=== PATIENT | female | born 1965 | race Caucasian/White ===

== ENCOUNTER 2017-12-29 17:11 | Emergency (ER) | payer MEDICARE, SELFPAY ==
[2017-12-29 17:13] VITALS: BP 130/75; PULSE 105; RESP 18; TEMP 36.9; O2SAT 94; BMI 48.8
[2017-12-29 17:19] VITALS: BMI 48.8
--- NOTE | 2017-12-29 17:34 | CT_ITS ---
STUDY: CT ABDOMEN AND PELVIS WITH CONTRAST REASON FOR EXAM: Female, 52 years old. PAIN X 1 MONTH, HX ASTHMA, GB, HTN RADIATION DOSAGE (If Supplied By Facility): CTDIvol = ( 25.39 ) mGy, DLP = ( 1296.93 ) mGycm TECHNIQUE: Transaxial images were obtained from the dome of the diaphragm to the symphysis pubis without oral contrast. 100ML ml of Isovue 300 contrast was administered. Sagittal and coronal images were reconstructed. Individualized dose optimization techniques were used for this CT. COMPARISON: March 28, 2017 FINDINGS: Again seen is borderline cardiomegaly. Normal liver. There is non-visualization of the gallbladder, which may be secondary to either contraction or a prior cholecystectomy. Normal spleen. Normal pancreas. Normal bilateral adrenal glands. Normal right kidney. Normal left kidney. There is a stable small hiatal hernia. Normal small intestine. There are multiple colonic diverticula consistent with diverticulosis. The appendix is visualized and appears normal. Normal abdominal aorta. Normal inferior vena cava. Normal retroperitoneum. Normal urinary bladder. Normal abdominal wall. There are diffuse degenerative changes of the visualized lumbar spine. CT/Abdomen/Pelvis W IV Cont ONLY IMPRESSION: No acute abnormality is demonstrated. All of the findings are chronic. Electronically Signed: Margret Doyle MD at 19:37 EST , Service support ,
--- NOTE | 2017-12-29 17:37 | ED.DCSUM_ITS ---
- ER Visit Summary Date of Service: 12/29/17 Chief Complaint: Abdominal pain History of Present Illness: The patient is a 52 F who presents with 1 month of abdominal pain. Patient states the pain is diffuse and continuous. It is worsened today. She denies vomiting, nausea, diarrhea or constipation. She states she is on dicyclomine for stomach spasms by her primary care doctor. She denies fever, but does endorse difficulty urinating and pelvic pain. She is diabetic and has hypertension. She is not on insulin. Physical Examination: Vital signs: afebrile, hemodynamically stable, no hypoxia on room air General: well nourished, well developed, in no distress, obese Skin: warm, dry, no rash, no pallor HEENT: normocephalic and atraumatic; PERRL, EOMI, moist mucous membranes Cardiovascular: Mildly tachycardic regular rate and rhythm without murmurs, no peripheral edema, 2+ pulses all distal extremities Respiratory: No increased work of breathing, lungs are clear to auscultation bilaterally, no rales, rhonchi or wheezing Abdominal: Abdomen is soft, obese, diffusely tender quadrants and suprapubic region with normoactive bowel sounds, no guarding or rebound, no masses MSK: Moves all extremities, no deformities, normal strength Neuro: Awake and alert, oriented ?4. No facial droop, sensation and motor function intact and symmetric Test Results: Abnormal Lab Results 12/29/17 12/29/17 12/29/17 17:30 17:30 18:16 WBC 10.2 RBC 4.56 Hgb 11.9 L Hct 37.5 MCV 82.2 MCH 26.1 L MCHC 31.7 L RDW 14.4 RDW Differential 43.0 Plt Count 231 MPV 11.1 Immature Gran % (Auto) 0.300 Neut % (Auto) 73.9 H Lymph % (Auto) 17.8 L Green % (Auto) 7.5 Eos % (Auto) 0.2 Baso % (Auto) 0.3 Absolute Neuts (auto) 7.6 Absolute Lymphs (auto) 1.82 Total Counted Not Reportable Sodium Potassium Chloride Carbon Dioxide Anion Gap BUN Creatinine Estim Creat Clear Calc Est GFR (MDRD) Af Amer Est GFR (MDRD) Non-Af BUN/Creatinine Ratio Glucose Calcium Total Bilirubin AST ALT Alkaline Phosphatase Total Protein Albumin Globulin Albumin/Globulin Ratio Lipase Urine Color Yellow Urine Clarity Clear Urine pH 6.5 Ur Specific [place] 1.010 Urine Protein Negative Urine Glucose (UA) Normal Urine Ketones Negative Urine Occult Blood 25 H Urine Nitrite Negative Urine Bilirubin Negative Urine Urobilinogen Normal Ur Leukocyte Esterase 25 H Urine RBC 0 SEEN Urine WBC 0 SEEN Ur Squamous Epith Cells 10-25 SEEN Urine Bacteria 0 SEEN Hyaline Casts 0-5 SEEN Urine Mucus 0 SEEN Urine Test Negative 12/29/17 18:16 WBC RBC Hgb Hct MCV MCH MCHC RDW RDW Differential Plt Count MPV Immature Gran % (Auto) Neut % (Auto) Lymph % (Auto) Green % (Auto) Eos % (Auto) Baso % (Auto) Absolute Neuts (auto) Absolute Lymphs (auto) Total Counted Sodium 136 Potassium 3.3 L Chloride 101 Carbon Dioxide 27.0 Anion Gap 8 BUN 10 Creatinine 0.76 Estim Creat Clear Calc 67.71 Est GFR (MDRD) Af Amer 102 Est GFR (MDRD) Non-Af 84 BUN/Creatinine Ratio 13.1 Glucose 102 Calcium 8.3 L Total Bilirubin 0.30 AST 21 ALT 24 Alkaline Phosphatase 154 H Total Protein 7.5 Albumin 3.0 L Globulin 4.5 H Albumin/Globulin Ratio 0.7 L Lipase 95 Urine Color Urine Clarity Urine pH Ur Specific [place] Urine Protein Urine Glucose (UA) Urine Ketones Urine Occult Blood Urine Nitrite Urine Bilirubin Urine Urobilinogen Ur Leukocyte Esterase Urine RBC Urine WBC Ur Squamous Epith Cells Urine Bacteria Hyaline Casts Urine Mucus Urine Test Emergency Department Course and Treatment: Patient was given IV hydration, Zofran and Toradol for symptomatic relief. Labs were performed showing no leukocytosis, no significant electrolyte derangements, no hepatic derangements, normal lipase, normal urine, negative . No lab abnormalities at all. CT of the abdomen and pelvis was performed given difficulty performing an assessment due to body habitus, and showed no acute process. Patient was advised to follow-up with her doctor regarding her continued abdominal pain. She already has a prescription for Bentyl, and I told her that is what I would have prescribed her as well. Patient was discharged home. Treatment Plan: [] Disposition: [] Impression: Recurrent abdominal pain This note was generated with Hudl dictation software. It may contain incorrect words, spelling, and punctuation that were not noted in review of the chart prior to signing ED Disposition - Plan for ED Patient: Disposition: Home or Assisted Living Chief Complaint: General Illness Instructions: ED Abdominal Pain Unkn Cause Referrals: Nick Giraldo DO [Primary Care Provider] - 3-5 Days if not improving Additional Instructions: You had a workup for your abdominal pain today. Your blood work was all normal. Your urine showed no infection. A CT scan of your abdomen showed no abnormalities. Please continue using your medications that were prescribed by your doctor for stomach cramps. Please follow-up with your doctor if you continue to have symptoms.
[2017-12-29 17:46] LABS: Bacteria 0 SEEN /hpf (None Seen); Mucous, Urine 0 SEEN /hpf (<or=2+); Red Blood Cells-Urine 0 SEEN /hpf (0-5); White Blood Cells 0 SEEN /hpf (0-5)
[2017-12-29 17:48] LABS: Color, Urine Yellow (Yellow); Glucose, Dipstick Normal (Normal); Ketone-Dipstick Negative (Negative); Leukocyte Esterase-Dipstick 25 /ul (Negative); Nitrite-Dipstick Negative (Negative); Occult Blood-Urine 25 /ul (Negative); Protein-Dipstick Negative (Negative); Urine Bilirubin Dipstick Negative (Negative); Urine Clarity Clear (Clear); Urine Urobilinogen Normal (Normal); Urine pH 6.5 (5.0 - 8.0)
[2017-12-29 17:50] LABS: Internal QC Validated? YES +Cl - CLEAR BKGD; Pregnancy, Urine Negative Negative
[2017-12-29 17:57] LABS: Hyaline Cast 0-5 SEEN /lpf (0-5); Squamous Epithelial Cells - UA 10-25 SEEN /hpf (5-10)
[2017-12-29] MEDS: 0.9% Normal Saline 1,000 ML 1000 ML IV (18:26)
[2017-12-29] MEDS: Ketorolac 30 MG/ML Syringe IV (18:26)
[2017-12-29] MEDS: Ondansetron 4 MG/2 ML Vial IV (18:26)
[2017-12-29 18:32] LABS: Absolute Lymphocyte Count 1.82 X10^3/ul (0.83-4.51); Absolute Neutrophil Count 7.6 X10^3/uL (2.0-7.7); Basophil# 0.03 X10^3/uL; Basophil% 0.3 % (0-1); Eosinophil# 0.02 X10^3/uL; Eosinophils% 0.2 % (0-5); Hematocrit 37.5 % (37-47); Hemoglobin 11.9 g/dl (12.0-15.0); Lymphocyte # 1.82 X10^3/ul (4.0); Lymphocyte % 17.8 % (19-41); Mean Corp Hgb Conc 31.7 g/gl (32-36); Mean Corpuscular Hgb 26.1 pg (27.0-32.0); Mean Corpuscular Volume 82.2 fL (81-99); Mean Platelet Vol. 11.1 fl (6.2-12.0); Monocyte# 0.77 X10^3/uL; Monocyte% 7.5 % (0-10); Neutrophil # 7.57 X10^3/uL (2.7-7.7); Neutrophil % 73.9 % (47-70); POSITIVE COUNT NO; POSITIVE DIFFERENTIAL NO; POSITIVE MORPHOLOGY NO; Platelet Count 231 K/mm3 (150-450); RBC Distribution Width CV 14.4 % (11.6-14.6); Red Blood Count 4.56 M/mm3 (4.2-5.4); White Blood Count 10.2 K/mm3 (4.4-11.0)
[2017-12-29 18:41] LABS: ALB/GLOB Ratio 0.7 RATIO (0.9-2.4); AST(SGOT) 21 U/L (15-37); Alanine Aminotransfer ALT/SGPT 24 U/L (13-56); Alkaline Phosphatase 154 U/L (45-117); Anion Gap 8 (5-15); BUN 10 mg/dL (7-18); BUN/Creat Ratio 13.1 RATIO (10-20); Calcium,Total 8.3 mg/dL (8.5-10.1); Chloride 101 mmol/L (98-107); Creatinine, Serum 0.76 mg/dL (0.55-1.02); EST Glomerular Filtration Rate 84 mL/min (>60); Est Glom Filt Rate - Afr Amer 102 mL/min (>60); Estimated Creatinine Clearance 67.71 ml/min; Globulin 4.5 g/dL (2.2-4.2); Glucose 102 mg/dL (70-110); Lipase 95 U/L (73-393); Potassium 3.3 mmol/L (3.5-5.1); Protein, Total 7.5 g/dL (6.4-8.2); Sodium Level 136 mmol/L (136-145)
--- NOTE | 2017-12-29 19:51 | ED.DEP ---
ED Disposition - Plan for ED Patient: Disposition: Home or Assisted Living Chief Complaint: General Illness Instructions: ED Abdominal Pain Unkn Cause Referrals: Nick Giraldo DO [Primary Care Provider] - 3-5 Days if not improving Additional Instructions: You had a workup for your abdominal pain today. Your blood work was all normal. Your urine showed no infection. A CT scan of your abdomen showed no abnormalities. Please continue using your medications that were prescribed by your doctor for stomach cramps. Please follow-up with your doctor if you continue to have symptoms.
[2017-12-29 20:00] VITALS: BP 146/86; PULSE 93; RESP 20; O2SAT 96
== END 2017-12-29 20:22 | disposition home or self-care (01) ==
PROVIDERS: Emergency Provider Emergency Medicine; Family Provider Student in an Organized Health Care Education/Training Program; PCP Student in an Organized Health Care Education/Training Program
DX: R10.9 Unspecified abdominal pain (principal); E11.9 Type 2 diabetes mellitus without complications; Z79.84 Long term (current) use of oral hypoglycemic drugs; I10 Essential (primary) hypertension; E66.9 Obesity, unspecified; Z68.42 Body mass index [BMI] 45.0-49.9, adult; Z79.899 Other long term (current) drug therapy
CPT/HCPCS: 74176; 80053; 81001; 81025; 83690; 85025; 96361; 96374; 96375; 99285; J7030; Q9967; A4216; J2405

== ENCOUNTER 2019-08-02 02:17 | Emergency (ER) | payer MEDICARE, SELFPAY ==
[2019-08-02 02:18] VITALS: BP 152/77; PULSE 125; RESP 20; TEMP 36.8; O2SAT 95; BMI 47.2
--- NOTE | 2019-08-02 02:20 | EKG12_ITS ---
Test Reason : SHOULDER PAIN Blood Pressure : / mmHG Vent. Rate : 126 BPM Atrial Rate : 126 BPM P-R Int : 164 ms QRS Dur : 100 ms QT Int : 290 ms P-R-T Axes : 052 021 096 degrees QTc Int : 420 ms Sinus tachycardia Nonspecific ST and T wave abnormality Abnormal ECG Confirmed by GILBERT PETERSON, WENDY ([id number]), online content editor VALDEMAR LORENZO ([id number]) on 08/04/2019 11:08:23 AM Referred By: NYDIA Confirmed By:WENDY HUNT MD
--- NOTE | 2019-08-02 02:21 | RAD_ITS ---
STUDY: X-RAY - RIGHT SHOULDER REASON FOR EXAM: Female, 54 years old. Shoulder pain TECHNIQUE: 2 view(s) of the shoulder. COMPARISON: None. FINDINGS: Normal glenohumeral articulation. There is degenerative arthrosis of the acromioclavicular joint without inferior osseous spur formation. Normal acromion. Normal humeral head and visualized proximal humerus. The soft tissue structures are unremarkable. Normal visualized pulmonary apex. RAD/Shoulder min 2 Views IMPRESSION: There is degenerative arthrosis of the acromioclavicular joint. Electronically Signed: Carlos Correa, at 4:06 EDT Tel , Service support ,
--- NOTE | 2019-08-02 02:21 | RAD_ITS ---
STUDY: X-RAY CHEST REASON FOR EXAM: Female, 54 years old. Chest pain TECHNIQUE: Single AP portable view of the chest. COMPARISON: 07/28/2017 FINDINGS: The lungs are clear and expanded. There is no demonstrated pleural abnormality. Normal size heart. Normal mediastinum and jose m. Normal visualized pulmonary arteries. Normal visualized aortic arch and descending thoracic aorta. Normal visualized thoracic spine. There is degenerative osteoarthritis of the bilateral shoulders. There is no demonstrated abnormality of the visualized soft tissue structures of the upper abdomen. RAD/Chest PA and Lateral IMPRESSION: Degenerative changes, as described above. No demonstrated acute cardiopulmonary process. Electronically Signed: Carlos Correa, at 4:04 EDT Tel , Service support ,
--- NOTE | 2019-08-02 02:28 | ED.VIS.GEN ---
History of Present Illness Chief Complaint: Shortness of Breath Informant: Patient Onset: Days Context: Gradual Onset Timing: Continuous Current Severity: Moderate Maximum Severity: Moderate Narrative: Patient presents to the emergency department with 6 days of constant right-sided chest and shoulder pain. She states her symptoms began when she was lifting a lot of heavy items. Since then, she is had persistent pain. She states it hurts to move the shoulder. Also hurts when she lifts things. She denies any exertional symptoms of chest pain. She has no history of coronary vascular disease. The patient does have history of diabetes and hypertension. She also has history of bipolar disorder. She cannot recall any definitive trauma. She has not taken anything for her pain. She denies leg edema. She denies orthopnea. She has no history of pulmonary embolus. Prior similar symptoms: No Recent Illness/Hospitalization: No Past Medical History - Allergies and Home Meds Allergies/Adverse Reactions: Allergies latex Allergy (Verified 08/02/19 02:18) Rash lithium [[place]] Allergy (Verified 08/02/19 02:18) Anaphylaxis acetaminophen [From Tylenol-Codeine] Adverse Reaction (Verified 08/02/19 02:18) Vomiting aspirin Adverse Reaction (Verified 08/02/19 02:18) Vomiting citalopram hydrobromide [From Celexa] Adverse Reaction (Verified 08/02/19 02:18) Other DOESN'T HELP MY DEPRESSION codeine Adverse Reaction (Verified 08/02/19 02:18) Vomiting divalproex sodium [From Depakote] Adverse Reaction (Verified 08/02/19 02:18) Vomiting ibuprofen Adverse Reaction (Verified 08/02/19 02:18) Nausea nortriptyline Adverse Reaction (Verified 08/02/19 02:18) Other SLEEPING PILL Adverse Reaction (Uncoded 08/02/19 02:18) Other SLEEP WALKING Primary Care Physician: Nick Giraldo DO [Primary Care Provider] - Prior records reviewed: Yes Past Medical History: - - Hypertension, diabetes, bipolar disorder Surgical History: cholecystectomy, total knee arthroplasty, tonsillectomy Smoking Status: Never smoker - Family History Maternal Family History: Reports: No pertinent history Paternal Family History: Reports: No pertinent history Review of Systems General: Denies: Chills, Fever, Sweats Eyes: Denies: Visual changes - bilaterally, Diplopia ENT: Denies: Rhinorrhea, Sore throat Cardiovascular: Reports: Chest pain Respiratory: Reports: Dyspnea Gastrointestinal: Denies: Abdominal pain, Nausea, Vomiting, Diarrhea, Melena, Hematochezia Genitourinary: Denies: Dysuria, Hematuria, Frequency Musculoskeletal: Reports: Arthralgias Skin: Denies: Rash, Wounds Neurological: Denies: Headache, Weakness, Numbness Physical Exam Vital Signs/Narrative: Vital Signs Temp Pulse Resp BP Pulse Ox 08/02/19 02:18 98.3 F 125 H 20 H 152/77 H 95 Inital Vital Signs reviewed: Yes General: Well nourished, Well developed, No Acute Distress Head: Normocephalic, Atraumatic Eyes: Perrl, EOMI ENT: Moist mucous membranes, No rhinorrhea Neck: Supple, Nontender Cardiovascular: Regular rate, Regular rhythm, No murmurs Respiratory: No distress, CTA bilaterally, Chest tenderness Abdomen: Soft, Nontender, Nondistended, Normal bowel sounds Back: Nontender, Normal Inspection Extremities: No edema, Tenderness - Mild tenderness with motion of the right shoulder. No erythema or edema. Normal pulses. Skin: Normal color, No rash Neurological: Alert, Oriented x3, Cranial nerves II-XII grossly intact, Normal Strength, Normal Sensation Psychological: Normal affect, Normal Mood Diagnostic/Tx/Re-eval Chest X-Ray - ED: 2 View, Read by ED Physician, Read by Radiologist, Normal, Heart, Lungs Clinical Impression(s) from Imaging Studies Chest X-Ray 08/02/19 02:21 IMPRESSION: Degenerative changes, as described above. No demonstrated acute cardiopulmonary process. Electronically Signed: Carlos Correa, at 4:04 EDT Tel , Service support , Shoulder X-Ray 08/02/19 02:21 IMPRESSION: There is degenerative arthrosis of the acromioclavicular joint. Electronically Signed: Carlos Correa, at 4:06 EDT Tel , Service support , Abnormal Lab Results 08/02/19 08/02/19 08/02/19 02:45 02:45 02:45 WBC 11.8 H RBC 4.37 Hgb 11.3 L Hct 35.2 L MCV 80.5 L MCH 25.9 L MCHC 32.1 RDW Std Deviation 40.7 RDW Coeff of Yink[place] 14.0 Plt Count 217 MPV 11.5 Immature Gran % (Auto) 0.600 Neut % (Auto) 69.8 Lymph % (Auto) 21.8 [place] % (Auto) 5.6 Eos % (Auto) 1.9 Baso % (Auto) 0.3 Absolute Neuts (auto) 8.2 H Absolute Lymphs (auto) 2.58 Nucleated RBC % 0 D-Dimer Quant (PE/DVT) 0.30 Sodium 142 Potassium 3.4 L Chloride 105 Carbon Dioxide 24.0 Anion Gap 13 BUN 20 H Creatinine 1.13 H Estim Creat Clear Calc 42.45 Est GFR (MDRD) Af Amer 64 Est GFR (MDRD) Non-Af 53 L BUN/Creatinine Ratio 17.7 Glucose 132 H Calcium 8.4 L Total Bilirubin 0.20 AST 11 L ALT 22 Alkaline Phosphatase 143 H Troponin I < 0.015 Total Protein 7.2 Albumin 3.0 L Globulin 4.2 Albumin/Globulin Ratio 0.7 L - Rhythm Strip Rhythm Strip: Sinus Tach Rate: 102 Ectopy: None - EKG Initial EKG Interpretation: Sinus Rhythm, No Acute Injury Pattern, Sinus Tachycardia Prior: Unchanged - Medical Decision Making The patient's pain does seem reproducible and worse with motion. She has normal pulses in the upper extremities. There is no skin breakdown, erythema, or edema. Chest pain work-up was pursued. EKG demonstrates sinus tachycardia. There is no acute ischemic change. With this, I did obtain a d-dimer. This was negative. X-ray shows no evidence of volume overload, pneumothorax, or other dangerous process. Patient's cardiac enzymes are normal. She had constant pain for 6 days. I do not feel this up with acute coronary syndrome. The patient's pain does seem muscular. I am going to treat her with anti-inflammatories and antispasmodics. She was counseled on concerning symptoms and reasons to return. She will be discharged home. Discharge 1. Noncardiac chest pain ED Disposition - Plan for ED Patient: Instructions: CHEST WALL PAIN, Costochondritis Prescriptions: cycloBENZAPRine HCl [Flexeril] 10 mg PO TID PRN #20 tab PRN Reason: Muscle Spasm Prescription Printed Naproxen [Naprosyn] 500 mg PO BID #14 tab Prescription Printed Referrals: Nick Giraldo DO [Primary Care Provider] -
[2019-08-02] MEDS: 0.9% Normal Saline 1,000 ML 1000 ML IV (02:45)
[2019-08-02] MEDS: Ondansetron 4 MG/2 ML Vial IV (02:46)
[2019-08-02] MEDS: Ketorolac 15 MG/ML Vial IV (02:46)
[2019-08-02 02:52] VITALS: O2SAT 98
[2019-08-02 02:52] LABS: Absolute Lymphocyte Count 2.58 X10^3/uL (0.83-4.51); Absolute Neutrophil Count 8.2 X10^3/uL (2.0-7.7); Basophil# 0.04 X10^3/uL; Basophil% 0.3 % (0-1); Eosinophil# 0.23 X10^3/uL; Eosinophils% 1.9 % (0-5); Hematocrit 35.2 % (37-47); Hemoglobin 11.3 g/dL (12.0-15.0); Lymphocyte # 2.58 X10^3/ul (4.0); Lymphocyte % 21.8 % (19-41); Mean Corp Hgb Conc 32.1 g/dL (32-36); Mean Corpuscular Hgb 25.9 pg (27.0-32.0); Mean Corpuscular Volume 80.5 fL (81-99); Mean Platelet Vol. 11.5 fl (6.2-12.0); Monocyte# 0.66 X10^3/uL; Monocyte% 5.6 % (0-10); NRBC Flagged by Analyzer 0 % (0-5); Neutrophil # 8.24 X10^3/uL (2.7-7.7); Neutrophil % 69.8 % (47-70); Platelet Count 217 K/mm3 (150-450); RBC Distribution Width SD 40.7 fl (35.1-43.9); Red Blood Count 4.37 M/mm3 (4.2-5.4); White Blood Count 11.8 K/mm3 (4.4-11.0)
[2019-08-02 03:11] LABS: ALB/GLOB Ratio 0.7 RATIO (0.9-2.4); AST(SGOT) 11 U/L (15-37); Alanine Aminotransfer ALT/SGPT 22 U/L (13-56); Alkaline Phosphatase 143 U/L (45-117); Anion Gap 13 (5-15); BUN 20 mg/dL (7-18); BUN/Creat Ratio 17.7 RATIO (10-20); Calcium,Total 8.4 mg/dL (8.5-10.1); Chloride 105 mmol/L (98-107); Creatinine, Serum 1.13 mg/dL (0.55-1.02); EST Glomerular Filtration Rate 53 mL/min (>60); Est Glom Filt Rate - Afr Amer 64 mL/min (>60); Estimated Creatinine Clearance 42.45 ml/min; Globulin 4.2 g/dL (2.2-4.2); Glucose 132 mg/dL (74-106); Potassium 3.4 mmol/L (3.5-5.1); Protein, Total 7.2 g/dL (6.4-8.2); Sodium Level 142 mmol/L (136-145)
[2019-08-02 04:20] VITALS: BP 132/61; PULSE 104; PULSE 105; RESP 20; RESP 21; O2SAT 93
== END 2019-08-02 04:27 | disposition home or self-care (01) ==
LOC: ED 03:24
PROVIDERS: Emergency Provider Emergency Medicine; Family Provider Student in an Organized Health Care Education/Training Program; PCP Student in an Organized Health Care Education/Training Program
DX: R07.89 Other chest pain (principal); R06.00 Dyspnea, unspecified; M19.011 Primary osteoarthritis, right shoulder; E11.9 Type 2 diabetes mellitus without complications; I10 Essential (primary) hypertension; F31.9 Bipolar disorder, unspecified; Z79.84 Long term (current) use of oral hypoglycemic drugs; Z79.899 Other long term (current) drug therapy
CPT/HCPCS: 71046; 73030; 80053; 84484; 85025; 85379; 93005; 96361; 96374; 96375; 99285; J7030; A4216; J2405

== ENCOUNTER 2020-02-20 17:46 | Emergency (ER) | payer MEDICARE, SELFPAY ==
[2020-02-20 17:47] VITALS: BP 126/80; PULSE 92; RESP 18; TEMP 36.8; O2SAT 98; BMI 45.2
[2020-02-20 17:51] VITALS: BP 126/80; PULSE 92; RESP 18; TEMP 36.8; O2SAT 98
--- NOTE | 2020-02-20 17:59 | ED.VISSUMM ---
- ER Visit Summary Date of Service: 02/20/20 Chief Complaint: Painful urination History of Present Illness: The patient is a 55 F who states she has had painful urination for the past 3-1/2 weeks. She has pain in what she says is her back and kidneys.in her suprapubic area. Laying down makes this worse. She has taken nothing for pain at home. No fevers. She states she also has a headache which she states is normal for her. She did vomit a couple of days ago but has not had any since. Physical Examination: Vital signs reviewed. HEENT exam unremarkable. Heart is regular rate and rhythm without murmurs. Lungs are clear to auscultation. Abdomen is soft with suprapubic tenderness. Extremities reveal no edema. Skin exam normal. Neurologic exam normal. Test Results: Urinalysis has 0-5 white cells, 0-5 red cells and 5-10 epithelial cells. No bacteria seen. Emergency Department Course and Treatment: Patient will be given Tylenol for pain. Her exam is fairly benign. Her vital signs are unremarkable. UA has no signs of any bacteria or infection. I do not feel she requires antibiotics. She will take Tylenol or ibuprofen for pain at home. She will follow-up with her doctor Treatment Plan: [] Disposition: Discharge Impression: Dysuria This note was generated with Trippeo dictation software. It may contain incorrect words, spelling, and punctuation that were not noted in review of the chart prior to signing ED Disposition - Plan for ED Patient: Disposition: Home or Assisted Living Instructions: DYSURIA, Uncertain Cause (Adult) Referrals: Nick Giraldo DO [Primary Care Provider] -
[2020-02-20 18:15] LABS: Bacteria 0 SEEN /hpf (None Seen); Color, Urine Yellow (Yellow); Glucose, Dipstick Normal (Normal); Ketone-Dipstick 15 mg/dl (Negative); Leukocyte Esterase-Dipstick 100 /ul (Negative); Nitrite-Dipstick Negative (Negative); Occult Blood-Urine 10 /ul (Negative); Protein-Dipstick 30 mg/dl (Negative); Specific Gravity, Urine 1.025 (1.002-1.030); Urine Clarity Cloudy (Clear); Urine Urobilinogen 1 mg/dl (Normal)
[2020-02-20 18:22] LABS: Urine Bilirubin Dipstick 1 mg/dL (Negative)
[2020-02-20 18:31] LABS: Hyaline Cast 25-50 SEEN /lpf (0-5)
[2020-02-20 18:33] LABS: Calcium Oxalate Crystals Ur 3+ /hpf (<or=2+); Red Blood Cells-Urine 0-5 SEEN /hpf (0-5); Squamous Epithelial Cells - UA 5-10 SEEN /hpf (5-10); White Blood Cells 0-5 SEEN /hpf (0-5)
[2020-02-20 18:34] LABS: Transitional Epithelial - Ur 0-5 SEEN /hpf (0-5)
[2020-02-20 18:39] LABS: Mucous, Urine 4+ /hpf (<or=2+)
[2020-02-20] MEDS: Acetaminophen 500 MG Tablet 1000 MG PO (18:53)
[2020-02-20 18:58] VITALS: RESP 18
== END 2020-02-20 19:02 | disposition home or self-care (01) ==
PROVIDERS: Emergency Provider Emergency Medicine; PCP Student in an Organized Health Care Education/Training Program
DX: R30.0 Dysuria (principal); I10 Essential (primary) hypertension; E11.9 Type 2 diabetes mellitus without complications; Z79.84 Long term (current) use of oral hypoglycemic drugs
CPT/HCPCS: 81001; 99284

== ENCOUNTER → 2020-09-28 17:28 | Outpatient (CLI) | payer MEDICARE, SELFPAY | PROVIDERS: PCP Student in an Organized Health Care Education/Training Program; Visit Provider Student in an Organized Health Care Education/Training Program | DX: U07.1 COVID-19 (principal) | CPT/HCPCS: 87635; C9803; U0003 ==

== ENCOUNTER 2020-11-18 17:27 | Inpatient (IN) | payer MEDICARE, MEDICAID, SELFPAY ==
[2020-11-18] VITALS (11 sets, daily range): BP systolic 104–145; BP diastolic 57–96; PULSE 95–118; RESP 16–25; TEMP 36.2–36.8; O2SAT 93–98; BMI 48.0; BMI 46.1; BMI 46.2
--- NOTE | 2020-11-18 17:52 | EKG12_ITS ---
Test Reason : CP Blood Pressure : / mmHG Vent. Rate : 109 BPM Atrial Rate : 109 BPM P-R Int : 164 ms QRS Dur : 100 ms QT Int : 336 ms P-R-T Axes : 051 023 082 degrees QTc Int : 452 ms Sinus tachycardia Otherwise normal ECG Confirmed by GERBER PETERSON, CHIARA ([id number]), can crimper ROBERT CARBAJAL ([id number]) on 11/23/2020 9:50:00 A M Referred By: Robbie Marie Confirmed By:MACIEL MAYES MD
--- NOTE | 2020-11-18 17:52 | ED.VIS.GEN ---
History of Present Illness Chief Complaint: Chest Pain Informant: Patient Onset: Yesterday Current Severity: Mild Maximum Severity: Moderate Narrative: Patient presents via EMS secondary to chest pain. Patient states she had some mild chest pressure yesterday but worsened about an hour prior to arrival. She was given aspirin and 1 nitroglycerin with squad. She does report some improvement in her chest pain with this. Patient denies known history of coronary disease. She does have significant family history on both sides of the family. She does have history of diabetes and hypertension. There is also a family history of DVT. Patient states she does continue to have right leg swelling after falling and injuring her leg 3 months ago. - Past Medical History (1) Asthma Status: Chronic (2) Bipolar disorder Status: Chronic (3) Type II diabetes mellitus Status: Chronic (4) Hypertension Status: Chronic Past Medical History - Allergies and Home Meds Allergies/Adverse Reactions: Allergies latex Allergy (Verified 11/18/20 17:45) Rash lithium [[place]] Allergy (Verified 11/18/20 17:45) Anaphylaxis acetaminophen [From Tylenol-Codeine] Adverse Reaction (Verified 11/18/20 17:45) Vomiting aspirin Adverse Reaction (Verified 11/18/20 17:45) Vomiting citalopram hydrobromide [From Celexa] Adverse Reaction (Verified 11/18/20 17:45) Other DOESN'T HELP MY DEPRESSION codeine Adverse Reaction (Verified 11/18/20 17:45) Vomiting divalproex sodium [From Depakote] Adverse Reaction (Verified 11/18/20 17:45) Vomiting ibuprofen Adverse Reaction (Verified 11/18/20 17:45) Nausea nortriptyline Adverse Reaction (Verified 11/18/20 17:45) Other SLEEPING PILL Adverse Reaction (Uncoded 11/18/20 17:45) Other SLEEP WALKING Primary Care Physician: Nick Giraldo DO [Primary Care Provider] - Prior records reviewed: Yes Surgical History: cholecystectomy, total knee arthroplasty, tonsillectomy Smoking Status: Former smoker - Family History Maternal Family History: Reports: No pertinent history Paternal Family History: Reports: No pertinent history Review of Systems General: Denies: Chills, Fever Eyes: Denies: Visual changes - bilaterally ENT: Denies: Bilateral ear pain Cardiovascular: Reports: Chest pain Respiratory: Reports: Dyspnea. Denies: Cough Gastrointestinal: Denies: Abdominal pain, Nausea, Vomiting, Diarrhea Musculoskeletal: Reports: Swelling, Extremity Pain Skin: Denies: Rash Hematologic: Denies: Easy bruising, Easy bleeding Allergy: Denies: [place] Physical Exam Vital Signs/Narrative: Vital Signs Temp Pulse Resp BP Pulse Ox 11/18/20 17:40 97.2 F L 108 H 20 H 129/83 H 97 Inital Vital Signs reviewed: Yes General: Well nourished, Well developed Head: Normocephalic ENT: Moist mucous membranes Neck: Supple Cardiovascular: Regular rate, Regular rhythm Respiratory: No distress, CTA bilaterally, Chest tenderness - Mild chest wall tenderness. No crepitus. Abdomen: Soft, Nontender Extremities: - - 1+ bilateral lower extremity edema, symmetric. Skin: Normal color Neurological: Alert, Oriented x3 Psychological: Normal affect Diagnostic/Tx/Re-eval Chest X-Ray - ED: 1 View, Read by ED Physician, Chronic Changes Impressions Chest X-Ray 11/18/20 18:30 IMPRESSION: There are interstitial fibrotic changes of the lungs. No visualized focal consolidation. Electronically Signed: Luis Quintana MD at 18:52 EST , Service support , Chest CTA 11/18/20 18:52 IMPRESSION: 1. No demonstrated pulmonary embolism or arterial dissection. 2. Mild diffuse pulmonary edema is present in both lungs. No visualized consolidation. Mild elevation of the left hemidiaphragm noted. No nodules are seen. Electronically Signed: Luis Quintana MD at 19:57 EST , Service support , 11/18/20 18:30 Chest 1 View (Portable) [RAD] Stat 11/18/20 18:52 CTA Chest W/WO Contrast [CT] Stat Laboratory Results 11/18/20 11/18/20 11/18/20 18:23 18:23 18:23 WBC 8.9 RBC 4.49 Hgb 11.6 L Hct 36.0 L MCV 80.2 L MCH 25.8 L MCHC 32.2 RDW Std Deviation 40.6 RDW Coeff of [place] 13.9 Plt Count 222 MPV 10.9 Immature Gran % (Auto) 0.800 Neut % (Auto) 64.3 Lymph % (Auto) 25.8 [place] % (Auto) 7.4 Eos % (Auto) 1.2 Baso % (Auto) 0.5 Absolute Neuts (auto) 5.7 Absolute Lymphs (auto) 2.29 Nucleated RBC % 0 D-Dimer Quant (PE/DVT) 0.87 H* Sodium 138 Potassium 3.2 L Chloride 103 Carbon Dioxide 29.0 Anion Gap 6 BUN 21 H Creatinine 0.80 Estim Creat Clear Calc 62.10 Est GFR (MDRD) Af Amer 95 Est GFR (MDRD) Non-Af 79 BUN/Creatinine Ratio 26.3 H Glucose 103 Calcium 8.5 Troponin I < 0.015 - EKG Initial EKG Interpretation: Sinus Tachycardia - Sinus tachycardia at 109. No acute ST change. - Medical Decision Making Patient had been given aspirin and 1 nitro with squad. She was given additional nitro here and pain did improve. On repeat evaluation test results are discussed with the patient. At this time her troponin is negative. Her D-dimer is slightly elevated but CTA does not reveal evidence of a PE. With her significant family history and her lack of previous testing I did recommend observation overnight for cycling of cardiac enzymes. I will speak with hospitalist. ED Disposition - Plan for ED Patient: Disposition: Acute Care Hospital [facility] Diagnosis: Chest pain Referrals: Nick Giraldo DO [Primary Care Provider] -
[2020-11-18] MEDS: Nitroglycerin SL (ED/IMG/CATH) 0.4 MG TABLET SUBLINGUAL ×3 (18:15→18:24)
--- NOTE | 2020-11-18 18:30 | RAD_ITS ---
STUDY: X-RAY CHEST REASON FOR EXAM: Female, 55 years old. Chest pain started yesterday. Bilateral arm pain. TECHNIQUE: Single AP portable view of the chest. COMPARISON: August 02, 2019 FINDINGS: There are interstitial fibrotic changes of the lungs. No visualized focal consolidation. There is no demonstrated pleural abnormality. Normal size heart. Normal mediastinum and jose m. Normal visualized pulmonary arteries. There is atherosclerotic tortuosity of the aortic arch and descending thoracic aorta. Unremarkable visualized osseous structures. There is no demonstrated abnormality of the visualized soft tissue structures of the upper abdomen. RAD/Chest 1 View (Portable) IMPRESSION: There are interstitial fibrotic changes of the lungs. No visualized focal consolidation. Electronically Signed: Luis Quintana MD at 18:52 EST , Service support ,
[2020-11-18 18:31] LABS: Absolute Lymphocyte Count 2.29 X10^3/uL (0.83-4.51); Absolute Neutrophil Count 5.7 X10^3/uL (2.0-7.7); Basophil# 0.04 X10^3/uL; Basophil% 0.5 % (0-1); Eosinophil# 0.11 X10^3/uL; Eosinophils% 1.2 % (0-5); Hemoglobin 11.6 g/dL (12.0-15.0); Lymphocyte # 2.29 X10^3/ul (4.0); Lymphocyte % 25.8 % (19-41); Mean Corp Hgb Conc 32.2 g/dL (32-36); Mean Corpuscular Hgb 25.8 pg (27.0-32.0); Mean Corpuscular Volume 80.2 fL (81-99); Mean Platelet Vol. 10.9 fl (6.2-12.0); Monocyte# 0.66 X10^3/uL; Monocyte% 7.4 % (0-10); NRBC Flagged by Analyzer 0 % (0-5); Neutrophil % 64.3 % (47-70); Platelet Count 222 K/mm3 (150-450); RBC Distribution Width CV 13.9 % (11.6-14.6); RBC Distribution Width SD 40.6 fl (35.1-43.9); Red Blood Count 4.49 M/mm3 (4.2-5.4); White Blood Count 8.9 K/mm3 (4.4-11.0)
[2020-11-18 18:49] LABS: Anion Gap 6 (5-15); BUN 21 mg/dL (7-18); BUN/Creat Ratio 26.3 RATIO (10-20); Calcium,Total 8.5 mg/dL (8.5-10.1); Chloride 103 mmol/L (98-107); D-Dimer Quantitative (DVT/PE) 0.87 FEU/ug/m (0.27-0.49); EST Glomerular Filtration Rate 79 mL/min (>60); Est Glom Filt Rate - Afr Amer 95 mL/min (>60); Glucose 103 mg/dL (74-106); Potassium 3.2 mmol/L (3.5-5.1); Sodium Level 138 mmol/L (136-145)
--- NOTE | 2020-11-18 18:52 | CT_ITS ---
STUDY: CTA CHEST REASON FOR EXAM: Female, 55 years old. CHEST PAIN -- HX:DIABETES,HTN RADIATION DOSAGE (If Supplied By Facility): CTDIvol = ( 13.85 ) mGy, DLP = ( 468.91 ) mGycm TECHNIQUE: The examination was performed with the intravenous administration of IV 100mL Isovue-370. Post-processing of the angiographic images was performed, with multiplanar reformation and 3D reconstruction. Individualized dose optimization techniques were used for this CT. COMPARISON: Chest x-ray dated November 18, 2020 FINDINGS: Normal enhancement of the main pulmonary artery and right and left pulmonary arteries. Normal enhancement of the bilateral peripheral pulmonary arteries. There is no demonstrated pulmonary embolism. Normal thoracic aorta and visualized great vessels. There is no demonstrated aortic dissection. Normal heart size and pericardium. Normal mediastinum. Normal hilar regions. Normal visualized trachea and bronchi. The lungs are well expanded. Mild diffuse pulmonary edema is present in both lungs. No visualized consolidation. Mild elevation of the left hemidiaphragm noted. No nodules are seen. Normal pleura. Normal chest wall structures. There are degenerative changes of thoracic spine. Moderate size hiatal hernia and is present. CT/CTA Chest W/WO Contrast IMPRESSION: 1. No demonstrated pulmonary embolism or arterial dissection. 2. Mild diffuse pulmonary edema is present in both lungs. No visualized consolidation. Mild elevation of the left hemidiaphragm noted. No nodules are seen. Electronically Signed: Luis Quintana MD at 19:57 EST , Service support ,
--- NOTE | 2020-11-18 21:10 | PCM.HP.STD ---
Problem List (1) Asthma Status: Chronic (2) Chest pain Status: Acute (3) Hypokalemia Status: Acute (4) Depression Status: Chronic (5) Bipolar disorder Status: Chronic Qualifiers: Active/Remission status: currently active Current episode severity: moderate (6) Type II diabetes mellitus Status: Chronic Qualifiers: Diabetes mellitus care home insulin use: without long term acute care registered nurse use Diabetes mellitus complication status: with neurologic complications Diabetes mellitus complication detail: with polyneuropathy Qualified Code(s): E11.42 - Type 2 diabetes mellitus with diabetic polyneuropathy (7) Hypertension Status: Chronic Qualifiers: Hypertension type: essential hypertension Qualified Code(s): I10 - Essential (primary) hypertension (8) Iron deficiency anemia due to chronic blood loss Status: Inactive (9) Diarrhea Status: Inactive Qualifiers: Diarrhea type: unspecified type Qualified Code(s): R19.7 - Diarrhea, unspecified (10) Abdominal pain Status: Inactive Qualifiers: Abdominal location: generalized Qualified Code(s): R10.84 - Generalized abdominal pain (11) Rectal bleed Status: Inactive (12) Anxiety Status: Chronic History of Present Illness Date of Admission: 11/18/20 Chief Complaint: Chest pain The patient is a 55 year old F with a significant history of hypertension; asthma diabetes mellitus; morbid obesity and bipolar disorder who presents to the emergency department with progressively worsening chest pain. Here Chest pain started a day before presentation and it got worse about 1 hour prior to presentation. Her chest pain spun across her entire chest. It radiates to her entire right arm and right forearm. Her chest pain radiates to her left scapula. Her chest pain improves with rest and it is aggravated with exertion. She received some aspirin and nitroglycerin from paramedics which helped with her chest pain. At the emergency department she also received nitroglycerin and that helped with her chest pain. Associated with symptoms is some shortness of breath. She denies any nausea or vomiting. Past Medical History Past Medical History (Chronic Problems): Chronic Problems Asthma (Chronic) Depression (Chronic) Bipolar disorder (Chronic) Type II diabetes mellitus (Chronic) Hypertension (Chronic) Anxiety (Chronic) Allergies latex Allergy (Verified 11/18/20 17:45) Rash lithium [[place]] Allergy (Verified 11/18/20 17:45) Anaphylaxis acetaminophen [From Tylenol-Codeine] Adverse Reaction (Verified 11/18/20 17:45) Vomiting aspirin Adverse Reaction (Verified 11/18/20 17:45) Vomiting citalopram hydrobromide [From Celexa] Adverse Reaction (Verified 11/18/20 17:45) Other DOESN'T HELP MY DEPRESSION codeine Adverse Reaction (Verified 11/18/20 17:45) Vomiting divalproex sodium [From Depakote] Adverse Reaction (Verified 11/18/20 17:45) Vomiting ibuprofen Adverse Reaction (Verified 11/18/20 17:45) Nausea nortriptyline Adverse Reaction (Verified 11/18/20 17:45) Other SLEEPING PILL Adverse Reaction (Uncoded 11/18/20 17:45) Other SLEEP WALKING Home Medications: Ambulatory Orders Medication Instructions Recorded Albuterol Inhaler [Ventolin Hfa] 1 - 2 puff INHALATION Q4H PRN PRN 12/06/16 Carbamazepine [Tegretol] 200 mg PO BID 12/06/16 Ferrous Sulfate 325 mg PO DAILY@0800 12/06/16 Glimepiride 1 mg PO DAILY 12/06/16 Hydrochlorothiazide [Hctz] 25 mg PO DAILY 12/06/16 Omeprazole 40 mg PO BID 12/06/16 Quetiapine Fumarate [Seroquel] 450 mg PO QHS 12/06/16 Solifenacin Succinate [Vesicare] 10 mg PO QHS 12/06/16 Venlafaxine XR [Effexor Xr] 75 mg PO DAILY 12/06/16 Amlodipine [Norvasc] 10 mg PO DAILY 07/09/17 Fexofenadine HCl 180 mg PO DAILY 08/02/19 Fluticasone 0.05% [Flonase Nasal 2 spray NASAL DAILY 08/02/19 [place]] Montelukast [Singulair] 10 mg PO DAILY 08/02/19 Naproxen [Naprosyn] 500 mg PO BID #14 tab 08/02/19 Potassium Chloride 10 meq PO BID 08/02/19 cycloBENZAPRine HCl [Flexeril] 10 mg PO TID PRN #20 tab 08/02/19 Surgical History: cholecystectomy, total knee arthroplasty, tonsillectomy Psychiatric History: Anxiety, Bipolar, Depression [employer] History: No pertinent [employer]ER history Smoking Status: Former smoker - *Family History Maternal History Items: Heart Disease, - - Her sister had brain aneurysm. Paternal History Items: Heart Disease Review of Systems Constitutional: Denies: Chills, Fever, Weight Change HEENT: Denies: Head Aches, Sinus Congestion, Sinus Drainage Cardiovascular: Reports: Chest Pain, Edema - Right leg. Denies: Palpitations Respiratory: Reports: Shortness of Breath. Denies: Cough, Shortness of breath at rest, Sputum production Gastrointestinal: Denies: Abdominal Pain, Nausea, Vomiting Genitourinary: Denies: Dysuria Musculoskeletal: Denies: Joint Pain, Joint Tenderness Skin: Denies: Rash, Wounds Neurological: Denies: Numbness, Tingling, Focal weakness Psychiatric: Reports: Depression. Denies: Anxiety, Homicidal Ideations, Suicidal Ideations Hematologic/ Lymphatic: Denies: Easy Bruising, Easy Bleeding VTE Information - Inpt Only VTE Present on Admission: No VTE Mechan Device Prophylaxis: SCD's, None VTE Pharm Prophylaxis ordered?: No Patient Problems: Active and Suspected Problems Chest pain (Acute) Hypokalemia (Acute) - Physical Exam Vitals/I&O's: Vital Signs Temp Pulse Resp BP Pulse Ox 97.4 F L 103 H 18 121/73 H 98 11/18/20 20:41 11/18/20 20:41 11/18/20 20:41 11/18/20 20:41 11/18/20 20:41 Oxygen Delivery Method Room Air Weight: 119.1 kg Body Mass Index (BMI) 48.0 General: Alert, Oriented x3, Cooperative HEENT: Atraumatic, PERRLA, EOMI, Normocephalic Neck: Supple, No JVD, Negative Carotid Bruits Lungs: Clear to auscultation, Normal air movement Cardiovascular: Regular rate, Normal S1, Normal S2, No murmurs Abdomen: Bowel Sounds Present, Soft, Non Tender Extremities: No edema, Capillary Refill Less than 3 Seconds, Tenderness - Bilateral calves Skin: No rashes, No breakdown Musculoskeletal: No Tenderness to Palpation of Joints or Extremities Neurological: Cranial nerves II-XII grossly intact Psych/Mental Status: Anxious, Depressed Laboratory Results 11/18/20 18:23: WBC 8.9, RBC 4.49, Hgb 11.6 L, Hct 36.0 L, MCV 80.2 L, MCH 25.8 L, MCHC 32.2, RDW Std Deviation 40.6, RDW Coeff of [place] 13.9, Plt Count 222, MPV 10.9, Immature Gran % (Auto) 0.800, Neut % (Auto) 64.3, Lymph % (Auto) 25.8, [place] % (Auto) 7.4, Eos % (Auto) 1.2, Baso % (Auto) 0.5, Absolute Neuts (auto) 5.7, Absolute Lymphs (auto) 2.29, Nucleated RBC % 0 11/18/20 18:23: D-Dimer Quant (PE/DVT) 0.87 H* 11/18/20 18:23: Sodium 138, Potassium 3.2 L, Chloride 103, Carbon Dioxide 29.0, Anion Gap 6, BUN 21 H, Creatinine 0.80, Estim Creat Clear Calc 62.10, Est GFR (MDRD) Af Amer 95, Est GFR (MDRD) Non-Af 79, BUN/Creatinine Ratio 26.3 H, Glucose 103, Calcium 8.5, Troponin I < 0.015 Assessment/Plan All Active Problems Chest pain (Acute) Hypokalemia (Acute) The patient is a 55 year old F with a significant history of hypertension; diabetes mellitus; morbid obesity and bipolar disorder who presents emergency department with worsening chest pain. Chest pain Place on a monitored bed at PCU Radiologist impression of chest x-ray: There are interstitial fibrotic changes of the lungs. No visualized focal consolidation. Actual CXR image was independently visualized. I agree radiologist interpretation. Actual EKG tracing was independently visualized. EKG tracing showed sinus tachycardia with a rate of 109. D-dimer was elevated. Follow-up chest CTA with mild diffuse pulmonary edema in both lungs. We will get an echocardiogram. ASA 81 mg p.o. daily ordered SL NTG 0.4 mg prn as needed for chest pain ordered Morphine as needed for pain ordered We will check lipid panel. Serial cardiac enzymes ordered Stat EKG as needed for chest pain Treadmill stress test in the AM if the cardiac enzymes are negative Elevated D-dimer Reportedly patient's fell and had bilateral swelling of her legs. Per patient's while the swelling of her left leg has resolved the swelling of her right leg has not completely resolved although it is improved. Per physical examination no swelling of extremities were noted. Bilateral calves were tender. We will get bilateral Doppler of legs. Hypokalemia Potassium of 3.2 at emergency department. Replaced at the emergency department. Escalate home dose of potassium. Of note patient is on home hydrochlorothiazide that may be contributing to hypokalemia. Trend BMP. Diabetes mellitus Blood glucose was within goal on presentation. Hold glimepiride as patient is at risk of hypoglycemia in the setting of n.p.o. for stress test. Accu-Chek every 6 hours with low-dose correction scale insulin ordered. Hypertension Blood pressure is slightly above goal Amlodipine and hydrochlorothiazide continued Trend blood sugar blood pressure and adjust blood pressure medications. Asthma and allergies Stable Singulair and antihistamine continued Ventolin as needed continued. Bipolar disorder Tegretol; and Seroquel continued. Effexor continued DVT prophylaxis SCD OBSV E&M: [id number] Initial observation care L3
--- NOTE | 2020-11-18 21:54 | EKG12_ITS ---
Test Reason : CP ADMIT Blood Pressure : / mmHG Vent. Rate : 111 BPM Atrial Rate : 111 BPM P-R Int : 170 ms QRS Dur : 100 ms QT Int : 320 ms P-R-T Axes : 053 039 089 degrees QTc Int : 435 ms Sinus tachycardia Nonspecific T wave abnormality Abnormal ECG Confirmed by GILBERT PETERSON, WENDY ([id number]), development editor VALDEMAR LORENZO ([id number]) on 11/24/2020 9:07:57 AM Referred By: Robbie Marie Confirmed By:WENDY HUNT MD
--- NOTE | 2020-11-18 21:54 | VDLE_ITS ---
Reason For Study: elevated D-Dimer RIGHT LEFT GSV is normal. GSV is normal. CFV is compressible, spontaneous, phasic, CFV is compressible, spontaneous, phasic, competent and demonstrates normal competent, and demonstrates normal augmentation. augmentation. FV is compressible, spontaneous, phasic, FV is compressible, spontaneous, phasic, competent and demonstrates normal competent and demonstrates normal augmentation. augmentation. POP V is compressible, spontaneous, phasic, POP V is compressible, spontaneous, phasic, competent and demonstrates normal competent and demonstrates normal augmentation. augmentation. T/P Trunk is compressible. T/P Trunk is compressible. PTV is compressible. PTV is compressible. RT PerV is compressible. LT PerV is compressible. Procedure This is a venous duplex using B-mode, color flow and spectral Doppler. Exam performed portable in patient room. The study was technically difficult. PT had difficulty tolerating probe pressure. A preliminary report was called and/or faxed to [facility]. Interpretation Summary Deep veins of the lower extremities are bilaterally patent and compressible segmentally. There is no evidence of deep vein thrombosis on either side. Valvular competence appears intact within the proximal deep venous systems bilaterally. The great saphenous veins appear bilaterally patent and compressible segmentally. Ordering Physician: Robbie Marie Referring Physician: Nick Giraldo Performed By: Stella Collins, SONI, RVT
--- NOTE | 2020-11-18 21:54 | ECHOD_ITS ---
Reason For Study: chest pain Procedure This was a 2D Doppler, Color Flow transthoracic echocardiogram. The study was technically difficult. PT was uncooperative. Exam performed in department. Left Ventricle Normal LV size. The estimated ejection fraction is 65 %. No evidence for diastolic dysfunction. No regional wall motion abnormalities noted. Right Ventricle Normal RV size. Normal systolic function. Atria Normal left atrium. Normal right atrium. No doppler evidence for ASD. Mitral Valve There is no mitral valve stenosis. No mitral valve insufficiency. Tricuspid Valve There is no tricuspid stenosis. Unable to estimate RV systolic pressure due to inadequate jet, pulmonary artery pressure probably normal. Aortic Valve Trisinus/trileaflet aortic valve. There is no aortic stenosis. No aortic valve insufficiency. Pulmonic Valve There is no pulmonic valvular stenosis. No pulmonic valve insufficiency. Great Vessels Normal aortic root. Pericardium/Pleural No pericardial effusion. MMode/2D Measurements & Calculations LVIDd: 3.9 cm IVSd: 0.94 cm Ao root diam: 2.9 cm LVIDs: 2.8 cm LVPWd: 0.79 cm RVDd: 3.1 cm FS: 26.9 % LAV(MOD-bp): 48.7 ml LA A4 area: 16.9 cm2 LA dimension(2D): 3.1 cm LAV(MOD-bp) Indexed: 23.1 ml/m2 LAV(MOD-sp2): 49.6 ml LAV(MOD-sp4): 49.0 ml RA A4 area: 11.8 cm2 Doppler Measurements & Calculations MV E max rob: 77.0 cm/sec Lat Peak E' Rob: 11.1 cm/sec Med Peak E' Rob: 8.5 cm/sec MV A max rob: 94.7 cm/sec E/E' lat: 6.9 E/E' med: 9.0 MV E/A: 0.81 Ao V2 max: 139.2 cm/sec LV V1 max: 103.6 cm/sec PA V2 max: 125.0 cm/sec Ao max P.7 mmHg LV V1 max P.3 mmHg Interpretation Summary The estimated ejection fraction is 65 %. No evidence for diastolic dysfunction. Ordering Physician: Robbie Marie Referring Physician: Nick Giraldo Performed By: Stella Collins, SONI, RVT
[2020-11-18] MEDS: carBAMazepine 200 MG Tablet PO (23:13)
[2020-11-18] MEDS: QUEtiapine 100 MG Tablet 400 MG PO (23:14)
[2020-11-18] MEDS: Naproxen 500 MG Tablet PO (23:14)
[2020-11-18] MEDS: QUEtiapine 25 MG Tablet 50 MG PO (23:14)
[2020-11-18 23:25] LABS: Bedside Glucose 133 mg/dL (70-110)
[2020-11-19] VITALS (8 sets, daily range): BP systolic 102–123; BP diastolic 56–80; PULSE 94–110; RESP 16–18; TEMP 36.4–36.8; O2SAT 92–97
[2020-11-19 01:15] LABS: Bedside Glucose 128 mg/dL (70-110)
[2020-11-19] MEDS: Ondansetron 4 MG/2 ML Vial IV (02:02)
[2020-11-19] MEDS: 0.9% Saline Lock 10 ML Syringe IV (02:02)
[2020-11-19] MEDS: Morphine 2 MG/ML Syringe IV (02:03)
[2020-11-19] MEDS: Aspirin E.C. 81 MG Tablet PO (06:02)
[2020-11-19 06:21] LABS: Bedside Glucose 111 mg/dL (70-110)
[2020-11-19 07:31] LABS: Anion Gap 5 (5-15); BUN 20 mg/dL (7-18); BUN/Creat Ratio 26.5 RATIO (10-20); Calcium,Total 8.6 mg/dL (8.5-10.1); Chloride 103 mmol/L (98-107); Cholesterol 167 mg/dL (200); Creatinine, Serum 0.75 mg/dL (0.55-1.02); EST Glomerular Filtration Rate 84 mL/min (>60); Est Glom Filt Rate - Afr Amer 102 mL/min (>60); Estimated Creatinine Clearance 66.24 ml/min; Glucose 109 mg/dL (74-106); High Density Lipoprotein 69 mg/dL; Potassium 3.6 mmol/L (3.5-5.1); Sodium Level 136 mmol/L (136-145); Triglycerides 123 mg/dL; Very Low Density Lipoprotein 25 mg/dL (5-40)
[2020-11-19] MEDS: Pantoprazole Sodium 40 MG Tablet PO (12:10)
[2020-11-19] MEDS: amLODIPine 10 MG Tablet PO (12:10)
[2020-11-19] MEDS: carBAMazepine 200 MG Tablet PO (12:10)
[2020-11-19] MEDS: hydroCHLOROthiazide 25 MG Tablet PO (12:10)
[2020-11-19] MEDS: Naproxen 500 MG Tablet PO (12:11)
[2020-11-19] MEDS: Ferrous Sulfate 325 MG Tablet PO (12:11)
[2020-11-19] MEDS: Montelukast 10 MG Tablet PO (12:11)
[2020-11-19] MEDS: Venlafaxine XR 75 MG Capsule PO (12:12)
[2020-11-19] MEDS: Loratadine 10 MG Tablet PO (12:12)
--- NOTE | 2020-11-19 12:25 | STRESSREP ---
Stress Test Report Date: 11/19/2020 Procedure: Pharmacologic stress nuclear imaging study Indications: Chest pain Consent: Per the patient Procedure: The patient underwent pharmacologic (Regadenoson) evaluation with a peak heart rate of 115 beats per minute (70%predicted maximal heart rate) and a peak blood pressure of 152/72 mmHg. The baseline ECG demonstrated normal sinus rhythm. EKG during lexiscan infusion revealed no significant ischemic changes. EKG post infusion revealed no significant ischemic changes [There were no cardiac dysrhythmias pretest, during pharmacologic infusion, or recovery]. Patient had 2/10 chest discomfort with Lexiscan infusion which is likely a nonspecific response. The examination was discontinued secondary to completion of protocol. Impression: 1. Lexiscan stress test test is negative for Lexiscan infusion induced EKG changes of ischemia. 2. Lexiscan stress test test is positive for Lexiscan infusion induced chest pain which is likely nonspecific response. 3. Results of the nuclear portion of the test is as below Myocardial perfusion imaging study: Technique: The patient was injected with [] millicuries of technetium 99m Cardiolite and subsequently rest SPECT Cardiolite nuclear imaging was obtained in the horizontal long, vertical long, and short axis views. The patient underwent pharmacologic (Regadenoson) evaluation. Please see above for details. The patient was injected with [] millicuries of technetium 99m Cardiolite and subsequently stress SPECT Cardiolite nuclear imaging was obtained in the horizontal long, vertical long, and short axis views. A gated Cardiolite study at peak stress was obtained. Interpretation: Rest and stress SPECT Cardiolite nuclear imaging status post realignment, normalization, and attenuation correction demonstrate normal myocardial radioisotope uptake. Gated images reveal no significant regional wall motion abnormalities. The reported LVEF is 64%. Impression: 1. There is no evidence of significant ischemia or infarction. 2. Estimated ejection fraction is 64%. This note was generated with [employer] software. It may contain incorrect words, spelling, and punctuation that were not noted in checking the note before signing.
[2020-11-19 13:45] LABS: Bedside Glucose 145 mg/dL (70-110)
--- NOTE | 2020-11-19 14:21 | PCM.DC ---
- Discharge Diagnoses Current Active Problems: Current Active and Chronic Problems Asthma (Chronic) Chest pain (Acute) Hypokalemia (Acute) Depression (Chronic) Bipolar disorder (Chronic) Type II diabetes mellitus (Chronic) Hypertension (Chronic) Anxiety (Chronic) You will use the following diet at home:: Calorie/Carbohydrate Controlled (specify 1200, 1400, etc) Discharge Activity: Return to Normal Activity Call your doctor if you observe: Shortness of breath, Dizziness, Fainting spells, Chest pain Allergies/Adverse Reactions: Allergies latex Allergy (Verified 11/18/20 17:45) Rash lithium [[place]] Allergy (Verified 11/18/20 17:45) Anaphylaxis acetaminophen [From Tylenol-Codeine] Adverse Reaction (Verified 11/18/20 17:45) Vomiting aspirin Adverse Reaction (Verified 11/18/20 17:45) Vomiting citalopram hydrobromide [From Celexa] Adverse Reaction (Verified 11/18/20 17:45) Other DOESN'T HELP MY DEPRESSION codeine Adverse Reaction (Verified 11/18/20 17:45) Vomiting divalproex sodium [From Depakote] Adverse Reaction (Verified 11/18/20 17:45) Vomiting ibuprofen Adverse Reaction (Verified 11/18/20 17:45) Nausea nortriptyline Adverse Reaction (Verified 11/18/20 17:45) Other SLEEPING PILL Adverse Reaction (Uncoded 11/18/20 17:45) Other SLEEP WALKING Medications to take at Discharge Albuterol Inhaler [Ventolin Hfa] 1 - 2 puff INHALATION Q4H PRN PRN 12/06/16 Carbamazepine [Tegretol] 200 mg PO BID 12/06/16 Ferrous Sulfate 325 mg PO DAILY@0800 12/06/16 Glimepiride 1 mg PO DAILY 12/06/16 Hydrochlorothiazide [Hctz] 25 mg PO DAILY 12/06/16 Omeprazole 40 mg PO BID 12/06/16 Quetiapine Fumarate [Seroquel] 450 mg PO QHS 12/06/16 Solifenacin Succinate [Vesicare] 10 mg PO QHS 12/06/16 Venlafaxine XR [Effexor Xr] 75 mg PO DAILY 12/06/16 Amlodipine [Norvasc] 10 mg PO DAILY 07/09/17 Fexofenadine HCl 180 mg PO DAILY 08/02/19 Fluticasone 0.05% [Flonase Nasal [place]] 2 spray NASAL DAILY 08/02/19 Montelukast [Singulair] 10 mg PO DAILY 08/02/19 Naproxen [Naprosyn] 500 mg PO BID #14 tab 08/02/19 Potassium Chloride 10 meq PO BID 08/02/19 cycloBENZAPRine HCl [Flexeril] 10 mg PO TID PRN #20 tab 08/02/19 Primary Care Physician: Nick Giraldo DO [Primary Care Provider] - Please follow up with your Primary Care Physician in: 1 Week Test Results: Test results from this visit will be discussed in further detail at your follow-up appointment, if applicable. Proposed Discharge Date: 11/19/20
--- NOTE | 2020-11-19 14:31 | PCM.DC.SUM ---
<Radha Gamez CATTLE KILLER - Last Filed: 11/19/20 14:39> Discharge Date and Diagnosis - Problem List Patient Problems: Active and Suspected Problems Chest pain (Acute) Hypokalemia (Acute) Date of Admission: 11/18/20 Date of Discharge: 11/19/20 - Primary Discharge Diagnosis Acute Problems: Active Problems 1. Atypical chest pain, ACS ruled out 2. Hypertension 3. Hyperlipidemia 4. GERD 5. Bipolar disorder 6. Type 2 diabetes mellitus 7. Chronic intermittent asthma - Secondary Discharge Diagnosis Chronic Problems: Chronic Problems Asthma (Chronic) Depression (Chronic) Bipolar disorder (Chronic) Type II diabetes mellitus (Chronic) Hypertension (Chronic) Anxiety (Chronic) Hospital Course and Treatment Imaging Results: Diagnostic Data Chest X-Ray 11/18/20 18:30 IMPRESSION: There are interstitial fibrotic changes of the lungs. No visualized focal consolidation. Electronically Signed: Luis Quintana MD at 18:52 EST , Service support , Chest CTA 11/18/20 18:52 IMPRESSION: 1. No demonstrated pulmonary embolism or arterial dissection. 2. Mild diffuse pulmonary edema is present in both lungs. No visualized consolidation. Mild elevation of the left hemidiaphragm noted. No nodules are seen. Electronically Signed: Luis Quintana MD at 19:57 EST , Service support , Operations: None Procedures: 2-D Echocardiogram, Stress test Summary of Care Provided: The patient is a 55 year old F admitted 11/18/2020 due to chest pain. 1. Atypical chest pain, ACS ruled out-troponin negative. EKG without ST-T changes. Patient underwent nuclear stress test which was negative for ischemia. Gated ejection fraction 64%. Echocardiogram demonstrates an EF of 65%, no evidence of diastolic dysfunction. Patient reports mild lower extremity swelling which has been ongoing for the past 2 months. Lower extremities are not painful or erythematous. Doppler studies ordered, results pending and will be reviewed prior to discharge. CTA without PE. Low suspicion for DVT. Follow-up with PCP in 1 week. Suspect chest pain musculoskeletal in nature. 2. Hypertension-stable, continue amlodipine, HCTZ. 3. Hyperlipidemia-continue statin. 4. GERD-continue PPI. 5. Bipolar disorder-on Tegretol, Seroquel, Effexor. 6. Type 2 diabetes mellitus-continue glimepiride. 7. Chronic intermittent asthma-no exacerbation. Continue as needed albuterol inhaler. Patient seen and examined prior to discharge. Physical assessment as noted below. Patient is stable for discharge with follow up recommendations as noted above. This patient was seen by OBEY Powell under the supervision of Dr. Savage. Patient Problems: Active and Suspected Problems Chest pain (Acute) Hypokalemia (Acute) - Physical Exam Vitals/I&O's: Vital Signs Temp Pulse Resp BP Pulse Ox 98.3 F 94 18 123/80 H 97 11/19/20 12:26 11/19/20 12:26 11/19/20 12:26 11/19/20 12:26 11/19/20 12:26 Oxygen Delivery Method Room Air Weight: 252 lb 6.868 oz Body Mass Index (BMI) 46.1 Intake and Output for Last 24 Hours 11/17/20 11/18/20 11/19/20 23:59 23:59 23:59 Intake Total 380 / 380 Output Total 0 / 0 Balance 380 / 380 General: Alert, Oriented x3, Cooperative HEENT: Atraumatic, PERRLA, EOMI, Normocephalic Neck: Supple, No JVD, Negative Carotid Bruits Lungs: Clear to auscultation, Normal air movement Cardiovascular: Regular rate, No murmurs Abdomen: Bowel Sounds Present, Soft, Non Tender, Non-Distended, Obese Extremities: No clubbing, No cyanosis, No edema, Capillary Refill Less than 3 Seconds Skin: No rashes, No breakdown Musculoskeletal: No Tenderness to Palpation of Joints or Extremities Neurological: Cranial nerves II-XII grossly intact, Neuro grossly intact Psych/Mental Status: Flat Affect Laboratory Results 11/18/20 18:23: WBC 8.9, RBC 4.49, Hgb 11.6 L, Hct 36.0 L, MCV 80.2 L, MCH 25.8 L, MCHC 32.2, RDW Std Deviation 40.6, RDW Coeff of Yinka 13.9, Plt Count 222, MPV 10.9, Immature Gran % (Auto) 0.800, Neut % (Auto) 64.3, Lymph % (Auto) 25.8, [place] % (Auto) 7.4, Eos % (Auto) 1.2, Baso % (Auto) 0.5, Absolute Neuts (auto) 5.7, Absolute Lymphs (auto) 2.29, Nucleated RBC % 0 11/18/20 18:23: D-Dimer Quant (PE/DVT) 0.87 H* 11/18/20 18:23: Sodium 138, Potassium 3.2 L, Chloride 103, Carbon Dioxide 29.0, Anion Gap 6, BUN 21 H, Creatinine 0.80, Estim Creat Clear Calc 62.10, Est GFR (MDRD) Af Amer 95, Est GFR (MDRD) Non-Af 79, BUN/Creatinine Ratio 26.3 H, Glucose 103, Calcium 8.5, Troponin I < 0.015 11/18/20 22:19: Troponin I < 0.015 11/18/20 23:19: POC Glucose 133 H 11/18/20 23:53: POC Glucose 128 H 11/19/20 00:52: Troponin I < 0.015 11/19/20 06:05: POC Glucose 111 H 11/19/20 06:35: Sodium 136, Potassium 3.6, Chloride 103, Carbon Dioxide 28.0, Anion Gap 5, BUN 20 H, Creatinine 0.75, Estim Creat Clear Calc 66.24, Est GFR (MDRD) Af Amer 102, Est GFR (MDRD) Non-Af 84, BUN/Creatinine Ratio 26.5 H, Glucose 109 H, Calcium 8.6, Triglycerides 123, Cholesterol 167, LDL Cholesterol 73, VLDL Cholesterol 25, HDL Cholesterol 69 11/19/20 12:22: POC Glucose 145 H Current Medications Albuterol Sulfate (Albuterol 2.5 Mg/3 Ml Vial.Neb.) 2.5 mg INHALATION Q2H PRN PRN PRN Reason: SOB/WHEEZING Amlodipine Besylate (Amlodipine 10 Mg Tablet) 10 mg PO DAILY [facility] Last Admin: 11/19/20 12:10 Dose: 10 mg Documented by: Aspirin (Aspirin E.C. 81 Mg Tablet) 81 mg PO DAILY@0800 [facility] Last Admin: 11/19/20 06:02 Dose: 81 mg Documented by: Carbamazepine (Carbamazepine 200 Mg Tablet) 200 mg PO BID [facility] Last Admin: 11/19/20 12:10 Dose: 200 mg Documented by: Cyclobenzaprine HCl (Cyclobenzaprine Hcl 10 Mg Tablet) 10 mg PO TID PRN PRN PRN Reason: MS Dextrose (Dextrose 50%-Water 25 Gm/50 Ml Disp.Syrin) 0 gm IV X1 PRN; Protocol PRN Reason: Hypoglycemia Ferrous Sulfate (Ferrous Sulfate 325 Mg Tablet) 325 mg PO DAILY@0800 [facility] Last Admin: 11/19/20 12:11 Dose: 325 mg Documented by: Fluticasone Propionate (Fluticasone 0.05% 1 [place] Nasal.Sry) 2 spray NASAL DAILY [facility] Last Admin: 11/19/20 12:36 Dose: Not Given Documented by: Glucagon (Glucagon 1 Mg/Ml Syringe) 1 mg IM .X1 PRN PRN Reason: Hypoglycemia Hydrochlorothiazide (Hydrochlorothiazide 25 Mg Tablet) 25 mg PO DAILY [facility] Last Admin: 11/19/20 12:10 Dose: 25 mg Documented by: Sodium Chloride () 250 mls @ 15 mls/hr IV .[id number] PRN PRN Reason: Saline Flush Sodium Chloride () 250 mls @ 15 mls/hr IV .[id number] PRN PRN Reason: Additional IVPB Infusion Insulin Human Lispro (Insulin Lispro 100 Unit/Ml Insuln.Pen) 0 unit SC Q6 [facility]; Protocol Last Admin: 11/19/20 12:36 Dose: Not Given Documented by: Loratadine (Loratadine 10 Mg Tablet) 10 mg PO DAILY [facility] Last Admin: 11/19/20 12:12 Dose: 10 mg Documented by: Melatonin (Melatonin 3 Mg Tablet) 3 mg PO QHS PRN PRN PRN Reason: INSOMNIA Montelukast Sodium (Montelukast 10 Mg Tablet) 10 mg PO DAILY [facility] Last Admin: 11/19/20 12:11 Dose: 10 mg Documented by: Morphine Sulfate (Morphine 2 Mg/Ml Syringe) 2 mg IV Q3H PRN PRN PRN Reason: Pain Score 6-10 Last Admin: 11/19/20 02:03 Dose: 2 mg Documented by: Naproxen (Naproxen 500 Mg Tablet) 500 mg PO BID [facility] Last Admin: 11/19/20 12:11 Dose: 500 mg Documented by: Nitroglycerin (Nitroglycerin (Inpatient Use) 0.4 Mg Tab.Subl) 0.4 mg SUBLINGUAL Q5M PRN PRN Reason: CARDIAC/CHEST PAIN Ondansetron HCl (Ondansetron 4 Mg/2 Ml Vial) 4 mg IV Q8H PRN PRN PRN Reason: NAUSEA/VOMITING Last Admin: 11/19/20 02:02 Dose: 4 mg Documented by: Pantoprazole Sodium (Pantoprazole Sodium 40 Mg Tablet) 40 mg PO BID [facility] Last Admin: 11/19/20 12:10 Dose: 40 mg Documented by: Potassium Chloride (Potassium Chloride 20 Meq Tablet) 20 meq PO BID [facility] Last Admin: 11/19/20 12:11 Dose: 20 meq Documented by: Quetiapine Fumarate (Quetiapine 100 Mg Tablet) 400 mg PO QHS [facility] Last Admin: 11/18/20 23:14 Dose: 400 mg Documented by: Quetiapine Fumarate (Quetiapine 25 Mg Tablet) 50 mg PO QHS [facility] Last Admin: 11/18/20 23:14 Dose: 50 mg Documented by: Senna/Docusate Sodium (Senna/Docusate Sodium 1 Tablet) 2 tablet PO BID PRN PRN PRN Reason: Constipation Sodium Chloride (0.9% Saline Lock 10 Ml Syringe) 10 - 40 ml IV UD PRN PRN Reason: SALINE FLUSH Last Admin: 11/19/20 02:02 Dose: 20 ml Documented by: Tolterodine Tartrate (Tolterodine Tartrate 4 Mg Cap.Sa) 4 mg PO QHS [facility] Venlafaxine HCl (Venlafaxine Xr 75 Mg Capsule) 75 mg PO DAILY [facility] Last Admin: 11/19/20 12:12 Dose: 75 mg Documented by: Discharge Diet: Low fat/ Low Cholesterol, Carb Control Diet Discharge Activity: Return to Normal Activity Call your doctor if you observe: Shortness of breath, Dizziness, Fainting spells, Chest pain Home Medications: Medications to take at Discharge Albuterol Inhaler [Ventolin Hfa] 1 - 2 puff INHALATION Q4H PRN PRN 12/06/16 Carbamazepine [Tegretol] 200 mg PO BID 12/06/16 Ferrous Sulfate 325 mg PO DAILY@0800 12/06/16 Glimepiride 1 mg PO DAILY 12/06/16 Hydrochlorothiazide [Hctz] 25 mg PO DAILY 12/06/16 Omeprazole 40 mg PO BID 12/06/16 Quetiapine Fumarate [Seroquel] 450 mg PO QHS 12/06/16 Solifenacin Succinate [Vesicare] 10 mg PO QHS 12/06/16 Venlafaxine XR [Effexor Xr] 75 mg PO DAILY 12/06/16 Amlodipine [Norvasc] 10 mg PO DAILY 07/09/17 Fexofenadine HCl 180 mg PO DAILY 08/02/19 Fluticasone 0.05% [Flonase Nasal [place]] 2 spray NASAL DAILY 08/02/19 Montelukast [Singulair] 10 mg PO DAILY 08/02/19 Naproxen [Naprosyn] 500 mg PO BID #14 tab 08/02/19 Potassium Chloride 10 meq PO BID 08/02/19 cycloBENZAPRine HCl [Flexeril] 10 mg PO TID PRN #20 tab 08/02/19 Primary Care Physician: Nick Giraldo DO [Primary Care Provider] - Please follow up with your Primary Care Physician in: 1 Week Disposition: Home Minutes spent on discharge:: 35 Patient Condition:: Stable Medical Necessity - Tobacco Use Smoking Status: Former smoker Meaningful Use Info Meaningful Use Diagnoses (Choose all that apply): None applicable <Diallo Savage - Last Filed: 11/19/20 14:57> Discharge Date and Diagnosis - Primary Discharge Diagnosis Acute Problems: Active Problems Chest pain (Acute) Hypokalemia (Acute) - Secondary Discharge Diagnosis Chronic Problems: Chronic Problems Asthma (Chronic) Depression (Chronic) Bipolar disorder (Chronic) Type II diabetes mellitus (Chronic) Hypertension (Chronic) Anxiety (Chronic) Hospital Course and Treatment Summary of Care Provided: This patient was seen in conjunction with OBEY Powell . I have independently interviewed and examined the patient and reviewed pertinent historical, laboratory, and other data. Please refer to OBEY Powell note for details of this patient's presentation, findings, and recommendations. I have reviewed OBEY Powell note and concur with documented findings. In brief, patient is a 55-year-old lady with multiple comorbidities including hypertension dyslipidemia GERD bipolar disorder diabetes mellitus type 2 moderate persistent asthma who presented with chest pain admitted to monitored bed for further management Hospital course: As documented above - Physical Exam Vitals/I&O's: Vital Signs Temp Pulse Resp BP Pulse Ox 98.3 F 94 18 123/80 H 97 11/19/20 12:26 11/19/20 12:26 11/19/20 12:26 11/19/20 12:26 11/19/20 12:26 Oxygen Delivery Method Room Air Weight: 114.5 kg Body Mass Index (BMI) 46.1 Intake and Output for Last 24 Hours 11/17/20 11/18/20 11/19/20 23:59 23:59 23:59 Intake Total 380 / 380 Output Total 0 / 0 Balance 380 / 380 Laboratory Results 11/18/20 18:23: WBC 8.9, RBC 4.49, Hgb 11.6 L, Hct 36.0 L, MCV 80.2 L, MCH 25.8 L, MCHC 32.2, RDW Std Deviation 40.6, RDW Coeff of Yinka 13.9, Plt Count 222, MPV 10.9, Immature Gran % (Auto) 0.800, Neut % (Auto) 64.3, Lymph % (Auto) 25.8, [place] % (Auto) 7.4, Eos % (Auto) 1.2, Baso % (Auto) 0.5, Absolute Neuts (auto) 5.7, Absolute Lymphs (auto) 2.29, Nucleated RBC % 0 11/18/20 18:23: D-Dimer Quant (PE/DVT) 0.87 H* 11/18/20 18:23: Sodium 138, Potassium 3.2 L, Chloride 103, Carbon Dioxide 29.0, Anion Gap 6, BUN 21 H, Creatinine 0.80, Estim Creat Clear Calc 62.10, Est GFR (MDRD) Af Amer 95, Est GFR (MDRD) Non-Af 79, BUN/Creatinine Ratio 26.3 H, Glucose 103, Calcium 8.5, Troponin I < 0.015 11/18/20 22:19: Troponin I < 0.015 11/18/20 23:19: POC Glucose 133 H 11/18/20 23:53: POC Glucose 128 H 11/19/20 00:52: Troponin I < 0.015 11/19/20 06:05: POC Glucose 111 H 11/19/20 06:35: Sodium 136, Potassium 3.6, Chloride 103, Carbon Dioxide 28.0, Anion Gap 5, BUN 20 H, Creatinine 0.75, Estim Creat Clear Calc 66.24, Est GFR (MDRD) Af Amer 102, Est GFR (MDRD) Non-Af 84, BUN/Creatinine Ratio 26.5 H, Glucose 109 H, Calcium 8.6, Triglycerides 123, Cholesterol 167, LDL Cholesterol 73, VLDL Cholesterol 25, HDL Cholesterol 69 11/19/20 12:22: POC Glucose 145 H Current Medications Albuterol Sulfate (Albuterol 2.5 Mg/3 Ml Vial.Neb.) 2.5 mg INHALATION Q2H PRN PRN PRN Reason: SOB/WHEEZING Amlodipine Besylate (Amlodipine 10 Mg Tablet) 10 mg PO DAILY [facility] Last Admin: 11/19/20 12:10 Dose: 10 mg Documented by: Aspirin (Aspirin E.C. 81 Mg Tablet) 81 mg PO DAILY@0800 [facility] Last Admin: 11/19/20 06:02 Dose: 81 mg Documented by: Carbamazepine (Carbamazepine 200 Mg Tablet) 200 mg PO BID [facility] Last Admin: 11/19/20 12:10 Dose: 200 mg Documented by: Cyclobenzaprine HCl (Cyclobenzaprine Hcl 10 Mg Tablet) 10 mg PO TID PRN PRN PRN Reason: MS Dextrose (Dextrose 50%-Water 25 Gm/50 Ml Disp.Syrin) 0 gm IV X1 PRN; Protocol PRN Reason: Hypoglycemia Ferrous Sulfate (Ferrous Sulfate 325 Mg Tablet) 325 mg PO DAILY@0800 [facility] Last Admin: 11/19/20 12:11 Dose: 325 mg Documented by: Fluticasone Propionate (Fluticasone 0.05% 1 [place] Nasal.Sry) 2 spray NASAL DAILY [facility] Last Admin: 11/19/20 12:36 Dose: Not Given Documented by: Glucagon (Glucagon 1 Mg/Ml Syringe) 1 mg IM .X1 PRN PRN Reason: Hypoglycemia Hydrochlorothiazide (Hydrochlorothiazide 25 Mg Tablet) 25 mg PO DAILY [facility] Last Admin: 11/19/20 12:10 Dose: 25 mg Documented by: Sodium Chloride () 250 mls @ 15 mls/hr IV .[id number] PRN PRN Reason: Saline Flush Sodium Chloride () 250 mls @ 15 mls/hr IV .[id number] PRN PRN Reason: Additional IVPB Infusion Insulin Human Lispro (Insulin Lispro 100 Unit/Ml Insuln.Pen) 0 unit SC Q6 [facility]; Protocol Last Admin: 11/19/20 12:36 Dose: Not Given Documented by: Loratadine (Loratadine 10 Mg Tablet) 10 mg PO DAILY [facility] Last Admin: 11/19/20 12:12 Dose: 10 mg Documented by: Melatonin (Melatonin 3 Mg Tablet) 3 mg PO QHS PRN PRN PRN Reason: INSOMNIA Montelukast Sodium (Montelukast 10 Mg Tablet) 10 mg PO DAILY [facility] Last Admin: 11/19/20 12:11 Dose: 10 mg Documented by: Morphine Sulfate (Morphine 2 Mg/Ml Syringe) 2 mg IV Q3H PRN PRN PRN Reason: Pain Score 6-10 Last Admin: 11/19/20 02:03 Dose: 2 mg Documented by: Naproxen (Naproxen 500 Mg Tablet) 500 mg PO BID [facility] Last Admin: 11/19/20 12:11 Dose: 500 mg Documented by: Nitroglycerin (Nitroglycerin (Inpatient Use) 0.4 Mg Tab.Subl) 0.4 mg SUBLINGUAL Q5M PRN PRN Reason: CARDIAC/CHEST PAIN Ondansetron HCl (Ondansetron 4 Mg/2 Ml Vial) 4 mg IV Q8H PRN PRN PRN Reason: NAUSEA/VOMITING Last Admin: 11/19/20 02:02 Dose: 4 mg Documented by: Pantoprazole Sodium (Pantoprazole Sodium 40 Mg Tablet) 40 mg PO BID [facility] Last Admin: 11/19/20 12:10 Dose: 40 mg Documented by: Potassium Chloride (Potassium Chloride 20 Meq Tablet) 20 meq PO BID [facility] Last Admin: 11/19/20 12:11 Dose: 20 meq Documented by: Quetiapine Fumarate (Quetiapine 100 Mg Tablet) 400 mg PO QHS [facility] Last Admin: 11/18/20 23:14 Dose: 400 mg Documented by: Quetiapine Fumarate (Quetiapine 25 Mg Tablet) 50 mg PO QHS [facility] Last Admin: 11/18/20 23:14 Dose: 50 mg Documented by: Senna/Docusate Sodium (Senna/Docusate Sodium 1 Tablet) 2 tablet PO BID PRN PRN PRN Reason: Constipation Sodium Chloride (0.9% Saline Lock 10 Ml Syringe) 10 - 40 ml IV UD PRN PRN Reason: SALINE FLUSH Last Admin: 11/19/20 02:02 Dose: 20 ml Documented by: Tolterodine Tartrate (Tolterodine Tartrate 4 Mg Cap.Sa) 4 mg PO QHS [facility] Venlafaxine HCl (Venlafaxine Xr 75 Mg Capsule) 75 mg PO DAILY [facility] Last Admin: 11/19/20 12:12 Dose: 75 mg Documented by: OBSV E&M: [id number] Observation care discharge
--- NOTE | 2020-11-19 14:50 | CASEMGMT ---
RAMONA ARMENDARIZ NOTE: To room to meet with pt for initial RN KALA assessment. Pt states she lives alone in a downstairs apt w/7 steps that she does does okay with. Independent w/ADL's. She receives her medications in bubble packs from [facility]. She has aides through [employer] that come , , Fridays for 2-hrs/day. She receives [employer] home-delivered meals: 10 meals/week. manager compensation is Stephani Joaquin. Her mother and brother lives nearby and are able to help if needed. She manages her own appts and medications. She wishes to d/c home and denies having any concerns w/going home @ d/c. She denies need for HHC. Carolyn MILLER RN, CM
--- NOTE | 2020-11-19 15:27 | CASEMGMT ---
SOCIAL WORK Updated by KALA Boggs, patient home with [facility]. Call to [place] to update on patient's admission and discharge. Andrew Harley, TRAIN STARTER, COMPLIANCE CONSULTANT
== END 2020-11-19 15:54 | disposition home or self-care (01) | DRG 313 ==
LOC: ED 20:33 → PCU 20:56
PROVIDERS: Admitting Provider Hospitalist; Emergency Provider Emergency Medicine; PCP Student in an Organized Health Care Education/Training Program; Referring Provider Hospitalist; Visit Provider Internal Medicine
DX: R07.89 Other chest pain (principal); Z68.42 Body mass index [BMI] 45.0-49.9, adult; I10 Essential (primary) hypertension; E78.5 Hyperlipidemia, unspecified; J45.40 Moderate persistent asthma, uncomplicated; K21.9 Gastro-esophageal reflux disease without esophagitis; F31.9 Bipolar disorder, unspecified; F41.9 Anxiety disorder, unspecified; E11.42 Type 2 diabetes mellitus with diabetic polyneuropathy; E87.6 Hypokalemia; E66.01 Morbid (severe) obesity due to excess calories; R60.0 Localized edema; R79.89 Other specified abnormal findings of blood chemistry; Z79.84 Long term (current) use of oral hypoglycemic drugs; Z79.899 Other long term (current) drug therapy; Z87.891 Personal history of nicotine dependence; Z82.49 Family history of ischemic heart disease and other diseases of the circulatory system
CPT/HCPCS: 36415; 71045; 71275; 78452; 80048; 80061; 82962; 84484; 85025; 85379; 93005; 93017; 93306; 93970; 97802; 99285; A9500; J7030; Q9967; A4216; J2405; J2785

== ENCOUNTER 2020-12-08 15:48 | Emergency (ER) | payer MEDICARE, MEDICAID, SELFPAY ==
[2020-11-18 21:58] VITALS: BMI 46.1
[2020-12-08 15:49] VITALS: BP 110/67; PULSE 100; RESP 19; TEMP 36.9; O2SAT 98; BMI 47.9
--- NOTE | 2020-12-08 16:13 | EKG12_ITS ---
Test Reason : Blood Pressure : / mmHG Vent. Rate : 097 BPM Atrial Rate : 097 BPM P-R Int : 168 ms QRS Dur : 100 ms QT Int : 348 ms P-R-T Axes : 058 036 082 degrees QTc Int : 441 ms Normal sinus rhythm Normal ECG Confirmed by GILBERT PETERSON, WENDY ([id number]), supervising editor news reel ROBERT CARBAJAL ([id number]) on 12/12/2020 9:49:48 AM Referred By: BETY Confirmed By:WENDY HUNT MD
--- NOTE | 2020-12-08 16:18 | ED.DCSUM_ITS ---
History of Present Illness Chief Complaint: Chest Pain Narrative: Patient presents with muscle aches that are generalized that started yesterday. She is complaining of neck pain back pain chest pain hip pain as well as shoulder pain. She has subjective fevers but no chills. No nausea or vomiting no headache. No vision changes. Past Medical History - Allergies and Home Meds Allergies/Adverse Reactions: Allergies latex Allergy (Verified 12/08/20 15:57) Rash lithium [[place]] Allergy (Verified 12/08/20 15:57) Anaphylaxis acetaminophen [From Tylenol-Codeine] Adverse Reaction (Verified 12/08/20 15:57) Vomiting aspirin Adverse Reaction (Verified 12/08/20 15:57) Vomiting citalopram hydrobromide [From Celexa] Adverse Reaction (Verified 12/08/20 15:57) Other DOESN'T HELP MY DEPRESSION codeine Adverse Reaction (Verified 12/08/20 15:57) Vomiting divalproex sodium [From Depakote] Adverse Reaction (Verified 12/08/20 15:57) Vomiting ibuprofen Adverse Reaction (Verified 12/08/20 15:57) Nausea nortriptyline Adverse Reaction (Verified 12/08/20 15:57) Other SLEEPING PILL Adverse Reaction (Uncoded 12/08/20 15:57) Other SLEEP WALKING Primary Care Physician: Nick Giraldo DO [Primary Care Provider] - Past Medical History: - - Hypertension, asthma, diabetes, chronic debility Surgical History: cholecystectomy, total knee arthroplasty, tonsillectomy Smoking Status: Former smoker - Family History Maternal Family History: Reports: Heart Disease, - - Her sister had brain aneurysm. Paternal Family History: Reports: Heart Disease Review of Systems All systems negative except as indicated General: Reports: Fever, Malaise, Subjective Eyes: Denies: Visual changes - bilaterally ENT: Denies: Rhinorrhea, Sore throat Respiratory: Denies: Dyspnea, Cough Gastrointestinal: Denies: Abdominal pain, Nausea, Vomiting Genitourinary: Denies: Dysuria Musculoskeletal: Reports: Myalgias, Neck pain, Back pain, Extremity Pain. Denies: Arthralgias Skin: Denies: Rash Neurological: Denies: Headache, Weakness Endocrine: Denies: Polyuria, Polydipsia Hematologic: Denies: Easy bruising, Easy bleeding Allergy: Denies: Swelling of the mouth Physical Exam Vital Signs/Narrative: Vital Signs Temp Pulse Resp BP Pulse Ox 12/08/20 15:49 98.4 F 100 19 H 110/67 98 General: Well nourished, Well developed Head: Normocephalic ENT: Moist mucous membranes, No rhinorrhea Neck: Supple, Nontender, No lymphadenopathy Cardiovascular: Regular rate, Regular rhythm, No murmurs Respiratory: No distress, CTA bilaterally, - - There is generalized chest wall tenderness extending into the shoulders upper back lower neck region and lower back region. Abdomen: Soft, Nontender, Nondistended Back: Nontender, Normal Inspection. Negative for: CVA tenderness Extremities: No edema, Tenderness, - - Generalized tenderness over the shoulders, arms especially the left arm below the elbow, as well as hips and knees. There is no arthralgia is mostly over the muscle groups. Skin: Normal color Neurological: Alert, Oriented x3 Psychological: Normal affect Diagnostic/Tx/Re-eval Chest X-Ray - ED: 1 View, Read by ED Physician, Normal, Heart, Lungs, Mediastinum, No Acute Disease - Rhythm Strip Rhythm Strip: Sinus Rhythm Rate: 97 Ectopy: None - EKG Initial EKG Interpretation: - - Normal sinus rhythm with a rate of 97. Normal NH and QTc intervals. No ischemic changes. Otherwise normal EKG. Interpreted by emergency doctor - Medical Decision Making Patient significantly improved she was hydrated. She has an unremarkable work- up she appears well she has no more pains. I will discharge her in stable condition. ED Disposition - Plan for ED Patient: Disposition: Home or Assisted Living Diagnosis: Myalgia Instructions: ED Myalgias Referrals: Nick Giraldo DO [Primary Care Provider] - 3-5 Days
--- NOTE | 2020-12-08 16:44 | RAD_ITS ---
STUDY: X-RAY CHEST REASON FOR EXAM: Female, 55 years old. Chest pain that comes and goes all the time for the past couple of months. Radiating into shoulders TECHNIQUE: Single frontal view of the chest. COMPARISON: 11/18/2020 FINDINGS: There is no new focal consolidation. Normal size heart. Normal mediastinum and jose m. Normal visualized pulmonary arteries. Normal visualized aortic arch and descending thoracic aorta. Normal visualized thoracic spine. Normal visualized ribs, clavicles, and shoulders. There is no demonstrated abnormality of the visualized soft tissue structures of the upper abdomen. RAD/Chest 1 View (Portable) IMPRESSION: No acute cardiopulmonary process. Electronically Signed: Maria G Girard MD at 17:20 EST Tel , Service support ,
[2020-12-08] MEDS: Ketorolac 15 MG/ML Vial IV (16:46)
[2020-12-08 16:49] VITALS: BP 125/79; PULSE 95; RESP 18; O2SAT 97
[2020-12-08 17:00] VITALS: BP 120/69; PULSE 91; RESP 17; O2SAT 98
[2020-12-08 17:16] LABS: Absolute Lymphocyte Count 1.99 X10^3/uL (0.83-4.51); Absolute Neutrophil Count 5.9 X10^3/uL (2.0-7.7); Basophil# 0.06 X10^3/uL; Basophil% 0.7 % (0-1); Eosinophil# 0.09 X10^3/uL; Hematocrit 36.1 % (37-47); Hemoglobin 11.7 g/dL (12.0-15.0); Lymphocyte # 1.99 X10^3/ul (4.0); Lymphocyte % 22.8 % (19-41); Mean Corp Hgb Conc 32.4 g/dL (32-36); Mean Corpuscular Volume 80.2 fL (81-99); Monocyte# 0.61 X10^3/uL; NRBC Flagged by Analyzer 0 % (0-5); Neutrophil # 5.87 X10^3/uL (2.7-7.7); Neutrophil % 67.5 % (47-70); Platelet Count 233 K/mm3 (150-450); RBC Distribution Width CV 14.4 % (11.6-14.6); RBC Distribution Width SD 41.1 fl (35.1-43.9); White Blood Count 8.7 K/mm3 (4.4-11.0)
[2020-12-08 17:33] LABS: ALB/GLOB Ratio 0.8 RATIO (0.9-2.4); AST(SGOT) 10 U/L (15-37); Alanine Aminotransfer ALT/SGPT 22 U/L (13-56); Alkaline Phosphatase 178 U/L (45-117); Anion Gap 5 (5-15); BUN 18 mg/dL (7-18); BUN/Creat Ratio 16.7 RATIO (10-20); Calcium,Total 8.1 mg/dL (8.5-10.1); Chloride 103 mmol/L (98-107); Creatinine, Serum 1.08 mg/dL (0.55-1.02); EST Glomerular Filtration Rate 56 mL/min (>60); Est Glom Filt Rate - Afr Amer 67 mL/min (>60); Glucose 100 mg/dL (74-106); Lipase 75 U/L (73-393); Potassium 3.5 mmol/L (3.5-5.1); Sodium Level 137 mmol/L (136-145)
[2020-12-08 18:01] LABS: Bacteria 0 SEEN /hpf (None Seen); Mucous, Urine 0 SEEN /hpf (<or=2+); Red Blood Cells-Urine 0 SEEN /hpf (0-5); White Blood Cells 0 SEEN /hpf (0-5)
[2020-12-08 18:21] LABS: Color, Urine Yellow (Yellow); Glucose, Dipstick Normal (Normal); Ketone-Dipstick Negative (Negative); Leukocyte Esterase-Dipstick Negative /ul (Negative); Nitrite-Dipstick Negative (Negative); Occult Blood-Urine 10 /ul (Negative); Protein-Dipstick Negative (Negative); Urine Bilirubin Dipstick Negative (Negative); Urine Clarity Clear (Clear); Urine Urobilinogen Normal (Normal)
[2020-12-08 18:35] LABS: Squamous Epithelial Cells - UA 0-5 SEEN /hpf (5-10)
== END 2020-12-08 19:28 | disposition home or self-care (01) ==
PROVIDERS: Emergency Provider Emergency Medicine; PCP Student in an Organized Health Care Education/Training Program
DX: M79.18 Myalgia, other site (principal); I10 Essential (primary) hypertension; E11.9 Type 2 diabetes mellitus without complications; J45.909 Unspecified asthma, uncomplicated; Z79.84 Long term (current) use of oral hypoglycemic drugs; Z79.899 Other long term (current) drug therapy; Z87.891 Personal history of nicotine dependence
CPT/HCPCS: 71045; 80053; 81001; 83690; 84484; 85025; 87426; 93005; 96361; 96374; 99285; J7030; A4216

== ENCOUNTER 2020-12-19 16:48 | Emergency (ER) | payer MEDICARE, MEDICAID, SELFPAY ==
[2020-12-19 16:50] VITALS: BP 154/75; PULSE 111; RESP 16; TEMP 37.2; O2SAT 97; BMI 47.5
--- NOTE | 2020-12-19 17:23 | EKG12_ITS ---
Test Reason : Blood Pressure : / mmHG Vent. Rate : 103 BPM Atrial Rate : 103 BPM P-R Int : 172 ms QRS Dur : 106 ms QT Int : 342 ms P-R-T Axes : 048 026 090 degrees QTc Int : 448 ms Sinus tachycardia Nonspecific ST and T wave abnormality Abnormal ECG Confirmed by GILBERT PETERSON, WENDY ([id number]), website/blog editor DORA RENEE ([id number]) on 12/21/2020 7:56:10 AM Referred By: JOAQUIN Confirmed By:WENDY HUNT MD
--- NOTE | 2020-12-19 17:27 | ED.VIS.GEN ---
History of Present Illness Chief Complaint: Chest Pain Informant: Patient Onset: Weeks Context: Gradual Onset Timing: Waxes and wanes Current Severity: Mild Maximum Severity: Mild Narrative: Patient presents with chest pain that has been off and on for the last 2 weeks. Patient states her chest pain is worse when her anxiety worsens. She also complains of shortness of breath, cough, body aches, swollen glands. Patient was admitted 1 month ago for chest pain and had a negative stress test and echocardiogram at that time. - Past Medical History (1) Bipolar disorder Status: Chronic (2) Hypertension Status: Chronic (3) Type II diabetes mellitus Status: Chronic (4) Asthma Status: Chronic Past Medical History - Allergies and Home Meds Allergies/Adverse Reactions: Allergies latex Allergy (Verified 12/19/20 16:49) Rash lithium [[place]] Allergy (Verified 12/19/20 16:49) Anaphylaxis acetaminophen [From Tylenol-Codeine] Adverse Reaction (Verified 12/19/20 16:49) Vomiting aspirin Adverse Reaction (Verified 12/19/20 16:49) Vomiting citalopram hydrobromide [From Celexa] Adverse Reaction (Verified 12/19/20 16:49) Other DOESN'T HELP MY DEPRESSION codeine Adverse Reaction (Verified 12/19/20 16:49) Vomiting divalproex sodium [From Depakote] Adverse Reaction (Verified 12/19/20 16:49) Vomiting ibuprofen Adverse Reaction (Verified 12/19/20 16:49) Nausea nortriptyline Adverse Reaction (Verified 12/19/20 16:49) Other SLEEPING PILL Adverse Reaction (Uncoded 12/19/20 16:49) Other SLEEP WALKING Primary Care Physician: Nick Giraldo DO [Primary Care Provider] - Surgical History: cholecystectomy, total knee arthroplasty, tonsillectomy Smoking Status: Never smoker - Family History Maternal Family History: Reports: Heart Disease, - - Her sister had brain aneurysm. Paternal Family History: Reports: Heart Disease Review of Systems General: Denies: Chills, Fever Eyes: Denies: Visual changes - bilaterally ENT: Denies: Bilateral ear pain Cardiovascular: Reports: Chest pain Respiratory: Reports: Dyspnea, Cough Gastrointestinal: Reports: Nausea, Diarrhea Musculoskeletal: Reports: Myalgias. Denies: Extremity Pain Skin: Denies: Rash Neurological: Denies: Headache Hematologic: Denies: Easy bruising Allergy: Denies: Uticaria Physical Exam Vital Signs/Narrative: Vital Signs Temp Pulse Resp BP Pulse Ox 12/19/20 16:50 99.0 F 111 H 16 154/75 H 97 Inital Vital Signs reviewed: Yes General: Well nourished, Well developed Head: Normocephalic Neck: Supple Cardiovascular: Regular rate, Regular rhythm Respiratory: No distress, CTA bilaterally Abdomen: Soft, Tender - Patient reports diffuse tenderness with light palpation. No guarding or rebound. Bowel sounds are normal. Extremities: Nontender Skin: Normal color Neurological: Alert, Oriented x3 Psychological: - - Anxious Diagnostic/Tx/Re-eval Chest X-Ray - ED: 1 View, Read by ED Physician, Chronic Changes Impressions Chest X-Ray 12/19/20 17:35 IMPRESSION: Normal x-ray examination of the chest. Electronically Signed: Wale Arevalo DO at 18:20 EST Tel [phone], Service support , Chest CTA 12/19/20 19:34 IMPRESSION: No demonstrated pulmonary embolism or arterial dissection. Small hiatal hernia. Electronically Signed: Wale Arevalo DO at 20:00 EST Tel [phone], Service support , 12/19/20 17:35 Chest 1 View (Portable) [RAD] Stat 12/19/20 19:34 CTA Chest W/WO Contrast [CT] Stat Laboratory Results 12/19/20 12/19/20 12/19/20 16:58 16:58 16:58 WBC 8.7 RBC 4.96 Hgb 12.6 Hct 38.6 MCV 77.8 L MCH 25.4 L MCHC 32.6 RDW Std Deviation 39.7 RDW Coeff of Yinka 14.2 Plt Count 250 MPV 11.5 Immature Gran % (Auto) 1.100 H Neut % (Auto) 54.0 Lymph % (Auto) 34.9 Hood % (Auto) 7.9 Eos % (Auto) 1.3 Baso % (Auto) 0.8 Absolute Neuts (auto) 4.7 Absolute Lymphs (auto) 3.05 Nucleated RBC % 0 D-Dimer Quant (PE/DVT) 0.73 H* Sodium 136 Potassium 3.7 Chloride 102 Carbon Dioxide 25.0 Anion Gap 9 BUN 17 Creatinine 0.87 Estim Creat Clear Calc 57.11 Est GFR (MDRD) Af Amer 86 Est GFR (MDRD) Non-Af 71 BUN/Creatinine Ratio 19.5 Glucose 97 Calcium 8.8 Total Bilirubin 0.20 Direct Bilirubin 0.09 AST 20 ALT 22 Alkaline Phosphatase 192 H Troponin I < 0.015 Total Protein 8.2 Albumin 3.4 Globulin 4.8 H COVID-19 (CATIA) 12/19/20 17:46 WBC RBC Hgb Hct MCV MCH MCHC RDW Std Deviation RDW Coeff of Yinka Plt Count MPV Immature Gran % (Auto) Neut % (Auto) Lymph % (Auto) Hood % (Auto) Eos % (Auto) Baso % (Auto) Absolute Neuts (auto) Absolute Lymphs (auto) Nucleated RBC % D-Dimer Quant (PE/DVT) Sodium Potassium Chloride Carbon Dioxide Anion Gap BUN Creatinine Estim Creat Clear Calc Est GFR (MDRD) Af Amer Est GFR (MDRD) Non-Af BUN/Creatinine Ratio Glucose Calcium Total Bilirubin Direct Bilirubin AST ALT Alkaline Phosphatase Troponin I Total Protein Albumin Globulin COVID-19 (CATIA) Not Detected - EKG Initial EKG Interpretation: Sinus Tachycardia - Sinus tachycardia at 103. No acute ischemic change. Unchanged when compared to prior study of December 08, 2020 - Medical Decision Making Patient was given morphine and Zofran here along with a dose of Ativan to help control anxiety. On repeat evaluation she is resting comfortably. Test results are discussed with her at length. She will be given a short course of Ativan at home. She does have evidence of a hiatal hernia on her CTA but states she has not been taking her omeprazole. She will be given a new prescription for this. She will also be given a short course of tramadol for pain. ED Disposition - Plan for ED Patient: Disposition: Home or Assisted Living Diagnosis: Atypical chest pain, GERD (gastroesophageal reflux disease), Hiatal hernia Instructions: ED Hiatal Hernia, ED Chest Pain, Uncertain Cause Prescriptions: Lorazepam [Ativan] 1 mg PO TID PRN #10 tablet PRN Reason: Anxiety Transmission Status: Sent to [facility] [address] Omeprazole [Prilosec] 20 mg PO BID #20 cap Transmission Status: Pending to [place] [address] traMADol [Ultram] 50 mg PO Q6H PRN PRN 3 Days #20 tablet PRN Reason: Pain Transmission Status: Sent to [place] [address] Referrals: Nick Giraldo DO [Primary Care Provider] - 1 Week
--- NOTE | 2020-12-19 17:35 | RAD_ITS ---
STUDY: X-RAY CHEST REASON FOR EXAM: Female, 55 years old. CHEST PAIN X 2 WEEKS TECHNIQUE: Frontal view COMPARISON: None. FINDINGS: The lungs are clear and expanded. There is no demonstrated pleural abnormality. Normal size heart. Normal mediastinum and jose m. Normal visualized pulmonary arteries. Normal visualized aortic arch and descending thoracic aorta. Normal visualized thoracic spine. Normal visualized ribs, clavicles, and shoulders. There is no demonstrated abnormality of the visualized soft tissue structures of the upper abdomen. RAD/Chest 1 View (Portable) IMPRESSION: Normal x-ray examination of the chest. Electronically Signed: Wale Arevalo DO at 18:20 EST Tel [phone], Service support ,
[2020-12-19 17:37] LABS: Absolute Lymphocyte Count 3.05 X10^3/uL (0.83-4.51); Absolute Neutrophil Count 4.7 X10^3/uL (2.0-7.7); Basophil# 0.07 X10^3/uL; Basophil% 0.8 % (0-1); Eosinophil# 0.11 X10^3/uL; Eosinophils% 1.3 % (0-5); Hematocrit 38.6 % (37-47); Hemoglobin 12.6 g/dL (12.0-15.0); Lymphocyte # 3.05 X10^3/ul (4.0); Lymphocyte % 34.9 % (19-41); Mean Corp Hgb Conc 32.6 g/dL (32-36); Mean Corpuscular Hgb 25.4 pg (27.0-32.0); Mean Corpuscular Volume 77.8 fL (81-99); Mean Platelet Vol. 11.5 fl (6.2-12.0); Monocyte# 0.69 X10^3/uL; Monocyte% 7.9 % (0-10); NRBC Flagged by Analyzer 0 % (0-5); Neutrophil # 4.72 X10^3/uL (2.7-7.7); Platelet Count 250 K/mm3 (150-450); RBC Distribution Width CV 14.2 % (11.6-14.6); RBC Distribution Width SD 39.7 fl (35.1-43.9); Red Blood Count 4.96 M/mm3 (4.2-5.4); White Blood Count 8.7 K/mm3 (4.4-11.0)
[2020-12-19 17:53] LABS: AST(SGOT) 20 U/L (15-37); Alanine Aminotransfer ALT/SGPT 22 U/L (13-56); Albumin, Serum 3.4 g/dL (3.2-5.0); Alkaline Phosphatase 192 U/L (45-117); Anion Gap 9 (5-15); BUN 17 mg/dL (7-18); BUN/Creat Ratio 19.5 RATIO (10-20); Bilirubin, Direct 0.09 mg/dL (0.00-0.30); Calcium,Total 8.8 mg/dL (8.5-10.1); Chloride 102 mmol/L (98-107); Creatinine, Serum 0.87 mg/dL (0.55-1.02); EST Glomerular Filtration Rate 71 mL/min (>60); Est Glom Filt Rate - Afr Amer 86 mL/min (>60); Estimated Creatinine Clearance 57.11 ml/min; Globulin 4.8 g/dL (2.2-4.2); Glucose 97 mg/dL (74-106); Potassium 3.7 mmol/L (3.5-5.1); Protein, Total 8.2 g/dL (6.4-8.2); Sodium Level 136 mmol/L (136-145)
[2020-12-19 17:57] VITALS: BP 133/99; PULSE 111; RESP 18; O2SAT 97
[2020-12-19] MEDS: Morphine 4 MG/ML Syringe IV (18:00)
[2020-12-19] MEDS: LORazepam 2 MG/ML Syringe 0.5 MG IV (18:00)
[2020-12-19] MEDS: Ondansetron 4 MG/2 ML Vial IV (18:00)
[2020-12-19 18:04] VITALS: BP 119/87; PULSE 106; RESP 14; O2SAT 97
[2020-12-19 18:32] LABS: D-Dimer Quantitative (DVT/PE) 0.73 FEU/ug/m (0.27-0.49)
[2020-12-19 19:00] VITALS: BP 131/68; PULSE 109; RESP 13; O2SAT 96
--- NOTE | 2020-12-19 19:34 | CT_ITS ---
STUDY: CTA CHEST REASON FOR EXAM: Female, 55 years old. CHEST PAIN X 2 WEEKS RADIATION DOSAGE (If Supplied By Facility): CTDIvol = ( 34.91 ) mGy, DLP = ( 746.96 ) mGycm TECHNIQUE: The examination was performed with the intravenous administration of IV 100mL Isovue-300. Post-processing of the angiographic images was performed, with multiplanar reformation and 3D reconstruction. Individualized dose optimization techniques were used for this CT. COMPARISON: 11/18/2020. FINDINGS: Normal enhancement of the main pulmonary artery and right and left pulmonary arteries. Normal enhancement of the bilateral peripheral pulmonary arteries. There is no demonstrated pulmonary embolism. Normal thoracic aorta and visualized great vessels. There is no demonstrated aortic dissection. Normal heart and pericardium. Normal mediastinum. Normal hilar regions. Normal visualized trachea and bronchi. The lungs are well expanded. Normal pulmonary parenchyma. Normal pleura. Normal chest wall structures. Normal osseous structures. Small hiatal hernia. CT/CTA Chest W/WO Contrast IMPRESSION: No demonstrated pulmonary embolism or arterial dissection. Small hiatal hernia. Electronically Signed: Wale Arevalo DO at 20:00 EST Tel [phone], Service support ,
[2020-12-19 20:21] VITALS: BP 114/74; PULSE 110; RESP 19; O2SAT 95
[2020-12-19 20:56] VITALS: BP 130/76; PULSE 110; RESP 22; O2SAT 94
== END 2020-12-19 20:57 | disposition home or self-care (01) ==
PROVIDERS: Emergency Provider Emergency Medicine; PCP Student in an Organized Health Care Education/Training Program
DX: R07.89 Other chest pain (principal); K21.9 Gastro-esophageal reflux disease without esophagitis; K44.9 Diaphragmatic hernia without obstruction or gangrene; I10 Essential (primary) hypertension; E11.9 Type 2 diabetes mellitus without complications; J45.909 Unspecified asthma, uncomplicated; F31.9 Bipolar disorder, unspecified; F41.9 Anxiety disorder, unspecified; Z79.84 Long term (current) use of oral hypoglycemic drugs; Z79.899 Other long term (current) drug therapy
CPT/HCPCS: 71045; 71275; 80048; 80076; 84484; 85025; 85379; 87635; 93005; 96374; 96375; 99285; J7030; Q9967; A4216; J2405; U0002

== ENCOUNTER 2021-02-05 20:02 | Emergency (ER) | payer MEDICARE, MEDICAID, SELFPAY ==
[2021-02-05 20:04] VITALS: BP 159/113; PULSE 115; RESP 19; TEMP 35.7; O2SAT 96; BMI 46.6
--- NOTE | 2021-02-05 20:13 | RAD_ITS ---
STUDY: X-RAY CHEST REASON FOR EXAM: Female, 56 years old. sob TECHNIQUE: Frontal view COMPARISON: 12/19/2020 FINDINGS: The lungs are clear and expanded. There is no demonstrated pleural abnormality. Normal size heart. Normal mediastinum and jose m. Normal visualized pulmonary arteries. Normal visualized aortic arch and descending thoracic aorta. Normal visualized thoracic spine. Normal visualized ribs, clavicles, and shoulders. There is no demonstrated abnormality of the visualized soft tissue structures of the upper abdomen. RAD/Chest 1 View (Portable) IMPRESSION: Normal x-ray examination of the chest. Electronically Signed: Wale Arevalo DO at 21:03 EST Tel [phone], Service support ,
--- NOTE | 2021-02-05 20:13 | EKG12_ITS ---
Test Reason : SOB Blood Pressure : / mmHG Vent. Rate : 109 BPM Atrial Rate : 109 BPM P-R Int : 174 ms QRS Dur : 102 ms QT Int : 324 ms P-R-T Axes : 056 040 080 degrees QTc Int : 436 ms Sinus tachycardia Nonspecific ST and T wave abnormality Confirmed by GILBERT PETERSON, WENDY ([id number]), acquisition editor ROBERT CARBAJAL ([id number]) on 02/08/2021 10:57:02 AM Referred By: Confirmed By:WENDY HUNT MD
[2021-02-05] MEDS: Mag Hydrox/Al Hydrox/Simeth 30 ML UDC PO (20:18)
[2021-02-05] MEDS: Ipratropium/Albuterol Sulfate 3 ML AMPUL.NEB INHALATION (20:19)
[2021-02-05 20:20] VITALS: PULSE 107; RESP 22
[2021-02-05 20:29] VITALS: BP 114/78; PULSE 108; RESP 18; O2SAT 100
[2021-02-05 20:40] LABS: Absolute Lymphocyte Count 2.25 X10^3/uL (0.83-4.51); Absolute Neutrophil Count 5.5 X10^3/uL (2.0-7.7); Basophil# 0.04 X10^3/uL; Basophil% 0.5 % (0-1); Eosinophil# 0.12 X10^3/uL; Eosinophils% 1.4 % (0-5); Hematocrit 38.1 % (37-47); Hemoglobin 12.2 g/dL (12.0-15.0); Lymphocyte # 2.25 X10^3/ul (4.0); Lymphocyte % 26.3 % (19-41); Mean Corpuscular Hgb 25.6 pg (27.0-32.0); Mean Corpuscular Volume 79.9 fL (81-99); Mean Platelet Vol. 10.9 fl (6.2-12.0); Monocyte% 5.9 % (0-10); NRBC Flagged by Analyzer 0 % (0-5); Neutrophil # 5.54 X10^3/uL (2.7-7.7); Neutrophil % 64.8 % (47-70); Platelet Count 238 K/mm3 (150-450); RBC Distribution Width CV 14.6 % (11.6-14.6); RBC Distribution Width SD 42.5 fl (35.1-43.9); Red Blood Count 4.77 M/mm3 (4.2-5.4); White Blood Count 8.5 K/mm3 (4.4-11.0)
[2021-02-05 20:58] LABS: Anion Gap 7 (5-15); BUN 15 mg/dL (7-18); BUN/Creat Ratio 16.4 RATIO (10-20); Calcium,Total 8.5 mg/dL (8.5-10.1); Chloride 100 mmol/L (98-107); Creatinine, Serum 0.92 mg/dL (0.55-1.02); EST Glomerular Filtration Rate 67 mL/min (>60); Est Glom Filt Rate - Afr Amer 81 mL/min (>60); Estimated Creatinine Clearance 55.81 ml/min; Glucose 169 mg/dL (74-106); Potassium 3.2 mmol/L (3.5-5.1); Sodium Level 137 mmol/L (136-145)
[2021-02-05 21:26] LABS: D-Dimer Quantitative (DVT/PE) 0.44 FEU/ug/m (0.27-0.49)
[2021-02-05 21:31] VITALS: BP 121/76; PULSE 103; RESP 98; O2SAT 95
--- NOTE | 2021-02-05 21:42 | ED.DEP ---
ED Disposition - Plan for ED Patient: Instructions: ED Dyspnea, ED Conjunctivitis, Viral Referrals: Nick Giraldo DO [Primary Care Provider] - Victor M Law MD [STAFF PHYSICIAN] -
--- NOTE | 2021-02-05 21:45 | ED.VISSUMM ---
- ER Visit Summary Date of Service: 02/05/21 Chief Complaint: Shortness of breath History of Present Illness: The patient is a 56 F presenting with shortness of breath. Patient states she started to become short of breath today. She used her inhaler and this helped her symptoms. She denies chest pain. She has had a dry cough. She also complains of pinkeye. She states that her eyes have felt crusty in the morning and she has had watering of her eyes for the last several days. She denies vision changes. Denies fever. Denies other complaints. Physical Examination: Vitals are stable. Patient is afebrile. Alert no acute distress. HEENT exam PERRL, EOMI, mild conjunctival injection bilaterally Neck is supple. Lungs are clear and equal bilaterally. Heart is regular rate and rhythm. Abdomen is soft nontender nondistended. Extremities are unremarkable. Skin is warm and dry. Remainder of exam is unremarkable. Emergency Department Course and Treatment: Patient was given DuoNeb aerosol. Chest x-ray read by myself and radiology shows no acute process. EKG is sinus rhythm rate of 109. CBC, chemistries unremarkable. Troponin is negative. D-dimer is normal. On reevaluation, patient is resting comfortably. She is able to ambulate in the ED without difficulty. Patient is concerned about conjunctivitis. She was given bacitracin ophthalmic ointment. She is advised to follow-up with ophthalmology as needed. Advised return to ED for worsening complaints. Disposition: Discharge home Impression: Dyspnea, resolved; mild bilateral conjunctivitis This note was generated with Clear[employer]ide dictation software. It may contain incorrect words, spelling, and punctuation that were not noted in review of the chart prior to signing ED Disposition - Plan for ED Patient: Instructions: ED Conjunctivitis, Viral, ED Dyspnea Referrals: Nick Giraldo DO [Primary Care Provider] - Victor M Law MD [STAFF PHYSICIAN] -
== END 2021-02-05 23:09 | disposition home or self-care (01) ==
LOC: ED 20:49
PROVIDERS: Emergency Provider Emergency Medicine; PCP Student in an Organized Health Care Education/Training Program
DX: R06.02 Shortness of breath (principal); H10.9 Unspecified conjunctivitis; I10 Essential (primary) hypertension; E11.9 Type 2 diabetes mellitus without complications; J45.909 Unspecified asthma, uncomplicated; F31.9 Bipolar disorder, unspecified; F41.9 Anxiety disorder, unspecified; Z79.84 Long term (current) use of oral hypoglycemic drugs; Z79.899 Other long term (current) drug therapy; Z86.16 Personal history of COVID-19
CPT/HCPCS: 71045; 80048; 84484; 85025; 85379; 93005; 94640; 99285; A4216

== ENCOUNTER 2021-07-15 17:25 | Emergency (ER) | payer MEDICARE, MEDICAID, SELFPAY ==
[2021-07-15 17:26] VITALS: BP 140/88; PULSE 104; PULSE 107; RESP 18; TEMP 36.1; O2SAT 96; O2SAT 97; BMI 44.1
--- NOTE | 2021-07-15 17:50 | EDS_ITS ---
HPI History of Present Illness Chief Complaint: Chest Pain Informant: patient Onset/Context/Timing Onset: Weeks (1) Context: Gradual Onset Timing: Continuous Quality: Tightness Location: Chest Worsened by: Nothing Relieved by: Nothing Narrative Narrative: Patient presents with right eye redness, chest pain, shortness of breath, nausea, vomiting, and abdominal pain that has been getting worse over the last week. Patient describes her pain as a tightness across her chest. Patient admits to a cough with some white sputum. Patient denies any fevers or chills. Patient admits to some rhinorrhea. Patient admits to some drainage from her right eye. Patient denies any visual changes. Patient denies any hematemesis or coffee-ground emesis. Patient states her emesis is just stomach contents. Patient also admits to some upper back pain. Patient admits to general weakness. Patient denies any lower extremity edema. Patient states nothing is been making her symptoms any better or worse. [facility] Medical History Asthma Bipolar 1 disorder Depression Diabetes Hiatal hernia HTN (hypertension) IBS (irritable bowel syndrome) Home Medications albuterol sulfate [Ventolin HFA] 1 - 2 puff INHALATION Q4H PRN PRN 12/06/16 [History Last Taken Unknown] carbamazepine 200 mg PO BID 12/06/16 [History Last Taken Unknown] glimepiride 1 mg PO DAILY 12/06/16 [History Last Taken Unknown] hydrochlorothiazide 25 mg PO DAILY 12/06/16 [History Last Taken Unknown] omeprazole 40 mg PO BID 12/06/16 [History Last Taken Unknown] quetiapine [Seroquel] 450 mg PO QHS 12/06/16 [History Last Taken Unknown] solifenacin [Vesicare] 10 mg PO QHS 12/06/16 [History Last Taken Unknown] amlodipine 10 mg PO DAILY 07/09/17 [History Last Taken Unknown] cyclobenzaprine 10 mg PO TID PRN #20 tab 08/02/19 [Rx Last Taken Unknown] fexofenadine 180 mg PO DAILY 08/02/19 [History Last Taken Unknown] fluticasone propionate 2 spray NASAL DAILY 08/02/19 [History Last Taken Unknown] montelukast 10 mg PO DAILY 08/02/19 [History Last Taken Unknown] potassium chloride 10 meq PO BID 08/02/19 [History Last Taken Unknown] cholecalciferol (vitamin D3) 5,000 mg PO DAILY 12/08/20 [History Last Taken Unknown] naproxen 500 mg PO BID PRN 12/08/20 [History Last Taken Unknown] lorazepam 1 mg PO TID PRN #10 tab 12/19/20 [Rx Last Taken Unknown] omeprazole 20 mg PO BID #20 cap 12/19/20 [Rx Last Taken Unknown] Allergy/AdvReac Type Severity Reaction Status Date / Time latex Allergy Rash Verified 02/05/21 20:02 lithium [[place]] Allergy Anaphylaxis Verified 02/05/21 20:02 acetaminophen AdvReac Vomiting Verified 02/05/21 20:02 [From Tylenol-Codeine] aspirin AdvReac Vomiting Verified 02/05/21 20:02 citalopram hydrobromide AdvReac Other Verified 02/05/21 20:02 [From Celexa] codeine AdvReac Vomiting Verified 02/05/21 20:02 divalproex sodium AdvReac Vomiting Verified 02/05/21 20:02 [From Depakote] ibuprofen AdvReac Nausea Verified 02/05/21 20:02 nortriptyline AdvReac Other Verified 02/05/21 20:02 SLEEPING PILL AdvReac Other Uncoded 02/05/21 20:02 Social History Smoking Status: Former smoker ROS ROS ED Constitutional Constitutional ED: Denies chills or fever(s) Eyes Eyes: Denies blurry vision or change in vision ENT ENT ED: Reports rhinorrhea; Denies sore throat Cardiovascular Cardiovascular: Reports chest pain; Denies palpitations Respiratory/Chest Respiratory/Chest: Reports cough and dyspnea Gastrointestinal Gastrointestinal: Reports nausea and vomiting Genitourinary Genitourinary ED: Denies dysuria or hematuria Musculoskeletal Musculoskeletal: Reports back pain; Denies neck pain Integumentary Denies abscess or rash Neurologic Neurologic: Reports weakness; Denies headache(s) Allergic/Immunologic Allergic/Immunologic ED: Denies mouth swelling or urticaria EXAM Physical Exam Const Vital Signs: 07/15/21 17:26 07/15/21 17:47 07/15/21 18:20 Temperature 96.9 F L Temperature Source Temporal Pulse Rate 104 H 85 Respiratory Rate 18 22 H Respiratory Effort Normal Non-Labored Respiratory Pattern Normal Blood Pressure 140/88 H Blood Pressure Mean 105 Pulse Ox 96 Oxygen Delivery Method Room Air 07/15/21 20:00 Temperature Temperature Source Pulse Rate 98 Respiratory Rate 19 H Respiratory Effort Respiratory Pattern Blood Pressure 128/108 H Blood Pressure Mean 114 Pulse Ox 97 Oxygen Delivery Method Room Air Positive well nourished, well developed and obese General Appearance ED: well developed Nutritional Appearance: obese HEENT Reports moist mucous membranes Eyes PERRL and EOMs intact bilaterally Eyes Narrative: There is some conjunctival injection on the right. There is no purulent discharge or drainage. There is some mild lid edema of the upper and lower lids. Neck supple and no JVD Resp normal respiratory effort and clear to auscultation bilaterally Cardio regular rate and regular rhythm GI normal to inspection, nondistended, normoactive bowel sounds Palpation: soft and tender epigastric, LUQ and RUQ; Negative for guarding or rebound tenderness present Neuro oriented x3, CN's II-XII intact bilaterally and no sensory deficits noted Sensorium / Orientation: alert Motor Exam: strength 5/5 throughout Psych mental status grossly normal MDM MDM MDM Narrative Medical decision making narrative: EKG was obtained. On my interpretation, it showed a normal sinus rhythm with a rate of 103. SD interval, QRS interval, and QTc intervals were all normal. [place] was normal. There are no acute ST or T wave changes. This was unchanged compared to previous EKG dated 02/05/2021. Portable 1 view chest x-ray was obtained. On my interpretation, lung jackson are clear. There is normal cardiac silhouette. Bony thorax is normal. There is no acute process noted. Radiologist also interpreted the x-ray and agrees. CBC and comprehensive metabolic profile was obtained and was within normal limits. High-sensitivity troponin was normal. BNP was normal. Patient was still having some mild nausea on reevaluation. Patient also was complaining of pain in her left hand. Patient denies any trauma or injury. Patient requested an x-ray. This was ordered. There are 3 views. On my interpretation, there is no acute fracture or dislocation. There is no soft tissue swelling. The radiologist also interpreted the x-rays and agrees. Patient was advised that she most likely has a viral illness. Patient was instructed to drink plenty of fluids. Patient was instructed to advance her diet as tolerated. Patient was instructed to return if worse in any way. Patient understood and was agreeable with the plan. All questions were answered. Lab Data Attestation: I reviewed the patient's lab results. Labs: Laboratory Results - last 24 hr 07/15/21 07/15/21 07/15/21 17:50 17:50 17:50 WBC 8.2 RBC 4.71 Hgb 11.9 L Hct 37.6 MCV 79.8 L MCH 25.3 L MCHC 31.6 L RDW Std Deviation 42.5 RDW Coeff of Yinka 14.6 Plt Count 250 MPV 11.2 Immature Gran % (Auto) 0.700 Neut % (Auto) 60.5 Lymph % (Auto) 29.6 [place] % (Auto) 7.1 Eos % (Auto) 1.5 Baso % (Auto) 0.6 Absolute Neuts (auto) 4.9 Absolute Lymphs (auto) 2.42 Nucleated RBC % 0 Sodium 137 Potassium 3.3 L Chloride 104 Carbon Dioxide 25.0 Anion Gap 8 BUN 15 Creatinine 0.78 Estim Creat Clear Calc 62.94 Est GFR (MDRD) Af Amer 97 Est GFR (MDRD) Non-Af 80 BUN/Creatinine Ratio 19.2 Glucose 106 Calcium 8.8 Total Bilirubin 0.30 AST 18 ALT 23 Alkaline Phosphatase 157 H Troponin I High Sens 5.1 B-Natriuretic Peptide 31.0 Total Protein 8.1 Albumin 3.6 Globulin 4.5 H Albumin/Globulin Ratio 0.8 L Urine Color Urine Clarity Urine pH Ur Specific [place] Urine Protein Urine Glucose (UA) Urine Ketones Urine Occult Blood Urine Nitrite Urine Bilirubin Urine Urobilinogen Ur Leukocyte Esterase Urine RBC Urine WBC Ur Squamous Epith Cells Urine Bacteria Urine Mucus 07/15/21 19:21 WBC RBC Hgb Hct MCV MCH MCHC RDW Std Deviation RDW Coeff of Yinka Plt Count MPV Immature Gran % (Auto) Neut % (Auto) Lymph % (Auto) [place] % (Auto) Eos % (Auto) Baso % (Auto) Absolute Neuts (auto) Absolute Lymphs (auto) Nucleated RBC % Sodium Potassium Chloride Carbon Dioxide Anion Gap BUN Creatinine Estim Creat Clear Calc Est GFR (MDRD) Af Amer Est GFR (MDRD) Non-Af BUN/Creatinine Ratio Glucose Calcium Total Bilirubin AST ALT Alkaline Phosphatase Troponin I High Sens B-Natriuretic Peptide Total Protein Albumin Globulin Albumin/Globulin Ratio Urine Color Yellow Urine Clarity Clear Urine pH 7.0 Ur Specific [place] 1.015 Urine Protein Negative Urine Glucose (UA) Normal Urine Ketones Negative Urine Occult Blood 10 H Urine Nitrite Negative Urine Bilirubin Negative Urine Urobilinogen Normal Ur Leukocyte Esterase 25 H Urine RBC 0-5 SEEN Urine WBC 0-5 SEEN Ur Squamous Epith Cells 0 SEEN Urine Bacteria RARE Urine Mucus 0 SEEN Radiography Chest X-Ray - ED: 1 View, Read by ED Physician, Read by Radiologist and Normal Diagnostic Testing: Radiology Impression Chest X-Ray 07/15/21 18:22 IMPRESSION: Stable, nonacute portable x-ray examination of the chest. Electronically Signed: James Fulton MD ([place]oks) at 18:34 EDT , Service support , EKG Initial EKG: Attestation: I personally reviewed and interpreted this EKG as follows: Interpretation: Sinus Rhythm (103) and No Acute Injury Pattern Prior EKG tracings: available for review Prior: Unchanged (02/05/2021) Discharge Plan Triage Chief Complaint: Chest Pain ED Provider: Evin Vogt Dx/Rx/DC Orders Clinical Impression: Viral illness Instructions: ED Viral Syndrome (Adult) Prescriptions: No Action glimepiride 1 MG tablet 1 mg PO DAILY RF: 0 carbamazepine 200 MG tablet 200 mg PO BID RF: 0 hydrochlorothiazide 25 MG tablet 25 mg PO DAILY RF: 0 solifenacin [Vesicare] 10 MG tablet 10 mg PO QHS RF: 0 quetiapine [Seroquel] 400 MG tablet 450 mg PO QHS RF: 0 omeprazole 40 MG Capsule.Dr 40 mg PO BID RF: 0 albuterol sulfate [Ventolin HFA] 1 INHALER inhaler 1 - 2 puff inhalation Q4H PRN PRN (Reason: Shortness Of Breath) RF: 0 amlodipine 10 MG tablet 10 mg PO DAILY RF: 0 fexofenadine 180 MG tablet 180 mg PO DAILY RF: 0 montelukast 10 MG tablet 10 mg PO DAILY RF: 0 fluticasone propionate 1 SPRAY spray,suspension 2 spray NASAL DAILY RF: 0 potassium chloride 10 MEQ tablet,ER particles/crystals 10 meq PO BID RF: 0 cyclobenzaprine 10 MG tablet 10 mg PO TID PRN (Reason: Muscle Spasm) Qty: 20 RF: 0 naproxen 500 MG tablet 500 mg PO BID PRN (Reason: Pain 1-10 Or Fever) RF: 0 cholecalciferol (vitamin D3) 50 MCG capsule 5,000 mg PO DAILY RF: 0 omeprazole 20 MG capsule 20 mg PO BID Qty: 20 RF: 0 lorazepam 1 MG tablet 1 mg PO TID PRN (Reason: Anxiety) Qty: 10 RF: 0 Primary Care Provider: Nick Giraldo Referrals: Nick Giraldo DO [Primary Care Provider] - 3-5 Days Disposition Disposition: Home, Self Care
--- NOTE | 2021-07-15 17:56 | EKG12_ITS ---
Test Reason : CP Blood Pressure : / mmHG Vent. Rate : 103 BPM Atrial Rate : 103 BPM P-R Int : 174 ms QRS Dur : 098 ms QT Int : 342 ms P-R-T Axes : 053 029 071 degrees QTc Int : 448 ms Sinus tachycardia Otherwise normal ECG Confirmed by MARY PETERSON, QIAN ([id number]), online editor ROBERT CARBAJAL ([id number]) on 07/18/2021 9:32:47 AM Referred By: ED PHYSICIAN Confirmed By:QIAN HERNANDEZ MD
[2021-07-15 18:10] LABS: Absolute Lymphocyte Count 2.42 X10^3/uL (0.83-4.51); Absolute Neutrophil Count 4.9 X10^3/uL (2.0-7.7); Basophil# 0.05 X10^3/uL; Basophil% 0.6 % (0-1); Eosinophil# 0.12 X10^3/uL; Eosinophils% 1.5 % (0-5); Hematocrit 37.6 % (37-47); Hemoglobin 11.9 g/dL (12.0-15.0); Lymphocyte # 2.42 X10^3/ul (0.83-4.51); Lymphocyte % 29.6 % (19-41); Mean Corp Hgb Conc 31.6 g/dL (32-36); Mean Corpuscular Hgb 25.3 pg (27.0-32.0); Mean Corpuscular Volume 79.8 fL (81-99); Mean Platelet Vol. 11.2 fl (6.2-12.0); Monocyte# 0.58 X10^3/uL; Monocyte% 7.1 % (0-10); NRBC Flagged by Analyzer 0 % (0-5); Neutrophil # 4.94 X10^3/uL (2.7-7.7); Neutrophil % 60.5 % (47-70); Platelet Count 250 K/mm3 (150-450); RBC Distribution Width CV 14.6 % (11.6-14.6); RBC Distribution Width SD 42.5 fl (35.1-43.9); Red Blood Count 4.71 M/mm3 (4.2-5.4); White Blood Count 8.2 K/mm3 (4.4-11.0)
[2021-07-15] MEDS: Ipratropium/Albuterol Sulfate 3 ML AMPUL.NEB INHALATION (18:18)
[2021-07-15 18:20] VITALS: PULSE 85; RESP 22
--- NOTE | 2021-07-15 18:22 | RAD_ITS ---
STUDY: X-RAY CHEST REASON FOR EXAM: Female, 56 years old. Chest pain for one week TECHNIQUE: AP COMPARISON: 02/05/2021 FINDINGS: EKG leads project over the chest. The lungs are clear and expanded. There is no demonstrated pleural abnormality. Normal size heart. Normal mediastinum and jose m. Normal visualized pulmonary arteries. Normal visualized aortic arch and descending thoracic aorta. No acute bony process. There is no demonstrated abnormality of the visualized soft tissue structures of the upper abdomen. RAD/Chest 1 View (Portable) IMPRESSION: Stable, nonacute portable x-ray examination of the chest. Electronically Signed: James Fulton MD ([place]) at 18:34 EDT , Service support ,
[2021-07-15 18:32] LABS: ALB/GLOB Ratio 0.8 RATIO (0.9-2.4); AST(SGOT) 18 U/L (15-37); Alanine Aminotransfer ALT/SGPT 23 U/L (13-56); Albumin, Serum 3.6 g/dL (3.2-5.0); Alkaline Phosphatase 157 U/L (45-117); Anion Gap 8 (5-15); BUN 15 mg/dL (7-18); BUN/Creat Ratio 19.2 RATIO (10-20); Calcium,Total 8.8 mg/dL (8.5-10.1); Chloride 104 mmol/L (98-107); Creatinine, Serum 0.78 mg/dL (0.55-1.02); EST Glomerular Filtration Rate 80 mL/min (>60); Est Glom Filt Rate - Afr Amer 97 mL/min (>60); Estimated Creatinine Clearance 62.94 ml/min; Globulin 4.5 g/dL (2.2-4.2); Glucose 106 mg/dL (74-106); Potassium 3.3 mmol/L (3.5-5.1); Protein, Total 8.1 g/dL (6.4-8.2); Sodium Level 137 mmol/L (136-145); Troponin-I HS 5.1 pg/mL (3.0-53.7)
[2021-07-15 19:35] LABS: Mucous, Urine 0 SEEN /hpf (<or=2+); Squamous Epithelial Cells - UA 0 SEEN /hpf (5-10)
[2021-07-15 19:37] LABS: Color, Urine Yellow (Yellow); Glucose, Dipstick Normal (Normal); Ketone-Dipstick Negative (Negative); Leukocyte Esterase-Dipstick 25 /ul (Negative); Nitrite-Dipstick Negative (Negative); Occult Blood-Urine 10 /ul (Negative); Protein-Dipstick Negative (Negative); Specific Gravity, Urine 1.015 (1.002-1.030); Urine Bilirubin Dipstick Negative (Negative); Urine Urobilinogen Normal (Normal)
[2021-07-15 19:41] LABS: Urine Clarity Clear (Clear)
[2021-07-15 19:47] LABS: Red Blood Cells-Urine 0-5 SEEN /hpf (0-5); White Blood Cells 0-5 SEEN /hpf (0-5)
[2021-07-15 19:48] LABS: Bacteria RARE /hpf (None Seen)
[2021-07-15 20:00] VITALS: BP 128/108; PULSE 98; RESP 19; O2SAT 97
--- NOTE | 2021-07-15 20:25 | RAD_ITS ---
STUDY: X-RAY - LEFT HAND REASON FOR EXAM: Female, 56 years old. Injury/Pain TECHNIQUE: 3 view(s) of the hand. COMPARISON: None. FINDINGS: Normal radiocarpal articulation. Normal distal radioulnar joint. Normal visualized carpal bones. Normal carpal articulations Normal carpometacarpal articulation of the thumb. Normal second through fifth carpometacarpal joints. Normal metacarpi. Normal metacarpophalangeal joint of the thumb. Normal interphalangeal joint of the thumb. Normal proximal and distal phalanges of the thumb. Normal metacarpophalangeal joints of the second through fifth fingers. Normal proximal and distal interphalangeal joints of the second through fifth fingers. Normal phalanges of the second through fifth fingers. The soft tissue structures are unremarkable. RAD/Hand Min 3 Views IMPRESSION: Normal x-ray examination of the hand. Electronically Signed: Michele Watkins MD at 21:01 EDT , Service support ,
[2021-07-15 20:54] VITALS: BP 137/67; PULSE 101; RESP 18
== END 2021-07-15 21:03 | disposition home or self-care (01) ==
PROVIDERS: Emergency Provider Emergency Medicine; PCP Student in an Organized Health Care Education/Training Program
DX: B34.9 Viral infection, unspecified (principal); M79.642 Pain in left hand; I10 Essential (primary) hypertension; E11.9 Type 2 diabetes mellitus without complications; F31.9 Bipolar disorder, unspecified; R06.02 Shortness of breath; Z79.84 Long term (current) use of oral hypoglycemic drugs; Z79.899 Other long term (current) drug therapy; Z87.891 Personal history of nicotine dependence
CPT/HCPCS: 71045; 73130; 80053; 81001; 83880; 84484; 85025; 87426; 93005; 94640; 99285; A4216

== ENCOUNTER 2021-08-11 18:20 | Emergency (ER) | payer MEDICARE, MEDICAID, SELFPAY ==
[2021-08-11 18:24] VITALS: BP 128/82; PULSE 107; RESP 18; TEMP 36.2; O2SAT 97; BMI 44.4
--- NOTE | 2021-08-11 20:48 | CT_ITS ---
STUDY: CT ABDOMEN AND PELVIS WITH CONTRAST REASON FOR EXAM: Female, 56 years old. Abd pain, pelvic pain RADIATION DOSAGE (If Supplied By Facility): CTDIvol = ( 18.73 ) mGy, DLP = ( 1262.03 ) mGycm TECHNIQUE: Transaxial images were obtained from the dome of the diaphragm to the symphysis pubis without oral contrast. IV 100mL Isovue-370 was administered. Sagittal and coronal images were reconstructed. Individualized dose optimization techniques were used for this CT. COMPARISON: None. FINDINGS: The visualized lung bases are unremarkable. The visualized portions of the heart are within normal limits. Normal liver. There are surgical clips in the gallbladder fossa consistent with a prior cholecystectomy. Normal spleen. Normal pancreas. Normal bilateral adrenal glands. Normal right kidney. Normal left kidney. Normal visualized stomach. Normal small intestine. Normal colon. The appendix is visualized and appears normal. Normal abdominal aorta. Normal inferior vena cava. Normal retroperitoneum. Normal urinary bladder. Normal visualized uterus. Normal abdominal wall. There are diffuse degenerative changes of the visualized lumbar spine. CT/Abdomen/Pelvis W IV Cont ONLY IMPRESSION: No acute abnormal finding in the abdomen or pelvis. Electronically Signed: Pascual Ashford MD at 22:47 EDT Tel , Service support ,
--- NOTE | 2021-08-11 20:48 | EKG12_ITS ---
Test Reason : OTHER PAIN Blood Pressure : / mmHG Vent. Rate : 097 BPM Atrial Rate : 097 BPM P-R Int : 180 ms QRS Dur : 096 ms QT Int : 350 ms P-R-T Axes : 043 038 070 degrees QTc Int : 444 ms Normal sinus rhythm Normal ECG Confirmed by GILBERT PETERSON, WENDY ([id number]), assistant film editor ROBERT CARBAJAL ([id number]) on 08/14/2021 2:17:34 PM Referred By: LEONIDES Confirmed By:WENDY HUNT MD
[2021-08-11 21:45] VITALS: RESP 18
[2021-08-11 21:47] LABS: Absolute Lymphocyte Count 2.65 X10^3/uL (0.83-4.51); Absolute Neutrophil Count 4.8 X10^3/uL (2.0-7.7); Basophil# 0.04 X10^3/uL; Basophil% 0.5 % (0-1); Eosinophil# 0.12 X10^3/uL; Eosinophils% 1.5 % (0-5); Hematocrit 36.7 % (37-47); Hemoglobin 11.7 g/dL (12.0-15.0); Lymphocyte # 2.65 X10^3/ul (0.83-4.51); Lymphocyte % 32.4 % (19-41); Mean Corp Hgb Conc 31.9 g/dL (32-36); Mean Corpuscular Hgb 25.1 pg (27.0-32.0); Mean Corpuscular Volume 78.8 fL (81-99); Mean Platelet Vol. 10.8 fl (6.2-12.0); Monocyte# 0.55 X10^3/uL; Monocyte% 6.7 % (0-10); NRBC Flagged by Analyzer 0 % (0-5); Neutrophil # 4.75 X10^3/uL (2.7-7.7); Neutrophil % 58.2 % (47-70); Platelet Count 267 K/mm3 (150-450); RBC Distribution Width CV 14.3 % (11.6-14.6); RBC Distribution Width SD 40.3 fl (35.1-43.9); Red Blood Count 4.66 M/mm3 (4.2-5.4); White Blood Count 8.2 K/mm3 (4.4-11.0)
[2021-08-11 21:55] LABS: ALB/GLOB Ratio 0.7 RATIO (0.9-2.4); AST(SGOT) 30 U/L (15-37); Alanine Aminotransfer ALT/SGPT 32 U/L (13-56); Albumin, Serum 3.1 g/dL (3.2-5.0); Alkaline Phosphatase 146 U/L (45-117); Anion Gap 9 (5-15); BUN 17 mg/dL (7-18); BUN/Creat Ratio 20.4 RATIO (10-20); Calcium,Total 8.6 mg/dL (8.5-10.1); Chloride 102 mmol/L (98-107); Creatinine, Serum 0.83 mg/dL (0.55-1.02); EST Glomerular Filtration Rate 75 mL/min (>60); Est Glom Filt Rate - Afr Amer 91 mL/min (>60); Estimated Creatinine Clearance 59.15 ml/min; Globulin 4.6 g/dL (2.2-4.2); Glucose 111 mg/dL (74-106); Protein, Total 7.7 g/dL (6.4-8.2); Sodium Level 136 mmol/L (136-145)
[2021-08-11 22:16] VITALS: BP 147/77; PULSE 91; RESP 16; O2SAT 93
[2021-08-11 22:24] LABS: Bacteria 0 SEEN /hpf (None Seen); Mucous, Urine 0 SEEN /hpf (<or=2+); Red Blood Cells-Urine 0 SEEN /hpf (0-5); Squamous Epithelial Cells - UA 0 SEEN /hpf (5-10)
[2021-08-11 22:25] LABS: Color, Urine Yellow (Yellow); Glucose, Dipstick Normal (Normal); Ketone-Dipstick Negative (Negative); Leukocyte Esterase-Dipstick 100 /ul (Negative); Nitrite-Dipstick Negative (Negative); Occult Blood-Urine 10 /ul (Negative); Protein-Dipstick Negative (Negative); Urine Bilirubin Dipstick Negative (Negative); Urine Clarity Sl. Cloudy (Clear); Urine Urobilinogen Normal (Normal)
[2021-08-11] MEDS: Morphine 4 MG/ML Syringe IV (22:58)
--- NOTE | 2021-08-11 23:12 | EDS_ITS ---
HPI History of Present Illness Chief Complaint: Other, Pain/Inj Informant: patient Narrative Narrative: Patient is a bit difficult to keep on task at times with her history. The reason she came in today is that she has had discomfort across her abdomen and in her back. It sounds like it has been going on for weeks but she is also had it many times over the last year or so. She is eating and drinking and moving her bowels fine. She denies any urinary symptoms such as burning frequency urgency change in color or odor. No vaginal discharge or bleeding. No fevers or chills. No chest pain or trouble breathing. At the end of our visit, she complains that she slipped and hit her sacrum and back about a year or year and a half ago and she has been having pain ever since. This is new information that was not available initially. Nothing makes her symptoms better or worse. [facility] Medical History Asthma Bipolar 1 disorder Depression Diabetes Hiatal hernia HTN (hypertension) IBS (irritable bowel syndrome) Home Medications albuterol sulfate [Ventolin HFA] 1 - 2 puff INHALATION Q4H PRN PRN 12/06/16 [History Last Taken Unknown] carbamazepine 200 mg PO BID 12/06/16 [History Last Taken Unknown] glimepiride 1 mg PO DAILY 12/06/16 [History Last Taken Unknown] hydrochlorothiazide 25 mg PO DAILY 12/06/16 [History Last Taken Unknown] omeprazole 40 mg PO BID 12/06/16 [History Last Taken Unknown] quetiapine [Seroquel] 450 mg PO QHS 12/06/16 [History Last Taken Unknown] solifenacin [Vesicare] 10 mg PO QHS 12/06/16 [History Last Taken Unknown] amlodipine 10 mg PO DAILY 07/09/17 [History Last Taken Unknown] cyclobenzaprine 10 mg PO TID PRN #20 tab 08/02/19 [Rx Last Taken Unknown] fexofenadine 180 mg PO DAILY 08/02/19 [History Last Taken Unknown] fluticasone propionate 2 spray NASAL DAILY 08/02/19 [History Last Taken Unknown] montelukast 10 mg PO DAILY 08/02/19 [History Last Taken Unknown] potassium chloride 10 meq PO BID 09/01/19 [History Last Taken Unknown] cholecalciferol (vitamin D3) 5,000 mg PO DAILY 12/08/20 [History Last Taken Unknown] naproxen 500 mg PO BID PRN 12/08/20 [History Last Taken Unknown] lorazepam 1 mg PO TID PRN #10 tab 12/19/20 [Rx Last Taken Unknown] omeprazole 20 mg PO BID #20 cap 12/19/20 [Rx Last Taken Unknown] dicyclomine 20 mg PO TID PRN #20 tab 08/11/21 [Rx Last Taken Unknown] Allergy/AdvReac Type Severity Reaction Status Date / Time latex Allergy Rash Verified 02/05/21 20:02 lithium [[place]] Allergy Anaphylaxis Verified 02/05/21 20:02 acetaminophen AdvReac Vomiting Verified 02/05/21 20:02 [From Tylenol-Codeine] aspirin AdvReac Vomiting Verified 02/05/21 20:02 citalopram hydrobromide AdvReac Other Verified 02/05/21 20:02 [From Celexa] codeine AdvReac Vomiting Verified 02/05/21 20:02 divalproex sodium AdvReac Vomiting Verified 02/05/21 20:02 [From Depakote] ibuprofen AdvReac Nausea Verified 02/05/21 20:02 nortriptyline AdvReac Other Verified 02/05/21 20:02 SLEEPING PILL AdvReac Other Uncoded 02/05/21 20:02 Social History Smoking Status: Former smoker ROS ROS ED Constitutional Constitutional ED: Denies chills, fever(s) or sweats Eyes Eyes: Denies blurry vision ENT ENT ED: Denies rhinorrhea or sore throat Cardiovascular Cardiovascular: Denies chest pain or palpitations Respiratory/Chest Respiratory/Chest: Denies cough, dyspnea or sputum Gastrointestinal Gastrointestinal: Reports abdominal pain; Denies constipation, diarrhea, melena, nausea or vomiting Genitourinary Genitourinary ED: Reports other Details: No frequency urgency or vaginal discharge or bleeding. She did have a prior tubal ligation but not hysterectomy. ; Denies dysuria, hematuria or urinary frequency Musculoskeletal Musculoskeletal: Reports back pain; Denies arthralgias, myalgias or neck pain Integumentary Denies abscess or rash Neurologic Neurologic: Denies headache(s) Psychiatric Psychiatric: Reports other Details: Bipolar ; Denies depression Endocrine Endocrinology: Denies polydipsia or polyuria EXAM Physical Exam Const Vital Signs: 08/11/21 18:24 08/11/21 21:45 08/11/21 21:47 Temperature 97.1 F L Temperature Source Temporal Pulse Rate 107 H Respiratory Rate 18 18 Respiratory Pattern Normal Blood Pressure 128/82 H Blood Pressure Mean 97 Pulse Ox 97 Oxygen Delivery Method Room Air 08/11/21 22:16 Temperature Temperature Source Pulse Rate 91 Respiratory Rate 16 Respiratory Pattern Blood Pressure 147/77 H Blood Pressure Mean 100 Pulse Ox 93 Oxygen Delivery Method Room Air Positive well nourished, well developed and obese General Appearance ED: well developed and NAD Nutritional Appearance: obese HEENT Negative for trauma Neck supple Chest Wall inspection of chest normal Resp normal respiratory effort and clear to auscultation bilaterally Effort and Inspection: pain with movement Auscultation: Negative for rales, rhonchi or wheezes Cardio regular rate and regular rhythm GI normal to inspection, nondistended, normoactive bowel sounds and non-tender Palpation: soft Back/Spine no CVA tenderness Extremity normal to inspection Neuro oriented x3 Sensorium / Orientation: alert Psych Psych Narrative: Slight difficulty with focus. However she does come back to original task. She is not tearful. She is not agitated. Not suicidal or homicidal. Skin no rashes or lesions noted and no wounds MDM MDM MDM Narrative Medical decision making narrative: Patient's blood work showed normal white count globin. Liver function test and electrolytes are overall unremarkable. Patient reports history of prior colitis she has nonspecific abdominal pain therefore I did do a CAT scan as her exam and history is somewhat difficult. This did not show any acute process. This is when she brought up that she has had pains ever since this injury to her back and coccyx a year or so ago. This might be the source of her symptoms. She denies any urinary symptoms. She would like to go home now. She also now brought up that she needs a splint for her wrist because that is been bothering her for a long time and an Juan wrap does not help. Plan we will be happy to do this. She has many allergies that make it quite difficult to treat her pain. Tylenol is appropriate. Patient with she has intolerance to nonsteroidals and opioids. Lab Data Attestation: I reviewed the patient's lab results. Labs: Laboratory Results - last 24 hr 08/11/21 08/11/21 08/11/21 21:22 21:22 21:30 WBC Cancelled 8.2 Corrected WBC Cancelled RBC Cancelled 4.66 Hgb Cancelled 11.7 L Hct Cancelled 36.7 L MCV Cancelled 78.8 L MCH Cancelled 25.1 L MCHC Cancelled 31.9 L RDW Std Deviation Cancelled 40.3 RDW Coeff of Yinka Cancelled 14.3 Plt Count Cancelled 267 MPV Cancelled 10.8 Immature Gran % (Auto) Cancelled 0.700 Neut % (Auto) Cancelled 58.2 Lymph % (Auto) Cancelled 32.4 [place] % (Auto) Cancelled 6.7 Eos % (Auto) Cancelled 1.5 Baso % (Auto) Cancelled 0.5 Absolute Neuts (auto) Cancelled 4.8 Absolute Lymphs (auto) Cancelled 2.65 Total Counted Cancelled Neutrophils % (Manual) Cancelled Band Neutrophils % Cancelled Lymphocytes % (Manual) Cancelled Monocytes % (Manual) Cancelled Eosinophils % (Manual) Cancelled Basophils % (Manual) Cancelled Metamyelocytes % Cancelled Myelocytes % Cancelled Promyelocytes % Cancelled Blast Cells % Cancelled Plasma Cell % (Manual) Cancelled Other Cells % Cancelled Nucleated RBC % Cancelled 0 Nucleated RBCs/100 WBC Cancelled Differential Comment Cancelled Diff Path Review Cancelled Hypersegmented Neuts Cancelled Atypical Lymphocytes Cancelled Reactive Lymphocytes Cancelled Smudge Cells Cancelled Toxic Granulation Cancelled Toxic Vacuolation Cancelled Dohle Bodies Cancelled [place] Rods Cancelled Platelet Estimate Cancelled Plt Morphology Comment Cancelled RBC Morphology Cancelled Polychromasia Cancelled Hypochromasia Cancelled Poikilocytosis Cancelled Basophilic Stippling Cancelled Anisocytosis Cancelled Microcytosis Cancelled Macrocytosis Cancelled Spherocytes Cancelled Sickle Cells Cancelled Target Cells Cancelled Tear Drop Cells Cancelled Ovalocytes Cancelled Stomatocytes Cancelled Stauffer-[place] Bodies Cancelled Moran Cells Cancelled Bite Cells Cancelled Crenated Cell Cancelled Acanthocytes (Spur) Cancelled Rouleaux Cancelled Schistocytes Cancelled Sodium 136 Potassium 4.0 Chloride 102 Carbon Dioxide 25.0 Anion Gap 9 BUN 17 Creatinine 0.83 Estim Creat Clear Calc 59.15 Est GFR (MDRD) Af Amer 91 Est GFR (MDRD) Non-Af 75 BUN/Creatinine Ratio 20.4 H Glucose 111 H Calcium 8.6 Total Bilirubin 0.30 AST 30 ALT 32 Alkaline Phosphatase 146 H Total Protein 7.7 Albumin 3.1 L Globulin 4.6 H Albumin/Globulin Ratio 0.7 L Radiography Diagnostic Testing: Radiology Impression Abdomen/Pelvis CT 08/11/21 20:48 IMPRESSION: No acute abnormal finding in the abdomen or pelvis. Electronically Signed: Pascual Ashford MD at 22:47 EDT Tel , Service support , EKG Initial EKG: Comments: G done for abdominal pain read by me shows sinus rhythm with a rate of 97. No ectopy. No acute ST elevation or depression. [place] interval, QRS duration and QTc normal. Discharge Plan Triage Chief Complaint: Other, Pain/Inj ED Provider: Tristen Cochran Dx/Rx/DC Orders Clinical Impression: Abdominal pain Instructions: Abdominal Pain Prescriptions: New dicyclomine 20 mg tablet 20 mg PO TID PRN (Reason: cramping) Qty: 20 RF: 0 No Action glimepiride 1 MG tablet 1 mg PO DAILY RF: 0 carbamazepine 200 MG tablet 200 mg PO BID RF: 0 hydrochlorothiazide 25 MG tablet 25 mg PO DAILY RF: 0 solifenacin [Vesicare] 10 MG tablet 10 mg PO QHS RF: 0 quetiapine [Seroquel] 400 MG tablet 450 mg PO QHS RF: 0 omeprazole 40 MG capsule,delayed release(DR/EC) 40 mg PO BID RF: 0 albuterol sulfate [Ventolin HFA] 1 INHALER inhaler 1 - 2 puff inhalation Q4H PRN PRN (Reason: Shortness Of Breath) RF: 0 amlodipine 10 MG tablet 10 mg PO DAILY RF: 0 fexofenadine 180 MG tablet 180 mg PO DAILY RF: 0 montelukast 10 MG tablet 10 mg PO DAILY RF: 0 fluticasone propionate 1 SPRAY spray,suspension 2 spray NASAL DAILY RF: 0 potassium chloride 10 MEQ tablet,ER particles/crystals 10 meq PO BID RF: 0 cyclobenzaprine 10 MG tablet 10 mg PO TID PRN (Reason: Muscle Spasm) Qty: 20 RF: 0 naproxen 500 MG tablet 500 mg PO BID PRN (Reason: Pain 1-10 Or Fever) RF: 0 cholecalciferol (vitamin D3) 50 MCG capsule 5,000 mg PO DAILY RF: 0 omeprazole 20 MG capsule 20 mg PO BID Qty: 20 RF: 0 lorazepam 1 MG tablet 1 mg PO TID PRN (Reason: Anxiety) Qty: 10 RF: 0 Primary Care Provider: Nick Giraldo Referrals: Nick Giraldo DO [Primary Care Provider] - 3-5 Days Disposition Disposition: Home, Self Care
[2021-08-11 23:40] LABS: Amorphous Sediment 1+; White Blood Cells 0-5 SEEN /hpf (0-5)
== END 2021-08-11 23:53 | disposition home or self-care (01) ==
PROVIDERS: Emergency Provider Emergency Medicine; PCP Student in an Organized Health Care Education/Training Program
DX: R10.9 Unspecified abdominal pain (principal); M25.539 Pain in unspecified wrist; I10 Essential (primary) hypertension; E11.9 Type 2 diabetes mellitus without complications; F31.9 Bipolar disorder, unspecified; E66.9 Obesity, unspecified; Z68.41 Body mass index [BMI] 40.0-44.9, adult; Z79.82 Long term (current) use of aspirin; Z79.84 Long term (current) use of oral hypoglycemic drugs; Z79.899 Other long term (current) drug therapy; Z87.891 Personal history of nicotine dependence
CPT/HCPCS: 74177; 80053; 81001; 85025; 93005; 96361; 96374; 99285; J7030; Q9967; A4216

== ENCOUNTER 2021-11-30 19:44 | Emergency (ER) | payer MEDICARE, MEDICAID, SELFPAY ==
[2021-11-30 19:47] VITALS: BP 159/104; PULSE 125; RESP 22; TEMP 36.1; O2SAT 96; BMI 45.8
--- NOTE | 2021-11-30 20:38 | EKG12_ITS ---
Test Reason : DYSRHYTHMIA Blood Pressure : / mmHG Vent. Rate : 099 BPM Atrial Rate : 099 BPM P-R Int : 198 ms QRS Dur : 100 ms QT Int : 334 ms P-R-T Axes : 057 040 086 degrees QTc Int : 428 ms Normal sinus rhythm Normal ECG Confirmed by MARY PETERSON, QIAN ([id number]), senior technical editor ROBERT CARBAJAL ([id number]) on 12/13/2021 10:36:39 AM Referred By: PL Confirmed By:QIAN HERNANDEZ MD
--- NOTE | 2021-11-30 20:39 | ED.VIS.GI ---
HPI HPI - GI History of Present Illness Chief Complaint: Abd Pain Informant: patient Narrative Narrative: Patient complains of abdominal pain for about 2 to 4 days. It is all over and diffuse. Nothing really makes it better or worse. She is eating and drinking. She has had diarrhea once or twice. She has not had any blood in the stool and she looks for that because she had a GI bleed 3 years ago. She is not on any anticoagulation. No fevers or chills. She started with a sore throat but that was after she vomited this morning. She vomited once. But she has been eating since. She ate pork and sauerkraut this afternoon. This is what prompted some of the diarrhea. Of note, it takes quite a bit of time to get this history from her. She gets mad at me for almost every question I ask. She states people at urgent care asked these questions today and nurses have asked this. She does not understand why we need to keep asking her questions. I explained that asking her questions and getting the history is very important part of her evaluation. However, it is very hard to get her to answer questions and I think this limits her evaluation somewhat. She then did start answering questions a bit better after this. Patient also has had full vaccinations for Covid including booster and has had influenza vaccinations. She has no pulmonary symptoms no myalgias. She reports a history of irritable bowel syndrome and has bowel problems quite a bit. In addition to the history documented, patient has had a cholecystectomy and had bowel surgery for what sounds like either adhesions or obstructions or a bleed. [facility] Medical History Asthma Bipolar 1 disorder Depression Diabetes Hiatal hernia HTN (hypertension) IBS (irritable bowel syndrome) Home Medications albuterol sulfate [Ventolin HFA] 1 - 2 puff INHALATION Q4H PRN PRN 12/06/16 [History Last Taken Unknown] carbamazepine 200 mg PO BID 12/06/16 [History Last Taken Unknown] glimepiride 1 mg PO DAILY 12/06/16 [History Last Taken Unknown] hydrochlorothiazide 25 mg PO DAILY 12/06/16 [History Last Taken Unknown] omeprazole 40 mg PO BID 12/06/16 [History Last Taken Unknown] quetiapine [Seroquel] 450 mg PO QHS 12/06/16 [History Last Taken Unknown] solifenacin [Vesicare] 10 mg PO QHS 12/06/16 [History Last Taken Unknown] amlodipine 10 mg PO DAILY 07/09/17 [History Last Taken Unknown] cyclobenzaprine 10 mg PO TID PRN #20 tab 08/02/19 [Rx Last Taken Unknown] fexofenadine 180 mg PO DAILY 08/02/19 [History Last Taken Unknown] fluticasone propionate 2 spray NASAL DAILY 08/02/19 [History Last Taken Unknown] montelukast 10 mg PO DAILY 08/02/19 [History Last Taken Unknown] potassium chloride 10 meq PO BID 08/02/19 [History Last Taken Unknown] cholecalciferol (vitamin D3) 5,000 mg PO DAILY 12/08/20 [History Last Taken Unknown] naproxen 500 mg PO BID PRN 12/08/20 [History Last Taken Unknown] lorazepam 1 mg PO TID PRN #10 tab 12/19/20 [Rx Last Taken Unknown] omeprazole 20 mg PO BID #20 cap 12/19/20 [Rx Last Taken Unknown] dicyclomine 20 mg PO TID PRN #20 tab 08/11/21 [Rx Last Taken Unknown] dicyclomine 20 mg PO TID #10 tab 11/30/21 [Rx Last Taken Unknown] ondansetron 4 mg PO Q8H PRN #10 tab 11/30/21 [Rx Last Taken Unknown] Allergy/AdvReac Type Severity Reaction Status Date / Time latex Allergy Rash Verified 11/30/21 19:47 lithium [[place]] Allergy Anaphylaxis Verified 11/30/21 19:47 acetaminophen AdvReac Vomiting Verified 11/30/21 19:47 [From Tylenol-Codeine] aspirin AdvReac Vomiting Verified 11/30/21 19:47 citalopram hydrobromide AdvReac Other Verified 11/30/21 19:47 [From Celexa] codeine AdvReac Vomiting Verified 11/30/21 19:47 divalproex sodium AdvReac Vomiting Verified 11/30/21 19:47 [From Depakote] ibuprofen AdvReac Nausea Verified 11/30/21 19:47 nortriptyline AdvReac Other Verified 11/30/21 19:47 SLEEPING PILL AdvReac Other Uncoded 11/30/21 19:47 Social History Smoking Status: Former smoker ROS ROS ED Constitutional Constitutional ED: Denies chills, fever(s) or subjective ENT ENT ED: Reports sore throat; Denies rhinorrhea Cardiovascular Cardiovascular: Denies chest pain or palpitations Respiratory/Chest Respiratory/Chest: Denies cough, dyspnea or sputum Gastrointestinal Gastrointestinal: Reports abdominal pain, diarrhea, nausea, vomiting and other Details: Patient is not nauseated now. But she did have vomiting once. She also had one episode of diarrhea after pork and sauerkraut. ; Denies constipation Genitourinary Genitourinary ED: Denies dysuria or hematuria Musculoskeletal Musculoskeletal: Denies arthralgias or myalgias Integumentary Denies rash Neurologic Neurologic: Denies headache(s) or weakness Psychiatric Psychiatric: Reports anxiety and depression Endocrine Endocrinology: Denies polydipsia or polyuria Hematologic/Lymphatic Hematologic/Lymphatic: Denies easy bruising Allergic/Immunologic Allergic/Immunologic ED: Denies mouth swelling or urticaria EXAM Physical Exam Const Vital Signs: 11/30/21 19:47 Temperature 97 F L Temperature Source Temporal Pulse Rate 125 H Respiratory Rate 22 H Blood Pressure 159/104 H Blood Pressure Mean 122 Pulse Ox 96 Oxygen Delivery Method Room Air Positive well nourished, well developed and obese General Appearance ED: well developed and NAD Nutritional Appearance: obese HEENT Reports moist mucous membranes normocephalic Eyes EOMs intact bilaterally General Eye ED: Negative for pale conjunctiva or scleral icterus Neck no JVD Resp normal respiratory effort and clear to auscultation bilaterally Resp Narrative: No pain with a deep breath. Auscultation: Negative for rales, rhonchi, wheezes or diminished lung sounds Cardio regular rate, regular rhythm and no murmurs GI non-tender, non-distended and no masses GI Narrative: Patient's abdomen is obese but nontender. I do not feel masses. There is no rebound or guarding. This is overall benign exam. Auscultation: normoactive bowel sounds Palpation: soft Back/Spine no CVA tenderness Extremity full ROM Neuro Sensorium / Orientation: alert, oriented to person, oriented to place and oriented to time Psych Psych Narrative: Patient is somewhat agitated and aggressive. I discussed this with her and it does seem to help somewhat. Skin Lesions: no lesions Rashes: no rashes MDM MDM MDM Narrative Medical decision making narrative: Patient CBC is normal other than minimal anemia at 11.6. Electrolytes show low potassium at 2.9 but she is not really having symptoms notably of this. Creatinine is minimally up at 1.03. Liver function test showed no marked abnormalities. Minimal alk phosphatase elevation at 139. Lipase is normal. Patient feels better. She wants to go home. She states her stomach gives her problems all the time. She thinks the pork and sauerkraut may have aggravated it. I will send her home with some Claire and Milagros. We discussed that if she has cramping, pain, fevers or other symptoms she should return. Lab Data Attestation: I reviewed the patient's lab results. Labs: Laboratory Results - last 24 hr 11/30/21 11/30/21 11/30/21 20:05 20:05 21:20 WBC 10.1 RBC 4.66 Hgb 11.6 L Hct 37.0 MCV 79.4 L MCH 24.9 L MCHC 31.4 L RDW Std Deviation 42.3 RDW Coeff of Yinka 14.8 H Plt Count 242 MPV 11.6 Immature Gran % (Auto) 0.600 Neut % (Auto) 64.8 Lymph % (Auto) 26.1 [place] % (Auto) 6.7 Eos % (Auto) 1.4 Baso % (Auto) 0.4 Absolute Neuts (auto) 6.5 Absolute Lymphs (auto) 2.63 Nucleated RBC % 0 Platelet Estimate ADEQUATE Plt Morphology Comment LARGE RBC Morphology N CHROM Anisocytosis RARE Microcytosis RARE Sodium Cancelled 144 Potassium Cancelled 2.9 L Chloride Cancelled 106 Carbon Dioxide Cancelled 28.0 Anion Gap Cancelled 10 BUN Cancelled 17 Creatinine Cancelled 1.03 H Estim Creat Clear Calc Cancelled 47.66 Est GFR (MDRD) Af Amer Cancelled 71 Est GFR (MDRD) Non-Af Cancelled 59 L BUN/Creatinine Ratio Cancelled 16.5 Glucose Cancelled 101 Calcium Cancelled 8.9 Total Bilirubin Cancelled 0.30 AST Cancelled 14 L ALT Cancelled 22 Alkaline Phosphatase Cancelled 139 H Total Protein Cancelled 7.3 Albumin Cancelled 3.0 L Globulin Cancelled 4.3 H Albumin/Globulin Ratio Cancelled 0.7 L Lipase Cancelled 54 L EKG Initial EKG: Comments: EKG done for nonspecific abdominal complaints. EKG read by me shows normal sinus rhythm with a rate of 99. No ectopy. No acute ST elevation or depression. [place] interval, QRS duration and QTc normal. Discharge Plan Triage Chief Complaint: Abd Pain ED Provider: Tristen Cochran Dx/Rx/DC Orders Clinical Impression: Abdominal cramping, Nausea Instructions: ED Abdominal Pain Unkn Cause Fem Prescriptions: New ondansetron 4 mg tablet,disintegrating 4 mg PO Q8H PRN (Reason: nausea and vomiting) Qty: 10 RF: 0 dicyclomine 20 mg tablet 20 mg PO TID Qty: 10 RF: 0 No Action glimepiride 1 MG tablet 1 mg PO DAILY RF: 0 carbamazepine 200 MG tablet 200 mg PO BID RF: 0 hydrochlorothiazide 25 MG tablet 25 mg PO DAILY RF: 0 solifenacin [Vesicare] 10 MG tablet 10 mg PO QHS RF: 0 quetiapine [Seroquel] 400 MG tablet 450 mg PO QHS RF: 0 omeprazole 40 MG capsule,delayed release(DR/EC) 40 mg PO BID RF: 0 albuterol sulfate [Ventolin HFA] 1 INHALER inhaler 1 - 2 puff inhalation Q4H PRN PRN (Reason: Shortness Of Breath) RF: 0 amlodipine 10 MG tablet 10 mg PO DAILY RF: 0 fexofenadine 180 MG tablet 180 mg PO DAILY RF: 0 montelukast 10 MG tablet 10 mg PO DAILY RF: 0 fluticasone propionate 1 SPRAY spray,suspension 2 spray NASAL DAILY RF: 0 potassium chloride 10 MEQ tablet,ER particles/crystals 10 meq PO BID RF: 0 cyclobenzaprine 10 MG tablet 10 mg PO TID PRN (Reason: Muscle Spasm) Qty: 20 RF: 0 naproxen 500 MG tablet 500 mg PO BID PRN (Reason: Pain 1-10 Or Fever) RF: 0 cholecalciferol (vitamin D3) 50 MCG capsule 5,000 mg PO DAILY RF: 0 omeprazole 20 MG capsule 20 mg PO BID Qty: 20 RF: 0 lorazepam 1 MG tablet 1 mg PO TID PRN (Reason: Anxiety) Qty: 10 RF: 0 dicyclomine 20 mg tablet 20 mg PO TID PRN (Reason: cramping) Qty: 20 RF: 0 Primary Care Provider: Nick Giraldo Referrals: Nick Giraldo, DO [Primary Care Provider] - 3-5 Days if not improving Disposition Disposition: Home, Self Care
[2021-11-30] MEDS: Ondansetron 4 MG/2 ML Vial IV (20:56)
[2021-11-30 21:05] LABS: Absolute Lymphocyte Count 2.63 X10^3/uL (0.83-4.51); Absolute Neutrophil Count 6.5 X10^3/uL (2.0-7.7); Basophil# 0.04 X10^3/uL; Basophil% 0.4 % (0-1); Eosinophil# 0.14 X10^3/uL; Eosinophils% 1.4 % (0-5); Hemoglobin 11.6 g/dL (12.0-15.0); Lymphocyte # 2.63 X10^3/ul (0.83-4.51); Lymphocyte % 26.1 % (19-41); Mean Corp Hgb Conc 31.4 g/dL (32-36); Mean Corpuscular Hgb 24.9 pg (27.0-32.0); Mean Corpuscular Volume 79.4 fL (81-99); Mean Platelet Vol. 11.6 fl (6.2-12.0); Monocyte# 0.68 X10^3/uL; Monocyte% 6.7 % (0-10); NRBC Flagged by Analyzer 0 % (0-5); Neutrophil # 6.53 X10^3/uL (2.7-7.7); Neutrophil % 64.8 % (47-70); POSITIVE COUNT YES; Platelet Count 242 K/mm3 (150-450); RBC Distribution Width CV 14.8 % (11.6-14.6); RBC Distribution Width SD 42.3 fl (35.1-43.9); Red Blood Count 4.66 M/mm3 (4.2-5.4); White Blood Count 10.1 K/mm3 (4.4-11.0)
[2021-11-30 21:06] LABS: Differential Indicated SCAN CRITERIA MET
[2021-11-30 21:30] LABS: Anisocytosis RARE; Microcytosis RARE; Platelet Estimate ADEQUATE (ADEQ); Platelet Morphology LARGE; Red Cell Morphology N CHROM NORMAL (NORM C&C)
[2021-11-30 21:51] LABS: ALB/GLOB Ratio 0.7 RATIO (0.9-2.4); AST(SGOT) 14 U/L (15-37); Alanine Aminotransfer ALT/SGPT 22 U/L (13-56); Alkaline Phosphatase 139 U/L (45-117); Anion Gap 10 (5-15); BUN 17 mg/dL (7-18); BUN/Creat Ratio 16.5 RATIO (10-20); Calcium,Total 8.9 mg/dL (8.5-10.1); Chloride 106 mmol/L (98-107); Creatinine, Serum 1.03 mg/dL (0.55-1.02); EST Glomerular Filtration Rate 59 mL/min (>60); Est Glom Filt Rate - Afr Amer 71 mL/min (>60); Estimated Creatinine Clearance 47.66 ml/min; Globulin 4.3 g/dL (2.2-4.2); Glucose 101 mg/dL (74-106); Lipase 54 U/L (73-393); Potassium 2.9 mmol/L (3.5-5.1); Protein, Total 7.3 g/dL (6.4-8.2); Sodium Level 144 mmol/L (136-145)
[2021-11-30] MEDS: Potassium Chloride Oral Tablet 20 MEQ 40 MEQ PO (23:56)
== END 2021-12-01 00:46 | disposition home or self-care (01) ==
PROVIDERS: Emergency Provider Emergency Medicine; PCP Student in an Organized Health Care Education/Training Program
DX: R10.9 Unspecified abdominal pain (principal); R11.0 Nausea; I10 Essential (primary) hypertension; E11.9 Type 2 diabetes mellitus without complications; J45.909 Unspecified asthma, uncomplicated; K58.9 Irritable bowel syndrome, unspecified; F31.9 Bipolar disorder, unspecified; E66.9 Obesity, unspecified; Z68.42 Body mass index [BMI] 45.0-49.9, adult; Z79.84 Long term (current) use of oral hypoglycemic drugs; Z79.899 Other long term (current) drug therapy; Z87.891 Personal history of nicotine dependence
CPT/HCPCS: 80053; 83690; 85025; 93005; 96361; 96374; 99283; J7040; A4216; J2405

== ENCOUNTER 2022-03-28 21:09 | Emergency (ER) | payer MEDICARE, MEDICAID, SELFPAY ==
[2022-03-28 21:10] VITALS: BP 146/90; PULSE 106; RESP 15; TEMP 37.1; O2SAT 98; BMI 36.1
[2022-03-28 21:33] VITALS: BP 149/94; PULSE 98; TEMP 36.4; O2SAT 99
--- NOTE | 2022-03-28 21:57 | EX.ED.DYSGE1 ---
HPI History of Present Illness Chief Complaint: General Illness Informant: patient Onset/Context/Timing Onset: Today Current Severity: Mild Maximum Severity: Mild Narrative Narrative: 57-year-old female history of bipolar, diabetes, hypertension irritable bowel. States she has been aching all over the last 2 days associated nausea no vomiting or diarrhea. No fever. States she has had chills and mild dysuria. No cough or shortness of breath. No sore throat or earache. Prior similar symptoms: No Recent Illness/Hospitalization: No PFSH PFSH Medical History Asthma Bipolar 1 disorder Depression Diabetes Hiatal hernia HTN (hypertension) IBS (irritable bowel syndrome) Home Medications albuterol sulfate [Ventolin HFA] 1 - 2 puff INHALATION Q4H PRN PRN 12/06/16 [History Last Taken Unknown] carbamazepine 200 mg PO BID 12/06/16 [History Last Taken Unknown] glimepiride 1 mg PO DAILY 12/06/16 [History Last Taken Unknown] hydrochlorothiazide 25 mg PO DAILY 12/06/16 [History Last Taken Unknown] omeprazole 40 mg PO BID 12/06/16 [History Last Taken Unknown] quetiapine [Seroquel] 450 mg PO QHS 12/06/16 [History Last Taken Unknown] solifenacin [Vesicare] 10 mg PO QHS 12/06/16 [History Last Taken Unknown] amlodipine 10 mg PO DAILY 07/09/17 [History Last Taken Unknown] fluticasone propionate 2 spray NASAL DAILY 08/02/19 [History Last Taken Unknown] montelukast 10 mg PO DAILY 08/02/19 [History Last Taken Unknown] potassium chloride 10 meq PO BID 08/02/19 [History Last Taken Unknown] cholecalciferol (vitamin D3) 5,000 mg PO DAILY 12/08/20 [History Last Taken Unknown] Allergy/AdvReac Type Severity Reaction Status Date / Time latex Allergy Rash Verified 03/28/22 21:17 lithium [[place]] Allergy Anaphylaxis Verified 03/28/22 21:17 acetaminophen AdvReac Vomiting Verified 03/28/22 21:17 [From Tylenol-Codeine] aspirin AdvReac Vomiting Verified 03/28/22 21:17 citalopram hydrobromide AdvReac Other Verified 03/28/22 21:17 [From Celexa] codeine AdvReac Vomiting Verified 03/28/22 21:17 divalproex sodium AdvReac Vomiting Verified 03/28/22 21:17 [From Depakote] ibuprofen AdvReac Nausea Verified 03/28/22 21:17 nortriptyline AdvReac Other Verified 03/28/22 21:17 SLEEPING PILL AdvReac Other Uncoded 11/30/21 19:47 Family History Mother Diabetes Father Diabetes Surgical History Hx of cholecystectomy Hx of tonsillectomy Social History Smoking Status: Former smoker alcohol intake: former substance use type: does not use ROS ROS ED ROS Narrative Dysuria and nausea. Review of Systems ROS Unobtainable: Denies due to encephalopathy Constitutional Constitutional ED: Reports chills; Denies fever(s) Eyes Eyes: Denies change in vision ENT ENT ED: Denies ear pain Cardiovascular Cardiovascular: Denies chest pain or palpitations Respiratory/Chest Respiratory/Chest: Denies cough or dyspnea Gastrointestinal Gastrointestinal: Reports nausea; Denies abdominal pain, constipation, diarrhea or vomiting Genitourinary Genitourinary ED: Reports dysuria; Denies hematuria or urinary frequency Musculoskeletal Musculoskeletal: Reports myalgias Integumentary Denies rash Neurologic Neurologic: Denies headache(s) Psychiatric Psychiatric: Denies depression Endocrine Endocrinology: Denies polyuria Allergic/Immunologic Allergic/Immunologic ED: Denies urticaria EXAM Physical Exam Narrative Exam Narrative: 57-year-old female no acute distress. Vital signs stable afebrile. Pulse ox 98% on room air. Patient does not look septic or toxic. She is in no distress. HEENT exam normal. Neck nontender. No meningismus. No lymphadenopathy. Lungs clear to auscultation bilaterally. Heart regular rhythm no murmur. Abdomen soft nondistended normal bowel sounds no peritoneal signs. Mild suprapubic tenderness. Moving all 4 extremities. Back nontender. Neurologically she is awake and alert with no focal motor deficits Const Vital Signs: 03/28/22 21:10 03/28/22 21:33 03/28/22 21:41 Temperature 98.8 F 97.6 F L Temperature Source Temporal Temporal Pulse Rate 106 H 98 Respiratory Rate 15 Respiratory Pattern Normal Blood Pressure 146/90 H 149/94 H Blood Pressure Mean 108 112 Pulse Ox 98 99 Oxygen Delivery Method Room Air Room Air Positive well nourished, well developed and obese; Negative for cachectic, contractures or unkempt General Appearance ED: well developed and NAD; Negative for unkempt, cachectic, contractures, cyanotic, diaphoretic or pallor Nutritional Appearance: obese; Negative for cachectic HEENT Reports moist mucous membranes Negative for trauma or tenderness Eyes PERRL and EOMs intact bilaterally General Eye ED: Negative for pale conjunctiva or scleral icterus Neck no lymphadenopathy, supple and no JVD General: Negative for tenderness Chest Wall inspection of chest normal and palpation of chest normal Resp normal respiratory effort and clear to auscultation bilaterally Effort and Inspection: pain with movement Auscultation: Negative for rales, rhonchi or wheezes Cardio regular rate, regular rhythm, S1 normal heart sound, S2 normal heart sound and no murmurs GI normal to inspection, nondistended, normoactive bowel sounds, non-tender, non-distended and no masses Inspection: Negative for abdominal distention Auscultation: normoactive bowel sounds Palpation: soft; Negative for tender, guarding or rebound tenderness present Back/Spine no CVA tenderness General Back: Negative for CVA tenderness Cervical Spine: Negative for cervical spine tenderness Thoracic Spine / Upper Back: Negative for thoracic spinal tenderness Extremity normal to inspection General Extremety ED: Negative for edema or tenderness General Extremity: Negative for edema Neuro oriented x3 Sensorium / Orientation: alert; Negative for orientation impaired, lethargic or stuporous Motor Exam: strength 5/5 throughout Psych mental status grossly normal Appearance: Negative for unkempt Attitude: No agitated Mood & Affect: anxious; Negative for depressed or tearful Skin no rashes or lesions noted and no wounds General Skin Exam: Negative for jaundice or pallor MDM MDM MDM Narrative Medical decision making narrative: Middle-aged diabetic female with chills and dysuria. We will check screening labs and a urinalysis. Repeat exam patient clinically looks well at 11:11 PM. She will be discharged to home with outpatient follow-up. Return if worse. Lab Data Attestation: I reviewed the patient's lab results. Lab results narrative: CBC normal white count 8. H&H 12 and 36. Platelets 231. Glucose 111. Urinalysis shows no nitrites. No whites or red cells. No bacteria. Labs: Laboratory Results - last 24 hr 03/28/22 03/28/22 03/28/22 22:05 22:05 22:07 WBC 8.1 RBC 4.61 Hgb 12.0 Hct 36.9 L MCV 80.0 L MCH 26.0 L MCHC 32.5 RDW Std Deviation 42.5 RDW Coeff of Yinka 14.5 Plt Count 231 MPV 11.3 Immature Gran % (Auto) 0.400 Neut % (Auto) 69.9 Lymph % (Auto) 21.7 [place] % (Auto) 6.9 Eos % (Auto) 0.7 Baso % (Auto) 0.4 Absolute Neuts (auto) 5.7 Absolute Lymphs (auto) 1.75 Nucleated RBC % 0 Urine Color Yellow Urine Clarity Clear Urine pH 6.0 Ur Specific [place] 1.020 Urine Protein 15 H Urine Glucose (UA) Normal Urine Ketones 50 H Urine Occult Blood 10 H Urine Nitrite Negative Urine Bilirubin Negative Urine Urobilinogen Normal Ur Leukocyte Esterase 100 H Urine RBC 0 SEEN Urine WBC 0-5 SEEN Ur Squamous Epith Cells 0-5 SEEN Calcium Oxalate Crystal 2+ Urine Bacteria 0 SEEN Urine Mucus 0 SEEN POC Glucose 111 H Discharge Plan Triage Chief Complaint: General Illness ED Provider: Fady Chapman Dx/Rx/DC Orders Clinical Impression: Viral syndrome, History of diabetes mellitus, History of bipolar disorder Prescriptions: No Action glimepiride 1 MG tablet 1 mg PO DAILY RF: 0 carbamazepine 200 MG tablet 200 mg PO BID RF: 0 hydrochlorothiazide 25 MG tablet 25 mg PO DAILY RF: 0 solifenacin [Vesicare] 10 MG tablet 10 mg PO QHS RF: 0 quetiapine [Seroquel] 400 MG tablet 450 mg PO QHS RF: 0 omeprazole 40 MG capsule,delayed release(DR/EC) 40 mg PO BID RF: 0 albuterol sulfate [Ventolin HFA] 1 INHALER inhaler 1 - 2 puff inhalation Q4H PRN PRN (Reason: Shortness Of Breath) RF: 0 amlodipine 10 MG tablet 10 mg PO DAILY RF: 0 montelukast 10 MG tablet 10 mg PO DAILY RF: 0 fluticasone propionate 1 SPRAY spray,suspension 2 spray NASAL DAILY RF: 0 potassium chloride 10 MEQ tablet,ER particles/crystals 10 meq PO BID RF: 0 cholecalciferol (vitamin D3) 50 MCG capsule 5,000 mg PO DAILY RF: 0 Primary Care Provider: Nick Giraldo Referrals: Nick Giraldo, DO [Primary Care Provider] - 3-5 Days if not improving Activity Restrictions/Additional Instructions: Your labs were unremarkable. Your urine showed no signs of infection. Your blood sugar was 111. Plenty of fluids and rest. Motrin and Tylenol for body aches. Follow-up with your doctor if not improving return emergency department if you are feeling worse. Disposition Disposition: Home, Self Care
[2022-03-28 22:10] LABS: Bedside Glucose 111 mg/dL (74-106)
[2022-03-28 22:15] LABS: Bacteria 0 SEEN /hpf (None Seen); Mucous, Urine 0 SEEN /hpf (<or=2+); Red Blood Cells-Urine 0 SEEN /hpf (0-5)
[2022-03-28 22:17] LABS: Absolute Lymphocyte Count 1.75 X10^3/uL (0.83-4.51); Absolute Neutrophil Count 5.7 X10^3/uL (2.0-7.7); Basophil# 0.03 X10^3/uL; Basophil% 0.4 % (0-1); Eosinophil# 0.06 X10^3/uL; Eosinophils% 0.7 % (0-5); Hematocrit 36.9 % (37-47); Lymphocyte # 1.75 X10^3/ul (0.83-4.51); Lymphocyte % 21.7 % (19-41); Mean Corp Hgb Conc 32.5 g/dL (32-36); Mean Platelet Vol. 11.3 fl (6.2-12.0); Monocyte# 0.56 X10^3/uL; Monocyte% 6.9 % (0-10); NRBC Flagged by Analyzer 0 % (0-5); Neutrophil # 5.65 X10^3/uL (2.7-7.7); Neutrophil % 69.9 % (47-70); Platelet Count 231 K/mm3 (150-450); RBC Distribution Width CV 14.5 % (11.6-14.6); RBC Distribution Width SD 42.5 fl (35.1-43.9); Red Blood Count 4.61 M/mm3 (4.2-5.4); White Blood Count 8.1 K/mm3 (4.4-11.0)
[2022-03-28 22:21] LABS: Color, Urine Yellow (Yellow); Glucose, Dipstick Normal (Normal); Ketone-Dipstick 50 mg/dl (Negative); Leukocyte Esterase-Dipstick 100 /ul (Negative); Nitrite-Dipstick Negative (Negative); Occult Blood-Urine 10 /ul (Negative); Protein-Dipstick 15 mg/dl (Negative); Urine Bilirubin Dipstick Negative (Negative); Urine Clarity Clear (Clear); Urine Urobilinogen Normal (Normal)
[2022-03-28 22:46] LABS: Calcium Oxalate Crystals Ur 2+ /hpf (<or=2+)
[2022-03-28 22:47] LABS: White Blood Cells 0-5 SEEN /hpf (0-5)
[2022-03-28 22:48] LABS: Squamous Epithelial Cells - UA 0-5 SEEN /hpf (5-10)
[2022-03-29 00:18] VITALS: BP 132/80; PULSE 90; RESP 16; O2SAT 96
== END 2022-03-29 00:19 | disposition home or self-care (01) ==
PROVIDERS: Emergency Provider Emergency Medicine; PCP Student in an Organized Health Care Education/Training Program; Visit Provider Emergency Medicine
DX: B34.9 Viral infection, unspecified (principal); F31.9 Bipolar disorder, unspecified; E11.9 Type 2 diabetes mellitus without complications; I10 Essential (primary) hypertension; K58.9 Irritable bowel syndrome, unspecified; E66.9 Obesity, unspecified; Z68.36 Body mass index [BMI] 36.0-36.9, adult; Z79.84 Long term (current) use of oral hypoglycemic drugs; Z79.899 Other long term (current) drug therapy; Z87.891 Personal history of nicotine dependence
CPT/HCPCS: 81001; 82962; 85025; 99282

== ENCOUNTER 2022-04-17 14:00 | Outpatient (RCR) | payer MEDICARE, MEDICAID, SELFPAY | END 2022-05-01 23:59 | LOC: DC 14:00 | PROVIDERS: PCP Student in an Organized Health Care Education/Training Program; Visit Provider Student in an Organized Health Care Education/Training Program | DX: E11.9 Type 2 diabetes mellitus without complications (principal) | CPT/HCPCS: 97802; G0108 ==

== ENCOUNTER 2022-04-19 15:38 | Emergency (ER) | payer MEDICARE, MEDICAID, SELFPAY ==
[2022-04-19 15:40] VITALS: BP 155/112; PULSE 113; RESP 18; TEMP 35.9; O2SAT 98; BMI 35.5
--- NOTE | 2022-04-19 16:07 | EX.ED.VIS.PS ---
HPI HPI - Psych History of Present Illness Chief Complaint: Mental Health Informant: patient Onset/Context/Timing Onset: Weeks (3) Context: Gradual Onset Timing: Continuous Worsened by: - (Stopping her Seroquel) Relieved by: Nothing Associated Symptoms Associated Symptoms - Psych: Positive for Decreased Concentration, Suicidal Thoughts, Flight of Ideas, Confusion and Paranoia; Negative for Visual Hallucinations and Auditory Hallucinations Specific plan (suicidal thought): Overdosing on medications Narrative Narrative: Patient presents with anxiety and depression. Patient states she is close to a nervous breakdown. Patient states that she stopped her Seroquel 3 weeks ago because she did not think she needed it anymore. Patient states she restarted over the last couple of days. Patient states that she has had thoughts of overdosing on her medications but has not done so. Patient states she has been having some racing thoughts and flight of ideas. Patient also admits to thoughts of paranoia. Patient wants to be admitted to a psychiatric facility to get her medications straightened. [facility] Medical History Asthma Bipolar 1 disorder Depression Diabetes Hiatal hernia HTN (hypertension) IBS (irritable bowel syndrome) Home Medications albuterol sulfate [Ventolin HFA] 1 - 2 puff INHALATION Q4H PRN PRN 12/06/16 [History Last Taken Unknown] carbamazepine 200 mg PO BID 12/06/16 [History Last Taken Unknown] glimepiride 2 mg PO DAILY 12/06/16 [History Last Taken Unknown] hydrochlorothiazide 25 mg PO DAILY 12/06/16 [History Last Taken Unknown] omeprazole 40 mg PO BID 12/06/16 [History Last Taken Unknown] quetiapine [Seroquel] 450 mg PO QHS 12/06/16 [History Last Taken Unknown] solifenacin [Vesicare] 10 mg PO QHS 12/06/16 [History Last Taken Unknown] amlodipine 10 mg PO DAILY 07/09/17 [History Last Taken Unknown] fluticasone propionate 2 spray NASAL DAILY 08/02/19 [History Last Taken Unknown] potassium chloride 10 meq PO BID 08/02/19 [History Last Taken Unknown] Allergy/AdvReac Type Severity Reaction Status Date / Time latex Allergy Rash Verified 04/19/22 15:45 lithium [[place]] Allergy Anaphylaxis Verified 04/19/22 15:45 acetaminophen AdvReac Vomiting Verified 04/19/22 15:45 [From Tylenol-Codeine] aspirin AdvReac Vomiting Verified 04/19/22 15:45 citalopram hydrobromide AdvReac Other Verified 04/19/22 15:45 [From Celexa] codeine AdvReac Vomiting Verified 04/19/22 15:45 divalproex sodium AdvReac Vomiting Verified 04/19/22 15:45 [From Depakote] ibuprofen AdvReac Nausea Verified 04/19/22 15:45 nortriptyline AdvReac Other Verified 04/19/22 15:45 SLEEPING PILL AdvReac Other Uncoded 04/19/22 15:45 Family History Mother Diabetes Father Diabetes Surgical History Hx of cholecystectomy Hx of tonsillectomy Social History Smoking Status: Former smoker alcohol intake: former substance use type: does not use ROS ROS ED Constitutional Constitutional ED: Denies chills or fever(s) Eyes Eyes: Denies blurry vision or change in vision ENT ENT ED: Reports rhinorrhea; Denies sore throat Cardiovascular Cardiovascular: Denies chest pain or palpitations Respiratory/Chest Respiratory/Chest: Reports dyspnea; Denies cough Gastrointestinal Gastrointestinal: Denies nausea or vomiting Genitourinary Genitourinary ED: Reports dysuria; Denies hematuria Musculoskeletal Musculoskeletal: Reports back pain and myalgias; Denies neck pain Integumentary Reports rash; Denies abscess Neurologic Neurologic: Denies headache(s) or weakness Allergic/Immunologic Allergic/Immunologic ED: Denies mouth swelling or urticaria EXAM Physical Exam Const Vital Signs: 04/19/22 15:40 04/19/22 19:42 Temperature 96.6 F L 97.8 F Temperature Source Temporal Temporal Pulse Rate 113 H 95 Respiratory Rate 18 16 Blood Pressure 155/112 H 134/71 H Blood Pressure Mean 126 92 Pulse Ox 98 98 Oxygen Delivery Method Room Air Room Air Positive well nourished, well developed and obese General Appearance ED: well developed and NAD Nutritional Appearance: obese HEENT normocephalic and atraumatic Neck supple and no JVD Resp normal respiratory effort and clear to auscultation bilaterally Cardio no murmurs Rate: regular rate Rhythm: regular rhythm GI non-tender and non-distended Auscultation: normoactive bowel sounds Palpation: soft Extremity normal to inspection General Extremety ED: Negative for edema or tenderness General Extremity: Negative for edema Neuro oriented x3, CN's II-XII intact bilaterally and no sensory deficits noted Sensorium / Orientation: alert Motor Exam: strength 5/5 throughout Psych mental status grossly normal Activity / Motor Behavior: appropriate eye contact Speech: normal speech Mood & Affect: depressed and flat affect Thought Process: flight of ideas Thought Content: suicidality Skin Rashes: no rashes MDM MDM MDM Narrative Medical decision making narrative: Basic labs were obtained. CBC was within normal limits. Basic metabolic profile showed mild hypokalemia of 3.8. Urinalysis does not show any evidence of urinary tract infection or hematuria. Urine tox screen was negative. Serum alcohol level was normal. Patient was given a dose of oral potassium here. Social work was in to evaluate the patient. They felt the patient would benefit from inpatient treatment. Patient was accepted to [facility]. Patient will be transferred there. Patient understood and was agreeable with the plan. All questions were answered. Lab Data Attestation: I reviewed the patient's lab results. Labs: Laboratory Results - last 24 hr 04/19/22 04/19/22 04/19/22 17:15 17:15 17:20 WBC 10.3 RBC 4.53 Hgb 11.9 L Hct 36.8 L MCV 81.2 MCH 26.3 L MCHC 32.3 RDW Std Deviation 42.8 RDW Coeff of Yinka 14.4 Plt Count 278 MPV 11.3 Immature Gran % (Auto) 0.300 Neut % (Auto) 63.9 Lymph % (Auto) 27.4 [place] % (Auto) 7.0 Eos % (Auto) 1.1 Baso % (Auto) 0.3 Absolute Neuts (auto) 6.6 Absolute Lymphs (auto) 2.82 Nucleated RBC % 0 Sodium Potassium Chloride Carbon Dioxide Anion Gap BUN Creatinine Estim Creat Clear Calc Est GFR (MDRD) Af Amer Est GFR (MDRD) Non-Af BUN/Creatinine Ratio Glucose Calcium Urine Color Yellow Urine Clarity Clear Urine pH 6.0 Ur Specific [place] 1.015 Urine Protein Negative Urine Glucose (UA) Normal Urine Ketones 5 H Urine Occult Blood 10 H Urine Nitrite NEGATIVE Urine Bilirubin Negative Urine Urobilinogen Normal Ur Leukocyte Esterase Negative Urine RBC 0-5 SEEN Urine WBC 0-5 SEEN Ur Squamous Epith Cells 0-5 SEEN Urine Bacteria 1+ Urine Mucus 0 SEEN Urine Opiates Screen NEGATIVE Urine Methadone Screen NEGATIVE Ur Barbiturates Screen NEGATIVE Ur Phencyclidine Scrn NEGATIVE Ur Amphetamines Screen NEGATIVE MDMA (Ecstasy) Screen NEGATIVE U Benzodiazepines Scrn NEGATIVE Urine Cocaine Screen NEGATIVE U Cannabinoids Screen NEGATIVE Ur Drug Screen Comment Ethyl Alcohol 04/19/22 04/19/22 17:20 17:20 WBC RBC Hgb Hct MCV MCH MCHC RDW Std Deviation RDW Coeff of Yinka Plt Count MPV Immature Gran % (Auto) Neut % (Auto) Lymph % (Auto) [place] % (Auto) Eos % (Auto) Baso % (Auto) Absolute Neuts (auto) Absolute Lymphs (auto) Nucleated RBC % Sodium 137 Potassium 2.8 L Chloride 100 Carbon Dioxide 28.0 Anion Gap 9 BUN 17 Creatinine 0.80 Estim Creat Clear Calc 57.84 Est GFR (MDRD) Af Amer 94 Est GFR (MDRD) Non-Af 78 BUN/Creatinine Ratio 21.1 H Glucose 92 Calcium 9.8 Urine Color Urine Clarity Urine pH Ur Specific [place] Urine Protein Urine Glucose (UA) Urine Ketones Urine Occult Blood Urine Nitrite Urine Bilirubin Urine Urobilinogen Ur Leukocyte Esterase Urine RBC Urine WBC Ur Squamous Epith Cells Urine Bacteria Urine Mucus Urine Opiates Screen Urine Methadone Screen Ur Barbiturates Screen Ur Phencyclidine Scrn Ur Amphetamines Screen MDMA (Ecstasy) Screen U Benzodiazepines Scrn Urine Cocaine Screen U Cannabinoids Screen Ur Drug Screen Comment Ethyl Alcohol 6.0 Discharge Plan Triage Chief Complaint: Mental Health ED Provider: Evin Vogt Dx/Rx/DC Orders Clinical Impression: Depression, Anxiety Prescriptions: No Action glimepiride 1 MG tablet 2 mg PO DAILY RF: 0 carbamazepine 200 MG tablet 200 mg PO BID RF: 0 hydrochlorothiazide 25 MG tablet 25 mg PO DAILY RF: 0 solifenacin [Vesicare] 10 MG tablet 10 mg PO QHS RF: 0 quetiapine [Seroquel] 400 MG tablet 450 mg PO QHS RF: 0 omeprazole 40 MG capsule,delayed release(DR/EC) 40 mg PO BID RF: 0 albuterol sulfate [Ventolin HFA] 1 INHALER inhaler 1 - 2 puff inhalation Q4H PRN PRN (Reason: Shortness Of Breath) RF: 0 amlodipine 10 MG tablet 10 mg PO DAILY RF: 0 fluticasone propionate 1 SPRAY spray,suspension 2 spray NASAL DAILY RF: 0 potassium chloride 10 MEQ tablet,ER particles/crystals 10 meq PO BID RF: 0 Primary Care Provider: Nick Giraldo Referrals: Nick Giraldo DO [Primary Care Provider] - Disposition Disposition: Psychiatric Hospital or Unit Discharge Location: [facility]
--- NOTE | 2022-04-19 17:04 | ED.RN ---
sister Marilyn Ruano called in for update. [phone]
[2022-04-19 17:36] LABS: Mucous, Urine 0 SEEN /hpf (<or=2+)
[2022-04-19 17:51] LABS: Absolute Lymphocyte Count 2.82 X10^3/uL (0.83-4.51); Absolute Neutrophil Count 6.6 X10^3/uL (2.0-7.7); Basophil# 0.03 X10^3/uL; Basophil% 0.3 % (0-1); Eosinophil# 0.11 X10^3/uL; Eosinophils% 1.1 % (0-5); Hematocrit 36.8 % (37-47); Hemoglobin 11.9 g/dL (12.0-15.0); Lymphocyte # 2.82 X10^3/ul (0.83-4.51); Lymphocyte % 27.4 % (19-41); Mean Corp Hgb Conc 32.3 g/dL (32-36); Mean Corpuscular Hgb 26.3 pg (27.0-32.0); Mean Corpuscular Volume 81.2 fL (81-99); Mean Platelet Vol. 11.3 fl (6.2-12.0); Monocyte# 0.72 X10^3/uL; NRBC Flagged by Analyzer 0 % (0-5); Neutrophil % 63.9 % (47-70); Platelet Count 278 K/mm3 (150-450); RBC Distribution Width CV 14.4 % (11.6-14.6); RBC Distribution Width SD 42.8 fl (35.1-43.9); Red Blood Count 4.53 M/mm3 (4.2-5.4); White Blood Count 10.3 K/mm3 (4.4-11.0)
[2022-04-19 17:55] LABS: Anion Gap 9 (5-15); BUN 17 mg/dL (7-18); BUN/Creat Ratio 21.1 RATIO (10-20); Calcium,Total 9.8 mg/dL (8.5-10.1); Chloride 100 mmol/L (98-107); EST Glomerular Filtration Rate 78 mL/min (>60); Est Glom Filt Rate - Afr Amer 94 mL/min (>60); Estimated Creatinine Clearance 57.84 ml/min; Glucose 92 mg/dL (74-106); Potassium 2.8 mmol/L (3.5-5.1); Sodium Level 137 mmol/L (136-145)
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
[2022-04-19 18:12] LABS: Color, Urine Yellow (Yellow); Glucose, Dipstick Normal (Normal); Ketone-Dipstick 5 mg/dl (Negative); Urine Bilirubin Dipstick Negative (Negative); Urine Clarity Clear (Clear)
[2022-04-19 18:13] LABS: Leukocyte Esterase-Dipstick Negative /ul (Negative); Nitrite-Dipstick NEGATIVE (Negative); Occult Blood-Urine 10 /ul (Negative); Protein-Dipstick Negative (Negative); Specific Gravity, Urine 1.015 (1.002-1.030); Urine Urobilinogen Normal (Normal)
[2022-04-19 18:16] LABS: Bacteria 1+ /hpf (None Seen); Red Blood Cells-Urine 0-5 SEEN /hpf (0-5); Squamous Epithelial Cells - UA 0-5 SEEN /hpf (5-10); White Blood Cells 0-5 SEEN /hpf (0-5)
[2022-04-19 18:58] LABS: Amphetamine Urine VISTA NEGATIVE (<1000 ng/mL); Barbiturate Urine VISTA NEGATIVE (< 200 ng/mL); Benzodiazepine Urine VISTA NEGATIVE (< 200 ng/mL); Cocaine Urine VISTA NEGATIVE (< 300 ng/mL); Ecstacy Urine VISTA NEGATIVE (< 500 ng/mL); Methadone Urine VISTA NEGATIVE (< 300 ng/mL); PCP Urine VISTA NEGATIVE (< 25 ng/mL); THC Urine VISTA NEGATIVE (< 50 ng/mL); Vista UDS pH Range 5
[2022-04-19] MEDS: Potassium Chloride Oral Tablet 20 MEQ 40 MEQ PO (19:00)
[2022-04-19 19:42] VITALS: BP 134/71; PULSE 95; RESP 16; TEMP 36.6; O2SAT 98
--- NOTE | 2022-04-19 19:54 | CM.ED ---
Social Work Note SW received call from Cynthia at [facility] ([facility]) stating they can accept pt. Accepting physician is Alison Eaton NP. RN to RN [phone] option 1. Pt is going to [facility] unit. SW in to speak with pt. SW updated pt on acceptance to [facility]. RN updated. Plan: [facility] Mercedez Patel COTTON FACTOR, BANK SECRECY ACT OFFICER
--- NOTE | 2022-04-19 20:50 | ED.RN ---
attempted to call report to [facility] multiple times. no answer from unit after intake transferring call.
[2022-04-19] MEDS: QUEtiapine 100 MG Tablet 450 MG PO (21:20)
[2022-04-19] MEDS: carBAMazepine 200 MG Tablet PO (21:20)
[2022-04-19 23:53] VITALS: BP 133/68; PULSE 88; RESP 18; TEMP 36; O2SAT 97
== END 2022-04-20 01:05 ==
PROVIDERS: Emergency Provider Emergency Medicine; PCP Student in an Organized Health Care Education/Training Program; Visit Provider Emergency Medicine
DX: F31.9 Bipolar disorder, unspecified (principal); E11.9 Type 2 diabetes mellitus without complications; F41.9 Anxiety disorder, unspecified; R45.851 Suicidal ideations; E87.6 Hypokalemia; I10 Essential (primary) hypertension; J45.909 Unspecified asthma, uncomplicated; E66.9 Obesity, unspecified; Z79.84 Long term (current) use of oral hypoglycemic drugs; Z79.899 Other long term (current) drug therapy; Z87.891 Personal history of nicotine dependence
CPT/HCPCS: 80048; 80307; 81001; 82077; 85025; 87811; 99285; A4216

== ENCOUNTER 2022-05-11 12:07 | Emergency (ER) | payer MEDICARE, MEDICAID, SELFPAY ==
[2022-05-11 12:08] VITALS: BP 141/87; PULSE 113; RESP 18; TEMP 35.7; O2SAT 97; BMI 34.1
--- NOTE | 2022-05-11 12:19 | CM.ED ---
SW Note Mercedez from Crisis called. Patient was discharged from [facility] 2 weeks ago but is decompensating. Patient has severe anxiety and is calling the crisis number daily and multiple times to help with anxiety. Crisis has given her multiple ways to attempt to manage the anxiety however, patient is not responsive to these suggestion. Mercedez said that patient is not suicidal. Mercedez said that patient would benefit from inpatient psych to manage her symptoms of anxiety, which are currently interfering with her ADL's. Plan: Inpatient psych [facility]
--- NOTE | 2022-05-11 12:20 | EX.ED.VIS.PS ---
HPI HPI - Psych History of Present Illness Chief Complaint: Mental Health Informant: patient and mental health staff Onset/Context/Timing Onset: Days Context: Gradual Onset Timing: Continuous Current Severity: Mild Maximum Severity: Mild Associated Symptoms Associated Symptoms - Psych: Negative for Depressed, Change in Eating, Change in sleeping, Decreased Interest, Guilt, Decreased Concentration, Hopelessness, Suicidal Thoughts, Easily distracted, Grandiosity, Flight of Ideas, Increased activity, Pressured Speech, Agitated, Angry, Hostile, Threatening, Confusion, Paranoia, Visual Hallucinations and Auditory Hallucinations Specific plan (suicidal thought): Anxiety. No suicidal thoughts. No plan to harm her self. Narrative Narrative: 57-year-old female history of bipolar disorder, diabetes and irritable bowel. Patient was hospitalized at a psychiatric facility about 3 weeks ago. States that she is very anxious and having trouble coping with all the medication changes. She denies being suicidal or homicidal. She lives alone in an apartment. She is accompanied today by mental health top case assembler that follows up with the patient from [facility]. Prior similar symptoms: Yes Recent Illness/Hospitalization: Yes [facility] Medical History Asthma Bipolar 1 disorder Depression Diabetes Hiatal hernia HTN (hypertension) IBS (irritable bowel syndrome) Home Medications albuterol sulfate [Ventolin HFA] 1 - 2 puff INHALATION Q4H PRN PRN 12/06/16 [History Last Taken Unknown] carbamazepine 200 mg PO BID 12/06/16 [History Last Taken Unknown] glimepiride 2 mg PO DAILY 12/06/16 [History Last Taken Unknown] hydrochlorothiazide 25 mg PO DAILY 12/06/16 [History Last Taken Unknown] omeprazole 40 mg PO BID 12/06/16 [History Last Taken Unknown] quetiapine [Seroquel] 450 mg PO QHS 12/06/16 [History Last Taken Unknown] solifenacin [Vesicare] 10 mg PO QHS 12/06/16 [History Last Taken Unknown] amlodipine 10 mg PO DAILY 07/09/17 [History Last Taken Unknown] fluticasone propionate 2 spray NASAL DAILY 08/02/19 [History Last Taken Unknown] potassium chloride 10 meq PO BID 08/02/19 [History Last Taken Unknown] cholecalciferol (vitamin D3) [Vitamin D3] 125 mcg PO DAILY 04/19/22 [History Last Taken Unknown] montelukast 10 mg PO DAILY 04/19/22 [History Last Taken Unknown] protriptyline 5 mg PO DAILY 04/19/22 [History Last Taken Unknown] topiramate 50 mg PO QHS 04/19/22 [History Last Taken Unknown] Allergy/AdvReac Type Severity Reaction Status Date / Time latex Allergy Rash Verified 05/11/22 12:08 lithium [[place]] Allergy Anaphylaxis Verified 05/11/22 12:08 acetaminophen AdvReac Vomiting Verified 05/11/22 12:08 [From Tylenol-Codeine] aspirin AdvReac Vomiting Verified 05/11/22 12:08 citalopram hydrobromide AdvReac Other Verified 05/11/22 12:08 [From Celexa] codeine AdvReac Vomiting Verified 05/11/22 12:08 divalproex sodium AdvReac Vomiting Verified 05/11/22 12:08 [From Depakote] ibuprofen AdvReac Nausea Verified 05/11/22 12:08 nortriptyline AdvReac Other Verified 05/11/22 12:08 SLEEPING PILL AdvReac Other Uncoded 05/11/22 12:08 Family History Mother Diabetes Father Diabetes Surgical History Hx of cholecystectomy Hx of tonsillectomy Social History Smoking Status: Former smoker alcohol intake: former substance use type: does not use ROS ROS ED ROS Narrative Denies recent illness. Review of Systems ROS Unobtainable: Denies due to encephalopathy Constitutional Constitutional ED: Denies fever(s) Eyes Eyes: Denies change in vision ENT ENT ED: Denies ear pain Cardiovascular Cardiovascular: Denies chest pain Respiratory/Chest Respiratory/Chest: Denies dyspnea Gastrointestinal Gastrointestinal: Denies abdominal pain, diarrhea, nausea or vomiting Genitourinary Genitourinary ED: Denies dysuria Musculoskeletal Musculoskeletal: Denies myalgias Integumentary Denies rash Neurologic Neurologic: Denies headache(s) Psychiatric Psychiatric: Denies depression Endocrine Endocrinology: Denies polyuria Hematologic/Lymphatic Hematologic/Lymphatic: Denies easy bruising Allergic/Immunologic Allergic/Immunologic ED: Denies urticaria EXAM Physical Exam Narrative Exam Narrative: 57-year-old female no acute distress. Seems anxious. Exam benign. Lungs are clear. Heart regular rhythm rate about 110 no murmur. Abdomen soft. Moving all 4 extremities. Makes eye contact. Answers questions and follows commands. Const Vital Signs: 05/11/22 12:08 05/11/22 13:08 Temperature 96.2 F L 98.9 F Temperature Source Temporal Temporal Pulse Rate 113 H 78 Respiratory Rate 18 14 Blood Pressure 141/87 H 132/78 H Blood Pressure Mean 105 96 Pulse Ox 97 98 Oxygen Delivery Method Room Air Room Air Positive well nourished, well developed and obese; Negative for cachectic, contractures or unkempt General Appearance ED: well developed and NAD; Negative for unkempt, cachectic, contractures or pallor Nutritional Appearance: obese; Negative for cachectic HEENT Reports moist mucous membranes normocephalic and atraumatic; Negative for trauma or tenderness Eyes PERRL and EOMs intact bilaterally General Eye ED: Negative for pale conjunctiva or scleral icterus Neck no lymphadenopathy, supple and no JVD General: Negative for tenderness Resp normal respiratory effort and clear to auscultation bilaterally Auscultation: Negative for rales, rhonchi or wheezes Cardio S1 normal heart sound, S2 normal heart sound and no murmurs Rate: regular rate Rhythm: regular rhythm GI non-tender, non-distended and no masses Inspection: Negative for abdominal distention Auscultation: normoactive bowel sounds Palpation: soft; Negative for tender or guarding Back/Spine no CVA tenderness General Back: Negative for CVA tenderness Cervical Spine: Negative for cervical spine tenderness Thoracic Spine / Upper Back: Negative for thoracic spinal tenderness Extremity normal to inspection General Extremety ED: Negative for edema or tenderness General Extremity: Negative for edema Neuro oriented x3 Sensorium / Orientation: alert, oriented to person, oriented to place and oriented to time; Negative for orientation impaired, confused, lethargic or stuporous Motor Exam: strength 5/5 throughout Psych mental status grossly normal, thought process normal, cooperative, affect normal, speech normal, activity/motor behavior normal, denies homicidal ideation and denies suicidal ideation; Negative for denies hallucinations Appearance: grossly normal; Negative for unkempt Attitude: calm, engaged, No bizarre, No uncooperative, No evasive, No guarded, No belligerent, No agitated, No aggressive and No hostile Activity / Motor Behavior: appropriate eye contact Speech: normal speech, No incoherent, No excessive, No minimal, rapid and No delayed Thought Process: normal thought process, No circumstantial, No incoherent, No disorganized and No confused Thought Content: normal thought content, No suicidality, No homicidality, No phobia(s) and No delusion(s) Attention / Concentration: attention grossly intact Memory / Cognition: memory grossly intact Insight: insight good Judgement: judgement good Skin General Skin Exam: Negative for jaundice or pallor Lesions: no lesions Rashes: no rashes and No rashes noted Trauma: Negative for abrasion or laceration MDM MDM MDM Narrative Medical decision making narrative: 57-year-old female history of bipolar disorder that is spiraling out of control. She was hospitalized about 3 weeks ago at [facility]. She denies being suicidal or homicidal. Screening labs will be obtained. She is medically cleared. Exam benign. She will be evaluated by our psychologist social and we will work on placement. workers' compensation claims examiner has seen and evaluated the patient and she is working on placement to a psychiatric facility. Lab Data Attestation: I reviewed the patient's lab results. Lab results narrative: CBC White count 7.8. H&H 11.7 and 35. Platelets 256. Electrolytes show potassium of 3.2 gap is 6 normal BUN and creatinine. Glucose 102. Alcohol level negative. Tox screen negative. EKG unremarkable. Labs: Laboratory Results - last 24 hr 05/11/22 05/11/22 05/11/22 12:45 12:45 12:45 WBC 7.8 RBC 4.35 Hgb 11.7 L Hct 35.1 L MCV 80.7 L MCH 26.9 L MCHC 33.3 RDW Std Deviation 41.6 RDW Coeff of Yinka 14.1 Plt Count 256 MPV 10.5 Immature Gran % (Auto) 0.400 Neut % (Auto) 71.3 H Lymph % (Auto) 20.6 Dickinson % (Auto) 6.4 Eos % (Auto) 0.8 Baso % (Auto) 0.5 Absolute Neuts (auto) 5.5 Absolute Lymphs (auto) 1.60 Nucleated RBC % 0 Sodium 136 Potassium 3.2 L Chloride 102 Carbon Dioxide 28.0 Anion Gap 6 BUN 11 Creatinine 0.65 Estim Creat Clear Calc 71.19 Est GFR (MDRD) Af Amer 120 Est GFR (MDRD) Non-Af 99 BUN/Creatinine Ratio 16.9 Glucose 102 Calcium 9.1 Urine Opiates Screen Urine Methadone Screen Ur Barbiturates Screen Ur Phencyclidine Scrn Ur Amphetamines Screen MDMA (Ecstasy) Screen U Benzodiazepines Scrn Urine Cocaine Screen U Cannabinoids Screen Ur Drug Screen Comment Ethyl Alcohol < 3.0 05/11/22 13:41 WBC RBC Hgb Hct MCV MCH MCHC RDW Std Deviation RDW Coeff of Yinka Plt Count MPV Immature Gran % (Auto) Neut % (Auto) Lymph % (Auto) Dickinson % (Auto) Eos % (Auto) Baso % (Auto) Absolute Neuts (auto) Absolute Lymphs (auto) Nucleated RBC % Sodium Potassium Chloride Carbon Dioxide Anion Gap BUN Creatinine Estim Creat Clear Calc Est GFR (MDRD) Af Amer Est GFR (MDRD) Non-Af BUN/Creatinine Ratio Glucose Calcium Urine Opiates Screen NEGATIVE Urine Methadone Screen NEGATIVE Ur Barbiturates Screen NEGATIVE Ur Phencyclidine Scrn NEGATIVE Ur Amphetamines Screen NEGATIVE MDMA (Ecstasy) Screen NEGATIVE U Benzodiazepines Scrn NEGATIVE Urine Cocaine Screen NEGATIVE U Cannabinoids Screen NEGATIVE Ur Drug Screen Comment Ethyl Alcohol Rhythm Strip Rhythm Strip: Sinus Rhythm Rate: 90 Ectopy: None EKG Initial EKG: Attestation: I personally reviewed and interpreted this EKG as follows: Interpretation: Sinus Rhythm Comments: Normal sinus rhythm rate of 90 no acute signs of AR or ischemia. Discharge Plan Triage Chief Complaint: Mental Health ED Provider: Fady Chapman Dx/Rx/DC Orders Clinical Impression: Anxiety, Bipolar 1 disorder, Type II diabetes mellitus Prescriptions: No Action glimepiride 1 MG tablet 2 mg PO DAILY RF: 0 carbamazepine 200 MG tablet 200 mg PO BID RF: 0 hydrochlorothiazide 25 MG tablet 25 mg PO DAILY RF: 0 solifenacin [Vesicare] 10 MG tablet 10 mg PO QHS RF: 0 quetiapine [Seroquel] 400 MG tablet 450 mg PO QHS RF: 0 omeprazole 40 MG capsule,delayed release(DR/EC) 40 mg PO BID RF: 0 albuterol sulfate [Ventolin HFA] 1 INHALER inhaler 1 - 2 puff inhalation Q4H PRN PRN (Reason: Shortness Of Breath) RF: 0 amlodipine 10 MG tablet 10 mg PO DAILY RF: 0 fluticasone propionate 1 SPRAY spray,suspension 2 spray NASAL DAILY RF: 0 potassium chloride 10 MEQ tablet,ER particles/crystals 10 meq PO BID RF: 0 protriptyline 5 mg Tablet 5 mg PO DAILY RF: 0 montelukast 10 mg Tablet 10 mg PO DAILY RF: 0 topiramate 50 mg Tablet 50 mg PO QHS RF: 0 cholecalciferol (vitamin D3) [Vitamin D3] 125 mcg (5,000 unit) Tablet 125 mcg PO DAILY RF: 0 Primary Care Provider: Nick Giraldo Referrals: Nick Giraldo DO [Primary Care Provider] - Disposition Disposition: Psychiatric Hospital or Unit
[2022-05-11 12:53] LABS: Absolute Neutrophil Count 5.5 X10^3/uL (2.0-7.7); Basophil# 0.04 X10^3/uL; Basophil% 0.5 % (0-1); Eosinophil# 0.06 X10^3/uL; Eosinophils% 0.8 % (0-5); Hematocrit 35.1 % (37-47); Hemoglobin 11.7 g/dL (12.0-15.0); Lymphocyte % 20.6 % (19-41); Mean Corp Hgb Conc 33.3 g/dL (32-36); Mean Corpuscular Hgb 26.9 pg (27.0-32.0); Mean Corpuscular Volume 80.7 fL (81-99); Mean Platelet Vol. 10.5 fl (6.2-12.0); Monocyte% 6.4 % (0-10); NRBC Flagged by Analyzer 0 % (0-5); Neutrophil # 5.53 X10^3/uL (2.7-7.7); Neutrophil % 71.3 % (47-70); Platelet Count 256 K/mm3 (150-450); RBC Distribution Width CV 14.1 % (11.6-14.6); RBC Distribution Width SD 41.6 fl (35.1-43.9); Red Blood Count 4.35 M/mm3 (4.2-5.4); White Blood Count 7.8 K/mm3 (4.4-11.0)
[2022-05-11 13:05] LABS: Anion Gap 6 (5-15); BUN 11 mg/dL (7-18); BUN/Creat Ratio 16.9 RATIO (10-20); Calcium,Total 9.1 mg/dL (8.5-10.1); Chloride 102 mmol/L (98-107); Creatinine, Serum 0.65 mg/dL (0.55-1.02); EST Glomerular Filtration Rate 99 mL/min (>60); Est Glom Filt Rate - Afr Amer 120 mL/min (>60); Estimated Creatinine Clearance 71.19 ml/min; Glucose 102 mg/dL (74-106); Potassium 3.2 mmol/L (3.5-5.1); Sodium Level 136 mmol/L (136-145)
[2022-05-11 13:08] VITALS: BP 132/78; PULSE 78; RESP 14; TEMP 37.2; O2SAT 98
[2022-05-11 13:21] LABS: Alcohol, Blood (Medical)-Serum < 3.0 mg/dL
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
--- NOTE | 2022-05-11 13:29 | CM.ED ---
Social Work Note During assessment, pt had stated that she really wanted to go back to [facility]. Telephone call to [facility], message left, no return call at this time. Telephone call to [facility] who states they do have beds available. Referral faxed to [facility]. Mercedez Patel SUBSTANCE ABUSE SERVICES DIRECTOR, STUDIO OPERATIONS ENGINEER IN CHARGE
[2022-05-11 14:04] LABS: Amphetamine Urine VISTA NEGATIVE (<1000 ng/mL); Barbiturate Urine VISTA NEGATIVE (< 200 ng/mL); Benzodiazepine Urine VISTA NEGATIVE (< 200 ng/mL); Cocaine Urine VISTA NEGATIVE (< 300 ng/mL); Ecstacy Urine VISTA NEGATIVE (< 500 ng/mL); Methadone Urine VISTA NEGATIVE (< 300 ng/mL); PCP Urine VISTA NEGATIVE (< 25 ng/mL); THC Urine VISTA NEGATIVE (< 50 ng/mL); Vista UDS pH Range 7
--- NOTE | 2022-05-11 14:22 | CM.ED ---
Social Work Note SW placed a call to [facility] and spoke with Rush. [facility] states that they will need EKG, COVID Screening tool and toxicology report. [facility] states that as long as those results are not critical, they can accept pt and pt will be going to their [place] location. Mercedez Patel SCIENCE TUTOR, LINE INSTALLATION SUPERVISOR
--- NOTE | 2022-05-11 14:33 | EKG12_ITS ---
Test Reason : MEDICAL CLEARANCE Blood Pressure : / mmHG Vent. Rate : 090 BPM Atrial Rate : 090 BPM P-R Int : 172 ms QRS Dur : 098 ms QT Int : 358 ms P-R-T Axes : 048 022 074 degrees QTc Int : 437 ms Normal sinus rhythm Nonspecific ST abnormality Abnormal ECG Confirmed by MARY PETERSON, QIAN ([id number]), brands editor ROBERT CARBAJAL ([id number]) on 05/14/2022 10:46:50 AM Referred By: MUMTAZ Confirmed By:QIAN HERNANDEZ MD
[2022-05-11 16:00] VITALS: BP 134/78; PULSE 66; RESP 14; TEMP 36.9; O2SAT 98
--- NOTE | 2022-05-11 16:00 | CM.ED ---
Social Work Note Requested information faxed to [facility]. NONA spoke with Rush at [facility]. Pt will be going to [facility] [place]. Accepting physician is Dr. Mora. RN to RN [phone] option 2. Bed will be assigned when report is called. Physician Ari and RN updated. SW in to speak with pt. SW updated pt that she will be going to [facility] in [place]. Pt placed a call to her brother Jacob Mccracken and asked this worker to update him. NONA updated Jacob on pt's discharge. Mercedez at [facility] also update on pt's disposition. Mercedez Patel ACOUSTICAL LOGGING ENGINEER, ANIMAL CARE TECHNICIAN
[2022-05-11 16:31] VITALS: BP 134/78; PULSE 66; RESP 18; TEMP 36.9; O2SAT 99
== END 2022-05-11 17:09 ==
LOC: ED 12:54
PROVIDERS: Emergency Provider Emergency Medicine; PCP Student in an Organized Health Care Education/Training Program; Visit Provider Emergency Medicine
DX: F31.9 Bipolar disorder, unspecified (principal); E11.9 Type 2 diabetes mellitus without complications; F41.9 Anxiety disorder, unspecified; I10 Essential (primary) hypertension; E66.9 Obesity, unspecified; Z68.34 Body mass index [BMI] 34.0-34.9, adult; Z79.84 Long term (current) use of oral hypoglycemic drugs; Z79.899 Other long term (current) drug therapy; Z87.891 Personal history of nicotine dependence
CPT/HCPCS: 80048; 80307; 82077; 85025; 87811; 93005; 99285

== ENCOUNTER 2022-06-07 13:47 | Outpatient (RCR) | payer MEDICARE, MEDICAID, SELFPAY | END 2022-07-01 23:59 | LOC: DC 13:47 | PROVIDERS: PCP Student in an Organized Health Care Education/Training Program; Referring Provider Student in an Organized Health Care Education/Training Program; Visit Provider Student in an Organized Health Care Education/Training Program | DX: E11.9 Type 2 diabetes mellitus without complications (principal) | CPT/HCPCS: G0108 ==

== ENCOUNTER 2022-06-26 17:53 | Emergency (ER) | payer MEDICARE, MEDICAID, SELFPAY ==
[2022-06-26 17:54] VITALS: BP 152/87; PULSE 100; RESP 14; TEMP 36.3; O2SAT 98; BMI 42.4
[2022-06-26 17:57] VITALS: BP 152/87; PULSE 100; RESP 14; TEMP 36.3; O2SAT 98
--- NOTE | 2022-06-26 18:57 | EX.ED.DYSGE1 ---
HPI History of Present Illness Chief Complaint: Rash Informant: patient Onset/Context/Timing Onset: Weeks (2) Context: Gradual Onset Timing: Continuous Quality: Red Location: Gluteal area Worsened by: Bowel movements, palpation Relieved by: Nothing Narrative Narrative: Patient presents with rash and bleeding from her gluteal area that has been getting worse over the last 2 weeks. Patient states it is worse whenever she has a bowel movement and whenever she touches the area. Patient has been using Desitin ointment and A&E ointment with no improvement. Patient denies any fevers or chills. Patient admits to some nausea but denies any vomiting. Patient admits to diarrhea. Patient also admits to some pain in the right side of her chest that has been intermittent over the last 2 weeks. Patient denies any fevers or chills. [facility] Medical History Asthma Bipolar 1 disorder Depression Diabetes Hiatal hernia HTN (hypertension) IBS (irritable bowel syndrome) Home Medications albuterol sulfate 90 mcg/actuation aerosol inhaler (Ventolin HFA) 1 - 2 puff inhalation Q4H PRN PRN Shortness Of Breath 12/06/16 [History Last Taken Unknown] carbamazepine 200 mg tablet 200 mg PO BID 12/06/16 [History Last Taken Unknown] glimepiride 1 mg tablet 2 mg PO DAILY 12/06/16 [History Last Taken Unknown] hydrochlorothiazide 25 mg tablet 25 mg PO DAILY 12/06/16 [History Last Taken Unknown] omeprazole 40 mg capsule,delayed release 40 mg PO BID 12/06/16 [History Last Taken Unknown] quetiapine 400 mg tablet (Seroquel) 450 mg PO QHS 12/06/16 [History Last Taken Unknown] solifenacin 10 mg tablet (Vesicare) 10 mg PO QHS 12/06/16 [History Last Taken Unknown] amlodipine 10 mg tablet 10 mg PO DAILY 07/09/17 [History Last Taken Unknown] fluticasone propionate 50 mcg/actuation nasal spray,suspension 2 spray NASAL DAILY 08/02/19 [History Last Taken Unknown] potassium chloride 10 mEq tablet,extended release(part/cryst) 10 meq PO BID 08/02/19 [History Last Taken Unknown] cholecalciferol (vitamin D3) 125 mcg (5,000 unit) tablet (Vitamin D3) 125 mcg PO DAILY 04/19/22 [History Last Taken Unknown] montelukast 10 mg tablet 10 mg PO DAILY 04/19/22 [History Last Taken Unknown] protriptyline 5 mg tablet 5 mg PO DAILY 04/19/22 [History Last Taken Unknown] topiramate 50 mg tablet 50 mg PO QHS 04/19/22 [History Last Taken Unknown] cephalexin 500 mg capsule 500 mg PO Q6 #40 CAPSULES 06/26/22 [Rx Last Taken Unknown] clotrimazole-betamethasone 1 %-0.05 % topical cream 1 applic topical BID #15 grams 06/26/22 [Rx Last Taken Unknown] Allergy/AdvReac Type Severity Reaction Status Date / Time latex Allergy Rash Verified 06/26/22 17:54 lithium [[place]] Allergy Anaphylaxis Verified 06/26/22 17:54 acetaminophen AdvReac Vomiting Verified 06/26/22 17:54 [From Tylenol-Codeine] aspirin AdvReac Vomiting Verified 06/26/22 17:54 citalopram hydrobromide AdvReac Other Verified 06/26/22 17:54 [From Celexa] codeine AdvReac Vomiting Verified 06/26/22 17:54 divalproex sodium AdvReac Vomiting Verified 06/26/22 17:54 [From Depakote] ibuprofen AdvReac Nausea Verified 06/26/22 17:54 nortriptyline AdvReac Other Verified 06/26/22 17:54 SLEEPING PILL AdvReac Other Uncoded 06/26/22 17:54 Family History Mother Diabetes Father Diabetes Surgical History Hx of cholecystectomy Hx of tonsillectomy Social History Smoking Status: Former smoker alcohol intake: former substance use type: does not use ROS ROS ED Constitutional Constitutional ED: Denies chills or fever(s) Eyes Eyes: Denies blurry vision or change in vision ENT ENT ED: Denies rhinorrhea or sore throat Cardiovascular Cardiovascular: Reports chest pain; Denies palpitations Respiratory/Chest Respiratory/Chest: Denies cough or dyspnea Gastrointestinal Gastrointestinal: Reports nausea; Denies vomiting Genitourinary Genitourinary ED: Reports urinary frequency; Denies dysuria or hematuria Musculoskeletal Musculoskeletal: Reports neck pain; Denies back pain Integumentary Reports rash; Denies abscess Neurologic Neurologic: Denies headache(s) or weakness Allergic/Immunologic Allergic/Immunologic ED: Denies mouth swelling or urticaria EXAM Physical Exam Const Vital Signs: 06/26/22 17:54 06/26/22 17:57 06/26/22 19:54 Temperature 97.3 F L 97.3 F L Temperature Source Temporal Temporal Pulse Rate 100 100 99 Respiratory Rate 14 14 15 Blood Pressure 152/87 H 152/87 H 156/84 H Blood Pressure Mean 108 108 Pulse Ox 98 98 98 Oxygen Delivery Method Room Air Room Air Room Air 06/26/22 19:54 06/26/22 22:54 Temperature 97.9 F Temperature Source Temporal Pulse Rate 99 81 Respiratory Rate 15 15 Blood Pressure 156/84 H Blood Pressure Mean Pulse Ox 98 97 Oxygen Delivery Method Room Air Positive well nourished, well developed and obese General Appearance ED: well developed and NAD Nutritional Appearance: obese HEENT Reports moist mucous membranes Neck supple and no JVD Resp normal respiratory effort and clear to auscultation bilaterally Cardio regular rate, regular rhythm and no murmurs GI normal to inspection, nondistended, normoactive bowel sounds and non-tender Palpation: soft Extremity normal to inspection General Extremety ED: Negative for edema or tenderness General Extremity: Negative for edema Neuro oriented x3, CN's II-XII intact bilaterally and no sensory deficits noted Sensorium / Orientation: alert Motor Exam: strength 5/5 throughout Psych mental status grossly normal Skin Skin Narrative: Skin is warm and dry. There is tenderness, erythema, and induration in the perirectal area. There is no discharge or drainage. There is no fluctuance. There is no evidence of any abscess. There is no bleeding noted. MDM MDM MDM Narrative Medical decision making narrative: Patient was given IV fluids, morphine, and Zofran here. CBC showed mild anemia with a hemoglobin of 11.1 and hematocrit 35.6. Comprehensive metabolic profile was essentially within normal limits. Urinalysis does not show any evidence of urinary tract infection. CT scan of the abdomen pelvis was obtained. There is colonic diverticulosis but no evidence of diverticulitis. There is no evidence of any abscess or perforation. This was interpreted by the radiologist and reviewed by myself. Patient was advised of her findings. Due to the induration, we will cover for bacterial infection with Keflex. Patient was also given a prescription for Lotrisone cream to apply to the area. Patient was instructed to follow-up with her primary care physician in 5 to 7 days. Patient understood and was agreeable with the plan. All questions were answered. Lab Data Attestation: I reviewed the patient's lab results. Labs: Laboratory Results - last 24 hr 06/26/22 06/26/22 06/26/22 19:15 19:15 20:50 WBC 9.7 RBC 4.29 Hgb 11.1 L Hct 35.6 L MCV 83.0 MCH 25.9 L MCHC 31.2 L RDW Std Deviation 43.9 RDW Coeff of Yinka 14.7 H Plt Count 330 MPV 10.6 Immature Gran % (Auto) 0.700 Neut % (Auto) 70.7 H Lymph % (Auto) 19.2 [place] % (Auto) 7.2 Eos % (Auto) 1.5 Baso % (Auto) 0.7 Absolute Neuts (auto) 6.9 Absolute Lymphs (auto) 1.87 Nucleated RBC % 0 Sodium 136 Potassium 3.9 Chloride 101 Carbon Dioxide 32.0 Anion Gap 3 L BUN 14 Creatinine 0.79 Estim Creat Clear Calc 58.57 Est GFR (MDRD) Af Amer 96 Est GFR (MDRD) Non-Af 80 BUN/Creatinine Ratio 17.8 Glucose 130 H Calcium 9.2 Total Bilirubin 0.20 AST 12 L ALT 31 Alkaline Phosphatase 110 Total Protein 7.8 Albumin 3.3 Globulin 4.5 H Albumin/Globulin Ratio 0.7 L Urine Color Yellow Urine Clarity Sl. Cloudy Urine pH 6.5 Ur Specific Orient 1.010 Urine Protein Negative Urine Glucose (UA) Normal Urine Ketones Negative Urine Occult Blood 10 H Urine Nitrite Negative Urine Bilirubin Negative Urine Urobilinogen Normal Ur Leukocyte Esterase 25 H Urine RBC 0-5 SEEN Urine WBC 0-5 SEEN Ur Squamous Epith Cells 0-5 SEEN Amorphous Sediment 1+ URATE Urine Bacteria 0 SEEN Urine Mucus 0 SEEN Radiography Diagnostic Testing: Clinical Impression(s) from Imaging Studies Abdomen/Pelvis CT 06/26/22 19:01 IMPRESSION: Colonic diverticulosis. No obstruction or abscess. Electronically Signed: Uday Quiroz MD at 22:25 EDT Reading Location ID and State: [address] [place] [address] , Service support , Discharge Plan Triage Chief Complaint: Rash ED Provider: Evin Vogt Dx/Rx/DC Orders Clinical Impression: Perianal pain, Cellulitis Instructions: ED Jennifer Skin Infection (Adult), ED Cellulitis Prescriptions: New cephalexin [cephalexin] 500 mg capsule 500 mg PO Q6 Qty: 40 0RF clotrimazole-betamethasone 1-0.05 % cream 1 applic topical BID Qty: 15 0RF No Action glimepiride 1 MG tablet 2 mg PO DAILY carbamazepine 200 MG tablet 200 mg PO BID hydrochlorothiazide 25 MG tablet 25 mg PO DAILY solifenacin [Vesicare] 10 MG tablet 10 mg PO QHS quetiapine [Seroquel] 400 MG tablet 450 mg PO QHS omeprazole 40 MG capsule,delayed release(DR/EC) 40 mg PO BID albuterol sulfate [Ventolin HFA] 1 INHALER inhaler 1 - 2 puff inhalation Q4H PRN PRN (Reason: Shortness Of Breath) amlodipine 10 MG tablet 10 mg PO DAILY fluticasone propionate 1 SPRAY spray,suspension 2 spray NASAL DAILY potassium chloride 10 MEQ tablet,ER particles/crystals 10 meq PO BID protriptyline 5 mg Tablet 5 mg PO DAILY montelukast 10 mg Tablet 10 mg PO DAILY topiramate 50 mg Tablet 50 mg PO QHS cholecalciferol (vitamin D3) [Vitamin D3] 125 mcg (5,000 unit) Tablet 125 mcg PO DAILY Primary Care Provider: Nick Giraldo Referrals: Nick Giraldo DO [Primary Care Provider] - 3-5 Days Disposition Disposition: Home, Self Care Discharge Date/Time: 06/26/22 23:15
--- NOTE | 2022-06-26 19:01 | CT_ITS ---
STUDY: CT ABDOMEN AND PELVIS WITH CONTRAST REASON FOR EXAM: Female, 57 years old. Abdominal pain -- RADIATION DOSAGE (If Supplied By Facility): CTDIvol = ( 17.08 ) mGy, DLP = ( 1161.68 ) mGycm TECHNIQUE: Transaxial images were obtained from the dome of the diaphragm to the symphysis pubis with oral contrast. 100mL Isovue-370 was administered. Sagittal and coronal images were reconstructed. Individualized dose optimization techniques were used for this CT. COMPARISON: August 11, 2021 FINDINGS: The visualized lung bases are unremarkable. The visualized portions of the heart are within normal limits. There is hepatomegaly with diffuse hepatic enlargement. The gallbladder is not seen consistent with cholecystectomy . Normal spleen. Normal pancreas. Normal bilateral adrenal glands. Normal right kidney. Normal left kidney. There is a small hiatal hernia. Normal small intestine. There are multiple colonic diverticula consistent with diverticulosis. The appendix is visualized and appears normal. Normal abdominal aorta. Normal inferior vena cava. Normal retroperitoneum. Normal urinary bladder. There is atrophy of the uterus. There is no free fluid in the abdomen or pelvis. Normal abdominal wall. Levoscoliosis with degenerative change of the spine. There is mild degenerative change of the hips. CT/Abdomen/Pelvis WITH Contrast IMPRESSION: Colonic diverticulosis. No obstruction or abscess. Electronically Signed: Uday Quiroz MD at 22:25 EDT Reading Location ID and State: [facility] / [place] , Service support ,
[2022-06-26] MEDS: Ondansetron 4 MG/2 ML Vial IV (19:19)
[2022-06-26] MEDS: 0.9% Normal Saline 1,000 ML 1000 ML IV (19:19)
[2022-06-26] MEDS: Morphine 4 MG/ML Syringe IV (19:19)
[2022-06-26 19:45] LABS: Absolute Lymphocyte Count 1.87 X10^3/uL (0.83-4.51); Absolute Neutrophil Count 6.9 X10^3/uL (2.0-7.7); Basophil# 0.07 X10^3/uL; Basophil% 0.7 % (0-1); Eosinophil# 0.15 X10^3/uL; Eosinophils% 1.5 % (0-5); Hematocrit 35.6 % (37-47); Hemoglobin 11.1 g/dL (12.0-15.0); Lymphocyte # 1.87 X10^3/ul (0.83-4.51); Lymphocyte % 19.2 % (19-41); Mean Corp Hgb Conc 31.2 g/dL (32-36); Mean Corpuscular Hgb 25.9 pg (27.0-32.0); Mean Platelet Vol. 10.6 fl (6.2-12.0); Monocyte% 7.2 % (0-10); NRBC Flagged by Analyzer 0 % (0-5); Neutrophil # 6.87 X10^3/uL (2.7-7.7); Neutrophil % 70.7 % (47-70); Platelet Count 330 K/mm3 (150-450); RBC Distribution Width CV 14.7 % (11.6-14.6); RBC Distribution Width SD 43.9 fl (35.1-43.9); Red Blood Count 4.29 M/mm3 (4.2-5.4); White Blood Count 9.7 K/mm3 (4.4-11.0)
[2022-06-26 19:49] LABS: ALB/GLOB Ratio 0.7 RATIO (0.9-2.4); AST(SGOT) 12 U/L (15-37); Alanine Aminotransfer ALT/SGPT 31 U/L (13-56); Albumin, Serum 3.3 g/dL (3.2-5.0); Alkaline Phosphatase 110 U/L (45-117); Anion Gap 3 (5-15); BUN 14 mg/dL (7-18); BUN/Creat Ratio 17.8 RATIO (10-20); Calcium,Total 9.2 mg/dL (8.5-10.1); Chloride 101 mmol/L (98-107); Creatinine, Serum 0.79 mg/dL (0.55-1.02); EST Glomerular Filtration Rate 80 mL/min (>60); Est Glom Filt Rate - Afr Amer 96 mL/min (>60); Estimated Creatinine Clearance 58.57 ml/min; Globulin 4.5 g/dL (2.2-4.2); Glucose 130 mg/dL (74-106); Potassium 3.9 mmol/L (3.5-5.1); Protein, Total 7.8 g/dL (6.4-8.2); Sodium Level 136 mmol/L (136-145)
[2022-06-26 19:54] VITALS: BP 156/84; PULSE 99; RESP 15; TEMP 36.6; O2SAT 98
[2022-06-26 21:00] LABS: Bacteria 0 SEEN /hpf (None Seen); Mucous, Urine 0 SEEN /hpf (<or=2+)
[2022-06-26 21:25] LABS: Color, Urine Yellow (Yellow); Glucose, Dipstick Normal (Normal); Ketone-Dipstick Negative (Negative); Leukocyte Esterase-Dipstick 25 /ul (Negative); Nitrite-Dipstick Negative (Negative); Occult Blood-Urine 10 /ul (Negative); Protein-Dipstick Negative (Negative); Urine Bilirubin Dipstick Negative (Negative); Urine Clarity Sl. Cloudy (Clear); Urine Urobilinogen Normal (Normal); Urine pH 6.5 (5.0 - 8.0)
[2022-06-26 21:39] LABS: Amorphous Sediment 1+ URATE; Red Blood Cells-Urine 0-5 SEEN /hpf (0-5); Squamous Epithelial Cells - UA 0-5 SEEN /hpf (5-10); White Blood Cells 0-5 SEEN /hpf (0-5)
[2022-06-26 22:54] VITALS: PULSE 81; RESP 15; O2SAT 97
[2022-06-26] MEDS: Cephalexin 500 MG Capsule PO (23:09)
== END 2022-06-26 23:15 | disposition home or self-care (01) ==
PROVIDERS: Emergency Provider Emergency Medicine; PCP Student in an Organized Health Care Education/Training Program; Visit Provider Emergency Medicine
DX: K61.0 Anal abscess (principal); E11.9 Type 2 diabetes mellitus without complications; I10 Essential (primary) hypertension; Z79.84 Long term (current) use of oral hypoglycemic drugs; Z79.899 Other long term (current) drug therapy; Z87.891 Personal history of nicotine dependence
CPT/HCPCS: 74177; 80053; 81001; 85025; 96361; 96374; 96375; 99284; J7030; A4216; J2405

== ENCOUNTER 2022-07-08 11:03 | Emergency (ER) | payer MEDICARE, MEDICAID, SELFPAY ==
[2022-07-08 11:04] VITALS: BP 140/89; PULSE 96; RESP 17; TEMP 36.5; O2SAT 98; BMI 44.5
[2022-07-08 11:07] VITALS: BP 140/89; PULSE 95; PULSE 98; RESP 17; TEMP 36.9; O2SAT 98
--- NOTE | 2022-07-08 11:25 | RAD_ITS ---
EXAM: XR CHEST, 1 VIEW CLINICAL INDICATION: chest pain TECHNIQUE: Frontal view of the chest. This report was created using [employer] report generation technology. COMPARISON: 07/15/2021 FINDINGS: LUNGS AND PLEURAL SPACES: Unremarkable. No consolidation or edema. No pneumothorax. No effusion. HEART: Unremarkable. Cardiac silhouette not enlarged. MEDIASTINUM: Central airways and mediastinal contour are unremarkable. BONES/JOINTS: Unremarkable. SOFT TISSUES: Unremarkable. RAD/Chest 1 View (Portable) IMPRESSION: No radiographic evidence of acute cardiopulmonary disease. Electronically Signed: Duc Wallace MD at 12:32 EDT ,
--- NOTE | 2022-07-08 11:25 | EKG12_ITS ---
Test Reason : CP Blood Pressure : / mmHG Vent. Rate : 086 BPM Atrial Rate : 086 BPM P-R Int : 158 ms QRS Dur : 098 ms QT Int : 352 ms P-R-T Axes : 053 033 073 degrees QTc Int : 421 ms Normal sinus rhythm Normal ECG Confirmed by MARY PETERSON, QIAN ([id number]), film editor supervisor LEX SNIDER ([id number]) on 07/10/2022 9:09:09 AM Referred By: Confirmed By:QIAN HERNANDEZ MD
--- NOTE | 2022-07-08 11:26 | EDS_ITS ---
HPI History of Present Illness Chief Complaint: Chest Pain Detail of Chief Complaint: Chest pain x3 days Informant: patient Narrative Narrative: Patient presents with chest pain x3 days. Patient describes some tightness and intermittent shooting pains in her left chest. 4 days ago she had some pain going on her right arm. Patient states that activity seems to make it worse. She said some nausea but no vomiting. She feels slightly short of breath. She denies fever. She has a chronic cough but that is not different than usual. Patient tells me she had diarrhea for 2 weeks and is currently on antibiotics. Patient describes some broken down skin over her gluteal cleft. Patient had a bowel movement about 2 hours ago that was not diarrheal. [facility] Medical History Asthma Bipolar 1 disorder Depression Diabetes Hiatal hernia HTN (hypertension) IBS (irritable bowel syndrome) Home Medications albuterol sulfate 90 mcg/actuation aerosol inhaler (Ventolin HFA) 1 - 2 puff inhalation Q4H PRN PRN Shortness Of Breath 12/06/16 [History Last Taken Unknown] carbamazepine 200 mg tablet 200 mg PO BID 12/06/16 [History Last Taken Unknown] glimepiride 1 mg tablet 2 mg PO DAILY 12/06/16 [History Last Taken Unknown] hydrochlorothiazide 25 mg tablet 25 mg PO DAILY 12/06/16 [History Last Taken Unknown] omeprazole 40 mg capsule,delayed release 40 mg PO BID 12/06/16 [History Last Taken Unknown] quetiapine 400 mg tablet (Seroquel) 450 mg PO QHS 12/06/16 [History Last Taken Unknown] solifenacin 10 mg tablet (Vesicare) 10 mg PO QHS 12/06/16 [History Last Taken Unknown] amlodipine 10 mg tablet 10 mg PO DAILY 07/09/17 [History Last Taken Unknown] fluticasone propionate 50 mcg/actuation nasal spray,suspension 2 spray NASAL DAILY 08/02/19 [History Last Taken Unknown] potassium chloride 10 mEq tablet,extended release(part/cryst) 10 meq PO BID 08/02/19 [History Last Taken Unknown] cholecalciferol (vitamin D3) 125 mcg (5,000 unit) tablet (Vitamin D3) 125 mcg PO DAILY 04/19/22 [History Last Taken Unknown] montelukast 10 mg tablet 10 mg PO DAILY 04/19/22 [History Last Taken Unknown] protriptyline 5 mg tablet 5 mg PO DAILY 04/19/22 [History Last Taken Unknown] topiramate 50 mg tablet 50 mg PO QHS 04/19/22 [History Last Taken Unknown] cephalexin 500 mg capsule 500 mg PO Q6 #40 CAPSULES 06/26/22 [Rx Last Taken Unknown] clotrimazole-betamethasone 1 %-0.05 % topical cream 1 applic topical BID #15 grams 06/26/22 [Rx Last Taken Unknown] hydrocodone-acetaminophen 5-325mg 5mg-325mg 1 tab PO Q4H PRN PRN Pain 2 days #10 TABLETS 07/08/22 [Rx Last Taken Unknown] nystatin 100,000 unit/gram topical ointment 1 applic topical BID #30 grams 07/08/22 [Rx Last Taken Unknown] Allergy/AdvReac Type Severity Reaction Status Date / Time latex Allergy Rash Verified 07/08/22 11:08 lithium [[place]] Allergy Anaphylaxis Verified 07/08/22 11:08 acetaminophen AdvReac Vomiting Verified 07/08/22 11:08 [From Tylenol-Codeine] aspirin AdvReac Vomiting Verified 07/08/22 11:08 citalopram hydrobromide AdvReac Other Verified 07/08/22 11:08 [From Celexa] codeine AdvReac Vomiting Verified 07/08/22 11:08 divalproex sodium AdvReac Vomiting Verified 07/08/22 11:08 [From Depakote] ibuprofen AdvReac Nausea Verified 07/08/22 11:08 nortriptyline AdvReac Other Verified 07/08/22 11:08 SLEEPING PILL AdvReac Other Uncoded 07/08/22 11:08 Family History Mother Diabetes Father Diabetes Surgical History Hx of cholecystectomy Hx of tonsillectomy Social History Smoking Status: Former smoker alcohol intake: former substance use type: does not use ROS ROS ED Review of Systems ROS Unobtainable: other Constitutional Constitutional ED: Reports lethargy; Denies chills, fever(s), sweats or weight loss Eyes Eyes: Denies blurry vision, change in vision or diplopia ENT ENT ED: Denies rhinorrhea or sore throat Cardiovascular Cardiovascular: Reports chest pain; Denies orthopnea or racing heartbeat Respiratory/Chest Respiratory/Chest: Reports cough, dyspnea and dyspnea on exertion; Denies orthopnea or sputum Gastrointestinal Gastrointestinal: Denies abdominal pain, diarrhea, nausea or vomiting Genitourinary Genitourinary ED: Denies dysuria, hematuria or urinary frequency Musculoskeletal Musculoskeletal: Denies arthralgias, back pain, myalgias or neck pain Integumentary Reports other Details: Rash/broken down skin to gluteal cleft. ; Denies abscess, Abrasions or rash Neurologic Neurologic: Denies headache(s) or weakness Psychiatric Psychiatric: Denies anxiety, depression or suicidal thoughts Endocrine Endocrinology: Denies polydipsia, polyphagia or polyuria Hematologic/Lymphatic Hematologic/Lymphatic: Denies easy bleeding, easy bruising or lymphadenopathy Allergic/Immunologic Allergic/Immunologic ED: Denies mouth swelling, tongue swelling or urticaria EXAM Physical Exam Const Vital Signs: 07/08/22 11:04 07/08/22 11:07 07/08/22 11:07 Temperature 97.7 F L 98.5 F Temperature Source Temporal Temporal Pulse Rate 96 98 95 Respiratory Rate 17 17 17 Blood Pressure 140/89 H 140/89 H 140/89 H Blood Pressure Mean 106 106 106 Pulse Ox 98 98 98 Oxygen Delivery Method Room Air Room Air Room Air 07/08/22 13:18 Temperature Temperature Source Pulse Rate 88 Respiratory Rate 18 Blood Pressure Blood Pressure Mean Pulse Ox 97 Oxygen Delivery Method Room Air Positive well nourished and well developed General Appearance ED: well developed and NAD HEENT Reports TM's clear and moist mucous membranes normocephalic and atraumatic; Negative for trauma or tenderness Tympanic Membrane ED: Yes TM's clear Eyes PERRL and EOMs intact bilaterally General Eye ED: Negative for pale conjunctiva or scleral icterus Neck no lymphadenopathy, supple and no JVD General: Negative for tenderness Chest Wall inspection of chest normal and palpation of chest normal Chest: Negative for tenderness Resp normal respiratory effort and clear to auscultation bilaterally Effort and Inspection: Negative for respiratory distress or pain with movement Auscultation: Negative for rhonchi, wheezes or diminished lung sounds Cardio regular rate, regular rhythm, S1 normal heart sound, S2 normal heart sound and n o murmurs Peripheral Pulses: pulses 2+ throughout GI normal to inspection, nondistended, normoactive bowel sounds, soft to palpation, non-tender, non-distended and no masses Back/Spine no CVA tenderness and no thoracic nor lumbar tenderness Extremity normal to inspection General Extremety ED: Negative for edema General Extremity: Negative for edema Neuro oriented x3, CN's II-XII intact bilaterally, no sensory deficits noted and gait normal Sensorium / Orientation: awake, alert, oriented to person, oriented to place and oriented to time Motor Exam: strength 5/5 throughout and strength abnormal Psych mental status grossly normal Skin no wounds Skin Narrative: Evaluation of her buttocks and gluteal cleft does reveal a erythematous somewhat weepy rash in the gluteal cleft that is consistent with Jennifer. No abscesses noted. No significant cellulitic changes. Heart Score History: Moderately Suspicious ECG: Normal Age: >45 - <65 years Risk Factors: 1 or 2 Risk Factors Troponin: </= Normal Limit Score: 3 MDM MDM MDM Narrative Medical decision making narrative: IV line established on arrival. Patient not given aspirin as she is allergic to it. Had low suspicion for cardiac etiology. EKG was normal. CTA chest was negative for PE or dissection. Troponin and delta troponin both normal. Case discussed with patient and at this point my suspicion for cardiac etiology of her chest pain is low. She has a heart score of 3. I will discharge her to home and advised to follow-up with primary care physician. Patient will be given a prescription for nystatin cream which she thinks she has at home. Patient will be given a prescription for few [place] for pain. Patient does have what I suspect is a candidal infection perianal. Lab Data Attestation: I reviewed the patient's lab results. Labs: Laboratory Results - last 24 hr 07/08/22 07/08/22 07/08/22 11:15 11:15 11:37 WBC 7.1 RBC 4.38 Hgb 11.4 L Hct 36.2 L MCV 82.6 MCH 26.0 L MCHC 31.5 L RDW Std Deviation 42.5 RDW Coeff of [place]a 13.9 Plt Count 239 MPV 11.1 Immature Gran % (Auto) 0.600 Neut % (Auto) 73.3 H Lymph % (Auto) 18.1 L [place] % (Auto) 5.8 Eos % (Auto) 1.4 Baso % (Auto) 0.8 Absolute Neuts (auto) 5.2 Absolute Lymphs (auto) 1.29 Nucleated RBC % 0 Differential Comment SCANNED D-Dimer Quant (PE/DVT) Cancelled Sodium 134 L Potassium 4.0 Chloride 103 Carbon Dioxide 25.0 Anion Gap 6 BUN 22 H Creatinine 0.71 Estim Creat Clear Calc 65.17 Est GFR (MDRD) Af Amer 109 Est GFR (MDRD) Non-Af 90 BUN/Creatinine Ratio 31.2 H Glucose 137 H Calcium 8.8 Troponin I High Sens 12 07/08/22 07/08/22 12:03 13:39 WBC RBC Hgb Hct MCV MCH MCHC RDW Std Deviation RDW Coeff of [place]a Plt Count MPV Immature Gran % (Auto) Neut % (Auto) Lymph % (Auto) [place] % (Auto) Eos % (Auto) Baso % (Auto) Absolute Neuts (auto) Absolute Lymphs (auto) Nucleated RBC % Differential Comment D-Dimer Quant (PE/DVT) 0.77 H* Sodium Potassium Chloride Carbon Dioxide Anion Gap BUN Creatinine Estim Creat Clear Calc Est GFR (MDRD) Af Amer Est GFR (MDRD) Non-Af BUN/Creatinine Ratio Glucose Calcium Troponin I High Sens 12 Radiography Chest X-Ray - ED: 1 View Diagnostic Testing: Clinical Impression(s) from Imaging Studies Chest X-Ray 07/08/22 11:25 IMPRESSION: No radiographic evidence of acute cardiopulmonary disease. Electronically Signed: Duc Wallace MD at 12:32 EDT , Chest CTA 07/08/22 12:36 IMPRESSION: Negative CTA chest. Electronically Signed: Duc Wallace MD at 13:19 EDT , 1 view chest x-ray obtained interpreted by myself no acute disease process. Radiology in agreement. EKG Initial EKG: Attestation: I personally reviewed and interpreted this EKG as follows: Comments: Sinus rhythm with a ventricular rate of 86 bpm with no acute ST segment changes Discharge Plan Triage Chief Complaint: Chest Pain ED Provider: Antoine Lee Dx/Rx/DC Orders Clinical Impression: Chest pain, Jennifer infection Instructions: ED Jennifer Skin Infection (Adult), ED Chest Pain, Uncertain Cause Prescriptions: New hydrocodone-acetaminophen [hydrocodone-acetaminophen] 5-325 mg tablet 1 tab PO Q4H PRN PRN (Reason: Pain) 2 Days Qty: 10 0RF nystatin 100,000 unit/gram ointment 1 applic topical BID Qty: 30 0RF No Action glimepiride 1 MG tablet 2 mg PO DAILY carbamazepine 200 MG tablet 200 mg PO BID hydrochlorothiazide 25 MG tablet 25 mg PO DAILY solifenacin [Vesicare] 10 MG tablet 10 mg PO QHS quetiapine [Seroquel] 400 MG tablet 450 mg PO QHS omeprazole 40 MG capsule,delayed release(DR/EC) 40 mg PO BID albuterol sulfate [Ventolin HFA] 1 INHALER inhaler 1 - 2 puff inhalation Q4H PRN PRN (Reason: Shortness Of Breath) amlodipine 10 MG tablet 10 mg PO DAILY fluticasone propionate 1 SPRAY spray,suspension 2 spray NASAL DAILY potassium chloride 10 MEQ tablet,ER particles/crystals 10 meq PO BID protriptyline 5 mg Tablet 5 mg PO DAILY montelukast 10 mg Tablet 10 mg PO DAILY topiramate 50 mg Tablet 50 mg PO QHS cholecalciferol (vitamin D3) [Vitamin D3] 125 mcg (5,000 unit) Tablet 125 mcg PO DAILY cephalexin [cephalexin] 500 mg capsule 500 mg PO Q6 Qty: 40 0RF clotrimazole-betamethasone 1-0.05 % cream 1 applic topical BID Qty: 15 0RF Primary Care Provider: Nick Giraldo Referrals: Nick Giraldo DO [Primary Care Provider] - Disposition Disposition: Home, Self Care
[2022-07-08] MEDS: 0.9% Normal Saline 1,000 ML 150 ML IV (11:39)
[2022-07-08 11:40] LABS: Absolute Lymphocyte Count 1.29 X10^3/uL (0.83-4.51); Absolute Neutrophil Count 5.2 X10^3/uL (2.0-7.7); Basophil# 0.06 X10^3/uL; Basophil% 0.8 % (0-1); Eosinophils% 1.4 % (0-5); Hematocrit 36.2 % (37-47); Hemoglobin 11.4 g/dL (12.0-15.0); Lymphocyte # 1.29 X10^3/ul (0.83-4.51); Lymphocyte % 18.1 % (19-41); Mean Corp Hgb Conc 31.5 g/dL (32-36); Mean Corpuscular Volume 82.6 fL (81-99); Mean Platelet Vol. 11.1 fl (6.2-12.0); Monocyte# 0.41 X10^3/uL; Monocyte% 5.8 % (0-10); NRBC Flagged by Analyzer 0 % (0-5); Neutrophil # 5.21 X10^3/uL (2.7-7.7); Neutrophil % 73.3 % (47-70); POSITIVE COUNT YES; Platelet Count 239 K/mm3 (150-450); RBC Distribution Width CV 13.9 % (11.6-14.6); RBC Distribution Width SD 42.5 fl (35.1-43.9); Red Blood Count 4.38 M/mm3 (4.2-5.4); White Blood Count 7.1 K/mm3 (4.4-11.0)
[2022-07-08 11:56] LABS: Anion Gap 6 (5-15); BUN 22 mg/dL (7-18); BUN/Creat Ratio 31.2 RATIO (10-20); Calcium,Total 8.8 mg/dL (8.5-10.1); Chloride 103 mmol/L (98-107); Creatinine, Serum 0.71 mg/dL (0.55-1.02); EST Glomerular Filtration Rate 90 mL/min (>60); Est Glom Filt Rate - Afr Amer 109 mL/min (>60); Estimated Creatinine Clearance 65.17 ml/min; Glucose 137 mg/dL (74-106); Sodium Level 134 mmol/L (136-145); Troponin-I HS (w/2H Reflex) 12 pg/mL (3.0-54.0)
[2022-07-08 12:11] LABS: Differential Indicated SCAN CRITERIA MET
[2022-07-08 12:26] LABS: Differential Comment SCANNED
[2022-07-08 12:28] LABS: D-Dimer Quantitative (DVT/PE) 0.77 FEU/ug/m (0.27-0.49)
--- NOTE | 2022-07-08 12:36 | CT_ITS ---
EXAM: CT ANGIOGRAPHY CHEST WITHOUT AND WITH INTRAVENOUS CONTRAST CLINICAL INDICATION: chest pain, elevated d-dimer TECHNIQUE: Helically acquired angiography images were obtained of the chest without and with intravenous contrast. This CT exam was performed using one or more of the following dose reduction techniques: automated exposure control, adjustment of the mA and/or kV according to patient size, and/or use of iterative reconstruction technique. This report was created using [employer] report generation technology. MIP reconstructed images were created and reviewed. CONTRAST: IV 100mL [id number] COMPARISON: 12/19/2020 FINDINGS: PULMONARY ARTERIES: Unremarkable. Normal in caliber. No evidence of pulmonary embolism. AORTA: Unremarkable. Normal in caliber. No evidence of dissection. GREAT VESSELS OF AORTIC ARCH: Unremarkable. Normal in caliber. No evidence of dissection. LUNGS AND PLEURAL SPACES: Unremarkable. No mass. No consolidation or edema. No pleural effusion or thickening. No pneumothorax. HEART: Unremarkable. Heart size is normal. No pericardial effusion. No signs of right heart strain, ratio of right ventricle to left ventricle measures less than 1. MEDIASTINUM: Unremarkable. No mediastinal or hilar adenopathy. Esophagus is unremarkable. No hiatal hernia. THYROID: Unremarkable. No thyroid lesions. BONES/JOINTS: Unremarkable. No suspicious lytic or blastic abnormality. CT/CTA Chest W/WO Contrast IMPRESSION: Negative CTA chest. Electronically Signed: Duc Wallace MD at 13:19 EDT ,
[2022-07-08 13:18] VITALS: PULSE 88; RESP 18; O2SAT 97
[2022-07-08 13:35] LABS: Reflex Troponin-HS? (from REC) Y
[2022-07-08 14:06] LABS: Troponin-I HS 12 pg/mL (3.0-54.0)
[2022-07-08 14:36] VITALS: BP 140/72; PULSE 84; RESP 18; TEMP 35.5
== END 2022-07-08 14:37 | disposition home or self-care (01) ==
PROVIDERS: Emergency Provider Emergency Medicine; PCP Student in an Organized Health Care Education/Training Program; Visit Provider Emergency Medicine
DX: R07.9 Chest pain, unspecified (principal); E11.9 Type 2 diabetes mellitus without complications; B37.2 Candidiasis of skin and nail; I10 Essential (primary) hypertension; Z79.84 Long term (current) use of oral hypoglycemic drugs; Z79.899 Other long term (current) drug therapy; Z87.891 Personal history of nicotine dependence
CPT/HCPCS: 71045; 71275; 80048; 84484; 85025; 85379; 93005; 96360; 96361; 99285; J7030; Q9967; A4216

== ENCOUNTER 2022-07-14 11:54 | Emergency (ER) | payer MEDICARE, MEDICAID, SELFPAY ==
[2022-07-14 11:55] VITALS: BP 166/80; PULSE 102; RESP 23; TEMP 36.1; O2SAT 99; BMI 42.3
--- NOTE | 2022-07-14 12:19 | EKG12_ITS ---
Test Reason : CP Blood Pressure : / mmHG Vent. Rate : 092 BPM Atrial Rate : 092 BPM P-R Int : 164 ms QRS Dur : 096 ms QT Int : 338 ms P-R-T Axes : 054 029 078 degrees QTc Int : 417 ms Normal sinus rhythm Nonspecific ST abnormality Abnormal ECG Confirmed by GILBERT PETERSON, WENDY ([id number]), supervising editor trailer ROBERT CARBAJAL ([id number]) on 07/16/2022 10:04:58 AM Referred By: Ralph Confirmed By:WENDY HUNT MD
--- NOTE | 2022-07-14 12:19 | CT_ITS ---
EXAM: CT ABDOMEN AND PELVIS WITHOUT INTRAVENOUS CONTRAST CLINICAL INDICATION: Abdominal pain and bilateral groin pain. TECHNIQUE: Helically acquired images were obtained of the abdomen and pelvis without intravenous contrast. This CT exam was performed using one or more of the following dose reduction techniques: automated exposure control, adjustment of the mA and/or kV according to patient size, and/or use of iterative reconstruction technique. This report was created using [employer] report generation technology. RADIATION DOSE: CTDIvol = 22.82 mGy, DLP = 1071.76 mGy-cm COMPARISON: CT abdomen and pelvis with contrast 07/21/2021 FINDINGS: LOWER THORAX: Small hiatal hernia is unchanged. Lung bases are clear. No cardiomegaly. No significant pericardial effusion. ABDOMEN: LIVER: Hepatomegaly measuring 22.7 cm long. This is unchanged. GALLBLADDER AND BILE DUCTS: No visible gallbladder is presumably from laparoscopic cholecystectomy. No intra- or extrahepatic biliary ductal dilation. PANCREAS: Unremarkable. No focal cystic mass. SPLEEN: Unremarkable. Normal size without focal cystic or solid mass. ADRENALS: Unremarkable. No nodules. KIDNEYS AND URETERS: Unremarkable. Normal renal size and position. No hydronephrosis. STOMACH AND BOWEL: Few contrast-filled diverticula in the sigmoid colon without diverticulitis. No stomach or bowel distention. PELVIS: APPENDIX: Normal. BLADDER: Unremarkable. REPRODUCTIVE: Unremarkable as visualized. No mass. ABDOMEN and PELVIS: INTRAPERITONEAL SPACE: Unremarkable. No ascites or other fluid collection. No free air. BONES/JOINTS: Moderate L2-L3 disc space height narrowing with endplate sclerosis and degenerative vacuum phenomenon. No suspicious lytic or blastic abnormality. SOFT TISSUES: Small midline umbilical hernia containing only adipose tissue. VASCULATURE: Unremarkable. Abdominal aorta is non-dilated. LYMPH NODES: Unremarkable. No enlarged lymph nodes. CT/Abdomen/Pelvis without Cont IMPRESSION: 1. Sigmoid diverticulosis without diverticulitis. 2. Small midline umbilical hernia containing only adipose tissue. 3. Hepatomegaly is unchanged. 4. No acute abnormality in the abdomen and pelvis. 5. No significant interval change when compared to 06/26/2022. Electronically Signed: Aditya Adan MD at 13:57 EDT ,
--- NOTE | 2022-07-14 12:21 | EX.ED.DYSGE1 ---
HPI History of Present Illness Chief Complaint: Abd Pain Informant: patient Onset/Context/Timing Onset: Weeks Current Severity: Mild Maximum Severity: Moderate Narrative Narrative: Patient presents with a 2-week history of pain across her lower chest and upper abdomen. She was seen here for atypical chest pain previously and work-up was unremarkable. She states of the last 3 days she has now had pain in the bilateral groin area. She denies dysuria. She states she has overactive bladder and always goes frequently. [facility] Medical History Asthma Bipolar 1 disorder Depression Diabetes Hiatal hernia HTN (hypertension) IBS (irritable bowel syndrome) Home Medications albuterol sulfate 90 mcg/actuation aerosol inhaler (Ventolin HFA) 1 - 2 puff inhalation Q4H PRN PRN Shortness Of Breath 12/06/16 [History Last Taken Unknown] carbamazepine 200 mg tablet 200 mg PO BID 12/06/16 [History Last Taken Unknown] glimepiride 1 mg tablet 2 mg PO DAILY 12/06/16 [History Last Taken Unknown] hydrochlorothiazide 25 mg tablet 25 mg PO DAILY 12/06/16 [History Last Taken Unknown] omeprazole 40 mg capsule,delayed release 40 mg PO BID 12/06/16 [History Last Taken Unknown] quetiapine 400 mg tablet (Seroquel) 450 mg PO QHS 12/06/16 [History Last Taken Unknown] solifenacin 10 mg tablet (Vesicare) 10 mg PO QHS 12/06/16 [History Last Taken Unknown] amlodipine 10 mg tablet 10 mg PO DAILY 07/09/17 [History Last Taken Unknown] fluticasone propionate 50 mcg/actuation nasal spray,suspension 2 spray NASAL DAILY 08/02/19 [History Last Taken Unknown] potassium chloride 10 mEq tablet,extended release(part/cryst) 10 meq PO BID 08/02/19 [History Last Taken Unknown] cholecalciferol (vitamin D3) 125 mcg (5,000 unit) tablet (Vitamin D3) 125 mcg PO DAILY 04/19/22 [History Last Taken Unknown] montelukast 10 mg tablet 10 mg PO DAILY 04/19/22 [History Last Taken Unknown] protriptyline 5 mg tablet 5 mg PO DAILY 04/19/22 [History Last Taken Unknown] topiramate 50 mg tablet 50 mg PO QHS 04/19/22 [History Last Taken Unknown] cephalexin 500 mg capsule 500 mg PO Q6 #40 CAPSULES 06/26/22 [Rx Last Taken Unknown] clotrimazole-betamethasone 1 %-0.05 % topical cream 1 applic topical BID #15 grams 06/26/22 [Rx Last Taken Unknown] hydrocodone-acetaminophen 5-325mg 5mg-325mg 1 tab PO Q4H PRN PRN Pain 2 days #10 TABLETS 07/08/22 [Rx Last Taken Unknown] nystatin 100,000 unit/gram topical ointment 1 applic topical BID #30 grams 07/08/22 [Rx Last Taken Unknown] dicyclomine 20 mg tablet 20 mg PO BID PRN abdominal cramping #10 tabs 07/14/22 [Rx Last Taken Unknown] Allergy/AdvReac Type Severity Reaction Status Date / Time latex Allergy Rash Verified 07/08/22 11:08 lithium [[place]] Allergy Anaphylaxis Verified 07/08/22 11:08 acetaminophen AdvReac Vomiting Verified 07/08/22 11:08 [From Tylenol-Codeine] aspirin AdvReac Vomiting Verified 07/08/22 11:08 citalopram hydrobromide AdvReac Other Verified 07/08/22 11:08 [From Celexa] codeine AdvReac Vomiting Verified 07/08/22 11:08 divalproex sodium AdvReac Vomiting Verified 07/08/22 11:08 [From Depakote] ibuprofen AdvReac Nausea Verified 07/08/22 11:08 nortriptyline AdvReac Other Verified 07/08/22 11:08 SLEEPING PILL AdvReac Intermediate Other Uncoded 07/14/22 12:08 Family History Mother Diabetes Father Diabetes Surgical History Hx of cholecystectomy Hx of tonsillectomy Social History Smoking Status: Former smoker alcohol intake: former substance use type: does not use ROS ROS ED Constitutional Constitutional ED: Denies chills or fever(s) Eyes Eyes: Denies change in vision or discharge from eye(s) ENT ENT ED: Denies discharge from eye(s), rhinorrhea or sore throat Cardiovascular Cardiovascular: Reports chest pain; Denies palpitations Respiratory/Chest Respiratory/Chest: Denies cough or dyspnea Gastrointestinal Gastrointestinal: Reports abdominal pain; Denies diarrhea, nausea or vomiting Genitourinary Genitourinary ED: Reports urinary frequency; Denies difficulty urinating or dysuria Musculoskeletal Musculoskeletal: Denies back pain or extremity pain Integumentary Denies Abrasions or rash Neurologic Neurologic: Denies headache(s) or weakness Psychiatric Psychiatric: Denies anxiety or depression Allergic/Immunologic Allergic/Immunologic ED: Denies lip swelling or urticaria EXAM Physical Exam Const Vital Signs: 07/14/22 11:55 Temperature 97 F L Temperature Source Temporal Pulse Rate 102 H Respiratory Rate 23 H Blood Pressure 166/80 H Blood Pressure Mean 108 Pulse Ox 99 Oxygen Delivery Method Room Air Positive obese Nutritional Appearance: obese HEENT Reports normocephalic and head/scalp atraumatic Eyes PERRL and EOMs intact bilaterally Neck supple Chest Wall inspection of chest normal and palpation of chest normal Resp normal respiratory effort and clear to auscultation bilaterally Cardio regular rate and regular rhythm GI normal to inspection, nondistended, normoactive bowel sounds Palpation: soft Extremity normal to inspection Neuro oriented x3 and no sensory deficits noted Sensorium / Orientation: alert Motor Exam: strength 5/5 throughout Psych mental status grossly normal MDM MDM MDM Narrative Medical decision making narrative: Patient was given dose of Protonix. EKG and lab work obtained. CT flank ordered. Urinalysis obtained. Lab Data Attestation: I reviewed the patient's lab results. Labs: Laboratory Results - last 24 hr 07/14/22 07/14/22 07/14/22 13:10 13:10 13:37 WBC 6.9 RBC 4.21 Hgb 10.7 L Hct 34.2 L MCV 81.2 MCH 25.4 L MCHC 31.3 L RDW Std Deviation 40.2 RDW Coeff of [place] 13.8 Plt Count 261 MPV 10.2 Immature Gran % (Auto) 1.000 H Neut % (Auto) 62.4 Lymph % (Auto) 25.9 [place] % (Auto) 8.6 Eos % (Auto) 1.5 Baso % (Auto) 0.6 Absolute Neuts (auto) 4.3 Absolute Lymphs (auto) 1.78 Nucleated RBC % 0 Sodium 138 Potassium 3.8 Chloride 101 Carbon Dioxide 33.0 H Anion Gap 4 L BUN 19 H Creatinine 0.67 Estim Creat Clear Calc 69.06 Est GFR (MDRD) Af Amer 116 Est GFR (MDRD) Non-Af 96 BUN/Creatinine Ratio 28.3 H Glucose 106 Calcium 9.0 Total Bilirubin 0.20 Direct Bilirubin 0.08 AST 14 L ALT 26 Alkaline Phosphatase 114 Troponin I High Sens 6 Total Protein 7.5 Albumin 3.2 Globulin 4.3 H Lipase 107 Urine Color Yellow Urine Clarity Clear Urine pH 6.0 Ur Specific [place] 1.010 Urine Protein Negative Urine Glucose (UA) Normal Urine Ketones Negative Urine Occult Blood Negative Urine Nitrite Negative Urine Bilirubin Negative Urine Urobilinogen Normal Ur Leukocyte Esterase Negative Urine RBC 0 SEEN Urine WBC 0 SEEN Ur Squamous Epith Cells 0 SEEN Urine Bacteria 0 SEEN Urine Mucus 0 SEEN Radiography Diagnostic Testing: Clinical Impression(s) from Imaging Studies Abdomen/Pelvis CT 07/14/22 12:19 IMPRESSION: 1. Sigmoid diverticulosis without diverticulitis. 2. Small midline umbilical hernia containing only adipose tissue. 3. Hepatomegaly is unchanged. 4. No acute abnormality in the abdomen and pelvis. 5. No significant interval change when compared to 06/26/2022. Electronically Signed: Aditya Adan MD at 13:57 EDT , EKG Initial EKG: Attestation: I personally reviewed and interpreted this EKG as follows: Interpretation: Sinus Rhythm (Sinus at 92 with no acute ischemia.) Treatment and Re-Evaluation Narrative: CBC was hemoglobin of 10.7, stable from prior values. Chemistry studies reveal no significant abnormalities. LFTs and lipase normal. Troponin is negative at 6. Urinalysis is clean. CT flank reveals a small umbilical hernia and sigmoid diverticulosis. No acute abnormality is noted. On repeat evaluation patient resting comfortably. She continues to complain of pain. She states that she is taking Tylenol. I recommended she continue this. She is taking omeprazole for reflux. I will write her for Bentyl. I do not believe patient needs narcotics at this time. Patient states that she just saw her primary care physician for this same complaint yesterday. Return instructions given. Discharge Plan Triage Chief Complaint: Abd Pain ED Provider: Lucia Rosas Dx/Rx/DC Orders Clinical Impression: Atypical chest pain, Abdominal pain Instructions: ED Abdominal Pain Unkn Cause Fem, ED Chest Pain, Uncertain Cause Prescriptions: New dicyclomine 20 mg tablet 20 mg PO BID PRN (Reason: abdominal cramping) Qty: 10 0RF No Action glimepiride 1 MG tablet 2 mg PO DAILY carbamazepine 200 MG tablet 200 mg PO BID hydrochlorothiazide 25 MG tablet 25 mg PO DAILY solifenacin [Vesicare] 10 MG tablet 10 mg PO QHS quetiapine [Seroquel] 400 MG tablet 450 mg PO QHS omeprazole 40 MG capsule,delayed release(DR/EC) 40 mg PO BID albuterol sulfate [Ventolin HFA] 1 INHALER inhaler 1 - 2 puff inhalation Q4H PRN PRN (Reason: Shortness Of Breath) amlodipine 10 MG tablet 10 mg PO DAILY fluticasone propionate 1 SPRAY spray,suspension 2 spray NASAL DAILY potassium chloride 10 MEQ tablet,ER particles/crystals 10 meq PO BID protriptyline 5 mg Tablet 5 mg PO DAILY montelukast 10 mg Tablet 10 mg PO DAILY topiramate 50 mg Tablet 50 mg PO QHS cholecalciferol (vitamin D3) [Vitamin D3] 125 mcg (5,000 unit) Tablet 125 mcg PO DAILY cephalexin [cephalexin] 500 mg capsule 500 mg PO Q6 Qty: 40 0RF clotrimazole-betamethasone 1-0.05 % cream 1 applic topical BID Qty: 15 0RF hydrocodone-acetaminophen [hydrocodone-acetaminophen] 5-325 mg tablet 1 tab PO Q4H PRN PRN (Reason: Pain) 2 Days Qty: 10 0RF nystatin 100,000 unit/gram ointment 1 applic topical BID Qty: 30 0RF Primary Care Provider: Nick Giraldo Referrals: Nick Giraldo DO [Primary Care Provider] - 1 Week Disposition Disposition: Home, Self Care
[2022-07-14 13:16] LABS: Absolute Lymphocyte Count 1.78 X10^3/uL (0.83-4.51); Absolute Neutrophil Count 4.3 X10^3/uL (2.0-7.7); Basophil# 0.04 X10^3/uL; Basophil% 0.6 % (0-1); Eosinophils% 1.5 % (0-5); Hematocrit 34.2 % (37-47); Hemoglobin 10.7 g/dL (12.0-15.0); Lymphocyte # 1.78 X10^3/ul (0.83-4.51); Lymphocyte % 25.9 % (19-41); Mean Corp Hgb Conc 31.3 g/dL (32-36); Mean Corpuscular Hgb 25.4 pg (27.0-32.0); Mean Corpuscular Volume 81.2 fL (81-99); Mean Platelet Vol. 10.2 fl (6.2-12.0); Monocyte# 0.59 X10^3/uL; Monocyte% 8.6 % (0-10); NRBC Flagged by Analyzer 0 % (0-5); Neutrophil % 62.4 % (47-70); Platelet Count 261 K/mm3 (150-450); RBC Distribution Width CV 13.8 % (11.6-14.6); RBC Distribution Width SD 40.2 fl (35.1-43.9); Red Blood Count 4.21 M/mm3 (4.2-5.4); White Blood Count 6.9 K/mm3 (4.4-11.0)
[2022-07-14 13:35] LABS: AST(SGOT) 14 U/L (15-37); Alanine Aminotransfer ALT/SGPT 26 U/L (13-56); Albumin, Serum 3.2 g/dL (3.2-5.0); Alkaline Phosphatase 114 U/L (45-117); Anion Gap 4 (5-15); BUN 19 mg/dL (7-18); BUN/Creat Ratio 28.3 RATIO (10-20); Bilirubin, Direct 0.08 mg/dL (0.00-0.30); Chloride 101 mmol/L (98-107); Creatinine, Serum 0.67 mg/dL (0.55-1.02); EST Glomerular Filtration Rate 96 mL/min (>60); Est Glom Filt Rate - Afr Amer 116 mL/min (>60); Estimated Creatinine Clearance 69.06 ml/min; Globulin 4.3 g/dL (2.2-4.2); Glucose 106 mg/dL (74-106); Lipase 107 U/L (73-393); Potassium 3.8 mmol/L (3.5-5.1); Protein, Total 7.5 g/dL (6.4-8.2); Sodium Level 138 mmol/L (136-145); Troponin-I HS 6 pg/mL (3.0-54.0)
[2022-07-14 13:53] LABS: Bacteria 0 SEEN /hpf (None Seen); Mucous, Urine 0 SEEN /hpf (<or=2+); Red Blood Cells-Urine 0 SEEN /hpf (0-5); Squamous Epithelial Cells - UA 0 SEEN /hpf (5-10); White Blood Cells 0 SEEN /hpf (0-5)
[2022-07-14 13:54] LABS: Color, Urine Yellow (Yellow); Glucose, Dipstick Normal (Normal); Ketone-Dipstick Negative (Negative); Leukocyte Esterase-Dipstick Negative /ul (Negative); Nitrite-Dipstick Negative (Negative); Occult Blood-Urine Negative /ul (Negative); Protein-Dipstick Negative (Negative); Urine Bilirubin Dipstick Negative (Negative); Urine Clarity Clear (Clear); Urine Urobilinogen Normal (Normal)
[2022-07-14 15:30] VITALS: BP 158/82; PULSE 92; RESP 17; TEMP 36.2; O2SAT 97
== END 2022-07-14 15:36 | disposition home or self-care (01) ==
PROVIDERS: Emergency Provider Emergency Medicine; PCP Student in an Organized Health Care Education/Training Program; Visit Provider Emergency Medicine
DX: R10.10 Upper abdominal pain, unspecified (principal); Z68.41 Body mass index [BMI] 40.0-44.9, adult; E11.9 Type 2 diabetes mellitus without complications; R07.89 Other chest pain; I10 Essential (primary) hypertension; E66.9 Obesity, unspecified; Z79.84 Long term (current) use of oral hypoglycemic drugs; Z79.899 Other long term (current) drug therapy; Z87.891 Personal history of nicotine dependence
CPT/HCPCS: 74176; 80048; 80076; 81001; 83690; 84484; 85025; 93005; 96365; 99283

== ENCOUNTER 2022-07-16 17:00 | Observation (INO) | payer MEDICARE, MEDICAID, SELFPAY ==
[2022-07-16 17:06] VITALS: BP 143/83; PULSE 89; RESP 18; TEMP 36.6; O2SAT 96; BMI 42.9
--- NOTE | 2022-07-16 19:28 | EX.ED.DYSGE1 ---
HPI History of Present Illness Chief Complaint: Cellulitis Detail of Chief Complaint: dysuria Informant: patient Onset/Context/Timing Onset: Yesterday Context: Gradual Onset Timing: Continuous Quality: burning Location: urethra Current Severity: Moderate Maximum Severity: Moderate Worsened by: urinating, wiping perineum Relieved by: nothing Associated Symptoms Associated Symptoms: rash perineum. occ blood in stool. abd pains cramping throughout. Narrative Narrative: Patient presents saying that she has excoriated sore rash in her perineum and perianal area ever since she had diarrhea 3 weeks ago. It still hurts. She was seen here 2 days ago for this and abdominal pain, she had a thorough work-up including a CT that was unremarkable except for an incidental umbilical hernia and sigmoid diverticulosis. She states she does not have any abdominal pain right now. Diarrhea ended 2 or so weeks ago. Now she has developed dysuria that started yesterday. She thinks it is the burning rash and she urinates through it and it hurts, but she is not sure. She denies any other new symptoms. States she has been on nystatin cream topically for the past 2 weeks or so that her doctor prescribed her for this rash, she thinks it is gradually helping some. She states she has seen some blood when she wipes from time to time but cannot tell me for how long. [facility] Medical History Asthma Bipolar 1 disorder Depression Diabetes Hiatal hernia HTN (hypertension) IBS (irritable bowel syndrome) Home Medications albuterol sulfate 90 mcg/actuation aerosol inhaler (Ventolin HFA) 1 - 2 puff inhalation Q4H PRN PRN Shortness Of Breath 12/06/16 [History Last Taken Unknown] carbamazepine 200 mg tablet 200 mg PO BID 12/06/16 [History Last Taken Unknown] glimepiride 1 mg tablet 2 mg PO DAILY 12/06/16 [History Last Taken Unknown] hydrochlorothiazide 25 mg tablet 25 mg PO DAILY 12/06/16 [History Last Taken Unknown] omeprazole 40 mg capsule,delayed release 40 mg PO BID 12/06/16 [History Last Taken Unknown] quetiapine 400 mg tablet (Seroquel) 450 mg PO QHS 12/06/16 [History Last Taken Unknown] solifenacin 10 mg tablet (Vesicare) 10 mg PO QHS 12/06/16 [History Last Taken Unknown] amlodipine 10 mg tablet 10 mg PO DAILY 07/09/17 [History Last Taken Unknown] fluticasone propionate 50 mcg/actuation nasal spray,suspension 2 spray NASAL DAILY 08/02/19 [History Last Taken Unknown] potassium chloride 10 mEq tablet,extended release(part/cryst) 10 meq PO BID 08/02/19 [History Last Taken Unknown] cholecalciferol (vitamin D3) 125 mcg (5,000 unit) tablet (Vitamin D3) 125 mcg PO DAILY 04/19/22 [History Last Taken Unknown] montelukast 10 mg tablet 10 mg PO DAILY 04/19/22 [History Last Taken Unknown] protriptyline 5 mg tablet 5 mg PO DAILY 04/19/22 [History Last Taken Unknown] topiramate 50 mg tablet 50 mg PO QHS 04/19/22 [History Last Taken Unknown] cephalexin 500 mg capsule 500 mg PO Q6 #40 CAPSULES 06/26/22 [Rx Last Taken Unknown] clotrimazole-betamethasone 1 %-0.05 % topical cream 1 applic topical BID #15 grams 06/26/22 [Rx Last Taken Unknown] hydrocodone-acetaminophen 5-325mg 5mg-325mg 1 tab PO Q4H PRN PRN Pain 2 days #10 TABLETS 07/08/22 [Rx Last Taken Unknown] nystatin 100,000 unit/gram topical ointment 1 applic topical BID #30 grams 07/08/22 [Rx Last Taken Unknown] dicyclomine 20 mg tablet 20 mg PO BID PRN abdominal cramping #10 tabs 07/14/22 [Rx Last Taken Unknown] Allergy/AdvReac Type Severity Reaction Status Date / Time latex Allergy Rash Verified 07/16/22 17:31 lithium [[place]] Allergy Anaphylaxis Verified 07/16/22 17:31 acetaminophen AdvReac Vomiting Verified 07/16/22 17:31 [From Tylenol-Codeine] aspirin AdvReac Vomiting Verified 07/16/22 17:31 citalopram hydrobromide AdvReac Other Verified 07/16/22 17:31 [From Celexa] codeine AdvReac Vomiting Verified 07/16/22 17:31 divalproex sodium AdvReac Vomiting Verified 07/16/22 17:31 [From Depakote] ibuprofen AdvReac Nausea Verified 07/16/22 17:31 nortriptyline AdvReac Other Verified 07/16/22 17:31 SLEEPING PILL AdvReac Intermediate Other Uncoded 07/16/22 17:31 Family History Mother Diabetes Father Diabetes Surgical History Hx of cholecystectomy Hx of tonsillectomy Social History Smoking Status: Former smoker alcohol intake: former substance use type: does not use ROS ROS ED Constitutional Constitutional ED: Denies chills or fever(s) Eyes Eyes: Denies change in vision or diplopia ENT ENT ED: Denies rhinorrhea or sore throat Cardiovascular Cardiovascular: Denies chest pain or palpitations Respiratory/Chest Respiratory/Chest: Denies cough or dyspnea Gastrointestinal Gastrointestinal: Reports as per HPI, abdominal pain and rectal bleeding; Denies diarrhea, nausea or vomiting Genitourinary Genitourinary ED: Reports dysuria and other Details: Perineal discomfort/rash, dysuria, see HPI ; Denies hematuria Musculoskeletal Musculoskeletal: Denies back pain or neck pain Integumentary Denies abscess or rash Neurologic Neurologic: Denies headache(s), paresthesias or weakness Psychiatric Psychiatric: Denies anxiety or suicidal thoughts EXAM Physical Exam Const Vital Signs: 07/16/22 17:06 Temperature 98 F Temperature Source Temporal Pulse Rate 89 Respiratory Rate 18 Blood Pressure 143/83 H Blood Pressure Mean 103 Pulse Ox 96 Oxygen Delivery Method Room Air Positive well nourished, well developed and obese General Appearance ED: well developed and NAD Nutritional Appearance: obese HEENT Reports moist mucous membranes normocephalic and atraumatic Eyes PERRL and EOMs intact bilaterally Neck full ROM and supple Resp normal respiratory effort and clear to auscultation bilaterally Cardio regular rate, regular rhythm and no murmurs Rate: Negative for tachycardic GI non-tender and non-distended Auscultation: normoactive bowel sounds Palpation: soft Narrative: Inspected with RN. Excoriated erythematous mildly tender rash throughout the perineum and perianal area into the buttocks and cleft without induration, abscess, necrotic tissue/pressure wound, or subcutaneous emphysema/gas. There is black nonbloody stool remnants all around this and her diaper. Back/Spine no CVA tenderness General Back: other FROM Extremity normal to inspection General Extremety ED: Negative for edema, pulses abnormal or tenderness General Extremity: Negative for edema or pulses abnormal Neuro oriented x3, CN's II-XII intact bilaterally and no sensory deficits noted Sensorium / Orientation: awake and alert Motor Exam: strength 5/5 throughout Skin no wounds Skin Narrative: Perineal/perianal rash see above. It is erythematous but without surrounding cellulitis. MDM MDM MDM Narrative Medical decision making narrative: This rash is consistent with either the equivalent of a diaper dermatitis, or candidal infection, or maybe staph infection. She thinks it is improving but it still hurts quite a bit, I do not think this is necrotizing fasciitis. She had a CT scan 2 days ago that showed no significant venous gas or other abnormality in this area, so I do not think she needs to be worked up for Dominik's at this time and I do not think she needs repeat CT since she has no abdominal pain right now. I did send a Hemoccult of this black discolored stool, as well as repeating her labs including her blood counts, and sent a urine. The Hemoccult is positive, this is consistent with melena. Her blood counts are stable and actually her hemoglobin is a little higher than it was recently. She is on omeprazole 40 mg twice daily. She has had no vomiting or nausea. Her BUN has been elevated today and for the last week on her prior visits; this is the fourth visit in the last 2.5 weeks to the emergency department for similar problems. I discussed with Dr. Valadez. His concern is that she is not having stomach/peptic ulcer disease, but rather something further distal that is causing upper GI bleeding, and he recommends that we treat her for the possibility of staph infection, candidal infection with fluconazole 200 mg, and evaluate further inpatient. Lab Data Attestation: I reviewed the patient's lab results. Labs: Laboratory Results - last 24 hr 07/16/22 07/16/22 07/16/22 19:55 19:55 20:10 WBC 10.3 RBC 4.57 Hgb 11.5 L Hct 37.0 MCV 81.0 MCH 25.2 L MCHC 31.1 L RDW Std Deviation 39.8 RDW Coeff of [place]inka 13.7 Plt Count 282 MPV 10.1 Immature Gran % (Auto) 0.700 Neut % (Auto) 63.0 Lymph % (Auto) 26.5 [place] % (Auto) 8.3 Eos % (Auto) 1.0 Baso % (Auto) 0.5 Absolute Neuts (auto) 6.5 Absolute Lymphs (auto) 2.72 Nucleated RBC % 0 Sodium 139 Potassium 3.9 Chloride 103 Carbon Dioxide 28.0 Anion Gap 8 BUN 20 H Creatinine 0.66 Estim Creat Clear Calc 80.23 Est GFR (MDRD) Af Amer 118 Est GFR (MDRD) Non-Af 97 BUN/Creatinine Ratio 30.2 H Glucose 89 Calcium 9.1 Urine Color Yellow Urine Clarity Clear Urine pH 6.5 Ur Specific [place] 1.015 Urine Protein Negative Urine Glucose (UA) Normal Urine Ketones Negative Urine Occult Blood 25 H Urine Nitrite Negative Urine Bilirubin Negative Urine Urobilinogen Normal Ur Leukocyte Esterase 100 H Urine RBC 0-5 SEEN Urine WBC 0-5 SEEN Ur Squamous Epith Cells 0-5 SEEN Urine Bacteria 2+ Urine Mucus 0 SEEN Discharge Plan Triage Chief Complaint: Cellulitis ED Provider: Uday Garcia Dx/Rx/DC Orders Clinical Impression: Acute upper gastrointestinal bleeding, Type II diabetes mellitus, Dermatitis of perianal region Prescriptions: No Action glimepiride 1 MG tablet 2 mg PO DAILY carbamazepine 200 MG tablet 200 mg PO BID hydrochlorothiazide 25 MG tablet 25 mg PO DAILY solifenacin [Vesicare] 10 MG tablet 10 mg PO QHS quetiapine [Seroquel] 400 MG tablet 450 mg PO QHS omeprazole 40 MG capsule,delayed release(DR/EC) 40 mg PO BID albuterol sulfate [Ventolin HFA] 1 INHALER inhaler 1 - 2 puff inhalation Q4H PRN PRN (Reason: Shortness Of Breath) amlodipine 10 MG tablet 10 mg PO DAILY fluticasone propionate 1 SPRAY spray,suspension 2 spray NASAL DAILY potassium chloride 10 MEQ tablet,ER particles/crystals 10 meq PO BID protriptyline 5 mg Tablet 5 mg PO DAILY montelukast 10 mg Tablet 10 mg PO DAILY topiramate 50 mg Tablet 50 mg PO QHS cholecalciferol (vitamin D3) [Vitamin D3] 125 mcg (5,000 unit) Tablet 125 mcg PO DAILY cephalexin [cephalexin] 500 mg capsule 500 mg PO Q6 Qty: 40 0RF clotrimazole-betamethasone 1-0.05 % cream 1 applic topical BID Qty: 15 0RF hydrocodone-acetaminophen [hydrocodone-acetaminophen] 5-325 mg tablet 1 tab PO Q4H PRN PRN (Reason: Pain) 2 Days Qty: 10 0RF nystatin 100,000 unit/gram ointment 1 applic topical BID Qty: 30 0RF dicyclomine 20 mg tablet 20 mg PO BID PRN (Reason: abdominal cramping) Qty: 10 0RF Primary Care Provider: Nick Giraldo Referrals: Nick Giraldo DO [Primary Care Provider] - Disposition Disposition: Acute Care Hospital [facility]
[2022-07-16 20:04] LABS: Absolute Lymphocyte Count 2.72 X10^3/uL (0.83-4.51); Absolute Neutrophil Count 6.5 X10^3/uL (2.0-7.7); Basophil# 0.05 X10^3/uL; Basophil% 0.5 % (0-1); Hemoglobin 11.5 g/dL (12.0-15.0); Lymphocyte # 2.72 X10^3/ul (0.83-4.51); Lymphocyte % 26.5 % (19-41); Mean Corp Hgb Conc 31.1 g/dL (32-36); Mean Corpuscular Hgb 25.2 pg (27.0-32.0); Mean Platelet Vol. 10.1 fl (6.2-12.0); Monocyte# 0.85 X10^3/uL; Monocyte% 8.3 % (0-10); NRBC Flagged by Analyzer 0 % (0-5); Neutrophil # 6.49 X10^3/uL (2.7-7.7); Platelet Count 282 K/mm3 (150-450); RBC Distribution Width CV 13.7 % (11.6-14.6); RBC Distribution Width SD 39.8 fl (35.1-43.9); Red Blood Count 4.57 M/mm3 (4.2-5.4); White Blood Count 10.3 K/mm3 (4.4-11.0)
--- NOTE | 2022-07-16 20:14 | ED.RN ---
PT ADAMANTLY REFUSES TO ALLOW THIS RN TO OBTAIN URINE WITH A CATHETER. PT ATTEMPTED CLEAN CATCH INDEPENDENTLY.
[2022-07-16 20:15] LABS: Mucous, Urine 0 SEEN /hpf (<or=2+)
[2022-07-16 20:24] LABS: Color, Urine Yellow (Yellow); Glucose, Dipstick Normal (Normal); Ketone-Dipstick Negative (Negative); Leukocyte Esterase-Dipstick 100 /ul (Negative); Nitrite-Dipstick Negative (Negative); Occult Blood-Urine 25 /ul (Negative); Protein-Dipstick Negative (Negative); Specific Gravity, Urine 1.015 (1.002-1.030); Urine Bilirubin Dipstick Negative (Negative); Urine Clarity Clear (Clear); Urine Urobilinogen Normal (Normal); Urine pH 6.5 (5.0 - 8.0)
[2022-07-16 20:25] LABS: Anion Gap 8 (5-15); BUN 20 mg/dL (7-18); BUN/Creat Ratio 30.2 RATIO (10-20); Calcium,Total 9.1 mg/dL (8.5-10.1); Chloride 103 mmol/L (98-107); Creatinine, Serum 0.66 mg/dL (0.55-1.02); EST Glomerular Filtration Rate 97 mL/min (>60); Est Glom Filt Rate - Afr Amer 118 mL/min (>60); Estimated Creatinine Clearance 80.23 ml/min; Glucose 89 mg/dL (74-106); Potassium 3.9 mmol/L (3.5-5.1); Sodium Level 139 mmol/L (136-145)
[2022-07-16 20:52] LABS: Bacteria 2+ /hpf (None Seen); White Blood Cells 0-5 SEEN /hpf (0-5)
[2022-07-16 20:53] LABS: Red Blood Cells-Urine 0-5 SEEN /hpf (0-5); Squamous Epithelial Cells - UA 0-5 SEEN /hpf (5-10)
--- NOTE | 2022-07-16 21:22 | PCM.HP.STD ---
HPI - General General Date of Admission: 07/16/22 Date of Service: 07/16/22 Chief Complaint: Hematochezia HPI Narrative RUBI GORMAN, is a 57 F with a significant history of diabetes mellitus and hypertension who presents to the emergency department with hematochezia x3 weeks. Her symptom has been persistent and she has been at the emergency department for a couple of times. Associated for symptoms is a soreness of her gluteal area. Also she complains of dysuria. About 3 weeks ago she had diarrhea. She has pain everywhere in her body. [facility] Medical History Asthma Bipolar 1 disorder Depression Diabetes Hiatal hernia HTN (hypertension) IBS (irritable bowel syndrome) Overactive bladder Home Medications albuterol sulfate 90 mcg/actuation aerosol inhaler (Ventolin HFA) 1 - 2 puff inhalation Q4H PRN PRN Shortness Of Breath 12/06/16 [History Last Taken Unknown] carbamazepine 200 mg tablet 200 mg PO BID depression 12/06/16 [History Last Taken 07/16/22] glimepiride 1 mg tablet 2 mg PO DAILY diabetes 12/06/16 [History Last Taken 07/16/22] hydrochlorothiazide 25 mg tablet 25 mg PO DAILY diuretic 12/06/16 [History Last Taken 07/16/22] omeprazole 40 mg capsule,delayed release 40 mg PO BID GERD 12/06/16 [History Last Taken 07/16/22] quetiapine 400 mg tablet (Seroquel) 300 mg PO QHS bipolar 12/06/16 [History Last Taken Unknown] solifenacin 10 mg tablet (Vesicare) 10 mg PO QHS skin care 12/06/16 [History Last Taken 07/15/22] amlodipine 10 mg tablet 10 mg PO DAILY blood pressure 07/09/17 [History Last Taken 07/16/22] fluticasone propionate 50 mcg/actuation nasal spray,suspension 2 spray NASAL DAILY PRN allergies 08/02/19 [History Last Taken Unknown] potassium chloride 10 mEq tablet,extended release(part/cryst) 10 meq PO BID supplement 08/02/19 [History Last Taken 07/16/22] cholecalciferol (vitamin D3) 125 mcg (5,000 unit) tablet (Vitamin D3) 125 mcg PO DAILY supplement 04/19/22 [History Last Taken 07/16/22] montelukast 10 mg tablet 10 mg PO DAILY allergies 04/19/22 [History Last Taken 07/16/22] topiramate 50 mg tablet 50 mg PO QHS mood 04/19/22 [History Last Taken 07/15/22] hydrocodone-acetaminophen 5-325mg 5mg-325mg 1 tab PO Q4H PRN PRN Pain 2 days #10 TABLETS 07/08/22 [Rx Last Taken Unknown] dicyclomine 20 mg tablet 20 mg PO BID PRN abdominal cramping #10 tabs 07/14/22 [Rx Last Taken Unknown] cariprazine 4.5 mg capsule (Vraylar) 4.5 mg PO DAILY mood 07/16/22 [History Last Taken 07/16/22] nystatin 100,000 unit/gram topical ointment 1 applic topical BID skin care 07/16/22 [History Last Taken 07/16/22] Allergy/AdvReac Type Severity Reaction Status Date / Time latex Allergy Rash Verified 07/16/22 17:31 lithium [[place]] Allergy Anaphylaxis Verified 07/16/22 17:31 acetaminophen AdvReac Vomiting Verified 07/16/22 17:31 [From Tylenol-Codeine] aspirin AdvReac Vomiting Verified 07/16/22 17:31 citalopram hydrobromide AdvReac Other Verified 07/16/22 17:31 [From Celexa] codeine AdvReac Vomiting Verified 07/16/22 17:31 divalproex sodium AdvReac Vomiting Verified 07/16/22 17:31 [From Depakote] ibuprofen AdvReac Nausea Verified 07/16/22 17:31 nortriptyline AdvReac Other Verified 07/16/22 17:31 SLEEPING PILL AdvReac Intermediate Other Uncoded 07/16/22 17:31 Family History Mother Diabetes Father Diabetes Surgical History Hx of cholecystectomy Hx of tonsillectomy Social History Smoking Status: Former smoker alcohol intake: former substance use type: does not use ROS ROS Narrative Pertinent positives and pertinent negatives as noted in HPI. All other systems were reviewed and are negative. Vital Signs Vital Signs Vital Signs: 07/16/22 17:06 Temperature 98 F Temperature Source Temporal Pulse Rate 89 Respiratory Rate 18 Blood Pressure 143/83 H Blood Pressure Mean 103 Pulse Ox 96 Oxygen Delivery Method Room Air Weight Weight: 113.398 kg Body Mass Index (BMI) 42.9 Physical Exam Narrative Physical exam: General: Well-nourished, well-developed. Head: Normocephalic, atraumatic, no tenderness Eyes: Vision is grossly intact. EOMI ENT, no trauma, moist mucous membranes, no rhinorrhea Neck: Nontender, full range of motion, no spinal tenderness, deformities, step-off CVS: Regular rate and rhythm. S1-S2 present. No murmur, gallop or rub. Respiratory : clear to auscultation bilaterally, chest wall nontender, no wheezing Abdomen: Soft, nontender, nondistended, normal bowel sounds, no masses : Excoriation in gluteal cleft with black stools. Back: Nontender, no CVA tenderness, no midline spinal tenderness, deformities, step-offs Extremities: Nontender full range of motion, no trauma Skin: Normal color, no trauma, abrasions Neuro: Alert, oriented, cranial nerves II through XII grossly intact. Psychiatry: Normal mood. Normal affect. Not depressed. Not anxious. Results Lab / Micro Data Result Diagrams: 07/16/22 19:55 07/16/22 19:55 Labs: Laboratory Results - last 24 hr 07/16/22 19:55: WBC 10.3, RBC 4.57, Hgb 11.5 L, Hct 37.0, MCV 81.0, MCH 25.2 L, MCHC 31.1 L, RDW Std Deviation 39.8, RDW Coeff of [place]ink[place] 13.7, Plt Count 282, MPV 10.1, Immature Gran % (Auto) 0.700, Neut % (Auto) 63.0, Lymph % (Auto) 26.5, [place] % (Auto) 8.3, Eos % (Auto) 1.0, Baso % (Auto) 0.5, Absolute Neuts (auto) 6.5, Absolute Lymphs (auto) 2.72, Nucleated RBC % 0 07/16/22 19:55: Sodium 139, Potassium 3.9, Chloride 103, Carbon Dioxide 28.0, Anion Gap 8, BUN 20 H, Creatinine 0.66, Estim Creat Clear Calc 80.23, Est GFR (MDRD) Af Amer 118, Est GFR (MDRD) Non-Af 97, BUN/Creatinine Ratio 30.2 H, Glucose 89, Calcium 9.1 07/16/22 20:10: Urine Color Yellow, Urine Clarity Clear, Urine pH 6.5, Ur Specific [place] 1.015, Urine Protein Negative, Urine Glucose (UA) Normal, Urine Ketones Negative, Urine Occult Blood 25 H, Urine Nitrite Negative, Urine Bilirubin Negative, Urine Urobilinogen Normal, Ur Leukocyte Esterase 100 H, Urine RBC 0-5 SEEN, Urine WBC 0-5 SEEN, Ur Squamous Epith Cells 0-5 SEEN, Urine Bacteria 2+, Urine Mucus 0 SEEN Micro: Microbiology 07/16/22 19:50 Stool Stool Occult Blood (MICHELLE) - Final Occult Blood Positive Assessment & Plan Assessment/Plan (1) Acute upper gastrointestinal bleeding: (2) Dermatitis of perianal region: PLAN: Plan Acute upper GI bleed Abdomen/Pelvis CT on 07/14/22 was visualized and independently interpreted. I agree with radiologist interpretation of no acute pathology. BUN of 20. BUN on 07/14/22 19; and 22 on 07/08/22. Hemoglobin on presentation was 11.5, stable. Trend CBC. N.p.o. after midnight. Supportive treatment with IV fluids. Protonix ordered. ED Doctor discussed the case with GI who will follow. GI consult. Dermatitis of the perianal region Etiology unclear. Emergency Department doctor discussed the case with GI who recommended fluconazole. Fluconazole and clindamycin ordered. calmoseptine ordered. PRN [place] ordered. Diabetes Mellitus Euglycemic. Glimepiride held Serial accu-checks ordered Hypoglycemic protocol. Bipolar Stable Seroquel and Topamaz continued. DVT Prophylaxis SCD ordered Charges/Coding Visit Charges OBSV E&M: 44087 Initial observation care L3
[2022-07-16] MEDS: Clindamycin 600 MG/50 ML BAG 100 MG IV (21:34)
[2022-07-16 21:38] VITALS: BP 127/71; PULSE 73; RESP 16; TEMP 36.6; O2SAT 97
[2022-07-16 21:55] VITALS: BMI 40.6
[2022-07-16 22:06] VITALS: BP 152/74; PULSE 96; RESP 18; TEMP 36.5; O2SAT 98
[2022-07-16 22:37] VITALS: O2SAT 98
[2022-07-16 23:10] LABS: Bedside Glucose 106 mg/dL (74-106)
[2022-07-17] MEDS: Dicyclomine 10 MG Capsule 20 MG PO (00:20)
[2022-07-17] MEDS: HYDROcodone Bitartrate/Apap 5/325 Tablet PO ×4 (00:20→23:51)
[2022-07-17] MEDS: 0.9% Normal Saline 1,000 ML 75 ML IV ×2 (00:30→14:52)
[2022-07-17] MEDS: carBAMazepine 200 MG Tablet PO ×3 (00:35→21:12)
[2022-07-17] MEDS: QUEtiapine 100 MG Tablet 300 MG PO ×2 (00:36→21:11)
[2022-07-17 04:45] VITALS: BP 122/70; PULSE 98; RESP 18; TEMP 36.6; O2SAT 93
[2022-07-17] MEDS: Menthol/Lanolin/Calamine/Znox 113 GM Tube 1 APPLIC TOPICAL ×3 (05:01→21:09)
[2022-07-17] MEDS: Clindamycin 600 MG/50 ML BAG 100 MG IV ×2 (05:01→13:22)
--- NOTE | 2022-07-17 06:00 | EKG12_ITS ---
Test Reason : AM EKG Blood Pressure : / mmHG Vent. Rate : 109 BPM Atrial Rate : 109 BPM P-R Int : 166 ms QRS Dur : 090 ms QT Int : 328 ms P-R-T Axes : 060 046 078 degrees QTc Int : 441 ms Sinus tachycardia Otherwise normal ECG Confirmed by GILBERT PETERSON, WENDY ([id number]), society editor ROBERT CARBAJAL ([id number]) on 07/18/2022 9:49:13 AM Referred By: Confirmed By:WENDY HUNT MD
[2022-07-17 06:21] LABS: Absolute Lymphocyte Count 2.19 X10^3/uL (0.83-4.51); Absolute Neutrophil Count 4.1 X10^3/uL (2.0-7.7); Basophil# 0.03 X10^3/uL; Basophil% 0.4 % (0-1); Eosinophil# 0.13 X10^3/uL; Eosinophils% 1.9 % (0-5); Hematocrit 33.7 % (37-47); Lymphocyte # 2.19 X10^3/ul (0.83-4.51); Lymphocyte % 31.3 % (19-41); Mean Corp Hgb Conc 32.6 g/dL (32-36); Mean Corpuscular Hgb 26.1 pg (27.0-32.0); Mean Corpuscular Volume 79.9 fL (81-99); Mean Platelet Vol. 10.1 fl (6.2-12.0); Monocyte# 0.54 X10^3/uL; Monocyte% 7.7 % (0-10); NRBC Flagged by Analyzer 0 % (0-5); Neutrophil # 4.06 X10^3/uL (2.7-7.7); Neutrophil % 58.1 % (47-70); Platelet Count 246 K/mm3 (150-450); RBC Distribution Width CV 13.9 % (11.6-14.6); RBC Distribution Width SD 40.3 fl (35.1-43.9); Red Blood Count 4.22 M/mm3 (4.2-5.4)
[2022-07-17 06:31] LABS: Bedside Glucose 93 mg/dL (74-106)
[2022-07-17 06:44] LABS: Anion Gap 5 (5-15); BUN 17 mg/dL (7-18); BUN/Creat Ratio 28.7 RATIO (10-20); Calcium,Total 8.5 mg/dL (8.5-10.1); Chloride 103 mmol/L (98-107); Creatinine, Serum 0.59 mg/dL (0.55-1.02); EST Glomerular Filtration Rate 110 mL/min (>60); Est Glom Filt Rate - Afr Amer 134 mL/min (>60); Estimated Creatinine Clearance 78.43 ml/min; Glucose 92 mg/dL (74-106); Potassium 3.8 mmol/L (3.5-5.1); Sodium Level 138 mmol/L (136-145)
[2022-07-17 07:40] VITALS: O2SAT 97
[2022-07-17] MEDS: Potassium Chloride Oral Tablet 10 MEQ PO ×2 (08:04→16:45)
[2022-07-17] MEDS: ARIPiprazole 10 MG Tablet PO (08:04)
[2022-07-17] MEDS: amLODIPine 10 MG Tablet PO (08:04)
[2022-07-17] MEDS: hydroCHLOROthiazide 25 MG Tablet PO (08:04)
[2022-07-17 08:23] VITALS: BP 140/86; PULSE 87; RESP 16; TEMP 36.6; O2SAT 97
[2022-07-17] MEDS: Nystatin Ointment 1 APPLIC TOPICAL ×2 (09:19→21:14)
--- NOTE | 2022-07-17 09:20 | CON.PCM_ITS ---
Assessment & Plan Assessment/Plan (1) Iron deficiency anemia due to chronic blood loss: PLAN: The differential diagnosis for iron deficiency anemia from chronic GI blood loss and her for being angiodysplasia, celiac sprue, hemangiomas, peptic ulcer disease. She should undergo an upper endoscopy to evaluate upper lower GI tract. If she is iron deficient she would benefit from transfusions. At this time she is not significant bleeding profusely but she did have black stools in her underwear along with some excoriation. (2) Rectal bleed: PLAN: She does have hemorrhoids on further examination that could contribute to lower GI bleeding along with diverticular disease testing previous imaging. She should undergo colonoscopy evaluation of lower GI tract with possible banding procedure of internal hemorrhoids. She was explained alternatives, risk, benefits, metastatically, infection, sepsis, perforation, need for urgent . She will have an ASA of 3. HPI Consult Data Date of Consult: 07/17/22 HPI Narrative Reason for Consultation: GI bleed and hemorroids HPI Narrative: RUBI GORMAN, is a 57 F who presents saying that she has excoriated sore rash in her perineum and perianal area ever since she had diarrhea 3 weeks ago.? It still hurts.? She was seen here 2 days ago for this and abdominal pain, she had a thorough work-up including a CT that was unremarkable except for an incidental umbilical hernia and sigmoid diverticulosis.? She states she does not have any abdominal pain right now.? Diarrhea ended 2 or so weeks ago.? Now she has developed dysuria that started yesterday.? She thinks it is the burning rash and she urinates through it and it hurts, but she is not sure.? She denies any other new symptoms. ? States she has been on nystatin cream topically for the past 2 weeks or so that her doctor prescribed her for this rash, she thinks it is gradually helping some.? She states she has seen some blood when she wipes from time to time but cannot tell me for how long. [facility] Medical History Asthma Bipolar 1 disorder Depression Diabetes Hiatal hernia HTN (hypertension) IBS (irritable bowel syndrome) Overactive bladder Home Medications albuterol sulfate 90 mcg/actuation aerosol inhaler (Ventolin HFA) 1 - 2 puff inhalation Q4H PRN PRN Shortness Of Breath 12/06/16 [History Last Taken Unknown] carbamazepine 200 mg tablet 200 mg PO BID depression 12/06/16 [History Last Taken 07/16/22] glimepiride 1 mg tablet 2 mg PO DAILY diabetes 12/06/16 [History Last Taken 07/16/22] hydrochlorothiazide 25 mg tablet 25 mg PO DAILY diuretic 12/06/16 [History Last Taken 07/16/22] omeprazole 40 mg capsule,delayed release 40 mg PO BID GERD 12/06/16 [History Last Taken 07/16/22] quetiapine 400 mg tablet (Seroquel) 300 mg PO QHS bipolar 12/06/16 [History Last Taken Unknown] solifenacin 10 mg tablet (Vesicare) 10 mg PO QHS skin care 12/06/16 [History Last Taken 07/15/22] amlodipine 10 mg tablet 10 mg PO DAILY blood pressure 07/09/17 [History Last T aken 07/16/22] fluticasone propionate 50 mcg/actuation nasal spray,suspension 2 spray NASAL DAILY PRN allergies 08/02/19 [History Last Taken Unknown] potassium chloride 10 mEq tablet,extended release(part/cryst) 10 meq PO BID supplement 08/02/19 [History Last Taken 07/16/22] cholecalciferol (vitamin D3) 125 mcg (5,000 unit) tablet (Vitamin D3) 125 mcg PO DAILY supplement 04/19/22 [History Last Taken 07/16/22] montelukast 10 mg tablet 10 mg PO DAILY allergies 04/19/22 [History Last Taken 07/16/22] topiramate 50 mg tablet 50 mg PO QHS mood 04/19/22 [History Last Taken 07/15/22] hydrocodone-acetaminophen 5-325mg 5mg-325mg 1 tab PO Q4H PRN PRN Pain 2 days #10 TABLETS 07/08/22 [Rx Last Taken Unknown] dicyclomine 20 mg tablet 20 mg PO BID PRN abdominal cramping #10 tabs 07/14/22 [Rx Last Taken Unknown] cariprazine 4.5 mg capsule (Vraylar) 4.5 mg PO DAILY mood 07/16/22 [History Last Taken 07/16/22] nystatin 100,000 unit/gram topical ointment 1 applic topical BID skin care 07/16/22 [History Last Taken 07/16/22] Allergy/AdvReac Type Severity Reaction Status Date / Time latex Allergy Rash Verified 07/16/22 17:31 lithium [[place]] Allergy Anaphylaxis Verified 07/16/22 17:31 acetaminophen AdvReac Vomiting Verified 07/16/22 17:31 [From Tylenol-Codeine] aspirin AdvReac Vomiting Verified 07/16/22 17:31 citalopram hydrobromide AdvReac Other Verified 07/16/22 17:31 [From Celexa] codeine AdvReac Vomiting Verified 07/16/22 17:31 divalproex sodium AdvReac Vomiting Verified 07/16/22 17:31 [From Depakote] ibuprofen AdvReac Nausea Verified 07/16/22 17:31 nortriptyline AdvReac Other Verified 07/16/22 17:31 SLEEPING PILL AdvReac Intermediate Other Uncoded 07/16/22 17:31 Family History Mother Diabetes Father Diabetes Surgical History Hx of cholecystectomy Hx of tonsillectomy Social History Smoking Status: Former smoker alcohol intake: former substance use type: does not use ROS ROS Narrative Pertinent positives and pertinent negatives as noted in HPI. All other systems were reviewed and are negative. Physical Exam Narrative Physical exam: General: Well-nourished, well-developed. Head: Normocephalic, atraumatic, no tenderness Eyes: Vision is grossly intact. EOMI ENT, no trauma, moist mucous membranes, no rhinorrhea Neck: Nontender, full range of motion, no spinal tenderness, deformities, step- off CVS: Regular rate and rhythm. S1-S2 present. No murmur, gallop or rub. Respiratory : clear to auscultation bilaterally, chest wall nontender, no wheezing Abdomen: Soft, nontender, nondistended, normal bowel sounds, no masses : Excoriation in gluteal cleft with black stools. Back: Nontender, no CVA tenderness, no midline spinal tenderness, deformities, step-offs Extremities: Nontender full range of motion, no trauma Skin: Normal color, no trauma, abrasions Neuro: Alert, oriented, cranial nerves II through XII grossly intact. Psychiatry: Normal mood. Normal affect. Not depressed. Not anxious. Lab / Micro Data Result Diagrams: 07/17/22 06:08 07/17/22 06:08 Labs: Laboratory Results - last 24 hr 07/16/22 19:55: WBC 10.3, RBC 4.57, Hgb 11.5 L, Hct 37.0, MCV 81.0, MCH 25.2 L, MCHC 31.1 L, RDW Std Deviation 39.8, RDW Coeff of Yink[place] 13.7, Plt Count 282, MPV 10.1, Immature Gran % (Auto) 0.700, Neut % (Auto) 63.0, Lymph % (Auto) 26.5, [place] % (Auto) 8.3, Eos % (Auto) 1.0, Baso % (Auto) 0.5, Absolute Neuts (auto) 6.5, Absolute Lymphs (auto) 2.72, Nucleated RBC % 0 07/16/22 19:55: Sodium 139, Potassium 3.9, Chloride 103, Carbon Dioxide 28.0, Anion Gap 8, BUN 20 H, Creatinine 0.66, Estim Creat Clear Calc 80.23, Est GFR (MDRD) Af Amer 118, Est GFR (MDRD) Non-Af 97, BUN/Creatinine Ratio 30.2 H, Glucose 89, Calcium 9.1 07/16/22 20:10: Urine Color Yellow, Urine Clarity Clear, Urine pH 6.5, Ur Specific [place] 1.015, Urine Protein Negative, Urine Glucose (UA) Normal, Urine Ketones Negative, Urine Occult Blood 25 H, Urine Nitrite Negative, Urine Bilirubin Negative, Urine Urobilinogen Normal, Ur Leukocyte Esterase 100 H, Urine RBC 0-5 SEEN, Urine WBC 0-5 SEEN, Ur Squamous Epith Cells 0-5 SEEN, Urine Bacteria 2+, Urine Mucus 0 SEEN 07/16/22 22:48: POC Glucose 106 07/17/22 05:03: POC Glucose 93 07/17/22 06:08: WBC 7.0, RBC 4.22, Hgb 11.0 L, Hct 33.7 L, MCV 79.9 L, MCH 26.1 L, MCHC 32.6, RDW Std Deviation 40.3, RDW Coeff of Yinka 13.9, Plt Count 246, MPV 10.1, Immature Gran % (Auto) 0.600, Neut % (Auto) 58.1, Lymph % (Auto) 31.3, [place] % (Auto) 7.7, Eos % (Auto) 1.9, Baso % (Auto) 0.4, Absolute Neuts (auto) 4.1, Absolute Lymphs (auto) 2.19, Nucleated RBC % 0 07/17/22 06:08: Sodium 138, Potassium 3.8, Chloride 103, Carbon Dioxide 30.0, Anion Gap 5, BUN 17, Creatinine 0.59, Estim Creat Clear Calc 78.43, Est GFR (MDRD) Af Amer 134, Est GFR (MDRD) Non-Af 110, BUN/Creatinine Ratio 28.7 H, Glucose 92, Calcium 8.5 Micro: Microbiology 07/16/22 19:50 Stool Stool Occult Blood (MICHELLE) - Final Occult Blood Positive Charges/Coding Visit Charges Inpatient E&M: 74472 Init Hosp L3
[2022-07-17 10:25] LABS: Hemoglobin A1c 5.4 % (3.8-5.6)
[2022-07-17 11:33] VITALS: BP 137/73; PULSE 97; RESP 16; TEMP 36.6; O2SAT 99
[2022-07-17 11:35] LABS: Bedside Glucose 134 mg/dL (74-106)
[2022-07-17] MEDS: Bisacodyl 5 MG Tablet 20 MG PO (13:18)
--- NOTE | 2022-07-17 14:03 | CASEMGMT ---
RAMONA CM in to discuss BECKHAM form with patient. RN CM explained BECKHAM form, patient voiced understanding. Pt signed form and filed in chart. Pt provided with a copy of signed BECKHAM form. Patient had no further questions or concerns at this time.
[2022-07-17] MEDS: Polyethylene Glycol 3350 BOWEL PREP PO (15:06)
[2022-07-17 15:11] VITALS: BP 153/95; PULSE 90; RESP 16; TEMP 36.8; O2SAT 99
--- NOTE | 2022-07-17 15:58 | CHAPLAIN ---
Type of Pastoral Visit _x__ Initial Visit ___ Follow-up Visit ___ On-call Visit ___ General Patient Visit ___ Spiritual Assessment ___ Family Conference ___ Bereavement ___ Rapid Response ___ Code Blue ___ Other (describe below) Pastoral Care Referral From _x__ Patient ___ Family ___ Nurse ___ Physician ___ Signal Person ___ Aircraft Accessories Mechanic ___ Other (describe below) Sacrament/Intervention _x__ Active listening ___ Anointing ___ Synagogue ___ Bereavement ___ Communion ___ Zenaida exploration ___ ___ Life review _x__ Prayer ___ Reconciliation ___ Sacrament of Sick __x_ Supportive presence ___ Wedding ___ Other (describe below) Pastoral Comments patient lying flat in bed and admits to discomfort at this time; patient said 'I like watching [employer] but saying a prayer would be more important right now; time given to listen and to say a prayer; pt called for aide to assist at this time and so visit ended
[2022-07-17 16:26] LABS: Bedside Glucose 140 mg/dL (74-106)
--- NOTE | 2022-07-17 17:10 | PN.HOSP_ITS ---
Subjective Subjective Patient was seen and examined today, I talked briefly with gastroenterology about her care, she was admitted due to melena and skin excoriation around the perirectal area. Patient is now prepping for a colonoscopy, she will also have an EGD tomorrow. Patient's hemoglobin did not appreciably change from admission this morning. Objective Data Objective Data Vital Signs: Vital Signs Temp Pulse Resp BP Pulse Ox O2 Del Method 98.3 F 90 16 153/95 H 99 Room Air 07/17/22 15:11 07/17/22 15:11 07/17/22 15:11 07/17/22 15:11 07/17/22 15:11 07/17/22 15:11 Oxygen Delivery Method Room Air Weight: 99.2 kg Body Mass Index (BMI) 40.6 Intake & Output: Intake and Output for Last 24 Hours 07/15/22 07/16/22 07/17/22 23:59 23:59 23:59 Intake Total 150 / 150 1959.1959. Balance 150 / 150 1959. Lab / Micro Data Result Diagrams: 07/17/22 06:08 07/17/22 06:08 Labs: Laboratory Results - last 24 hr 07/16/22 19:55: WBC 10.3, RBC 4.57, Hgb 11.5 L, Hct 37.0, MCV 81.0, MCH 25.2 L, MCHC 31.1 L, RDW Std Deviation 39.8, RDW Coeff of Yinka 13.7, Plt Count 282, MPV 10.1, Immature Gran % (Auto) 0.700, Neut % (Auto) 63.0, Lymph % (Auto) 26.5, Mon o % (Auto) 8.3, Eos % (Auto) 1.0, Baso % (Auto) 0.5, Absolute Neuts (auto) 6.5, Absolute Lymphs (auto) 2.72, Nucleated RBC % 0 07/16/22 19:55: Sodium 139, Potassium 3.9, Chloride 103, Carbon Dioxide 28.0, Anion Gap 8, BUN 20 H, Creatinine 0.66, Estim Creat Clear Calc 80.23, Est GFR (MDRD) Af Amer 118, Est GFR (MDRD) Non-Af 97, BUN/Creatinine Ratio 30.2 H, Glucose 89, Calcium 9.1 07/16/22 20:10: Urine Color Yellow, Urine Clarity Clear, Urine pH 6.5, Ur Specific [place] 1.015, Urine Protein Negative, Urine Glucose (UA) Normal, Urine Ketones Negative, Urine Occult Blood 25 H, Urine Nitrite Negative, Urine Bilirubin Negative, Urine Urobilinogen Normal, Ur Leukocyte Esterase 100 H, Urine RBC 0-5 SEEN, Urine WBC 0-5 SEEN, Ur Squamous Epith Cells 0-5 SEEN, Urine Bacteria 2+, Urine Mucus 0 SEEN 07/16/22 22:48: POC Glucose 106 07/17/22 05:03: POC Glucose 93 07/17/22 06:08: WBC 7.0, RBC 4.22, Hgb 11.0 L, Hct 33.7 L, MCV 79.9 L, MCH 26.1 L, MCHC 32.6, RDW Std Deviation 40.3, RDW Coeff of Yinka 13.9, Plt Count 246, MPV 10.1, Immature Gran % (Auto) 0.600, Neut % (Auto) 58.1, Lymph % (Auto) 31.3, Mon o % (Auto) 7.7, Eos % (Auto) 1.9, Baso % (Auto) 0.4, Absolute Neuts (auto) 4.1, Absolute Lymphs (auto) 2.19, Nucleated RBC % 0 07/17/22 06:08: Sodium 138, Potassium 3.8, Chloride 103, Carbon Dioxide 30.0, Anion Gap 5, BUN 17, Creatinine 0.59, Estim Creat Clear Calc 78.43, Est GFR (MDRD) Af Amer 134, Est GFR (MDRD) Non-Af 110, BUN/Creatinine Ratio 28.7 H, Glucose 92, Calcium 8.5 07/17/22 06:08: Hemoglobin A1c 5.4 07/17/22 10:59: POC Glucose 134 H 07/17/22 16:05: POC Glucose 140 H Micro: Microbiology 07/16/22 19:50 Stool Stool Occult Blood (MICHELLE) - Final Occult Blood Positive Physical Exam Const alert, oriented x3 and no apparent distress Constitutional Narrative: Patient appears older than her stated age, she is morbidly obese General Appearance: cooperative and well developed Orientation / Consciousness: awake, oriented to person, oriented to place and oriented to time HEENT normocephalic, head/scalp atraumatic and moist oral mucous membranes Eyes PERRL, EOMs intact bilaterally and conjunctivae normal Neck supple, no JVD and thyroid normal General: trachea midline Resp normal respiratory effort, no retractions, no use of accessory muscles and clear to auscultation bilaterally Auscultation: Negative for rales, rhonchi or wheezes Cardio regular rate, regular rhythm, S1 normal heart sound, S2 normal heart sound, no murmurs, no rub and no gallops GI normal to inspection, nondistended, normoactive bowel sounds, soft to palpation, non-tender and non-distended Extremity no clubbing, cyanosis or edema Skin Skin Narrative: Patient has an excoriated area between the buttocks cheeks Neuro oriented x3, CN's II-XII intact bilaterally, no focal motor deficits and no sensory deficits noted Sensorium / Orientation: awake and alert Speech: speech normal Psych affect normal Assessment & Plan Assessment/Plan (1) Type II diabetes mellitus: QUALIFIERS: Diabetes mellitus complication status: with neurologic complications Diabetes mellitus complication detail: with polyneuropathy Diabetes mellitus shelter insulin use: without terminal block assembler use Qualified Code(s): E11.42 - Type 2 diabetes mellitus with diabetic polyneuropathy PLAN: Plan 1. Melena-patient does not appear to be actively bleeding at this time, she is being prepped for a colonoscopy and will also undergo an EGD tomorrow. #2 irritant dermatitis between the buttocks-I will stop the patient's IV clindamycin, I do not think she needs this, I have chosen to leave her on the Diflucan at this time. #3 bipolar disorder-patient will remain on her current medications #4 type 2 diabetes-patient's blood sugars will be monitored, sliding scale insulin will be given as needed #5 essential hypertension-patient will remain on her present medications Charges/Coding Visit Charges OBSV E&M: 28337 Subsequent observation care L3
[2022-07-17] MEDS: Topiramate 50 MG Tablet PO (21:10)
[2022-07-17] MEDS: Montelukast 10 MG Tablet PO (21:12)
[2022-07-17] MEDS: Tolterodine Tartrate 2 MG CAP.SA PO (21:12)
[2022-07-17 21:24] VITALS: BP 140/76; PULSE 83; RESP 18; TEMP 36.7; O2SAT 96
[2022-07-17 23:41] LABS: Bedside Glucose 116 mg/dL (74-106)
[2022-07-18] VITALS (10 sets, daily range): BP systolic 105–146; BP diastolic 55–85; PULSE 77–90; RESP 16–18; TEMP 36.6–37.2; O2SAT 94–100; BMI 40.6
--- NOTE | 2022-07-18 | IMM_PTH ---
PATIENT: RUBI GORMAN LOC: MS3 U#:[id number] AGE/SX: 57/F ROOM: [facility]317 RE07/16/[address]: Dr. Lonnie Lema DO : 1965 BED: 1 DIS: 07/18/2022 SPEC #: [id number] RECD: 07/20/22 11:33 STATUS: YAQUELIN REQ #: [id number] LOBITO: 07/18/22 00:[address]: Holden Valadez DEPT: IMMUNOHISTOCHEMISTRY RECD BY: Zeina Hanna ENTERED: 07/20/22 11:34 SP TYPE: IMMUNO OTHR DR: MD Dr. Nick Yusuf, DO Dr. Lonnie Lema, DO Dr. Holden Valadez DO Tissues: COLON BIOPSY Procedures: P53 (initial) KI-67 (add) Comments: @ Ordering doctor for P53 edited from to @ by VIPUL at 07/24/22 1339 @ Ordering doctor for KI67. edited from to @ by VIPUL at 07/24/22 1339 @ Submitting doctor edited from to @ by VIPUL at 07/24/22 1338 PHYSICIAN & [place] [id number] SPECIMEN INFORMATION: Tissue Source: Distal esophagus Clinical Info: Iron deficiency anemia, rectal bleed Specimen Number: [id number] CPT code: 83089, 64514 METHODOLOGY: Deparaffinized sections of prefer/formalin-fixed tissue or PAP/DQ stained slides are incubated with monoclonal/polyclonal antibodies/oligonucleotide probes. Localization is made via biotin free immunoperoxidase method. Appropriate controls are performed and reacted as expected. Results on target cell population are indicated in the following table: RESULTS: ANTIBODY / CLONE RESULT P53 (DO-7) positive, low, dim Ki-67 (30-9) positive, low These tests were developed and their performance characteristics determined by [facility]. They may not have been cleared or approved by the U.S. Food and Drug Administration. The FDA has determined that such clearance or approval is not necessary. The above immunohistochemical/dualISH markers are ordered and reviewed by the Pathologist. INTERPRETATION: Distal esophagus, biopsy: No definitive evidence of dysplasia. AM:saadia 07/23/2022
--- NOTE | 2022-07-18 | ESO_PTH ---
PATIENT: RUBI GORMAN LOC: MS3 U#:[id number] AGE/SX: 57/F [place]OM[place] [facility] [place]07/16/[address]: Dr. Lonnie Lema DO : 1965 BED: 1 DIS: 07/18/2022 SPEC #: [id number] RECD: 07/18/22 14:22 STATUS: YAQUELIN REQ #: [id number] LOBITO: 07/18/22 00:[address]: Holden Valadez DEPT: SURGICAL PATHOLOGY RECD BY: Brendan Palmer ENTERED: 07/19/22 08:53 SP TYPE: ESOPH BX OTHR DR: MD Dr. Nick Yusuf DO Dr. Mark Tereletsky, DO Dr. Rahsaan Friend, DO Tissues: Esophagus, NOS Procedures: Special Stain Group II Surgery Specimen Level IV Alcian Blue/PAS (control) Comments: @ Ordering doctor for SUIV edited from to @ by VIPUL at 07/24/22 1330 @ Submitting doctor edited from to @ by RGOOD at 07/24/22 1336 HEADER OPERATION: Colonoscopy, EGD ([facility] [place]) PRE-OP DIAGNOSIS: Iron deficiency anemia, rectal bleed TISSUE SUBMITTED: Distal esophagus MICROSCOPIC DIAGNOSIS Distal esophagus, biopsy: Gastro-esophageal junctional mucosa with Mcclellan?s epithelium. No definitive evidence of dysplasia. Chronic inflammation. Focal changes of reflux. See Comment. AM: am 07/20/2022 COMMENT Alcian blue/PAS stain with matched control supports the above diagnosis. Immunohistochemistry ([id number]) supports the diagnosis. MICROSCOPIC DESCRIPTION Slides are reviewed. GROSS DESCRIPTION Received is one container labeled with the patient name and designated distal esophagus. The specimen consists of two irregular fragments of light muñoz soft tissue that in aggregate measure 0.6 x 0.3 x 0.1 cm. The specimen is totally submitted in one cassette. /CHLOE:baldomero 07/19/22 TC:3 CPT: 88524, 70492
[2022-07-18] MEDS: Menthol/Lanolin/Calamine/Znox 113 GM Tube 1 APPLIC TOPICAL ×2 (05:25→15:25)
[2022-07-18] MEDS: 0.9% Normal Saline 1,000 ML 75 ML IV (05:25)
[2022-07-18] MEDS: hydroCHLOROthiazide 25 MG Tablet PO (08:52)
[2022-07-18] MEDS: amLODIPine 10 MG Tablet PO (08:52)
[2022-07-18] MEDS: Potassium Chloride Oral Tablet 10 MEQ PO ×2 (08:52→16:12)
[2022-07-18] MEDS: ARIPiprazole 10 MG Tablet PO (08:52)
[2022-07-18] MEDS: HYDROcodone Bitartrate/Apap 5/325 Tablet PO (08:52)
[2022-07-18] MEDS: Nystatin Ointment 1 APPLIC TOPICAL (08:53)
[2022-07-18] MEDS: carBAMazepine 200 MG Tablet PO (08:53)
--- NOTE | 2022-07-18 11:12 | CASEMGMT ---
Social Work SW in to meet with pt and discuss MH status/concerns. Sw introduced self and role at the hospital. Pt was guarded, hesitant to speak with SW regarding her MH needs. Pt did share has a counselor that she is supposed to see but hasn't for some time. I don't see her. I don't like her attitude. SW inquired about MH diagnosis and med management for them. Pt stated she takes medication to manage her Bipolar Disorder and [facility] her medications from [facility]. NONA provided a list of MH providers in [facility] to pt before leaving in case she would like to change her counseling provider. SW called to confirm next appt at counseling Center and confirmed her next appt for Medication Management is with Arina on September 11. Pt also has Case Management services and was seen in her home on July 12. No upcoming CM appt has been set up at this time. GAVINO Winter
[2022-07-18 12:20] LABS: Bedside Glucose 93 mg/dL (74-106)
--- NOTE | 2022-07-18 14:04 | OP.EGD_ITS ---
Patient Name: Taylor Sutton Procedure Date: 07/18/2022 1:19 PM Date of : 1965 Age: 57 Procedure: Upper GI endoscopy Indications: Melena Providers: Holden Valadez DO Medicines: Monitored Anesthesia Care Patient Profile: This is a 57 year old female. Refer to note in patient chart for documentation of history and physical. Patient has symptoms. Complications: No immediate complications. Procedure: Pre-Anesthesia Assessment: - Prior to the procedure, a History and Physical was performed, and patient medications and allergies were reviewed. The patient is competent. The risks and benefits of the procedure and the sedation options and risks were discussed with the patient. All questions were answered and informed consent was obtained. Patient identification and proposed procedure were verified by the physician in the pre-procedure area. Mental Status Examination: alert and oriented. Airway Examination: normal oropharyngeal airway and neck mobility. Respiratory Examination: clear to auscultation. CV Examination: normal. Prophylactic Antibiotics: The patient does not require prophylactic antibiotics. Prior Anticoagulants: The patient has taken no previous anticoagulant or antiplatelet agents. After reviewing the risks and benefits, the patient was deemed in satisfactory condition to undergo the procedure. The anesthesia plan was to use moderate sedation / analgesia (conscious sedation). Immediately prior to administration of medications, the patient was re-assessed for adequacy to receive sedatives. The heart rate, respiratory rate, oxygen saturations, blood pressure, adequacy of pulmonary ventilation, and response to care were monitored throughout the procedure. The physical status of the patient was re-assessed after the procedure. After obtaining informed consent, the endoscope was passed under direct vision. Throughout the procedure, the patient's blood pressure, pulse, and oxygen saturations were monitored continuously. The colonoscope was introduced through the mouth, and advanced to the duodenal bulb. The upper GI endoscopy was accomplished without difficulty. The patient tolerated the procedure well. Scope In: 1:33:20 PM Scope Out: 1:41:17 PM Total Procedure Duration Time 0 hours 7 minutes 57 seconds Findings: LA Grade A (one or more mucosal breaks less than 5 mm, not extending between tops of 2 mucosal folds) esophagitis with no bleeding was found 36 to 37 cm from the incisors. Biopsies were taken with a cold forceps for histology. Verification of patient identification for the specimen was done. Estimated blood loss was minimal. Red blood was found in the gastric fundus. Two oozing cratered gastric ulcers with a visible vessel were found in the gastric fundus. The largest lesion was 5 mm in largest dimension. Coagulation for hemostasis using heater probe was successful. Estimated blood loss was minimal. A medium-sized hiatal hernia was present. The second portion of the duodenum was normal. Impression: - LA Grade A reflux esophagitis. Biopsied. - Red blood in the gastric fundus. - Oozing gastric ulcers with a visible vessel. Treated with a heater probe. - Medium-sized hiatal hernia. - Normal second portion of the duodenum. Recommendation: - Discharge patient to home. - Resume previous diet. - Continue present medications. - Await pathology results. Procedure Code(s): --- Professional --- 08033, 59, Esophagogastroduodenoscopy, flexible, transoral; with control of bleeding, any method 49605, 51, Esophagogastroduodenoscopy, flexible, transoral; with biopsy, single or multiple CPT copyright 2017 [employer]. All rights reserved. The codes documented in this report are preliminary and upon remote inpatient coder review may be revised to meet current compliance requirements. Holden Valadez DO 07/18/2022 2:03:54 PM This report has been signed electronically. Number of Addenda: 1 Note Initiated On: 07/18/2022 1:19 PM Addendum Number: 1 Addendum Date: 09/06/2022 6:14:19 AM MAC was used as sedation for this procedure. Holden Valadez DO 09/06/2022 6:14:22 AM This report has been signed electronically.
--- NOTE | 2022-07-18 14:05 | OP.CCLET_ITS ---
09/06/2022 Nick Giraldo [address] [place] [address] Re : Upper GI endoscopy procedure for Taylor Sutton Dear Dr. Giraldo This procedure was performed on Monday, July 18, 2022. My impressions and recommendations are as follows: Impressions : - LA Grade A reflux esophagitis. Biopsied. - Red blood in the gastric fundus. - Oozing gastric ulcers with a visible vessel. Treated with a heater probe. - Medium-sized hiatal hernia. - Normal second portion of the duodenum. Recommendations : - Discharge patient to home. - Resume previous diet. - Continue present medications. - Await pathology results. My findings are described in the full procedure note, which is enclosed. If I can be of further assistance, please feel free to contact me at . Sincerely, Holden Valadez, 07/18/2022 2:03:54 PM This report has been signed electronically.
--- NOTE | 2022-07-18 14:08 | OP.COLON_ITS ---
Patient Name: Taylor Sutton Procedure Date: 07/18/2022 1:41 PM Date of : 1965 Age: 57 Procedure: Colonoscopy Indications: Hematochezia Providers: Holden Valadez DO Medicines: Monitored Anesthesia Care Patient Profile: This is a 57 year old female. Refer to note in patient chart for documentation of history and physical. Patient has symptoms. Last Colonoscopy: 5 years ago. Complications: No immediate complications. Procedure: Pre-Anesthesia Assessment: - Prior to the procedure, a History and Physical was performed, and patient medications and allergies were reviewed. The patient is competent. The risks and benefits of the procedure and the sedation options and risks were discussed with the patient. All questions were answered and informed consent was obtained. Patient identification and proposed procedure were verified by the physician in the pre-procedure area. Mental Status Examination: alert and oriented. Airway Examination: normal oropharyngeal airway and neck mobility. Respiratory Examination: clear to auscultation. CV Examination: normal. Prophylactic Antibiotics: The patient does not require prophylactic antibiotics. Prior Anticoagulants: The patient has taken no previous anticoagulant or antiplatelet agents. After reviewing the risks and benefits, the patient was deemed in satisfactory condition to undergo the procedure. The anesthesia plan was to use moderate sedation / analgesia (conscious sedation). Immediately prior to administration of medications, the patient was re-assessed for adequacy to receive sedatives. The heart rate, respiratory rate, oxygen saturations, blood pressure, adequacy of pulmonary ventilation, and response to care were monitored throughout the procedure. The physical status of the patient was re-assessed after the procedure. After I obtained informed consent, the scope was passed under direct vision. Throughout the procedure, the patient's blood pressure, pulse, and oxygen saturations were monitored continuously. The colonoscope was introduced through the anus and advanced to the terminal ileum. The colonoscopy was performed without difficulty. The patient tolerated the procedure well. The quality of the bowel preparation was fair. Moderate Sedation: Moderate (conscious) sedation was personally administered by an anesthesia professional. The following parameters were monitored: oxygen saturation, heart rate, blood pressure, respiratory rate, EKG, adequacy of pulmonary ventilation, and response to care. Scope In: 1:46:00 PM Scope Withdrawal Time 0 hours 7 minutes 46 seconds Scope Out: 2:00:12 PM Total Procedure Duration Time 0 hours 14 minutes 12 seconds Findings: The perianal and digital rectal examinations were normal. Many small and large-mouthed diverticula were found in the recto-sigmoid colon, sigmoid colon and descending colon. The retroflexed view of the distal rectum and anal verge was normal and showed no anal or rectal abnormalities. Impression: - Preparation of the colon was fair. - Diverticulosis in the recto-sigmoid colon, in the sigmoid colon and in the descending colon. - The distal rectum and anal verge are normal on retroflexion view. - No specimens collected. Recommendation: - Return patient to hospital day for ongoing care. - Resume previous diet. - Continue present medications. - Repeat colonoscopy in 5 years for surveillance. Procedure Code(s): --- Professional --- 33067, Colonoscopy, flexible; diagnostic, including collection of specimen(s) by brushing or washing, when performed (separate procedure) CPT copyright 2017 [employer]. All rights reserved. The codes documented in this report are preliminary and upon sand operator review may be revised to meet current compliance requirements. Holden Valadez DO 07/18/2022 2:07:50 PM This report has been signed electronically. Number of Addenda: 1 Note Initiated On: 07/18/2022 1:41 PM Addendum Number: 1 Addendum Date: 09/06/2022 6:14:30 AM MAC was used as sedation for this procedure. Holden Valadez DO 09/06/2022 6:14:33 AM This report has been signed electronically.
--- NOTE | 2022-07-18 14:09 | OP.CCLET_ITS ---
09/06/2022 Nick Giraldo [address] [place] [address] Re : Colonoscopy procedure for Taylor Sutton Dear Dr. Giraldo This procedure was performed on Monday, July 18, 2022. My impressions and recommendations are as follows: Impressions : - Preparation of the colon was fair. - Diverticulosis in the recto-sigmoid colon, in the sigmoid colon and in the descending colon. - The distal rectum and anal verge are normal on retroflexion view. - No specimens collected. Recommendations : - Return patient to hospital day for ongoing care. - Resume previous diet. - Continue present medications. - Repeat colonoscopy in 5 years for surveillance. My findings are described in the full procedure note, which is enclosed. If I can be of further assistance, please feel free to contact me at . Sincerely, Holden Valadez, 07/18/2022 2:07:50 PM This report has been signed electronically.
--- NOTE | 2022-07-18 15:32 | PCM.DC ---
Discharge Instructions Diet Discharge Diet: 1800 Calorie Control Diet Activity Discharge Activity: Return to Normal Activity Weight Bearing Status: Full weight bearing Follow Up Care Test Results: Test results from this visit will be discussed in further detail at your follow-up appointment, if applicable. Discharge Plan Admission Admit Date/Time: 07/16/22 21:13 Primary Reason for Your Visit: Melena Attending Provider: Lonnie Lema Primary Care Provider: Nick Giraldo Consulting Providers: Friend,Holden ; Robbie Marie Discharge Orders/Prescriptions Prescriptions: New menthol-zinc oxide [Calmoseptine] 0.44-20.6 % Ointment 1 applic topical TID Qty: 0 0RF Protocol: *Topical Application Instructions APPLICATION INSTRUCTIONS: buttocks Continued glimepiride 1 MG tablet 2 mg PO DAILY carbamazepine 200 MG tablet 200 mg PO BID hydrochlorothiazide 25 MG tablet 25 mg PO DAILY solifenacin [Vesicare] 10 MG tablet 10 mg PO QHS quetiapine [Seroquel] 400 MG tablet 300 mg PO QHS omeprazole 40 MG capsule,delayed release(DR/EC) 40 mg PO BID albuterol sulfate [Ventolin HFA] 1 INHALER inhaler 1 - 2 puff inhalation Q4H PRN PRN (Reason: Shortness Of Breath) amlodipine 10 MG tablet 10 mg PO DAILY fluticasone propionate 1 SPRAY spray,suspension 2 spray NASAL DAILY PRN (Reason: allergies) potassium chloride 10 MEQ tablet,ER particles/crystals 10 meq PO BID montelukast 10 mg Tablet 10 mg PO DAILY topiramate 50 mg Tablet 50 mg PO QHS cholecalciferol (vitamin D3) [Vitamin D3] 125 mcg (5,000 unit) Tablet 125 mcg PO DAILY hydrocodone-acetaminophen 5-325 mg tablet 1 tab PO Q4H PRN PRN (Reason: Pain) 2 Days Qty: 10 0RF dicyclomine 20 mg tablet 20 mg PO BID PRN (Reason: abdominal cramping) Qty: 10 0RF nystatin 100,000 unit/gram ointment 1 applic topical BID Vraylar 4.5 mg capsule 4.5 mg PO DAILY Referrals / Follow Up: Nick Giraldo, [Primary Care Provider] - Within 2 Weeks Adelita Holly COMMUNICATIONS INTERN, COMMUNICATIONS INTERN-C [Non-Staff] - 09/11/22 (Follow up with Arina at [facility] for medication management.) Disposition Disposition (needs filled in before D/C Order can be placed): Home, Self Care
--- NOTE | 2022-07-18 15:39 | PCM.DC.SUM ---
Providers Date of Admission: 07/16/22 Date of Discharge: 07/18/22 Primary Care Physician: Dr. Nick Giraldo, Consultations 07/16/22 21:54 Consult: Gastroenterology Routine Consulting Provider: Ra Allysonhsaan Reason for Consult: Melena EMERGENT Consult: No MD Notified: Yes Date Notified: 07/17/22 Time Notified: 06:42 Method of Notification: Text Reason For Visit: MELENA Diagnosis Discharge Diagnosis (1) Type II diabetes mellitus: Status: Chronic Code(s): E11.9 - Type 2 diabetes mellitus without complications Qualifiers: Diabetes mellitus complication detail: with polyneuropathy Diabetes mellitus complication status: with neurologic complications Diabetes mellitus ferry terminal agent insulin use: without ferry terminal agent use Qualified Code(s): E11.42 - Type 2 diabetes mellitus with diabetic polyneuropathy Plan 1. Melena-secondary to gastric ulcers #2 irritant dermatitis between the buttocks-I will stop the patient's IV clindamycin, I do not think she needs this, I have chosen to leave her on the Diflucan at this time. #3 bipolar disorder-patient will remain on her current medications #4 type 2 diabetes-patient's blood sugars will be monitored, sliding scale insulin will be given as needed #5 essential hypertension-patient will remain on her present medications #6 gastric ulcers #7 reflux esophagitis #8 morbid obesity Medications at Discharge Home Medications albuterol sulfate 90 mcg/actuation aerosol inhaler (Ventolin HFA) 1 - 2 puff inhalation Q4H PRN PRN Shortness Of Breath 12/06/16 carbamazepine 200 mg tablet 200 mg PO BID depression 12/06/16 glimepiride 1 mg tablet 2 mg PO DAILY diabetes 12/06/16 hydrochlorothiazide 25 mg tablet 25 mg PO DAILY diuretic 12/06/16 omeprazole 40 mg capsule,delayed release 40 mg PO BID GERD 12/06/16 quetiapine 400 mg tablet (Seroquel) 300 mg PO QHS bipolar 12/06/16 solifenacin 10 mg tablet (Vesicare) 10 mg PO QHS skin care 12/06/16 amlodipine 10 mg tablet 10 mg PO DAILY blood pressure 07/09/17 fluticasone propionate 50 mcg/actuation nasal spray,suspension 2 spray NASAL DAILY PRN allergies 08/02/19 potassium chloride 10 mEq tablet,extended release(part/cryst) 10 meq PO BID supplement 08/02/19 cholecalciferol (vitamin D3) 125 mcg (5,000 unit) tablet (Vitamin D3) 125 mcg PO DAILY supplement 04/19/22 montelukast 10 mg tablet 10 mg PO DAILY allergies 04/19/22 topiramate 50 mg tablet 50 mg PO QHS mood 04/19/22 hydrocodone-acetaminophen 5-325mg 5mg-325mg 1 tab PO Q4H PRN PRN Pain 2 days #10 TABLETS 07/08/22 dicyclomine 20 mg tablet 20 mg PO BID PRN abdominal cramping #10 tabs 07/14/22 cariprazine 4.5 mg capsule (Vraylar) 4.5 mg PO DAILY mood 07/16/22 nystatin 100,000 unit/gram topical ointment 1 applic topical BID skin care 07/16/22 menthol 0.44 %-zinc oxide 20.6 % topical ointment (Calmoseptine) 1 applic topical TID #0 grams 07/18/22 Hospital Course Operations None Procedures Colonoscopy and EGD Summary of Care Provided Minutes Spent on Discharge: 31 Hospital Course: Patient was seen in the emergency room at [facility] with complaints of black stools, abdominal cramping, and irritation around the perianal area. Patient had been using nystatin cream topically for the past 2 weeks. Examination in ER reveals a reddened area between the buttocks, Hemoccult of the stool was positive, hemoglobin was 11.5. Patient was placed into observation status on [facility], she was seen in consultation by gastroenterology, she was initially placed on antibiotics for possible infection of the perirectal area-this examiner did not think that she had an infection in that area and thought that she had irritant dermatitis. On 07/18/2022, patient underwent an EGD and colonoscopy, colonoscopy did not show any evidence of polyps or bleeding, there is evidence of diverticulosis in the rectosigmoid region, the sigmoid colon, and descending colon. EGD showed evidence of gastric ulcerations with oozing, there was also noted to be esophagitis present. On 07/18/2022, patient was seen and examined: On examination she appeared in good health and spirits, she does not appear to be in any distress. Vital signs as documented. Skin warm and dry and without overt rashes. Neck without JVD, thyroid appears normal, trachea is midline, neck is supple. Lungs clear, normal air movement was noted. Heart exam notable for regular rhythm, normal sounds and absence of murmurs, rubs or gallops. Abdomen unremarkable and without evidence of organomegaly, masses, or abdominal aortic enlargement, bowel sounds are present in all 4 quadrants, no abdominal tenderness was noted. Patient is morbidly obese. Extremities nonedematous, no cyanosis was noted, no clubbing was noted. Neuro: Cranial nerves II through XII are grossly intact, no focal motor deficits were noted, sensation to light touch and pinprick is intact, motor exam 5/5 throughout. Psych: Patient is alert and oriented x3, she does not appear anxious or depressed, she does not appear agitated. On 07/18/2022, patient was seen and examined feels to be in stable condition for discharge home Weight / BMI Weight Weight: 99.2 kg Body Mass Index (BMI) 40.6 ABG / Lab / Microbiology Data Result Diagrams: 07/17/22 06:08 07/17/22 06:08 Laboratory: Laboratory Results - last 24 hr 07/17/22 16:05: POC Glucose 140 H 07/17/22 21:19: POC Glucose 116 H 07/18/22 11:58: POC Glucose 93 Microbiology: Microbiology 07/16/22 19:50 Stool Stool Occult Blood (MICHELLE) - Final Occult Blood Positive D/C Instructions Discharge Diet: 1800 Calorie Control Diet Weight Bearing Status: Full weight bearing Meaningful Use Info Meaningful Use Diagnoses (Choose all that apply): None applicable Discharge Plan Admission Admit Date/Time: 07/16/22 21:13 Primary Reason for Your Visit: Melena Attending Provider: Lonnie Lema Primary Care Provider: Nick Giraldo Consulting Providers: Holden Valadez ; Robbie Marie Discharge Orders/Prescriptions Prescriptions: New menthol-zinc oxide [Calmoseptine] 0.44-20.6 % Ointment 1 applic topical TID Qty: 0 0RF Protocol: *Topical Application Instructions APPLICATION INSTRUCTIONS: buttocks Continued glimepiride 1 MG tablet 2 mg PO DAILY carbamazepine 200 MG tablet 200 mg PO BID hydrochlorothiazide 25 MG tablet 25 mg PO DAILY solifenacin [Vesicare] 10 MG tablet 10 mg PO QHS quetiapine [Seroquel] 400 MG tablet 300 mg PO QHS omeprazole 40 MG capsule,delayed release(DR/EC) 40 mg PO BID albuterol sulfate [Ventolin HFA] 1 INHALER inhaler 1 - 2 puff inhalation Q4H PRN PRN (Reason: Shortness Of Breath) amlodipine 10 MG tablet 10 mg PO DAILY fluticasone propionate 1 SPRAY spray,suspension 2 spray NASAL DAILY PRN (Reason: allergies) potassium chloride 10 MEQ tablet,ER particles/crystals 10 meq PO BID montelukast 10 mg Tablet 10 mg PO DAILY topiramate 50 mg Tablet 50 mg PO QHS cholecalciferol (vitamin D3) [Vitamin D3] 125 mcg (5,000 unit) Tablet 125 mcg PO DAILY hydrocodone-acetaminophen 5-325 mg tablet 1 tab PO Q4H PRN PRN (Reason: Pain) 2 Days Qty: 10 0RF dicyclomine 20 mg tablet 20 mg PO BID PRN (Reason: abdominal cramping) Qty: 10 0RF nystatin 100,000 unit/gram ointment 1 applic topical BID Vraylar 4.5 mg capsule 4.5 mg PO DAILY Referrals / Follow Up: Nick Giraldo DO [Primary Care Provider] - Within 2 Weeks Adelita Holly NP, [employer]IVER SUPERVISOR-C [Non-Staff] - 09/11/22 (Follow up with Arina at [facility] for medication management.) Disposition Disposition (needs filled in before D/C Order can be placed): Home, Self Care Charges/Coding Visit Charges OBSV E&M: 84075 Observation care discharge
[2022-07-18] MEDS: Ondansetron 4 MG/2 ML Vial IV (18:14)
[2022-07-18] MEDS: Loperamide 2 MG Capsule 4 MG PO (19:06)
== END 2022-07-18 19:20 | disposition home or self-care (01) ==
LOC: ED 21:32 → MS3 21:42
PROVIDERS: Anesthesiology; Internal Medicine Gastroenterology; Admitting Provider Hospitalist; Emergency Provider Emergency Medicine; PCP Student in an Organized Health Care Education/Training Program; Visit Provider Internal Medicine
PROC: 0DJD8ZZ Inspection of Lower Intestinal Tract, Via Natural or Artificial Opening Endoscopic (ICD-10-PCS; CPT 45378; principal; 2022-07-18 13:25)
DX: K25.4 Chronic or unspecified gastric ulcer with hemorrhage (principal); F31.9 Bipolar disorder, unspecified; E11.42 Type 2 diabetes mellitus with diabetic polyneuropathy; E66.01 Morbid (severe) obesity due to excess calories; Z68.41 Body mass index [BMI] 40.0-44.9, adult; K42.9 Umbilical hernia without obstruction or gangrene; I10 Essential (primary) hypertension; D50.0 Iron deficiency anemia secondary to blood loss (chronic); K21.00 Gastro-esophageal reflux disease with esophagitis, without bleeding; R21 Rash and other nonspecific skin eruption; K44.9 Diaphragmatic hernia without obstruction or gangrene; K25.9 Gastric ulcer, unspecified as acute or chronic, without hemorrhage or perforation; K20.91 Esophagitis, unspecified with bleeding; K92.2 Gastrointestinal hemorrhage, unspecified; K57.30 Diverticulosis of large intestine without perforation or abscess without bleeding; R30.0 Dysuria; Z87.891 Personal history of nicotine dependence; J45.909 Unspecified asthma, uncomplicated
CPT/HCPCS: 43255; 45378; 43239; 36415; 80048; 81001; 82274; 82962; 83036; 85025; 88305; 88313; 88341; 88342; 93005; 96361; 96365; 96366; 96367; 96375; 99218; 99285; J7030; A4216; G0378; J2405

== ENCOUNTER 2022-07-22 17:00 | Emergency (ER) | payer MEDICARE, MEDICAID, SELFPAY ==
[2022-07-22 17:03] VITALS: BP 135/93; PULSE 95; RESP 18; TEMP 36.3; O2SAT 98; BMI 42.6
--- NOTE | 2022-07-22 17:14 | EX.ED.DYSGE1 ---
HPI History of Present Illness Chief Complaint: General Illness Detail of Chief Complaint: Generalized weakness and diarrhea Narrative Narrative: Patient presents the emergency department complaint of not feeling well for about a month. Patient tells me she has had diarrhea for the last 4 days that is watery. She is having about 10 episodes a day. She denies blood in her stool. Today she was feeling weak and lightheaded and feeling like she was going to fall. Presents via EMS from home. Patient lives alone. Patient has had a slight cough that she attributes to allergies. Patient has had COVID in the past and has had the COVID-vaccine and booster. She complains of body aches. She denies urinary symptoms. Prior similar symptoms: No PFSH PFSH Medical History Asthma Bipolar 1 disorder Depression Diabetes Hiatal hernia HTN (hypertension) IBS (irritable bowel syndrome) Overactive bladder Home Medications albuterol sulfate 90 mcg/actuation aerosol inhaler (Ventolin HFA) 1 - 2 puff inhalation Q4H PRN PRN Shortness Of Breath 12/06/16 [History Last Taken Unknown] carbamazepine 200 mg tablet 200 mg PO BID depression 12/06/16 [History Last Taken 07/16/22] glimepiride 1 mg tablet 2 mg PO DAILY diabetes 12/06/16 [History Last Taken 07/16/22] hydrochlorothiazide 25 mg tablet 25 mg PO DAILY diuretic 12/06/16 [History Last Taken 07/16/22] omeprazole 40 mg capsule,delayed release 40 mg PO BID GERD 12/06/16 [History Last Taken 07/16/22] quetiapine 400 mg tablet (Seroquel) 300 mg PO QHS bipolar 12/06/16 [History Last Taken Unknown] solifenacin 10 mg tablet (Vesicare) 10 mg PO QHS skin care 12/06/16 [History Last Taken 07/15/22] amlodipine 10 mg tablet 10 mg PO DAILY blood pressure 07/09/17 [History Last Taken 07/16/22] fluticasone propionate 50 mcg/actuation nasal spray,suspension 2 spray NASAL DAILY PRN allergies 08/02/19 [History Last Taken Unknown] potassium chloride 10 mEq tablet,extended release(part/cryst) 10 meq PO BID supplement 08/02/19 [History Last Taken 07/16/22] cholecalciferol (vitamin D3) 125 mcg (5,000 unit) tablet (Vitamin D3) 125 mcg PO DAILY supplement 04/19/22 [History Last Taken 07/16/22] montelukast 10 mg tablet 10 mg PO DAILY allergies 04/19/22 [History Last Taken 07/16/22] topiramate 50 mg tablet 50 mg PO QHS mood 04/19/22 [History Last Taken 07/15/22] hydrocodone-acetaminophen 5-325mg 5mg-325mg 1 tab PO Q4H PRN PRN Pain 2 days #10 TABLETS 07/08/22 [Rx Last Taken Unknown] dicyclomine 20 mg tablet 20 mg PO BID PRN abdominal cramping #10 tabs 07/14/22 [Rx Last Taken Unknown] cariprazine 4.5 mg capsule (Vraylar) 4.5 mg PO DAILY mood 07/16/22 [History Last Taken 07/16/22] nystatin 100,000 unit/gram topical ointment 1 applic topical BID skin care 07/16/22 [History Last Taken 07/16/22] menthol 0.44 %-zinc oxide 20.6 % topical ointment (Calmoseptine) 1 applic topical TID #0 grams 07/18/22 [Rx Last Taken Unknown] diphenoxylate-atropine 2.5 mg-0.025 mg tablet (Lomotil) 1 tab PO TID PRN diarrhea #10 tabs 07/22/22 [Rx Last Taken Unknown] Allergy/AdvReac Type Severity Reaction Status Date / Time latex Allergy Rash Verified 07/22/22 17:03 lithium [[place]] Allergy Anaphylaxis Verified 07/22/22 17:03 acetaminophen AdvReac Vomiting Verified 07/22/22 17:03 [From Tylenol-Codeine] aspirin AdvReac Vomiting Verified 07/22/22 17:03 citalopram hydrobromide AdvReac Other Verified 07/22/22 17:03 [From Celexa] codeine AdvReac Vomiting Verified 07/22/22 17:03 divalproex sodium AdvReac Vomiting Verified 07/22/22 17:03 [From Depakote] ibuprofen AdvReac Nausea Verified 07/22/22 17:03 nortriptyline AdvReac Other Verified 07/22/22 17:03 Family History Mother Diabetes Father Diabetes Surgical History Hx of cholecystectomy Hx of tonsillectomy Social History Smoking Status: Former smoker alcohol intake: former substance use type: does not use ROS ROS ED Review of Systems ROS Unobtainable: other Constitutional Constitutional ED: Reports lethargy; Denies chills, fever(s), sweats or weight loss Eyes Eyes: Denies blurry vision, change in vision or diplopia ENT ENT ED: Denies rhinorrhea or sore throat Cardiovascular Cardiovascular: Denies chest pain, orthopnea or racing heartbeat Respiratory/Chest Respiratory/Chest: Reports cough; Denies dyspnea, dyspnea on exertion, orthopnea or sputum Gastrointestinal Gastrointestinal: Reports diarrhea; Denies abdominal pain, nausea or vomiting Genitourinary Genitourinary ED: Denies dysuria, hematuria or urinary frequency Musculoskeletal Musculoskeletal: Denies arthralgias, back pain, myalgias or neck pain Integumentary Denies abscess, Abrasions or rash Neurologic Neurologic: Reports weakness; Denies headache(s) Psychiatric Psychiatric: Denies anxiety, depression or suicidal thoughts Endocrine Endocrinology: Denies polydipsia, polyphagia or polyuria Hematologic/Lymphatic Hematologic/Lymphatic: Denies easy bleeding, easy bruising or lymphadenopathy Allergic/Immunologic Allergic/Immunologic ED: Denies mouth swelling, tongue swelling or urticaria EXAM Physical Exam Const Vital Signs: 07/22/22 17:03 07/22/22 18:53 Temperature 97.4 F L Temperature Source Temporal Pulse Rate 95 Pulse Rate [Lying] 88 Pulse Rate [Sitting (for 1 minute prior to obtaining)] 72 Pulse Rate [Standing (for 1 minute prior to obtaining)] 89 Respiratory Rate 18 Blood Pressure 135/93 H Blood Pressure [Lying] 170/91 H Blood Pressure [Sitting (for 1 minute prior to obtaining)] 161/106 H Blood Pressure [Standing (for 1 minute prior to obtaining)] 163/108 H Blood Pressure Mean 107 Blood Pressure Mean [Lying] 117 Blood Pressure Mean [Sitting (for 1 minute prior to obtaining)] 124 Blood Pressure Mean [Standing (for 1 minute prior to obtaining)] 126 Pulse Ox 98 Oxygen Delivery Method Room Air Positive well nourished and well developed General Appearance ED: well developed and NAD HEENT Reports TM's clear and moist mucous membranes normocephalic and atraumatic; Negative for trauma or tenderness Tympanic Membrane ED: Yes TM's clear Eyes PERRL and EOMs intact bilaterally General Eye ED: Negative for pale conjunctiva or scleral icterus Neck no lymphadenopathy, supple and no JVD General: Negative for tenderness Chest Wall inspection of chest normal and palpation of chest normal Chest: Negative for tenderness Resp normal respiratory effort and clear to auscultation bilaterally Effort and Inspection: Negative for respiratory distress or pain with movement Auscultation: Negative for rhonchi, wheezes or diminished lung sounds Cardio regular rate, regular rhythm, S1 normal heart sound, S2 normal heart sound and no murmurs Peripheral Pulses: pulses 2+ throughout GI normal to inspection, nondistended, normoactive bowel sounds, soft to palpation, non-tender, non-distended and no masses Back/Spine no CVA tenderness and no thoracic nor lumbar tenderness Extremity normal to inspection General Extremety ED: Negative for edema General Extremity: Negative for edema Neuro oriented x3, CN's II-XII intact bilaterally, no sensory deficits noted and gait normal Sensorium / Orientation: awake, alert, oriented to person, oriented to place and oriented to time Motor Exam: strength 5/5 throughout and strength abnormal Psych mental status grossly normal Skin no rashes or lesions noted and no wounds MDM MDM MDM Narrative Medical decision making narrative: IV line established. Patient was given liter mostly of fluid bolus. Lab work-up was unremarkable. I did send off stool for C. difficile and was negative. Patient also had stool sent for enteric pathogens and those results will be pending. Patient was given Lomotil 2 tabs p.o. Patient had been taking Imodium but was not helping her so I will switch her to Lomotil. Patient advised to push fluids. Patient to follow-up with her primary care physician in 3 to 5 days. Etiology of her diarrhea I suspect may be viral. Lab Data Attestation: I reviewed the patient's lab results. Labs: Laboratory Results - last 24 hr 07/22/22 07/22/22 07/22/22 17:30 17:30 17:30 WBC 7.1 RBC 4.49 Hgb 11.3 L Hct 36.5 L MCV 81.3 MCH 25.2 L MCHC 31.0 L RDW Std Deviation 40.8 RDW Coeff of [place] 13.9 Plt Count 223 MPV 10.9 Immature Gran % (Auto) 0.700 Neut % (Auto) 61.1 Lymph % (Auto) 28.1 Graham % (Auto) 7.9 Eos % (Auto) 1.8 Baso % (Auto) 0.4 Absolute Neuts (auto) 4.3 Absolute Lymphs (auto) 2.00 Nucleated RBC % 0 Platelet Estimate ADEQUATE Plt Morphology Comment LARGE RBC Morphology N CHROM Anisocytosis RARE Microcytosis RARE Sodium 137 Potassium 4.4 Chloride 103 Carbon Dioxide 28.0 Anion Gap 6 BUN 13 Creatinine 0.79 Estim Creat Clear Calc 58.57 Est GFR (MDRD) Af Amer 96 Est GFR (MDRD) Non-Af 79 BUN/Creatinine Ratio 16.5 Glucose 94 Lactic Acid 0.7 Calcium 8.7 Total Bilirubin 0.20 AST 38 H ALT 26 Alkaline Phosphatase 124 H Total Protein 7.9 Albumin 3.4 Globulin 4.5 H Albumin/Globulin Ratio 0.8 L Discharge Plan Triage Chief Complaint: General Illness Other Complaint: Diarrhea ED Provider: Antoine Lee Dx/Rx/DC Orders Clinical Impression: Diarrhea Instructions: ED Diarrhea, Viral (Adult) Prescriptions: New diphenoxylate-atropine [Lomotil] 2.5-0.025 mg tablet 1 tab PO TID PRN (Reason: diarrhea) Qty: 10 0RF No Action glimepiride 1 MG tablet 2 mg PO DAILY carbamazepine 200 MG tablet 200 mg PO BID hydrochlorothiazide 25 MG tablet 25 mg PO DAILY solifenacin [Vesicare] 10 MG tablet 10 mg PO QHS quetiapine [Seroquel] 400 MG tablet 300 mg PO QHS omeprazole 40 MG capsule,delayed release(DR/EC) 40 mg PO BID albuterol sulfate [Ventolin HFA] 1 INHALER inhaler 1 - 2 puff inhalation Q4H PRN PRN (Reason: Shortness Of Breath) amlodipine 10 MG tablet 10 mg PO DAILY fluticasone propionate 1 SPRAY spray,suspension 2 spray NASAL DAILY PRN (Reason: allergies) potassium chloride 10 MEQ tablet,ER particles/crystals 10 meq PO BID montelukast 10 mg Tablet 10 mg PO DAILY topiramate 50 mg Tablet 50 mg PO QHS cholecalciferol (vitamin D3) [Vitamin D3] 125 mcg (5,000 unit) Tablet 125 mcg PO DAILY hydrocodone-acetaminophen 5-325 mg tablet 1 tab PO Q4H PRN PRN (Reason: Pain) 2 Days Qty: 10 0RF dicyclomine 20 mg tablet 20 mg PO BID PRN (Reason: abdominal cramping) Qty: 10 0RF nystatin 100,000 unit/gram ointment 1 applic topical BID Vraylar 4.5 mg capsule 4.5 mg PO DAILY menthol-zinc oxide [Calmoseptine] 0.44-20.6 % Ointment 1 applic topical TID Qty: 0 0RF Protocol: *Topical Application Instructions APPLICATION INSTRUCTIONS: buttocks Primary Care Provider: Nick Giraldo Referrals: Nick Giraldo DO [Primary Care Provider] - 3-5 Days Disposition Disposition: Home, Self Care
[2022-07-22 17:52] LABS: Absolute Neutrophil Count 4.3 X10^3/uL (2.0-7.7); Basophil# 0.03 X10^3/uL; Basophil% 0.4 % (0-1); Eosinophil# 0.13 X10^3/uL; Eosinophils% 1.8 % (0-5); Hematocrit 36.5 % (37-47); Hemoglobin 11.3 g/dL (12.0-15.0); Lymphocyte % 28.1 % (19-41); Mean Corpuscular Hgb 25.2 pg (27.0-32.0); Mean Corpuscular Volume 81.3 fL (81-99); Mean Platelet Vol. 10.9 fl (6.2-12.0); Monocyte# 0.56 X10^3/uL; Monocyte% 7.9 % (0-10); NRBC Flagged by Analyzer 0 % (0-5); Neutrophil # 4.34 X10^3/uL (2.7-7.7); Neutrophil % 61.1 % (47-70); POSITIVE COUNT YES; Platelet Count 223 K/mm3 (150-450); RBC Distribution Width CV 13.9 % (11.6-14.6); RBC Distribution Width SD 40.8 fl (35.1-43.9); Red Blood Count 4.49 M/mm3 (4.2-5.4); White Blood Count 7.1 K/mm3 (4.4-11.0)
[2022-07-22 18:11] LABS: ALB/GLOB Ratio 0.8 RATIO (0.9-2.4); AST(SGOT) 38 U/L (15-37); Alanine Aminotransfer ALT/SGPT 26 U/L (13-56); Albumin, Serum 3.4 g/dL (3.2-5.0); Alkaline Phosphatase 124 U/L (45-117); Anion Gap 6 (5-15); BUN 13 mg/dL (7-18); BUN/Creat Ratio 16.5 RATIO (10-20); Calcium,Total 8.7 mg/dL (8.5-10.1); Chloride 103 mmol/L (98-107); Creatinine, Serum 0.79 mg/dL (0.55-1.02); EST Glomerular Filtration Rate 79 mL/min (>60); Est Glom Filt Rate - Afr Amer 96 mL/min (>60); Estimated Creatinine Clearance 58.57 ml/min; Globulin 4.5 g/dL (2.2-4.2); Glucose 94 mg/dL (74-106); Lactic Acid 0.7 mmol/L (0.4-1.9); Potassium 4.4 mmol/L (3.5-5.1); Protein, Total 7.9 g/dL (6.4-8.2); Sodium Level 137 mmol/L (136-145)
[2022-07-22 18:15] LABS: Differential Indicated SCAN CRITERIA MET
[2022-07-22 18:17] LABS: Anisocytosis RARE; Microcytosis RARE; Platelet Estimate ADEQUATE (ADEQ); Platelet Morphology LARGE; Red Cell Morphology N CHROM NORMAL (NORM C&C)
[2022-07-22 18:53] VITALS: BP 161/106; BP 163/108; BP 170/91; PULSE 72; PULSE 88; PULSE 89
[2022-07-22] MEDS: 0.9% Normal Saline 1,000 ML 1000 ML IV (19:01)
[2022-07-22] MEDS: Diphenoxylate/Atrop 1 Tablet 2 TABLET PO (21:33)
== END 2022-07-22 21:42 | disposition home or self-care (01) ==
PROVIDERS: Emergency Provider Emergency Medicine; PCP Student in an Organized Health Care Education/Training Program; Visit Provider Emergency Medicine
DX: R19.7 Diarrhea, unspecified (principal); F31.9 Bipolar disorder, unspecified; E11.9 Type 2 diabetes mellitus without complications; I10 Essential (primary) hypertension; Z79.84 Long term (current) use of oral hypoglycemic drugs; Z79.899 Other long term (current) drug therapy; Z86.16 Personal history of COVID-19; Z87.891 Personal history of nicotine dependence
CPT/HCPCS: 80053; 83605; 85025; 87493; 87506; 87811; 96360; 99283; J7030; A4216

== ENCOUNTER 2022-07-29 14:06 | Emergency (ER) | payer MEDICARE, MEDICAID, SELFPAY ==
[2022-07-29 14:08] VITALS: BP 147/90; PULSE 99; RESP 18; TEMP 35.8; O2SAT 96; BMI 42.5
--- NOTE | 2022-07-29 14:35 | EX.ED.DYSGE1 ---
HPI History of Present Illness Chief Complaint: General Illness Detail of Chief Complaint: Body aches. Informant: patient Onset/Context/Timing Onset: Weeks Context: Gradual Onset Timing: Intermittent Current Severity: Mild Maximum Severity: Mild Narrative Narrative: 57-year-old female history of diabetes and bipolar. Monitor. She has had bloating for the last month. Denies any nausea, vomiting or diarrhea. No fever or chills. Is eating and drinking well. States her blood sugars been running well and today it was 133 at home. She denies any dysuria. She has had at least 2 recent ER visits at that time the work-ups were negative. With unremarkable CBC and electrolytes. Negative UA. She Prior similar symptoms: Yes Recent Illness/Hospitalization: Yes [facility] Medical History Asthma Bipolar 1 disorder Depression Dermatitis of perianal region Diabetes Hiatal hernia HTN (hypertension) IBS (irritable bowel syndrome) Iron deficiency anemia due to chronic blood loss Overactive bladder Home Medications albuterol sulfate 90 mcg/actuation aerosol inhaler (Ventolin HFA) 1 - 2 puff inhalation Q4H PRN PRN Shortness Of Breath 12/06/16 [History Last Taken Unknown] carbamazepine 200 mg tablet 200 mg PO BID depression 12/06/16 [History Last Taken 07/16/22] glimepiride 1 mg tablet 2 mg PO DAILY diabetes 12/06/16 [History Last Taken 07/16/22] hydrochlorothiazide 25 mg tablet 25 mg PO DAILY diuretic 12/06/16 [History Last Taken 07/16/22] omeprazole 40 mg capsule,delayed release 40 mg PO BID GERD 12/06/16 [History Last Taken 07/16/22] quetiapine 400 mg tablet (Seroquel) 300 mg PO QHS bipolar 12/06/16 [History Last Taken Unknown] solifenacin 10 mg tablet (Vesicare) 10 mg PO QHS skin care 12/06/16 [History Last Taken 07/15/22] amlodipine 10 mg tablet 10 mg PO DAILY blood pressure 07/09/17 [History Last Taken 07/16/22] fluticasone propionate 50 mcg/actuation nasal spray,suspension 2 spray NASAL DAILY PRN allergies 08/02/19 [History Last Taken Unknown] potassium chloride 10 mEq tablet,extended release(part/cryst) 10 meq PO BID supplement 08/02/19 [History Last Taken 07/16/22] cholecalciferol (vitamin D3) 125 mcg (5,000 unit) tablet (Vitamin D3) 125 mcg PO DAILY supplement 04/19/22 [History Last Taken 07/16/22] montelukast 10 mg tablet 10 mg PO DAILY allergies 04/19/22 [History Last Taken 07/16/22] topiramate 50 mg tablet 50 mg PO QHS mood 04/19/22 [History Last Taken 07/15/22] hydrocodone-acetaminophen 5-325mg 5mg-325mg 1 tab PO Q4H PRN PRN Pain 2 days #10 TABLETS 07/08/22 [Rx Last Taken Unknown] dicyclomine 20 mg tablet 20 mg PO BID PRN abdominal cramping #10 tabs 07/14/22 [Rx Last Taken Unknown] cariprazine 4.5 mg capsule (Vraylar) 4.5 mg PO DAILY mood 07/16/22 [History Last Taken 07/16/22] nystatin 100,000 unit/gram topical ointment 1 applic topical BID skin care 07/16/22 [History Last Taken 07/16/22] menthol 0.44 %-zinc oxide 20.6 % topical ointment (Calmoseptine) 1 applic topical TID #0 grams 07/18/22 [Rx Last Taken Unknown] diphenoxylate-atropine 2.5 mg-0.025 mg tablet (Lomotil) 1 tab PO TID PRN diarrhea #10 tabs 07/22/22 [Rx Last Taken Unknown] Allergy/AdvReac Type Severity Reaction Status Date / Time latex Allergy Rash Verified 07/29/22 14:08 lithium [[place]] Allergy Anaphylaxis Verified 07/29/22 14:08 acetaminophen AdvReac Vomiting Verified 07/29/22 14:08 [From Tylenol-Codeine] aspirin AdvReac Vomiting Verified 07/29/22 14:08 citalopram hydrobromide AdvReac Other Verified 07/29/22 14:08 [From Celexa] codeine AdvReac Vomiting Verified 07/29/22 14:08 divalproex sodium AdvReac Vomiting Verified 07/29/22 14:08 [From Depakote] ibuprofen AdvReac Nausea Verified 07/29/22 14:08 nortriptyline AdvReac Other Verified 07/29/22 14:08 Family History Mother Diabetes Father Diabetes Surgical History Hx of cholecystectomy Hx of tonsillectomy Social History Smoking Status: Former smoker alcohol intake: former substance use type: does not use ROS ROS ED ROS Narrative Body aches. Review of Systems ROS Unobtainable: Denies due to encephalopathy Constitutional Constitutional ED: Denies chills or fever(s) Eyes Eyes: Denies blurry vision ENT ENT ED: Denies ear pain Cardiovascular Cardiovascular: Denies chest pain Respiratory/Chest Respiratory/Chest: Denies cough or dyspnea Gastrointestinal Gastrointestinal: Denies abdominal pain Genitourinary Genitourinary ED: Denies dysuria or hematuria Musculoskeletal Musculoskeletal: Reports arthralgias and myalgias; Denies back pain or neck pain Integumentary Denies abscess or Abrasions Neurologic Neurologic: Denies headache(s) Psychiatric Psychiatric: Denies anxiety Endocrine Endocrinology: Denies cold intolerance Hematologic/Lymphatic Hematologic/Lymphatic: Reports none Allergic/Immunologic Allergic/Immunologic ED: Denies mouth swelling or tongue swelling EXAM Physical Exam Narrative Exam Narrative: Today her female no acute distress vital signs stable afebrile. Pulse ox 96% on room air no hypoxia. H EENT exam unremarkable. Moist [place] membranes. No trauma. Neck nontender no lymphadenopathy. Lungs clear to auscultation bilaterally. Heart regular rate and rhythm no murmur rate in 90s. Abdomen obese soft nontender normal bowel sounds no peritoneal signs. Moving all 4 extremities. Neurovascular intact. 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 Dorsi plantarflexion intact in the feet. Calves are nontender without edema. Back nontender. Neurologically she is awake alert with no focal motor deficits. Benign exam. Const Vital Signs: 07/29/22 14:08 07/29/22 14:17 Temperature 96.4 F L Temperature Source Temporal Pulse Rate 99 Respiratory Rate 18 Respiratory Effort Normal Respiratory Pattern Normal Blood Pressure 147/90 H Blood Pressure Mean 109 Pulse Ox 96 Oxygen Delivery Method Room Air Positive well nourished, well developed and obese; Negative for cachectic, contractures or unkempt General Appearance ED: well developed and NAD; Negative for unkempt, cachectic, contractures, cyanotic or diaphoretic Nutritional Appearance: obese; Negative for cachectic HEENT Reports moist mucous membranes; Denies dry mucous membranes Negative for trauma or tenderness Mouth ED: No dry mucous membranes Mouth: No dry mucous membranes Eyes PERRL and EOMs intact bilaterally General Eye ED: Negative for pale conjunctiva or scleral icterus Neck no lymphadenopathy, supple and no JVD General: Negative for tenderness or other Chest Wall inspection of chest normal and palpation of chest normal Chest: Negative for other Resp normal respiratory effort and clear to auscultation bilaterally Effort and Inspection: Negative for retractions Auscultation: Negative for rales, rhonchi or wheezes Cardio regular rate, regular rhythm, S1 normal heart sound, S2 normal heart sound and no murmurs Palpation: Negative for palpable S3 Rate: Negative for bradycardia Rhythm: Negative for abnormal rhythm GI normal to inspection, nondistended, normoactive bowel sounds, non-tender, non-distended and no masses Auscultation: normoactive bowel sounds Palpation: soft; Negative for tender, guarding, splenomegaly, mass or rebound tenderness present Bladder / Kidney Exam: No other Back/Spine no CVA tenderness General Back: Negative for CVA tenderness Cervical Spine: Negative for cervical spine tenderness Thoracic Spine / Upper Back: Negative for thoracic spinal tenderness Lumbar Spine / Lower Back: Negative for lumbar spinal tenderness Extremity normal to inspection General Extremety ED: Negative for edema or tenderness General Extremity: Negative for edema Neuro oriented x3 and CN's II-XII intact bilaterally Sensorium / Orientation: alert; Negative for orientation impaired, lethargic or stuporous Motor Exam: strength 5/5 throughout Psych Appearance: Negative for unkempt Attitude: No agitated Mood & Affect: Negative for depressed Skin no rashes or lesions noted, no wounds and skin turgor normal Lesions: No lesion noted Rashes: No rashes noted Trauma: Negative for abrasion Wounds: Negative for wounds noted MDM MDM MDM Narrative Medical decision making narrative: 57-year-old female with bipolar presents with body aches that she has had for a month. She had 2 recent ER visits with negative work-ups. Her exam is totally benign with stable vital signs. I do not think she needs any further testing. She has diabetic said her sugars have been running well and near 133 today. We will check her blood sugar if it is good she will be discharged to home without any further work-up. Lab Data Attestation: I reviewed the patient's lab results. Discharge Plan Triage Chief Complaint: General Illness ED Provider: Fady Chapman Dx/Rx/DC Orders Clinical Impression: Myalgia, Type II diabetes mellitus, Bipolar disorder Prescriptions: No Action glimepiride 1 MG tablet 2 mg PO DAILY carbamazepine 200 MG tablet 200 mg PO BID hydrochlorothiazide 25 MG tablet 25 mg PO DAILY solifenacin [Vesicare] 10 MG tablet 10 mg PO QHS quetiapine [Seroquel] 400 MG tablet 300 mg PO QHS omeprazole 40 MG capsule,delayed release(DR/EC) 40 mg PO BID albuterol sulfate [Ventolin HFA] 1 INHALER inhaler 1 - 2 puff inhalation Q4H PRN PRN (Reason: Shortness Of Breath) amlodipine 10 MG tablet 10 mg PO DAILY fluticasone propionate 1 SPRAY spray,suspension 2 spray NASAL DAILY PRN (Reason: allergies) potassium chloride 10 MEQ tablet,ER particles/crystals 10 meq PO BID montelukast 10 mg Tablet 10 mg PO DAILY topiramate 50 mg Tablet 50 mg PO QHS cholecalciferol (vitamin D3) [Vitamin D3] 125 mcg (5,000 unit) Tablet 125 mcg PO DAILY hydrocodone-acetaminophen 5-325 mg tablet 1 tab PO Q4H PRN PRN (Reason: Pain) 2 Days Qty: 10 0RF dicyclomine 20 mg tablet 20 mg PO BID PRN (Reason: abdominal cramping) Qty: 10 0RF nystatin 100,000 unit/gram ointment 1 applic topical BID Vraylar 4.5 mg capsule 4.5 mg PO DAILY menthol-zinc oxide [Calmoseptine] 0.44-20.6 % Ointment 1 applic topical TID Qty: 0 0RF Protocol: *Topical Application Instructions APPLICATION INSTRUCTIONS: buttocks diphenoxylate-atropine [Lomotil] 2.5-0.025 mg tablet 1 tab PO TID PRN (Reason: diarrhea) Qty: 10 0RF Primary Care Provider: Nick Giraldo Referrals: Nick Giraldo, [Primary Care Provider] - 1 Week if not improving Activity Restrictions/Additional Instructions: Your exam today is normal as are your vital signs. Your recent labs were unremarkable. Continue to watch your blood sugars and follow-up with your doctor as needed. Disposition Disposition: Home, Self Care
[2022-07-29 14:45] VITALS: BP 144/69; PULSE 93; RESP 18; O2SAT 96
[2022-07-29 15:00] LABS: Bedside Glucose 169 mg/dL (74-106)
== END 2022-07-29 14:48 | disposition home or self-care (01) ==
PROVIDERS: Emergency Provider Emergency Medicine; PCP Student in an Organized Health Care Education/Training Program; Visit Provider Emergency Medicine
DX: M79.10 Myalgia, unspecified site (principal); F31.9 Bipolar disorder, unspecified; Z68.41 Body mass index [BMI] 40.0-44.9, adult; E11.9 Type 2 diabetes mellitus without complications; I10 Essential (primary) hypertension; E66.9 Obesity, unspecified; Z79.84 Long term (current) use of oral hypoglycemic drugs; Z79.899 Other long term (current) drug therapy; Z87.891 Personal history of nicotine dependence
CPT/HCPCS: 82962; 99282

== ENCOUNTER 2022-08-17 16:34 | Emergency (ER) | payer MEDICARE, MEDICAID, SELFPAY ==
[2022-08-17 16:36] VITALS: BP 135/88; PULSE 79; RESP 18; TEMP 36.4; O2SAT 96; BMI 43.2
--- NOTE | 2022-08-17 16:50 | EKG12_ITS ---
Test Reason : Blood Pressure : / mmHG Vent. Rate : 076 BPM Atrial Rate : 076 BPM P-R Int : 178 ms QRS Dur : 102 ms QT Int : 390 ms P-R-T Axes : 055 031 072 degrees QTc Int : 438 ms Normal sinus rhythm Normal ECG Confirmed by MARY PETERSON, QIAN ([id number]), editor managing director ROBERT CARBAJAL ([id number] on 08/20/2022 11:02:10 AM Referred By: Confirmed By:QIAN HERNANDEZ MD
--- NOTE | 2022-08-17 16:50 | CT_ITS ---
INDICATION: Abdominal Pain EXAMINATION: CT ABDOMEN AND PELVIS WITHOUT CONTRAST - CT Abdomen And Pelvis W/O Contrast Injection TECHNIQUE: Helically acquired images were obtained of the abdomen and pelvis without oral or IV contrast. A radiation dose optimization technique was used for this scan. IV Contrast dosage and agent: None. Oral contrast: None. RADIATION DOSAGE (If Supplied By Facility): CTDIvol = ( 19.84 ) mGy, DLP = ( 986.32 ) mGycm COMPARISON: None. FINDINGS: LOWER CHEST: Minimal atelectasis at the lung bases. No consolidation, no effusion. No cardiomegaly or pericardial effusion. LIVER: The liver has normal configuration and density given the limitation of noncontrast exam. No focal mass. GALLBLADDER AND BILIARY TREE: Surgically absent, no ductal dilatation. PANCREAS: No focal cystic or solid mass. SPLEEN: Normal size without focal cystic or solid mass. ADRENAL GLANDS: No nodules. KIDNEYS AND URETERS: Normal renal size and position. No hydronephrosis. PERITONEUM: No ascites or free air. No other fluid collection. BOWEL: No evidence of acute appendicitis. No stomach or bowel distension. No focal inflammatory change. Scattered diverticula without evidence diverticulitis. There is a small hiatal hernia. LYMPH NODES: No enlarged mesenteric or retroperitoneal lymph nodes. VESSELS: Aorta is non-dilated. URINARY BLADDER: Unremarkable. REPRODUCTIVE ORGANS: Normal appearance the uterus. No masses or adenopathy along the pelvic sidewalls. ABDOMINAL WALL: Small periumbilical fat-containing hernia. BONES: Mild lumbar spondylosis. There are degenerative disc and endplate changes at L2-3. No acute bony process is noted. CT/Abdomen/Pelvis without Cont IMPRESSION: 1. Small hiatal hernia. 2. No masses bowel obstruction abscess free fluid or free air. Diverticulosis is noted without evidence diverticulitis. 3. Normal appendix. 4. No evidence of obstructive uropathy. 5. Gallbladder appears to be surgically absent. No ductal dilatation. 6. Lumbar spondylosis most marked at L2-3. Findings however stable. Electronically Signed: Toño Le MD at 17:46 EDT ,
--- NOTE | 2022-08-17 16:52 | ED.VIS.CHEST ---
HPI History of Present Illness Chief Complaint: Chest Pain Narrative Narrative: 57-year-old female past medical history of hypertension, diabetes, bipolar disorder, multiple medical problems presents with multiple somatic complaints. Per EMS, she was having chest pain, shortness of breath, and wheezing. She states she has had a headache for 2 days, had nausea and vomiting today at 5:30 in the morning. She has problems with diarrhea that is chronic for 3 months. She states she made an appointment with a garbage pick up worker today. She states she was having abdominal pain throughout her abdomen. She states she has not been feeling well. No exacerbating or alleviating factors. [facility] Medical History Asthma Bipolar 1 disorder Depression Dermatitis of perianal region Diabetes Hiatal hernia HTN (hypertension) IBS (irritable bowel syndrome) Iron deficiency anemia due to chronic blood loss Overactive bladder Home Medications albuterol sulfate 90 mcg/actuation aerosol inhaler (Ventolin HFA) 1 - 2 puff inhalation Q4H PRN PRN Shortness Of Breath 12/06/16 [History Last Taken Unknown] carbamazepine 200 mg tablet 200 mg PO BID depression 12/06/16 [History Last Taken 07/16/22] glimepiride 1 mg tablet 2 mg PO DAILY diabetes 12/06/16 [History Last Taken 07/16/22] hydrochlorothiazide 25 mg tablet 25 mg PO DAILY diuretic 12/06/16 [History Last Taken 07/16/22] omeprazole 40 mg capsule,delayed release 40 mg PO BID GERD 12/06/16 [History Last Taken 07/16/22] quetiapine 400 mg tablet (Seroquel) 400 mg PO QHS bipolar 12/06/16 [History Last Taken Unknown] solifenacin 10 mg tablet (Vesicare) 10 mg PO QHS skin care 12/06/16 [History Last Taken 07/15/22] amlodipine 10 mg tablet 10 mg PO DAILY blood pressure 07/09/17 [History Last Taken 07/16/22] fluticasone propionate 50 mcg/actuation nasal spray,suspension 2 spray NASAL DAILY PRN allergies 08/02/19 [History Last Taken Unknown] potassium chloride 10 mEq tablet,extended release(part/cryst) 30 meq PO BID supplement 08/02/19 [History Last Taken 07/16/22] cholecalciferol (vitamin D3) 125 mcg (5,000 unit) tablet (Vitamin D3) 125 mcg PO DAILY supplement 04/19/22 [History Last Taken 07/16/22] montelukast 10 mg tablet 10 mg PO DAILY allergies 04/19/22 [History Last Taken 07/16/22] topiramate 50 mg tablet 50 mg PO QHS mood 04/19/22 [History Last Taken 07/15/22] hydrocodone-acetaminophen 5-325mg 5mg-325mg 1 tab PO Q4H PRN PRN Pain 2 days #10 TABLETS 07/08/22 [Rx Last Taken Unknown] dicyclomine 20 mg tablet 20 mg PO BID PRN abdominal cramping #10 tabs 07/14/22 [Rx Last Taken Unknown] cariprazine 4.5 mg capsule (Vraylar) 4.5 mg PO DAILY mood 07/16/22 [History Last Taken 07/16/22] nystatin 100,000 unit/gram topical ointment 1 applic topical BID skin care 07/16/22 [History Last Taken 07/16/22] menthol 0.44 %-zinc oxide 20.6 % topical ointment (Calmoseptine) 1 applic topical TID #0 grams 07/18/22 [Rx Last Taken Unknown] diphenoxylate-atropine 2.5 mg-0.025 mg tablet (Lomotil) 1 tab PO TID PRN diarrhea #10 tabs 07/22/22 [Rx Last Taken Unknown] Celebrex 100 mg PO/SL BID 08/17/22 [History Last Taken Unknown] buspirone 10 mg tablet 10 mg PO BID 08/17/22 [History Last Taken Unknown] fexofenadine 180 mg tablet 180 mg PO DAILY 08/17/22 [History Last Taken Unknown] Allergy/AdvReac Type Severity Reaction Status Date / Time latex Allergy Rash Verified 08/17/22 16:35 lithium [[place]] Allergy Anaphylaxis Verified 08/17/22 16:35 acetaminophen AdvReac Vomiting Verified 08/17/22 16:35 [From Tylenol-Codeine] aspirin AdvReac Vomiting Verified 08/17/22 16:35 citalopram hydrobromide AdvReac Other Verified 08/17/22 16:35 [From Celexa] codeine AdvReac Vomiting Verified 08/17/22 16:35 divalproex sodium AdvReac Vomiting Verified 08/17/22 16:35 [From Depakote] ibuprofen AdvReac Nausea Verified 08/17/22 16:35 nortriptyline AdvReac Other Verified 08/17/22 16:35 Family History Mother Diabetes Father Diabetes Surgical History Hx of cholecystectomy Hx of tonsillectomy Social History Smoking Status: Former smoker alcohol intake: former substance use type: does not use ROS ROS ED ROS Narrative Constitutional: No fever, no chills. HEENT: No sore throat. No neck pain. No loss of vision. No rhinorrhea. Cardiovascular: Positive chest pain and tightness. No palpitations. No pedal edema. Respiratory: Rare cough, no shortness of breath. Abdominal: Positive diffuse abdominal pain. Positive nausea. 1 episode of vomiting. Chronic diarrhea. Genitourinary: No dysuria. No hematuria. Musculoskeletal: No myalgias. No arthralgias. Neurologic: 2 days of headaches. No dizziness. No lightheadedness. Skin: No rash. No change in color. Psychiatric: No depression. No anxiety. EXAM Physical Exam Narrative Exam Narrative: Afebrile. Vital signs noted. HEENT: Normocephalic. Atraumatic. PERRL, EOMI. Neck soft and supple. No point tenderness or step off. Cardiovascular: Regular rate and rhythm. No murmurs, rubs, or gallops appreciated. Respiratory: No tachypnea. Lungs clear to auscultation bilaterally. Gastrointestinal: Abdomen soft, obese, nontender, with normoactive bowel sounds. No rebound or guarding. Neurological: Awake. Alert. Nonfocal, nonlateralizing. Skin: No rash. Normal color. No pallor. Musculoskeletal: No pedal edema. Full range of motion extremities. Const Vital Signs: 08/17/22 16:36 08/17/22 16:40 08/17/22 16:40 Temperature 97.6 F L Temperature Source Oral Pulse Rate 79 Respiratory Rate 18 Respiratory Effort Short of Breath Normal Non-Labored Blood Pressure 135/88 H Blood Pressure Mean 103 Pulse Ox 96 Oxygen Delivery Method Room Air 08/17/22 16:59 08/17/22 17:00 08/17/22 18:31 Temperature Temperature Source Pulse Rate 86 Respiratory Rate 18 Respiratory Effort Blood Pressure 151/84 H Blood Pressure Mean 106 Pulse Ox 97 Oxygen Delivery Method Room Air Room Air 08/17/22 20:07 Temperature Temperature Source Pulse Rate Respiratory Rate 17 Respiratory Effort Blood Pressure Blood Pressure Mean Pulse Ox Oxygen Delivery Method Heart Score History: Slightly/Non-Suspicious ECG: Normal Age: >45 - <65 years Risk Factors: >/= 3 Risk Factors or History of CAD Troponin: </= Normal Limit Score: 3 MDM MDM MDM Narrative Medical decision making narrative: MoreComprehensive work-up was pursued. EKG was obtained and interpreted by myself which demonstrates normal sinus rhythm at 76 bpm without ectopy or acute ST changes. No significant change from July 17, 2022. CBC is grossly normal with a normal white count of 10.4, hemoglobin 12.3, hematocrit 39.0, normal platelet count of 261. CMP is grossly unremarkable except for glucose of 124 with a normal anion gap of 10. Normal BUN and creatinine. LFTs are negative. Lipase normal at 81. Initial high-sensitivity troponin 5. CT of the abdomen and pelvis shows no acute process. Chest x-ray interpreted by myself shows no acute process, no pneumonia or pneumothorax. Patient states that she is feeling improved and the fact that she is asking for something to eat. I will recheck her delta troponin. As long as this is normal, I feel that she would be able to be discharged with follow-up to her primary care provider. It is normal for a delta that is negative. Return instructions were reviewed able condition. Lab Data Attestation: I reviewed the patient's lab results. Labs: Laboratory Results - last 24 hr 08/17/22 08/17/22 08/17/22 16:20 16:20 19:20 WBC 10.4 RBC 4.97 Hgb 12.3 Hct 39.0 MCV 78.5 L MCH 24.7 L MCHC 31.5 L RDW Std Deviation 41.5 RDW Coeff of Yinka 14.6 Plt Count 261 MPV 10.8 Immature Gran % (Auto) 0.400 Neut % (Auto) 69.7 Lymph % (Auto) 23.0 [place] % (Auto) 5.8 Eos % (Auto) 0.8 Baso % (Auto) 0.3 Absolute Neuts (auto) 7.3 Absolute Lymphs (auto) 2.40 Nucleated RBC % 0 Sodium 138 Potassium 3.8 Chloride 100 Carbon Dioxide 28.0 Anion Gap 10 BUN 11 Creatinine 0.65 Estim Creat Clear Calc 71.19 Est GFR (MDRD) Af Amer 120 Est GFR (MDRD) Non-Af 99 BUN/Creatinine Ratio 16.9 Glucose 124 H Calcium 9.3 Total Bilirubin 0.30 AST 21 ALT 25 Alkaline Phosphatase 132 H Troponin I High Sens 5 4 Total Protein 8.1 Albumin 3.6 Globulin 4.5 H Albumin/Globulin Ratio 0.8 L Lipase 81 Radiography Diagnostic Testing: Clinical Impression(s) from Imaging Studies Abdomen/Pelvis CT 08/17/22 16:50 IMPRESSION: 1. Small hiatal hernia. 2. No masses bowel obstruction abscess free fluid or free air. Diverticulosis is noted without evidence diverticulitis. 3. Normal appendix. 4. No evidence of obstructive uropathy. 5. Gallbladder appears to be surgically absent. No ductal dilatation. 6. Lumbar spondylosis most marked at L2-3. Findings however stable. Electronically Signed: Toño Le MD at 17:46 EDT , Chest X-Ray 08/17/22 17:10 IMPRESSION: 1. No evidence congestive failure. 2. Shallow inspiration crowding of bronchovascular markings greater on the LEFT than RIGHT. 3. No focal infiltrate noted. Electronically Signed: Toño Le MD at 17:49 EDT , Discharge Plan Triage Chief Complaint: Chest Pain Other Complaint: Headache Nausea/Vomiting Shortness of Breath ED Provider: Aditya Erazo Dx/Rx/DC Orders Clinical Impression: Chest pain, Abdominal pain, Nausea and vomiting, Shortness of breath Instructions: ED Abdominal Pain Unkn Cause Fem, ED Chest Pain, Uncertain Cause, ED Dyspnea Prescriptions: No Action glimepiride 1 MG tablet 2 mg PO DAILY carbamazepine 200 MG tablet 200 mg PO BID hydrochlorothiazide 25 MG tablet 25 mg PO DAILY solifenacin [Vesicare] 10 MG tablet 10 mg PO QHS quetiapine [Seroquel] 400 MG tablet 400 mg PO QHS omeprazole 40 MG capsule,delayed release(DR/EC) 40 mg PO BID albuterol sulfate [Ventolin HFA] 1 INHALER inhaler 1 - 2 puff inhalation Q4H PRN PRN (Reason: Shortness Of Breath) amlodipine 10 MG tablet 10 mg PO DAILY fluticasone propionate 1 SPRAY spray,suspension 2 spray NASAL DAILY PRN (Reason: allergies) potassium chloride 10 MEQ tablet,ER particles/crystals 30 meq PO BID montelukast 10 mg Tablet 10 mg PO DAILY topiramate 50 mg Tablet 50 mg PO QHS cholecalciferol (vitamin D3) [Vitamin D3] 125 mcg (5,000 unit) Tablet 125 mcg PO DAILY hydrocodone-acetaminophen 5-325 mg tablet 1 tab PO Q4H PRN PRN (Reason: Pain) 2 Days Qty: 10 0RF dicyclomine 20 mg tablet 20 mg PO BID PRN (Reason: abdominal cramping) Qty: 10 0RF nystatin 100,000 unit/gram ointment 1 applic topical BID Vraylar 4.5 mg capsule 4.5 mg PO DAILY menthol-zinc oxide [Calmoseptine] 0.44-20.6 % Ointment 1 applic topical TID Qty: 0 0RF Protocol: *Topical Application Instructions APPLICATION INSTRUCTIONS: buttocks diphenoxylate-atropine [Lomotil] 2.5-0.025 mg tablet 1 tab PO TID PRN (Reason: diarrhea) Qty: 10 0RF fexofenadine 180 mg Tablet 180 mg PO DAILY buspirone 10 mg Tablet 10 mg PO BID Celebrex 100 mg PO/SL BID Primary Care Provider: Nick Giraldo Referrals: Nick Giraldo DO [Primary Care Provider] - 3-5 Days Disposition Disposition: Home, Self Care
[2022-08-17] MEDS: 0.9% Normal Saline 1,000 ML 1000 ML IV (16:57)
[2022-08-17 17:00] VITALS: O2SAT 97
[2022-08-17 17:05] LABS: Absolute Neutrophil Count 7.3 X10^3/uL (2.0-7.7); Basophil# 0.03 X10^3/uL; Basophil% 0.3 % (0-1); Eosinophil# 0.08 X10^3/uL; Eosinophils% 0.8 % (0-5); Hemoglobin 12.3 g/dL (12.0-15.0); Mean Corp Hgb Conc 31.5 g/dL (32-36); Mean Corpuscular Hgb 24.7 pg (27.0-32.0); Mean Corpuscular Volume 78.5 fL (81-99); Mean Platelet Vol. 10.8 fl (6.2-12.0); Monocyte# 0.61 X10^3/uL; Monocyte% 5.8 % (0-10); NRBC Flagged by Analyzer 0 % (0-5); Neutrophil # 7.28 X10^3/uL (2.7-7.7); Neutrophil % 69.7 % (47-70); Platelet Count 261 K/mm3 (150-450); RBC Distribution Width CV 14.6 % (11.6-14.6); RBC Distribution Width SD 41.5 fl (35.1-43.9); Red Blood Count 4.97 M/mm3 (4.2-5.4); White Blood Count 10.4 K/mm3 (4.4-11.0)
--- NOTE | 2022-08-17 17:10 | RAD_ITS ---
INDICATION: chest pain EXAMINATION/TECHNIQUE: X-RAY - XR Chest 1 View COMPARISON: 07/08/2022 FINDINGS: LIFE-SUPPORT AND LINES: 1. None HEART AND VESSELS: The cardiac silhouette, pulmonary vasculature have normal appearance. No evidence of congestive failure. LUNGS AND PLEURAL SPACES: Shallow aspiration crowding of bronchovascular markings particularly in the LEFT perihilar and infrahilar region without focal infiltrate or consolidation. No pulmonary mass is noted. MEDIASTINUM AND HILAR REGIONS: No masses adenopathy noted. No areas of calcification. Visualized upper airway is normal in position. BONY ELEMENTS: No acute bony changes noted. RAD/Chest 1 View (Portable) IMPRESSION: 1. No evidence congestive failure. 2. Shallow inspiration crowding of bronchovascular markings greater on the LEFT than RIGHT. 3. No focal infiltrate noted. Electronically Signed: Toño Le MD at 17:49 EDT ,
[2022-08-17 17:24] LABS: ALB/GLOB Ratio 0.8 RATIO (0.9-2.4); AST(SGOT) 21 U/L (15-37); Alanine Aminotransfer ALT/SGPT 25 U/L (13-56); Albumin, Serum 3.6 g/dL (3.2-5.0); Alkaline Phosphatase 132 U/L (45-117); Anion Gap 10 (5-15); BUN 11 mg/dL (7-18); BUN/Creat Ratio 16.9 RATIO (10-20); Calcium,Total 9.3 mg/dL (8.5-10.1); Chloride 100 mmol/L (98-107); Creatinine, Serum 0.65 mg/dL (0.55-1.02); EST Glomerular Filtration Rate 99 mL/min (>60); Est Glom Filt Rate - Afr Amer 120 mL/min (>60); Estimated Creatinine Clearance 71.19 ml/min; Globulin 4.5 g/dL (2.2-4.2); Glucose 124 mg/dL (74-106); Lipase 81 U/L (73-393); Potassium 3.8 mmol/L (3.5-5.1); Protein, Total 8.1 g/dL (6.4-8.2); Sodium Level 138 mmol/L (136-145); Troponin-I HS (w/2H Reflex) 5 pg/mL (3.0-54.0)
[2022-08-17] MEDS: Ondansetron 4 MG/2 ML Vial IV (17:41)
[2022-08-17 18:31] VITALS: BP 151/84; PULSE 86; RESP 18
[2022-08-17 19:02] LABS: Reflex Troponin-HS? (from REC) Y
[2022-08-17 19:43] LABS: Troponin-I HS 4 pg/mL (3.0-54.0)
[2022-08-17 20:07] VITALS: RESP 17
[2022-08-17 20:18] VITALS: BP 142/78; PULSE 74; RESP 16; TEMP 36.8; O2SAT 98
== END 2022-08-17 20:20 | disposition home or self-care (01) ==
PROVIDERS: Emergency Provider Emergency Medicine; PCP Student in an Organized Health Care Education/Training Program; Visit Provider Emergency Medicine
DX: R07.9 Chest pain, unspecified (principal); F31.9 Bipolar disorder, unspecified; E11.9 Type 2 diabetes mellitus without complications; R10.9 Unspecified abdominal pain; R11.2 Nausea with vomiting, unspecified; R06.02 Shortness of breath; I10 Essential (primary) hypertension; Z90.49 Acquired absence of other specified parts of digestive tract; Z79.84 Long term (current) use of oral hypoglycemic drugs; Z79.899 Other long term (current) drug therapy; Z87.891 Personal history of nicotine dependence
CPT/HCPCS: 71045; 74176; 80053; 83690; 84484; 85025; 93005; 96361; 96374; 99285; J7030; A4216; J2405

== ENCOUNTER 2022-09-04 17:10 | Emergency (ER) | payer MEDICARE, MEDICAID, SELFPAY ==
[2022-09-04 17:12] VITALS: BP 146/77; PULSE 88; RESP 16; TEMP 36.2; O2SAT 97; BMI 43.4
[2022-09-04 17:47] VITALS: BP 156/92; PULSE 83; RESP 20; O2SAT 97
--- NOTE | 2022-09-04 17:47 | EKG12_ITS ---
Test Reason : CP Blood Pressure : / mmHG Vent. Rate : 086 BPM Atrial Rate : 086 BPM P-R Int : 160 ms QRS Dur : 096 ms QT Int : 364 ms P-R-T Axes : 049 026 077 degrees QTc Int : 435 ms Poor data quality, interpretation may be adversely affected Normal sinus rhythm Normal ECG Confirmed by MARY PETERSON, QIAN ([id number]), script editor ROBERT CARBAJAL ([id number]) on 09/06/2022 8:02:43 AM Referred By: JOAQUIN Confirmed By:QIAN HERNANDEZ MD
--- NOTE | 2022-09-04 17:50 | ED.VIS.CHEST ---
HPI History of Present Illness Chief Complaint: Chest Pain Informant: patient Onset/Context/Timing Onset: Today Activity at onset: gradual Timing: Waxes and wanes Quality: Positive for Pressure Location: - (Left chest greater than right) Current Severity: Mild Maximum Severity: Moderate Narrative Narrative: Patient presents secondary to chest pressure. She states pain started several hours ago and she points to the left anterior chest wall. She states she does have some pain on the right but not as severe as the left. She took some Tylenol. Pain is improving at this time but not completely resolved. She does not remember ever having a stress test or heart cath. She also complains of some abdominal pain and states that she is been having trouble with her bowels. She scheduled an appointment to see a GI doctor next Saturday. [facility] Medical History Asthma Bipolar 1 disorder Chest pain COPD (chronic obstructive pulmonary disease) Depression Dermatitis of perianal region Diabetes GERD (gastroesophageal reflux disease) Hiatal hernia HTN (hypertension) IBS (irritable bowel syndrome) Iron deficiency anemia due to chronic blood loss Migraines Neuropathy Non-smoker Osteoarthritis Overactive bladder Sleep apnea Home Medications albuterol sulfate 90 mcg/actuation aerosol inhaler (Ventolin HFA) 1 - 2 puff inhalation Q4H PRN PRN Shortness Of Breath 12/06/16 [History Last Taken Unknown] carbamazepine 200 mg tablet 200 mg PO BID depression 12/06/16 [History Last Taken 07/16/22] glimepiride 1 mg tablet 2 mg PO DAILY diabetes 12/06/16 [History Last Taken 07/16/22] hydrochlorothiazide 25 mg tablet 25 mg PO DAILY diuretic 12/06/16 [History Last Taken 07/16/22] omeprazole 40 mg capsule,delayed release 40 mg PO BID GERD 12/06/16 [History Last Taken 07/16/22] quetiapine 400 mg tablet (Seroquel) 400 mg PO QHS bipolar 12/06/16 [History Last Taken Unknown] solifenacin 10 mg tablet (Vesicare) 10 mg PO QHS skin care 12/06/16 [History Last Taken 07/15/22] amlodipine 10 mg tablet 10 mg PO DAILY blood pressure 07/09/17 [History Last Taken 07/16/22] fluticasone propionate 50 mcg/actuation nasal spray,suspension 2 spray NASAL DAILY PRN allergies 08/02/19 [History Last Taken Unknown] potassium chloride 10 mEq tablet,extended release(part/cryst) 30 meq PO BID supplement 08/02/19 [History Last Taken 07/16/22] cholecalciferol (vitamin D3) 125 mcg (5,000 unit) tablet (Vitamin D3) 125 mcg PO DAILY supplement 04/19/22 [History Last Taken 07/16/22] montelukast 10 mg tablet 10 mg PO DAILY allergies 04/19/22 [History Last Taken 07/16/22] topiramate 50 mg tablet 50 mg PO QHS mood 04/19/22 [History Last Taken 07/15/22] hydrocodone-acetaminophen 5-325mg 5mg-325mg 1 tab PO Q4H PRN PRN Pain 2 days #10 TABLETS 07/08/22 [Rx Last Taken Unknown] dicyclomine 20 mg tablet 20 mg PO BID PRN abdominal cramping #10 tabs 07/14/22 [Rx Last Taken Unknown] cariprazine 4.5 mg capsule (Vraylar) 4.5 mg PO DAILY mood 07/16/22 [History Last Taken 07/16/22] nystatin 100,000 unit/gram topical ointment 1 applic topical BID skin care 07/16/22 [History Last Taken 07/16/22] menthol 0.44 %-zinc oxide 20.6 % topical ointment (Calmoseptine) 1 applic topical TID #0 grams 07/18/22 [Rx Last Taken Unknown] diphenoxylate-atropine 2.5 mg-0.025 mg tablet (Lomotil) 1 tab PO TID PRN diarrhea #10 tabs 07/22/22 [Rx Last Taken Unknown] Celebrex 100 mg PO/SL BID 08/17/22 [History Last Taken Unknown] buspirone 10 mg tablet 10 mg PO BID 08/17/22 [History Last Taken Unknown] fexofenadine 180 mg tablet 180 mg PO DAILY 08/17/22 [History Last Taken Unknown] Allergy/AdvReac Type Severity Reaction Status Date / Time latex Allergy Rash Verified 08/17/22 16:35 lithium [[place]] Allergy Anaphylaxis Verified 08/17/22 16:35 acetaminophen AdvReac Vomiting Verified 08/17/22 16:35 [From Tylenol-Codeine] aspirin AdvReac Vomiting Verified 08/17/22 16:35 citalopram hydrobromide AdvReac Other Verified 08/17/22 16:35 [From Celexa] codeine AdvReac Vomiting Verified 08/17/22 16:35 divalproex sodium AdvReac Vomiting Verified 08/17/22 16:35 [From Depakote] ibuprofen AdvReac Nausea Verified 08/17/22 16:35 nortriptyline AdvReac Other Verified 08/17/22 16:35 trazodone AdvReac Other Verified 09/04/22 17:11 Family History Mother Diabetes Father Diabetes Surgical History Hx of cholecystectomy Hx of tonsillectomy Social History Smoking Status: Former smoker alcohol intake: former substance use type: does not use ROS ROS ED Constitutional Constitutional ED: Denies chills or fever(s) Eyes Eyes: Denies change in vision or discharge from eye(s) ENT ENT ED: Denies discharge from eye(s), rhinorrhea or sore throat Cardiovascular Cardiovascular: Reports chest pain; Denies palpitations Respiratory/Chest Respiratory/Chest: Denies cough or dyspnea Gastrointestinal Gastrointestinal: Reports abdominal pain; Denies diarrhea, nausea or vomiting Genitourinary Genitourinary ED: Denies dysuria Musculoskeletal Musculoskeletal: Denies back pain or extremity pain Integumentary Denies Abrasions or rash Neurologic Neurologic: Denies headache(s) or weakness Allergic/Immunologic Allergic/Immunologic ED: Denies lip swelling or urticaria EXAM Physical Exam Const Vital Signs: 09/04/22 17:12 09/04/22 17:41 09/04/22 17:47 Temperature 97.1 F L Temperature Source Temporal Pulse Rate 88 83 Respiratory Rate 16 20 H Respiratory Effort Normal Non-Labored Respiratory Pattern Normal Blood Pressure 146/77 H 156/92 H Blood Pressure Mean 100 113 Pulse Ox 97 97 Oxygen Delivery Method Room Air Room Air 09/04/22 19:46 Temperature Temperature Source Pulse Rate 89 Respiratory Rate 14 Respiratory Effort Respiratory Pattern Blood Pressure 180/85 H Blood Pressure Mean 116 Pulse Ox 94 Oxygen Delivery Method Room Air Positive well nourished and well developed General Appearance ED: well developed HEENT Reports normocephalic and head/scalp atraumatic Eyes PERRL and EOMs intact bilaterally Neck supple Chest Wall inspection of chest normal Chest Narrative: Mild chest wall tenderness to the left anterior chest wall. No crepitus. Resp normal respiratory effort and clear to auscultation bilaterally Cardio regular rate and regular rhythm GI soft to palpation and non-tender Palpation: soft Extremity normal to inspection Neuro oriented x3 and no sensory deficits noted Sensorium / Orientation: alert Motor Exam: strength 5/5 throughout Psych mental status grossly normal Skin no rashes or lesions noted Heart Score History: Slightly/Non-Suspicious ECG: Normal Age: >45 - <65 years Risk Factors: 1 or 2 Risk Factors Troponin: </= Normal Limit Score: 2 MDM MDM MDM Narrative Medical decision making narrative: Patient has an allergy to aspirin therefore was not given. EKG, chest x-ray, lab work obtained. Lab Data Attestation: I reviewed the patient's lab results. Labs: Laboratory Results - last 24 hr 09/04/22 09/04/22 09/04/22 18:10 18:10 20:17 WBC 7.9 RBC 4.68 Hgb 11.8 L Hct 36.4 L MCV 77.8 L MCH 25.2 L MCHC 32.4 RDW Std Deviation 41.7 RDW Coeff of Yinka 14.9 H Plt Count 232 MPV 9.9 Immature Gran % (Auto) 0.400 Neut % (Auto) 56.6 Lymph % (Auto) 32.4 [place] % (Auto) 8.7 Eos % (Auto) 1.3 Baso % (Auto) 0.6 Absolute Neuts (auto) 4.5 Absolute Lymphs (auto) 2.54 Nucleated RBC % 0 Sodium 137 Potassium 3.4 L Chloride 104 Carbon Dioxide 26.0 Anion Gap 7 BUN 20 H Creatinine 0.74 Estim Creat Clear Calc 62.53 Est GFR (MDRD) Af Amer 104 Est GFR (MDRD) Non-Af 86 BUN/Creatinine Ratio 27.2 H Glucose 109 H Calcium 8.9 Troponin I High Sens 4 5 Radiography Chest X-Ray - ED: 1 View, Read by ED Physician, Chronic Changes and No Infiltrates Diagnostic Testing: Clinical Impression(s) from Imaging Studies Chest X-Ray 09/04/22 18:15 IMPRESSION: 1. Borderline cardiomegaly without heart failure. 2. No other evidence of active cardiopulmonary disease. 3. No subdiaphragmatic abnormalities. 4. No interval change since the previous study of 08/17/2022. Electronically Signed: Simba Barrow MD at 18:42 EDT , EKG Initial EKG: Attestation: I personally reviewed and interpreted this EKG as follows: Interpretation: Sinus Rhythm (Sinus at 86 with no acute ischemia.) Treatment and Re-Evaluation Narrative: CBC was normal white count. Hemoglobin is 11.8. Chemistry studies significant for slightly low potassium at 3.4. Initial troponin is 4 and 2-hour repeat is 5. Chest x-ray per my interpretation reveals no focal infiltrate. Normal cardiac size. Radiology interpretation is reviewed. EKG reveals no ischemia. At this time patient advised that she can follow-up with her primary care physician for further work-up. She will follow-up with her GI physician next Saturday as scheduled. Discharge Plan Triage Chief Complaint: Chest Pain ED Provider: Lucia Rosas Dx/Rx/DC Orders Clinical Impression: Chest pain Instructions: ED Chest Pain, Uncertain Cause Prescriptions: No Action glimepiride 1 MG tablet 2 mg PO DAILY carbamazepine 200 MG tablet 200 mg PO BID hydrochlorothiazide 25 MG tablet 25 mg PO DAILY solifenacin [Vesicare] 10 MG tablet 10 mg PO QHS quetiapine [Seroquel] 400 MG tablet 400 mg PO QHS omeprazole 40 MG capsule,delayed release(DR/EC) 40 mg PO BID albuterol sulfate [Ventolin HFA] 1 INHALER inhaler 1 - 2 puff inhalation Q4H PRN PRN (Reason: Shortness Of Breath) amlodipine 10 MG tablet 10 mg PO DAILY fluticasone propionate 1 SPRAY spray,suspension 2 spray NASAL DAILY PRN (Reason: allergies) potassium chloride 10 MEQ tablet,ER particles/crystals 30 meq PO BID montelukast 10 mg Tablet 10 mg PO DAILY topiramate 50 mg Tablet 50 mg PO QHS cholecalciferol (vitamin D3) [Vitamin D3] 125 mcg (5,000 unit) Tablet 125 mcg PO DAILY hydrocodone-acetaminophen 5-325 mg tablet 1 tab PO Q4H PRN PRN (Reason: Pain) 2 Days Qty: 10 0RF dicyclomine 20 mg tablet 20 mg PO BID PRN (Reason: abdominal cramping) Qty: 10 0RF nystatin 100,000 unit/gram ointment 1 applic topical BID Vraylar 4.5 mg capsule 4.5 mg PO DAILY menthol-zinc oxide [Calmoseptine] 0.44-20.6 % Ointment 1 applic topical TID Qty: 0 0RF Protocol: *Topical Application Instructions APPLICATION INSTRUCTIONS: buttocks diphenoxylate-atropine [Lomotil] 2.5-0.025 mg tablet 1 tab PO TID PRN (Reason: diarrhea) Qty: 10 0RF fexofenadine 180 mg Tablet 180 mg PO DAILY buspirone 10 mg Tablet 10 mg PO BID Celebrex 100 mg PO/SL BID Primary Care Provider: Nick Giraldo Referrals: Nick Giraldo DO [Primary Care Provider] - 1-2 Weeks Disposition Disposition: Home, Self Care
--- NOTE | 2022-09-04 18:15 | RAD_ITS ---
STUDY: PORTABLE AP UPRIGHT CHEST X-RAY OF 1814 HOURS ON 09/04/2022 REASON FOR EXAM: 57-year-old female with chest pain. TECHNIQUE: A single view portable AP upright chest x-ray was performed. COMPARISON: 08/17/2022. FINDINGS: Normal osseous structures. Borderline cardiomegaly without heart failure. No pulmonary infiltrates, atelectasis, effusion, or pulmonary mass lesions. No pneumonia, pneumonitis, bronchitis. No subdiaphragmatic abnormalities. No significant interval change since previous study 08/17/2022. RAD/Chest 1 View (Portable) IMPRESSION: 1. Borderline cardiomegaly without heart failure. 2. No other evidence of active cardiopulmonary disease. 3. No subdiaphragmatic abnormalities. 4. No interval change since the previous study of 08/17/2022. Electronically Signed: Simba Barrow MD at 18:42 EDT ,
[2022-09-04 18:19] LABS: Absolute Lymphocyte Count 2.54 X10^3/uL (0.83-4.51); Absolute Neutrophil Count 4.5 X10^3/uL (2.0-7.7); Basophil# 0.05 X10^3/uL; Basophil% 0.6 % (0-1); Eosinophils% 1.3 % (0-5); Hematocrit 36.4 % (37-47); Hemoglobin 11.8 g/dL (12.0-15.0); Lymphocyte # 2.54 X10^3/ul (0.83-4.51); Lymphocyte % 32.4 % (19-41); Mean Corp Hgb Conc 32.4 g/dL (32-36); Mean Corpuscular Hgb 25.2 pg (27.0-32.0); Mean Corpuscular Volume 77.8 fL (81-99); Mean Platelet Vol. 9.9 fl (6.2-12.0); Monocyte# 0.68 X10^3/uL; Monocyte% 8.7 % (0-10); NRBC Flagged by Analyzer 0 % (0-5); Neutrophil # 4.45 X10^3/uL (2.7-7.7); Neutrophil % 56.6 % (47-70); Platelet Count 232 K/mm3 (150-450); RBC Distribution Width CV 14.9 % (11.6-14.6); RBC Distribution Width SD 41.7 fl (35.1-43.9); Red Blood Count 4.68 M/mm3 (4.2-5.4); White Blood Count 7.9 K/mm3 (4.4-11.0)
[2022-09-04 18:53] LABS: Anion Gap 7 (5-15); BUN 20 mg/dL (7-18); BUN/Creat Ratio 27.2 RATIO (10-20); Calcium,Total 8.9 mg/dL (8.5-10.1); Chloride 104 mmol/L (98-107); Creatinine, Serum 0.74 mg/dL (0.55-1.02); EST Glomerular Filtration Rate 86 mL/min (>60); Est Glom Filt Rate - Afr Amer 104 mL/min (>60); Estimated Creatinine Clearance 62.53 ml/min; Glucose 109 mg/dL (74-106); Potassium 3.4 mmol/L (3.5-5.1); Sodium Level 137 mmol/L (136-145); Troponin-I HS (w/2H Reflex) 4 pg/mL (3.0-54.0)
[2022-09-04 19:46] VITALS: BP 180/85; PULSE 89; RESP 14; O2SAT 94
[2022-09-04 20:14] LABS: Reflex Troponin-HS? (from REC) Y
[2022-09-04 20:55] LABS: Troponin-I HS 5 pg/mL (3.0-54.0)
[2022-09-04 21:35] VITALS: BP 156/79; PULSE 87; PULSE 96; RESP 18; O2SAT 97
== END 2022-09-04 21:42 | disposition home or self-care (01) ==
PROVIDERS: Emergency Provider Emergency Medicine; PCP Student in an Organized Health Care Education/Training Program; Visit Provider Emergency Medicine
DX: R07.89 Other chest pain (principal); J44.9 Chronic obstructive pulmonary disease, unspecified; F31.9 Bipolar disorder, unspecified; E11.40 Type 2 diabetes mellitus with diabetic neuropathy, unspecified; I10 Essential (primary) hypertension; K21.9 Gastro-esophageal reflux disease without esophagitis; Z79.84 Long term (current) use of oral hypoglycemic drugs; Z79.899 Other long term (current) drug therapy; Z87.891 Personal history of nicotine dependence
CPT/HCPCS: 71045; 80048; 84484; 85025; 93005; 99285

== ENCOUNTER 2022-10-22 14:50 | Emergency (ER) | payer MEDICARE, MEDICAID, SELFPAY ==
[2022-10-22 15:36] VITALS: BP 169/97; PULSE 83; RESP 16; TEMP 36.4; O2SAT 96; BMI 44.0
--- NOTE | 2022-10-22 19:35 | EDS_ITS ---
HPI History of Present Illness Chief Complaint: Wound Check Narrative Narrative: 57-year-old female presents with perirectal pain and bleeding that she has had on and off for the last 3 months. She states that 3 weeks ago she developed diarrhea again. She has these periods where her perirectal area becomes irritated. Today, she noticed blood and pain with wiping. She was told by gastroenterology to apply Desitin to the area. She states that she is currently being worked up for diarrhea that comes and goes and that she had colonoscopy performed. She denies any abdominal pain with this. No lightheadedness or shortness of breath. She states that the perirectal area is sore, raw and bleeding. [facility] Medical History Asthma Mcclellan's esophagus Bipolar 1 disorder Chest pain COPD (chronic obstructive pulmonary disease) Depression Dermatitis of perianal region Diabetes Excoriation of buttock Fecal incontinence GERD (gastroesophageal reflux disease) Hiatal hernia HTN (hypertension) IBS (irritable bowel syndrome) Iron deficiency anemia due to chronic blood loss Irritable bowel syndrome with diarrhea Migraines Neuropathy Non-smoker Osteoarthritis Overactive bladder Rectal prolapse Sleep apnea Home Medications albuterol sulfate 90 mcg/actuation aerosol inhaler (Ventolin HFA) 1 - 2 puff in halation Q4H PRN PRN Shortness Of Breath 12/06/16 [History Last Taken Unknown] carbamazepine 200 mg tablet 200 mg PO BID depression 12/06/16 [History Last Taken 07/16/22] glimepiride 1 mg tablet 2 mg PO DAILY diabetes 12/06/16 [History Last Taken 07/16/22] hydrochlorothiazide 25 mg tablet 25 mg PO DAILY diuretic 12/06/16 [History Last Taken 07/16/22] omeprazole 40 mg capsule,delayed release 40 mg PO BID GERD 12/06/16 [History Last Taken 07/16/22] quetiapine 400 mg tablet (Seroquel) 400 mg PO QHS bipolar 12/06/16 [History Last Taken Unknown] solifenacin 10 mg tablet (Vesicare) 10 mg PO QHS skin care 12/06/16 [History Last Taken 07/15/22] amlodipine 10 mg tablet 10 mg PO DAILY blood pressure 07/09/17 [History Last Taken 07/16/22] fluticasone propionate 50 mcg/actuation nasal spray,suspension 2 spray NASAL DAILY PRN allergies 08/02/19 [History Last Taken Unknown] potassium chloride 10 mEq tablet,extended release(part/cryst) 30 meq PO BID supplement 08/02/19 [History Last Taken 07/16/22] cholecalciferol (vitamin D3) 125 mcg (5,000 unit) tablet (Vitamin D3) 125 mcg PO DAILY supplement 04/19/22 [History Last Taken 07/16/22] montelukast 10 mg tablet 10 mg PO DAILY allergies 04/19/22 [History Last Taken 07/16/22] dicyclomine 20 mg tablet 20 mg PO BID PRN abdominal cramping #10 tabs 07/14/22 [Rx Last Taken Unknown] cariprazine 4.5 mg capsule (Vraylar) 4.5 mg PO DAILY mood 07/16/22 [History Last Taken 07/16/22] nystatin 100,000 unit/gram topical ointment 1 applic topical BID skin care 07/16/22 [History Last Taken 07/16/22] diphenoxylate-atropine 2.5 mg-0.025 mg tablet (Lomotil) 1 tab PO TID PRN diarrhea #10 tabs 07/22/22 [Rx Last Taken Unknown] fexofenadine 180 mg tablet 180 mg PO DAILY 08/17/22 [History Last Taken Unknown] chlorhexidine gluconate 0.12 % mouthwash 15 ml buccal DAILY 09/05/22 [History Last Taken Unknown] melatonin 5 mg capsule 5 mg PO QHS 09/05/22 [History Last Taken Unknown] meloxicam 15 mg tablet 15 mg PO DAILY 09/05/22 [History Last Taken Unknown] promethazine 12.5 mg tablet 12.5 mg PO Q8H PRN antihistimanie 09/05/22 [History Last Taken Unknown] Allergy/AdvReac Type Severity Reaction Status Date / Time latex Allergy Rash Verified 09/05/22 16:18 lithium [[place]] Allergy Anaphylaxis Verified 09/05/22 16:18 acetaminophen AdvReac Vomiting Verified 09/05/22 16:18 [From Tylenol-Codeine] aspirin AdvReac Vomiting Verified 09/05/22 16:18 citalopram hydrobromide AdvReac Other Verified 09/05/22 16:18 [From Celexa] codeine AdvReac Vomiting Verified 09/05/22 16:18 divalproex sodium AdvReac Vomiting Verified 09/05/22 16:18 [From Depakote] ibuprofen AdvReac Nausea Verified 09/05/22 16:18 nortriptyline AdvReac Other Verified 09/05/22 16:18 trazodone AdvReac Other Verified 09/05/22 16:18 Family History Mother Diabetes Father Diabetes Surgical History History of carpal tunnel release History of rectopexy Hx of cholecystectomy Hx of tonsillectomy Social History Smoking Status: Former smoker alcohol intake: former substance use type: does not use ROS ROS ED ROS Narrative Constitutional: No fever, no chills. HEENT: No sore throat. No neck pain. No loss of vision. No rhinorrhea. Cardiovascular: No chest pain. No palpitations. No pedal edema. Respiratory: No cough, no shortness of breath. Abdominal: No abdominal pain. No nausea. No vomiting. Positive diarrhea, intermittently blood-tinged. Positive perirectal pain and bleeding. Genitourinary: No dysuria. No hematuria. Musculoskeletal: No myalgias. No arthralgias. Neurologic: No headaches. No dizziness. No lightheadedness. Skin: No rash. No change in color. Psychiatric: No depression. No anxiety. EXAM Physical Exam Narrative Exam Narrative: Afebrile. Vital signs noted. HEENT: Normocephalic. Atraumatic. PERRL, EOMI. Neck soft and supple. No point tenderness or step off. Cardiovascular: Regular rate and rhythm. No murmurs, rubs, or gallops appreciated. Respiratory: No tachypnea. Lungs clear to auscultation bilaterally. Gastrointestinal: Abdomen soft, nontender, with normoactive bowel sounds. No rebound or guarding. Chaperoned rectal examination reveals external perirectal chafed skin without brisk active bleeding, no hemorrhage. Neurological: Awake. Alert. Nonfocal, nonlateralizing. Skin: No rash. Normal color. No pallor. Musculoskeletal: No pedal edema. Full range of motion extremities. Const Vital Signs: 10/22/22 15:36 Temperature 97.6 F L Temperature Source Temporal Pulse Rate 83 Respiratory Rate 16 Blood Pressure 169/97 H Blood Pressure Mean 121 Pulse Ox 96 Oxygen Delivery Method Room Air MDM MDM MDM Narrative Medical decision making narrative: I reviewed her prior records. Her colonoscopy showed diverticulosis. I do not feel that acute imaging is indicated. Patient does have past medical history of anxiety regarding this. Nystatin cream will be used as a barrier cream, but she will continue Desitin. Vitamin A&E ointment was also applied. I see no signs of infection that would require antibiotics. I do feel that she may be wiping aggressively even with toilet tissue. She will follow-up with gastroenterology or her primary care physician who has also told her to use the Desitin cream regarding this. Return instructions to the emergency department were reviewed. Disposition is discharged home in stable condition. Discharge Plan Triage Chief Complaint: Wound Check ED Provider: Aditya Erazo Dx/Rx/DC Orders Clinical Impression: Perirectal skin irritation, Diarrhea Instructions: ED Wound Check (No Infection) Prescriptions: No Action melatonin 5 mg capsule 5 mg PO QHS promethazine 12.5 mg tablet 12.5 mg PO Q8H PRN (Reason: antihistimanie) chlorhexidine gluconate 0.12 % mouthwash 15 ml buccal DAILY meloxicam 15 mg tablet 15 mg PO DAILY glimepiride 1 MG tablet 2 mg PO DAILY carbamazepine 200 MG tablet 200 mg PO BID hydrochlorothiazide 25 MG tablet 25 mg PO DAILY solifenacin [Vesicare] 10 MG tablet 10 mg PO QHS quetiapine [Seroquel] 400 MG tablet 400 mg PO QHS omeprazole 40 MG capsule,delayed release(DR/EC) 40 mg PO BID albuterol sulfate [Ventolin HFA] 1 INHALER inhaler 1 - 2 puff inhalation Q4H PRN PRN (Reason: Shortness Of Breath) amlodipine 10 MG tablet 10 mg PO DAILY fluticasone propionate 1 SPRAY spray,suspension 2 spray NASAL DAILY PRN (Reason: allergies) potassium chloride 10 MEQ tablet,ER particles/crystals 30 meq PO BID montelukast 10 mg Tablet 10 mg PO DAILY cholecalciferol (vitamin D3) [Vitamin D3] 125 mcg (5,000 unit) Tablet 125 mcg PO DAILY dicyclomine 20 mg tablet 20 mg PO BID PRN (Reason: abdominal cramping) Qty: 10 0RF nystatin 100,000 unit/gram ointment 1 applic topical BID Vraylar 4.5 mg capsule 4.5 mg PO DAILY diphenoxylate-atropine [Lomotil] 2.5-0.025 mg tablet 1 tab PO TID PRN (Reason: diarrhea) Qty: 10 0RF fexofenadine 180 mg Tablet 180 mg PO DAILY Primary Care Provider: Nick Giraldo Referrals: Nick Giraldo DO [Primary Care Provider] - 2 Days for wound check Disposition Disposition: Home, Self Care
[2022-10-22] MEDS: Vitamins A and D Ointment 1 APPLIC TOPICAL (20:02)
[2022-10-22] MEDS: Nystatin Ointment 1 APPLIC TOPICAL (20:02)
[2022-10-22 20:17] VITALS: RESP 18
== END 2022-10-22 20:18 | disposition home or self-care (01) ==
PROVIDERS: Emergency Provider Emergency Medicine; PCP Student in an Organized Health Care Education/Training Program; Visit Provider Emergency Medicine
DX: R19.7 Diarrhea, unspecified (principal); J44.9 Chronic obstructive pulmonary disease, unspecified; E11.40 Type 2 diabetes mellitus with diabetic neuropathy, unspecified; F41.9 Anxiety disorder, unspecified; I10 Essential (primary) hypertension; K21.9 Gastro-esophageal reflux disease without esophagitis; G47.30 Sleep apnea, unspecified; Z79.899 Other long term (current) drug therapy; Z79.84 Long term (current) use of oral hypoglycemic drugs; Z87.891 Personal history of nicotine dependence
CPT/HCPCS: 99284

== ENCOUNTER 2022-12-06 17:26 | Emergency (ER) | payer MEDICARE, MEDICAID, SELFPAY ==
[2022-12-06 17:29] VITALS: BP 149/69; PULSE 104; RESP 18; TEMP 36.9; O2SAT 95; BMI 50.1
--- NOTE | 2022-12-06 17:41 | EDS_ITS ---
HPI History of Present Illness Chief Complaint: Other, Pain/Inj Detail of Chief Complaint: Blood and rectal pain per rectum x6 months Informant: patient Onset/Context/Timing Onset: Month(s) Timing: Intermittent Quality: Pain Location: Perianal Current Severity: Mild Maximum Severity: Moderate Worsened by: Diarrhea Relieved by: Nothing Associated Symptoms Associated Symptoms: No other symptoms Narrative Narrative: Patient is a 57-year-old woman with history of bipolar affective disorder who would not allow Dr. Valadez to examine her or see her. She did present to the e mergency department. She did allow me to do a rectal exam. She does report bright red blood on toilet paper. She not note blood on or in the stool. There is no blood in the commode. She denies history of diverticulosis diverticulitis. She has a remote history of hemorrhoids. Prior similar symptoms: Yes Recent Illness/Hospitalization: No PFSH [facility] Medical History Asthma Mcclellan's esophagus Bipolar 1 disorder Chest pain COPD (chronic obstructive pulmonary disease) Depression Dermatitis of perianal region Diabetes Excoriation of buttock Fecal incontinence GERD (gastroesophageal reflux disease) Hiatal hernia HTN (hypertension) IBS (irritable bowel syndrome) Iron deficiency anemia due to chronic blood loss Irritable bowel syndrome with diarrhea Migraines Neuropathy Non-smoker Osteoarthritis Overactive bladder Rectal prolapse Sleep apnea Home Medications albuterol sulfate 90 mcg/actuation aerosol inhaler (Ventolin HFA) 1 - 2 puff inhalation Q4H PRN PRN Shortness Of Breath 12/06/16 [History Last Taken Unknown] carbamazepine 200 mg tablet 200 mg PO BID depression 12/06/16 [History Last Taken 07/16/22] glimepiride 1 mg tablet 2 mg PO DAILY diabetes 12/06/16 [History Last Taken 07/16/22] hydrochlorothiazide 25 mg tablet 25 mg PO DAILY diuretic 12/06/16 [History Last Taken 07/16/22] omeprazole 40 mg capsule,delayed release 40 mg PO BID GERD 12/06/16 [History Last Taken 07/16/22] quetiapine 400 mg tablet (Seroquel) 400 mg PO QHS bipolar 12/06/16 [History Last Taken Unknown] solifenacin 10 mg tablet (Vesicare) 10 mg PO QHS skin care 12/06/16 [History [place] st Taken 07/15/22] amlodipine 10 mg tablet 10 mg PO DAILY blood pressure 07/09/17 [History Last Taken 07/16/22] fluticasone propionate 50 mcg/actuation nasal spray,suspension 2 spray NASAL DAILY PRN allergies 08/02/19 [History Last Taken Unknown] potassium chloride 10 mEq tablet,extended release(part/cryst) 30 meq PO BID supplement 08/02/19 [History Last Taken 07/16/22] cholecalciferol (vitamin D3) 125 mcg (5,000 unit) tablet (Vitamin D3) 125 mcg PO DAILY supplement 04/19/22 [History Last Taken 07/16/22] montelukast 10 mg tablet 10 mg PO DAILY allergies 04/19/22 [History Last Taken 07/16/22] dicyclomine 20 mg tablet 20 mg PO BID PRN abdominal cramping #10 tabs 07/14/22 [Rx Last Taken Unknown] cariprazine 4.5 mg capsule (Vraylar) 4.5 mg PO DAILY mood 07/16/22 [History Last Taken 07/16/22] nystatin 100,000 unit/gram topical ointment 1 applic topical BID skin care 07/16/22 [History Last Taken 07/16/22] diphenoxylate-atropine 2.5 mg-0.025 mg tablet (Lomotil) 1 tab PO TID PRN diarrhea #10 tabs 07/22/22 [Rx Last Taken Unknown] fexofenadine 180 mg tablet 180 mg PO DAILY 08/17/22 [History Last Taken Unknown] chlorhexidine gluconate 0.12 % mouthwash 15 ml buccal DAILY 09/05/22 [History Last Taken Unknown] melatonin 5 mg capsule 5 mg PO QHS 09/05/22 [History Last Taken Unknown] meloxicam 15 mg tablet 15 mg PO DAILY 09/05/22 [History Last Taken Unknown] promethazine 12.5 mg tablet 12.5 mg PO Q8H PRN antihistimanie 09/05/22 [History Last Taken Unknown] clindamycin HCl 300 mg capsule 300 mg PO Q8H #10 caps 11/16/22 [Rx Last Taken Unknown] metronidazole 1 % topical gel 1 applic topical BID #60 grams 11/16/22 [Rx Last Taken Unknown] metronidazole 500 mg tablet 500 mg PO Q8H #30 tabs 11/16/22 [Rx Last Taken Unknown] nystatin 100,000 unit/gram topical cream 1 applic topical TID #30 grams 11/16/22 [Rx Last Taken Unknown] hydrocortisone acetate 10 % (80 mg) rectal foam 1 appful SC BID #15 grams 12/04/22 [Rx Last Taken Unknown] Allergy/AdvReac Type Severity Reaction Status Date / Time latex Allergy Rash Verified 12/06/22 17:28 lithium [[place]] Allergy Anaphylaxis Verified 12/06/22 17:28 acetaminophen AdvReac Vomiting Verified 12/06/22 17:28 [From Tylenol-Codeine] aspirin AdvReac Vomiting Verified 12/06/22 17:28 citalopram hydrobromide AdvReac Other Verified 12/06/22 17:28 [From Celexa] codeine AdvReac Vomiting Verified 12/06/22 17:28 divalproex sodium AdvReac Vomiting Verified 12/06/22 17:28 [From Depakote] ibuprofen AdvReac Nausea Verified 12/06/22 17:28 nortriptyline AdvReac Other Verified 12/06/22 17:28 trazodone AdvReac Other Verified 12/06/22 17:28 Family History Mother Diabetes Father Diabetes Surgical History History of carpal tunnel release History of rectopexy Hx of cholecystectomy Hx of tonsillectomy Social History (Updated 12/06/22 @ 17:[address] Mele Merrill MD) household members: none Smoking Status: Former smoker alcohol intake: former substance use type: does not use ROS ROS ED Constitutional Constitutional ED: Denies chills, fever(s), subjective, sweats or weight loss Gastrointestinal Gastrointestinal: Reports diarrhea; Denies abdominal pain, constipation, melena, nausea or vomiting Genitourinary Genitourinary ED: Denies dysuria, hematuria or urinary frequency Psychiatric Psychiatric: Reports anxiety and depression; Denies suicidal ideation or suicidal thoughts Hematologic/Lymphatic Hematologic/Lymphatic: Denies anemia, easy bleeding or easy bruising EXAM Physical Exam Const Vital Signs: 12/06/22 17:29 Temperature 98.5 F Temperature Source Oral Pulse Rate 104 H Respiratory Rate 18 Blood Pressure 149/69 H Blood Pressure Mean 95 Pulse Ox 95 Oxygen Delivery Method Room Air Positive well nourished, well developed, obese and unkempt General Appearance ED: unkempt, well developed and NAD; Negative for cyanotic, diaphoretic or pallor Nutritional Appearance: obese HEENT Reports moist mucous membranes HEENT Narrative: Head is atraumatic no cephalic. Ears normal. Nares patent. Mucosa moist. Eyes PERRL and EOMs intact bilaterally General Eye ED: Negative for pale conjunctiva or scleral icterus Neck no lymphadenopathy Resp normal respiratory effort and clear to auscultation bilaterally Cardio regular rate, regular rhythm, S1 normal heart sound, S2 normal heart sound and no murmurs GI normal to inspection, nondistended, normoactive bowel sounds, non-tender, non- distended and no masses; Negative for hepatosplenomegaly GI Narrative: On rectal exam there is area of excoriation and redness most likely due to hemorrhoid or trauma or both. There is no fissure, fistulas or hemorrhoids noted. Anoscopy was performed. Back/Spine no CVA tenderness Extremity normal to inspection General Extremety ED: Yes edema; Negative for tenderness General Extremity: edema Neuro oriented x3, CN's II-XII intact bilaterally and no sensory deficits noted Psych Appearance: unkempt Mood & Affect: depressed Skin no rashes or lesions noted, no wounds and skin turgor normal General Skin Exam: Negative for jaundice or pallor MDM MDM MDM Narrative Medical decision making narrative: Patient is excitable and exaggerated response to pain. Patient's findings are consistent with bleeding due to excoriation breakdown of skin in the perianal area due to her diarrhea. Anoscopy revealed no hemorrhoids, fissures or fistulas. Procedures Other Procedures Procedure(s): Anoscopy. Anoscopy revealed normal anal and rectal mucosa. There is no fissures, fistulas or hemorrhoids noted. Discharge Plan Triage Chief Complaint: Other, Pain/Inj ED Provider: Mele Merrill Dx/Rx/DC Orders Clinical Impression: Excoriated rash, Bipolar disorder, Chronic diarrhea Instructions: ED Abrasion Prescriptions: No Action melatonin 5 mg capsule 5 mg PO QHS promethazine 12.5 mg tablet 12.5 mg PO Q8H PRN (Reason: antihistimanie) chlorhexidine gluconate 0.12 % mouthwash 15 ml buccal DAILY meloxicam 15 mg tablet 15 mg PO DAILY metronidazole 500 mg tablet 500 mg PO Q8H Qty: 30 1RF clindamycin HCl 300 mg capsule 300 mg PO Q8H Qty: 10 0RF metronidazole 1 % gel 1 applic topical BID Qty: 60 2RF nystatin 100,000 unit/gram cream 1 applic topical TID Qty: 30 2RF glimepiride 1 MG tablet 2 mg PO DAILY carbamazepine 200 MG tablet 200 mg PO BID hydrochlorothiazide 25 MG tablet 25 mg PO DAILY solifenacin [Vesicare] 10 MG tablet 10 mg PO QHS quetiapine [Seroquel] 400 MG tablet 400 mg PO QHS omeprazole 40 MG capsule,delayed release(DR/EC) 40 mg PO BID albuterol sulfate [Ventolin HFA] 1 INHALER inhaler 1 - 2 puff inhalation Q4H PRN PRN (Reason: Shortness Of Breath) amlodipine 10 MG tablet 10 mg PO DAILY fluticasone propionate 1 SPRAY spray,suspension 2 spray NASAL DAILY PRN (Reason: allergies) potassium chloride 10 MEQ tablet,ER particles/crystals 30 meq PO BID montelukast 10 mg Tablet 10 mg PO DAILY cholecalciferol (vitamin D3) [Vitamin D3] 125 mcg (5,000 unit) Tablet 125 mcg PO DAILY dicyclomine 20 mg tablet 20 mg PO BID PRN (Reason: abdominal cramping) Qty: 10 0RF nystatin 100,000 unit/gram ointment 1 applic topical BID Vraylar 4.5 mg capsule 4.5 mg PO DAILY diphenoxylate-atropine [Lomotil] 2.5-0.025 mg tablet 1 tab PO TID PRN (Reason: diarrhea) Qty: 10 0RF fexofenadine 180 mg Tablet 180 mg PO DAILY hydrocortisone acetate 10 % (80 mg) foam 1 appful SC BID Qty: 15 3RF Primary Care Provider: Nick Giraldo Referrals: Nick Giraldo DO [Primary Care Provider] - Activity Restrictions/Additional Instructions: Apply Desitin thick Vivek to the perianal area 4 times a day for the next 1 to 2 weeks. Disposition Disposition: Home, Self Care
--- NOTE | 2022-12-06 17:43 | ED.RN ---
ASSISTED DR LARSON WITH RECTAL EXAM. PT RECTAL AREA EXCORIATED. PT SCREAMING 10/10 PAIN. PT REASSURRED
[2022-12-06] MEDS: Menthol/Lanolin/Calamine/Znox 113 GM Tube 1 APPLIC TOPICAL (18:15)
== END 2022-12-06 18:16 | disposition home or self-care (01) ==
LOC: ED 17:50
PROVIDERS: Emergency Provider Emergency Medicine; PCP Student in an Organized Health Care Education/Training Program; Visit Provider Emergency Medicine
DX: K52.9 Noninfective gastroenteritis and colitis, unspecified (principal); J44.9 Chronic obstructive pulmonary disease, unspecified; F31.9 Bipolar disorder, unspecified; E11.40 Type 2 diabetes mellitus with diabetic neuropathy, unspecified; Z68.43 Body mass index [BMI] 50.0-59.9, adult; I10 Essential (primary) hypertension; E66.9 Obesity, unspecified; Z79.84 Long term (current) use of oral hypoglycemic drugs; Z79.899 Other long term (current) drug therapy; Z87.891 Personal history of nicotine dependence
CPT/HCPCS: 99283

== ENCOUNTER 2022-12-10 14:33 | Emergency (ER) | payer MEDICARE, MEDICAID, SELFPAY ==
[2022-12-10 14:34] VITALS: BP 157/87; PULSE 20; TEMP 35.6; O2SAT 96; BMI 44.9
--- NOTE | 2022-12-10 16:54 | EDS_ITS ---
HPI History of Present Illness Chief Complaint: GI Bleed Informant: patient Narrative Narrative: Presents here with continued pain around the rectum intermittent bleeding. She is seen 4 days ago for similar. She had a colonoscopy by Dr. Valadez per patient. She is currently on Flagyl. She states she is out of Percocet. 4 days ago had endoscopy in the ED that was normal. Concern for excoriations of skin around the area causing bleeding she is provided salve cream along with Desitin. She states there is some improvement however not better. Denies fevers. Denies abdominal pain. From records in July admitted for GI bleed found to have gastric ulcers and esophagitis with heat probing. Colonoscopy was normal then. Review records from follow-up with Dr. Valadez November 16, 2022, had concerns for poor healing of skin due to her diabetes history she is placed on clindamycin and Flagyl. Prior similar symptoms: Yes PFSH PFSH Medical History Asthma Mcclellan's esophagus Bipolar 1 disorder Chest pain COPD (chronic obstructive pulmonary disease) Depression Dermatitis of perianal region Diabetes Excoriation of buttock Fecal incontinence GERD (gastroesophageal reflux disease) Hiatal hernia HTN (hypertension) IBS (irritable bowel syndrome) Iron deficiency anemia due to chronic blood loss Irritable bowel syndrome with diarrhea Migraines Neuropathy Non-smoker Osteoarthritis Overactive bladder Rectal prolapse Sleep apnea Home Medications albuterol sulfate 90 mcg/actuation aerosol inhaler (Ventolin HFA) 1 - 2 puff inhalation Q4H PRN PRN Shortness Of Breath 12/06/16 [History Last Taken Unknown] carbamazepine 200 mg tablet 200 mg PO BID depression 12/06/16 [History Last Taken 07/16/22] glimepiride 1 mg tablet 2 mg PO DAILY diabetes 12/06/16 [History Last Taken 07/16/22] hydrochlorothiazide 25 mg tablet 25 mg PO DAILY diuretic 12/06/16 [History Last Taken 07/16/22] omeprazole 40 mg capsule,delayed release 40 mg PO BID GERD 12/06/16 [History Last Taken 07/16/22] quetiapine 400 mg tablet (Seroquel) 400 mg PO QHS bipolar 12/06/16 [History Last Taken Unknown] solifenacin 10 mg tablet (Vesicare) 10 mg PO QHS skin care 12/06/16 [History Last Taken 07/15/22] amlodipine 10 mg tablet 10 mg PO DAILY blood pressure 07/09/17 [History Last Taken 07/16/22] fluticasone propionate 50 mcg/actuation nasal spray,suspension 2 spray NASAL DAILY PRN allergies 08/02/19 [History Last Taken Unknown] potassium chloride 10 mEq tablet,extended release(part/cryst) 30 meq PO BID supplement 08/02/19 [History Last Taken 07/16/22] cholecalciferol (vitamin D3) 125 mcg (5,000 unit) tablet (Vitamin D3) 125 mcg PO DAILY supplement 04/19/22 [History Last Taken 07/16/22] montelukast 10 mg tablet 10 mg PO DAILY allergies 04/19/22 [History Last Taken 07/16/22] dicyclomine 20 mg tablet 20 mg PO BID PRN abdominal cramping #10 tabs 07/14/22 [Rx Last Taken Unknown] cariprazine 4.5 mg capsule (Vraylar) 4.5 mg PO DAILY mood 07/16/22 [History Last Taken 07/16/22] nystatin 100,000 unit/gram topical ointment 1 applic topical BID skin care 07/16/22 [History Last Taken 07/16/22] diphenoxylate-atropine 2.5 mg-0.025 mg tablet (Lomotil) 1 tab PO TID PRN diarrhea #10 tabs 07/22/22 [Rx Last Taken Unknown] fexofenadine 180 mg tablet 180 mg PO DAILY 08/17/22 [History Last Taken Unknown] chlorhexidine gluconate 0.12 % mouthwash 15 ml buccal DAILY 09/05/22 [History Last Taken Unknown] melatonin 5 mg capsule 5 mg PO QHS 09/05/22 [History Last Taken Unknown] meloxicam 15 mg tablet 15 mg PO DAILY 09/05/22 [History Last Taken Unknown] promethazine 12.5 mg tablet 12.5 mg PO Q8H PRN antihistimanie 09/05/22 [History Last Taken Unknown] clindamycin HCl 300 mg capsule 300 mg PO Q8H #10 caps 11/16/22 [Rx Last Taken Unknown] metronidazole 1 % topical gel 1 applic topical BID #60 grams 11/16/22 [Rx Last Taken Unknown] metronidazole 500 mg tablet 500 mg PO Q8H #30 tabs 11/16/22 [Rx Last Taken Unknown] nystatin 100,000 unit/gram topical cream 1 applic topical TID #30 grams 11/16/22 [Rx Last Taken Unknown] hydrocortisone acetate 10 % (80 mg) rectal foam 1 appful HI BID #15 grams 12/04/22 [Rx Last Taken Unknown] dibucaine 1 % rectal ointment 1 applic HI TID PRN rectal discomfort #56 grams 12/10/22 [Rx Last Taken Unknown] oxycodone-acetaminophen 5 mg-325 mg tablet (Percocet) 1 tab PO Q6H PRN pain 3 days #12 tabs 12/10/22 [Rx Last Taken Unknown] Allergy/AdvReac Type Severity Reaction Status Date / Time latex Allergy Rash Verified 12/10/22 16:45 lithium [[place]] Allergy Anaphylaxis Verified 12/10/22 16:45 acetaminophen AdvReac Vomiting Verified 12/10/22 16:45 [From Tylenol-Codeine] aspirin AdvReac Vomiting Verified 12/10/22 16:45 citalopram hydrobromide AdvReac Other Verified 12/10/22 16:45 [From Celexa] codeine AdvReac Vomiting Verified 12/10/22 16:45 divalproex sodium AdvReac Vomiting Verified 12/10/22 16:45 [From Depakote] ibuprofen AdvReac Nausea Verified 12/10/22 16:45 nortriptyline AdvReac Other Verified 12/10/22 16:45 trazodone AdvReac Other Verified 12/10/22 16:45 Family History Mother Diabetes Father Diabetes Surgical History History of carpal tunnel release History of rectopexy Hx of cholecystectomy Hx of tonsillectomy Social History household members: none Smoking Status: Former smoker alcohol intake: former substance use type: does not use ROS ROS ED Constitutional Constitutional ED: Denies chills, fever(s) or sweats Eyes Eyes: Denies change in vision ENT ENT ED: Denies dysphagia or sore throat Cardiovascular Cardiovascular: Denies chest pain, leg edema, palpitations or racing heartbeat Respiratory/Chest Respiratory/Chest: Denies cough, dyspnea or dyspnea on exertion Gastrointestinal Gastrointestinal: Reports other Details: Concerns for bleeding around rectum with pain ; Denies abdominal pain, diarrhea, nausea or vomiting Genitourinary Genitourinary ED: Denies dysuria, hematuria or urinary frequency Musculoskeletal Musculoskeletal: Denies back pain, extremity pain or neck pain Integumentary Denies rash or wounds Neurologic Neurologic: Denies headache(s), paresthesias or weakness EXAM Physical Exam Const Vital Signs: 12/10/22 14:34 12/10/22 17:42 Temperature 96.0 F L Temperature Source Temporal Pulse Rate 20 L Respiratory Rate 18 Blood Pressure 157/87 H Blood Pressure Mean 110 Pulse Ox 96 Oxygen Delivery Method Room Air Positive well nourished and well developed General Appearance ED: well developed and NAD HEENT Reports moist mucous membranes normocephalic and atraumatic Eyes PERRL, EOMs intact bilaterally and conjunctivae normal General Eye ED: Yes normal appearance of both eyes Neck no lymphadenopathy and supple General: Negative for tenderness Chest Wall Chest: Negative for tenderness Resp normal respiratory effort and normal air movement Effort and Inspection: symmetric chest movement; Negative for respiratory distress Cardio regular rate, regular rhythm and no murmurs Peripheral Pulses: pulses 2+ throughout GI normal to inspection, nondistended, normoactive bowel sounds and non-tender GI Narrative: Rectal examination nursing present there is no hemorrhoids, there were excoriating rash of ulcerations perianal region tender to palpation. Palpation: Negative for guarding or rebound tenderness present Back/Spine no CVA tenderness and no thoracic nor lumbar tenderness Extremity normal to inspection General Extremety ED: Negative for edema or tenderness General Extremity: Negative for edema Neuro oriented x3 and no sensory deficits noted Sensorium / Orientation: awake and alert Skin no rashes or lesions noted and no wounds MDM MDM MDM Narrative Medical decision making narrative: Presenting with rectal pain. Exam with skin excoriations ulcerations. This being followed by GI. She is on currently Flagyl that she is still taking. She finished her 10-day course of clindamycin. She states nystatin cream to refill tomorrow at her pharmacy. Also has Desitin that is helping. From review of GI notes concerns for diabetes history with difficulty with cleaning the area. She is provided additional Dibucaine topical to help with pain. Provided refill of her oxycodone's for 12 tabs. Clinically there is no findings of hemorrhoids or fissures. Anoscopy 4 days ago in the ED. There is no active bleeding. She is to follow-up with GI as an outpatient. Discharge Plan Triage Chief Complaint: GI Bleed ED Provider: Warner Sarmiento Dx/Rx/DC Orders Clinical Impression: Excoriated rash, Pain of perianal area Prescriptions: New dibucaine 1 % ointment 1 applic HI TID PRN (Reason: rectal discomfort) Qty: 56 0RF oxycodone-acetaminophen [Percocet] 5-325 mg tablet 1 tab PO Q6H PRN (Reason: pain) 3 Days Qty: 12 0RF No Action melatonin 5 mg capsule 5 mg PO QHS promethazine 12.5 mg tablet 12.5 mg PO Q8H PRN (Reason: antihistimanie) chlorhexidine gluconate 0.12 % mouthwash 15 ml buccal DAILY meloxicam 15 mg tablet 15 mg PO DAILY metronidazole 500 mg tablet 500 mg PO Q8H Qty: 30 1RF clindamycin HCl 300 mg capsule 300 mg PO Q8H Qty: 10 0RF metronidazole 1 % gel 1 applic topical BID Qty: 60 2RF nystatin 100,000 unit/gram cream 1 applic topical TID Qty: 30 2RF glimepiride 1 MG tablet 2 mg PO DAILY carbamazepine 200 MG tablet 200 mg PO BID hydrochlorothiazide 25 MG tablet 25 mg PO DAILY solifenacin [Vesicare] 10 MG tablet 10 mg PO QHS quetiapine [Seroquel] 400 MG tablet 400 mg PO QHS omeprazole 40 MG capsule,delayed release(DR/EC) 40 mg PO BID albuterol sulfate [Ventolin HFA] 1 INHALER inhaler 1 - 2 puff inhalation Q4H PRN PRN (Reason: Shortness Of Breath) amlodipine 10 MG tablet 10 mg PO DAILY fluticasone propionate 1 SPRAY spray,suspension 2 spray NASAL DAILY PRN (Reason: allergies) potassium chloride 10 MEQ tablet,ER particles/crystals 30 meq PO BID montelukast 10 mg Tablet 10 mg PO DAILY cholecalciferol (vitamin D3) [Vitamin D3] 125 mcg (5,000 unit) Tablet 125 mcg PO DAILY dicyclomine 20 mg tablet 20 mg PO BID PRN (Reason: abdominal cramping) Qty: 10 0RF nystatin 100,000 unit/gram ointment 1 applic topical BID Vraylar 4.5 mg capsule 4.5 mg PO DAILY diphenoxylate-atropine [Lomotil] 2.5-0.025 mg tablet 1 tab PO TID PRN (Reason: diarrhea) Qty: 10 0RF fexofenadine 180 mg Tablet 180 mg PO DAILY hydrocortisone acetate 10 % (80 mg) foam 1 appful HI BID Qty: 15 3RF Primary Care Provider: Nick Giraldo Referrals: Nick Giraldo DO [Primary Care Provider] - FriendHolden DO [Med Staff - Active Staff] - 1 Week Activity Restrictions/Additional Instructions: You have rectal excoriations with ulcerations Being followed by GI. Continue and finish your Flagyl. Continue your creams at home. Use Dibucaine topical to help with pain. Follow-up with Dr. Valadez. Disposition Disposition: Home, Self Care Discharge Date/Time: 12/10/22 17:43
[2022-12-10] MEDS: oxyCODONE 5 MG Tablet PO (17:40)
[2022-12-10 17:42] VITALS: RESP 18
== END 2022-12-10 17:43 | disposition home or self-care (01) ==
PROVIDERS: Emergency Provider Emergency Medicine; PCP Student in an Organized Health Care Education/Training Program; Visit Provider Emergency Medicine
DX: K62.89 Other specified diseases of anus and rectum (principal); J44.9 Chronic obstructive pulmonary disease, unspecified; E11.40 Type 2 diabetes mellitus with diabetic neuropathy, unspecified; I10 Essential (primary) hypertension; Z79.84 Long term (current) use of oral hypoglycemic drugs; Z87.891 Personal history of nicotine dependence; Z79.899 Other long term (current) drug therapy
CPT/HCPCS: 99284

== ENCOUNTER 2022-12-15 12:06 | Emergency (ER) | payer MEDICARE, MEDICAID, SELFPAY ==
[2022-12-15 12:08] VITALS: BP 160/83; PULSE 105; RESP 18; TEMP 36.1; O2SAT 97; BMI 48.9
--- NOTE | 2022-12-15 12:22 | EDS_ITS ---
HPI HPI - GI History of Present Illness Chief Complaint: Wound Detail of Chief Complaint: Rectal bleeding and perirectal and buttock pain Informant: patient Narrative Narrative: Patient presents to the emergency department with complaint of blood in her stool for 6 months. Patient also states that she has some skin breakdown and thinks she may have an infection of her buttocks. She denies any fevers. Patient has been seen by her primary care physician and she has been placing some zinc oxide type cream to the area. Patient also has been seen by GI Dr. Valadez who did perform a colonoscopy approximately 6 months ago and she was told it was essentially unremarkable she did have diverticulosis. Patient rates her pain a 10 out of 10. Patient notices intermittent blood in her diaper about every other day. [facility] Medical History Asthma Mcclellan's esophagus Bipolar 1 disorder Chest pain COPD (chronic obstructive pulmonary disease) Depression Dermatitis of perianal region Diabetes Excoriation of buttock Fecal incontinence GERD (gastroesophageal reflux disease) Hiatal hernia HTN (hypertension) IBS (irritable bowel syndrome) Iron deficiency anemia due to chronic blood loss Irritable bowel syndrome with diarrhea Migraines Neuropathy Non-smoker Osteoarthritis Overactive bladder Rectal prolapse Sleep apnea Home Medications albuterol sulfate 90 mcg/actuation aerosol inhaler (Ventolin HFA) 1 - 2 puff inhalation Q4H PRN PRN Shortness Of Breath 12/06/16 [History Last Taken Unknown] carbamazepine 200 mg tablet 200 mg PO BID depression 12/06/16 [History Last Taken 07/16/22] glimepiride 1 mg tablet 2 mg PO DAILY diabetes 12/06/16 [History Last Taken 07/16/22] hydrochlorothiazide 25 mg tablet 25 mg PO DAILY diuretic 12/06/16 [History Last Taken 07/16/22] omeprazole 40 mg capsule,delayed release 40 mg PO BID GERD 12/06/16 [History Last Taken 07/16/22] quetiapine 400 mg tablet (Seroquel) 400 mg PO QHS bipolar 12/06/16 [History Last Taken Unknown] solifenacin 10 mg tablet (Vesicare) 10 mg PO QHS skin care 12/06/16 [History Last Taken 07/15/22] amlodipine 10 mg tablet 10 mg PO DAILY blood pressure 07/09/17 [History Last Taken 07/16/22] fluticasone propionate 50 mcg/actuation nasal spray,suspension 2 spray NASAL DAILY PRN allergies 08/02/19 [History Last Taken Unknown] potassium chloride 10 mEq tablet,extended release(part/cryst) 30 meq PO BID supplement 08/02/19 [History Last Taken 07/16/22] cholecalciferol (vitamin D3) 125 mcg (5,000 unit) tablet (Vitamin D3) 125 mcg PO DAILY supplement 04/19/22 [History Last Taken 07/16/22] montelukast 10 mg tablet 10 mg PO DAILY allergies 04/19/22 [History Last Taken 07/16/22] dicyclomine 20 mg tablet 20 mg PO BID PRN abdominal cramping #10 tabs 07/14/22 [Rx Last Taken Unknown] cariprazine 4.5 mg capsule (Vraylar) 4.5 mg PO DAILY mood 07/16/22 [History Last Taken 07/16/22] nystatin 100,000 unit/gram topical ointment 1 applic topical BID skin care 07/16/22 [History Last Taken 07/16/22] diphenoxylate-atropine 2.5 mg-0.025 mg tablet (Lomotil) 1 tab PO TID PRN diarrhe a #10 tabs 07/22/22 [Rx Last Taken Unknown] fexofenadine 180 mg tablet 180 mg PO DAILY 08/17/22 [History Last Taken Unknown] chlorhexidine gluconate 0.12 % mouthwash 15 ml buccal DAILY 09/05/22 [History Last Taken Unknown] melatonin 5 mg capsule 5 mg PO QHS 09/05/22 [History Last Taken Unknown] meloxicam 15 mg tablet 15 mg PO DAILY 09/05/22 [History Last Taken Unknown] promethazine 12.5 mg tablet 12.5 mg PO Q8H PRN antihistimanie 09/05/22 [History Last Taken Unknown] clindamycin HCl 300 mg capsule 300 mg PO Q8H #10 caps 11/16/22 [Rx Last Taken Unknown] metronidazole 1 % topical gel 1 applic topical BID #60 grams 11/16/22 [Rx Last Taken Unknown] metronidazole 500 mg tablet 500 mg PO Q8H #30 tabs 11/16/22 [Rx Last Taken Unknown] nystatin 100,000 unit/gram topical cream 1 applic topical TID #30 grams 11/16/22 [Rx Last Taken Unknown] hydrocortisone acetate 10 % (80 mg) rectal foam 1 appful MA BID #15 grams 12/04/22 [Rx Last Taken Unknown] dibucaine 1 % rectal ointment 1 applic MA TID PRN rectal discomfort #56 grams 12/10/22 [Rx Last Taken Unknown] oxycodone-acetaminophen 5 mg-325 mg tablet (Percocet) 1 tab PO Q6H PRN pain 3 days #12 tabs 12/10/22 [Rx Last Taken Unknown] clindamycin HCl 300 mg capsule (Cleocin HCl) 300 mg PO Q6H #40 CAPSULES 12/15/22 [Rx Last Taken Unknown] nystatin-triamcinolone 100,000 unit/g-0.1 % topical cream 1 applic topical BID #30 grams 12/15/22 [Rx Last Taken Unknown] oxycodone-acetaminophen 5 mg-325 mg tablet (Percocet) 1 tab PO Q8H PRN pain 3 days #10 tabs 12/15/22 [Rx Last Taken Unknown] Allergy/AdvReac Type Severity Reaction Status Date / Time latex Allergy Rash Verified 12/15/22 12:08 lithium [[place]] Allergy Anaphylaxis Verified 12/15/22 12:08 acetaminophen AdvReac Vomiting Verified 12/15/22 12:08 [From Tylenol-Codeine] aspirin AdvReac Vomiting Verified 12/15/22 12:08 citalopram hydrobromide AdvReac Other Verified 12/15/22 12:08 [From Celexa] codeine AdvReac Vomiting Verified 12/15/22 12:08 divalproex sodium AdvReac Vomiting Verified 12/15/22 12:08 [From Depakote] ibuprofen AdvReac Nausea Verified 12/15/22 12:08 nortriptyline AdvReac Other Verified 12/15/22 12:08 trazodone AdvReac Other Verified 12/15/22 12:08 Family History Mother Diabetes Father Diabetes Surgical History History of carpal tunnel release History of rectopexy Hx of cholecystectomy Hx of tonsillectomy Social History household members: none Smoking Status: Former smoker alcohol intake: former substance use type: does not use ROS ROS ED Review of Systems ROS Unobtainable: other Constitutional Constitutional ED: Reports lethargy; Denies chills, fever(s), sweats or weight loss Eyes Eyes: Denies blurry vision, change in vision or diplopia ENT ENT ED: Denies rhinorrhea or sore throat Cardiovascular Cardiovascular: Denies chest pain, orthopnea or racing heartbeat Respiratory/Chest Respiratory/Chest: Denies cough, dyspnea, dyspnea on exertion, orthopnea or sputum Gastrointestinal Gastrointestinal: Reports other Details: Blood in stool, perirectal pain ; Denies abdominal pain, diarrhea, nausea or vomiting Genitourinary Genitourinary ED: Denies dysuria, hematuria or urinary frequency Musculoskeletal Musculoskeletal: Denies arthralgias, back pain, myalgias or neck pain Integumentary Reports other Details: Skin breakdown on her buttocks ; Denies abscess, Abrasions or rash Neurologic Neurologic: Denies headache(s) or weakness Psychiatric Psychiatric: Denies anxiety, depression or suicidal thoughts Endocrine Endocrinology: Denies polydipsia, polyphagia or polyuria Hematologic/Lymphatic Hematologic/Lymphatic: Denies easy bleeding, easy bruising or lymphadenopathy Allergic/Immunologic Allergic/Immunologic ED: Denies mouth swelling, tongue swelling or urticaria EXAM Physical Exam Const Vital Signs: 12/15/22 12:08 Temperature 96.9 F L Temperature Source Temporal Pulse Rate 105 H Respiratory Rate 18 Blood Pressure 160/83 H Blood Pressure Mean 108 Pulse Ox 97 Oxygen Delivery Method Room Air Positive well nourished and well developed General Appearance ED: well developed and NAD HEENT Reports TM's clear and moist mucous membranes normocephalic and atraumatic; Negative for trauma or tenderness Tympanic Membrane ED: Yes TM's clear Eyes PERRL and EOMs intact bilaterally General Eye ED: Negative for pale conjunctiva or scleral icterus Neck no lymphadenopathy, supple and no JVD General: Negative for tenderness Chest Wall inspection of chest normal and palpation of chest normal Chest: Negative for tenderness Resp normal respiratory effort and clear to auscultation bilaterally Effort and Inspection: Negative for respiratory distress or pain with movement Auscultation: Negative for rhonchi, wheezes or diminished lung sounds Cardio regular rate, regular rhythm, S1 normal heart sound, S2 normal heart sound and no murmurs Peripheral Pulses: pulses 2+ throughout GI normal to inspection, nondistended, normoactive bowel sounds, soft to palpation, non-tender, non-distended and no masses Back/Spine no CVA tenderness and no thoracic nor lumbar tenderness Extremity normal to inspection General Extremety ED: Negative for edema General Extremity: Negative for edema Neuro oriented x3, CN's II-XII intact bilaterally, no sensory deficits noted and gait normal Sensorium / Orientation: awake, alert, oriented to person, oriented to place and oriented to time Motor Exam: strength 5/5 throughout and strength abnormal Psych mental status grossly normal Skin no wounds Skin Narrative: Patient does have excoriated Skin perianally and onto her buttocks. There was some brown stool in her diaper without any evidence of bright red blood noted. Patient did have some white-cream/paste around the area of the skin breakdown. MDM MDM MDM Narrative Medical decision making narrative: IV established on arrival. Patient was medicated with morphine and Zofran. Patient had CBC with differential that showed a normal white count with hemoglobin 11.6 which is stable for her. Chemistries were unremarkable. BUN was 13 creatinine 0.69. At this time she has excoriated skin which I suspect could be fungal based on appearance. 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 Valadez who recommended starting patient on clindamycin. I will start her on nystatin cream as well. I will give her a prescription for a few Percocet for pain which she has been prescribed in the past for this and has 5 tablets left. Patient will follow-up with Dr. Valadez in the office within the next 5 to 7 days. She had recent colonoscopy and has no abdominal pain therefore I do not think she has active diverticulitis and I do not appreciate any hemorrhoids on exam. I will appreciate significant rectal bleeding I feel the bleeding that patient is noticing is from the excoriated and irritated skin on her buttocks. Lab Data Attestation: I reviewed the patient's lab results. Labs: Laboratory Results - last 24 hr 12/15/22 12/15/22 12:33 12:33 WBC 7.3 RBC 4.63 Hgb 11.6 L Hct 37.0 MCV 79.9 L MCH 25.1 L MCHC 31.4 L RDW Std Deviation 40.0 RDW Coeff of [place] 13.9 Plt Count 266 MPV 10.5 Immature Gran % (Auto) 1.200 H Neut % (Auto) 63.0 Lymph % (Auto) 26.0 [place] % (Auto) 7.7 Eos % (Auto) 1.6 Baso % (Auto) 0.5 Absolute Neuts (auto) 4.6 Absolute Lymphs (auto) 1.90 Nucleated RBC % 0 Sodium 137 Potassium 4.1 Chloride 100 Carbon Dioxide 29.0 Anion Gap 8 BUN 13 Creatinine 0.69 Estim Creat Clear Calc 70.29 Est GFR (MDRD) Af Amer 112 Est GFR (MDRD) Non-Af 93 BUN/Creatinine Ratio 18.8 Glucose 135 H Calcium 8.7 Discharge Plan Triage Chief Complaint: Wound Other Complaint: GI Bleed ED Provider: Antoine Lee Dx/Rx/DC Orders Clinical Impression: Bright red rectal bleeding, Jennifer infection Instructions: ED Fungal Skin Infection (Tinea), ED Lower GI Bleeding (Stable) Prescriptions: New oxycodone-acetaminophen [Percocet] 5-325 mg tablet 1 tab PO Q8H PRN (Reason: pain) 3 Days Qty: 10 0RF clindamycin HCl [Cleocin HCl] 300 mg capsule 300 mg PO Q6H Qty: 40 0RF nystatin-triamcinolone 100,000-0.1 unit/g-% cream 1 applic topical BID Qty: 30 0RF No Action melatonin 5 mg capsule 5 mg PO QHS promethazine 12.5 mg tablet 12.5 mg PO Q8H PRN (Reason: antihistimanie) chlorhexidine gluconate 0.12 % mouthwash 15 ml buccal DAILY meloxicam 15 mg tablet 15 mg PO DAILY metronidazole 500 mg tablet 500 mg PO Q8H Qty: 30 1RF clindamycin HCl 300 mg capsule 300 mg PO Q8H Qty: 10 0RF metronidazole 1 % gel 1 applic topical BID Qty: 60 2RF nystatin 100,000 unit/gram cream 1 applic topical TID Qty: 30 2RF glimepiride 1 MG tablet 2 mg PO DAILY carbamazepine 200 MG tablet 200 mg PO BID hydrochlorothiazide 25 MG tablet 25 mg PO DAILY solifenacin [Vesicare] 10 MG tablet 10 mg PO QHS quetiapine [Seroquel] 400 MG tablet 400 mg PO QHS omeprazole 40 MG capsule,delayed release(DR/EC) 40 mg PO BID albuterol sulfate [Ventolin HFA] 1 INHALER inhaler 1 - 2 puff inhalation Q4H PRN PRN (Reason: Shortness Of Breath) amlodipine 10 MG tablet 10 mg PO DAILY fluticasone propionate 1 SPRAY spray,suspension 2 spray NASAL DAILY PRN (Reason: allergies) potassium chloride 10 MEQ tablet,ER particles/crystals 30 meq PO BID montelukast 10 mg Tablet 10 mg PO DAILY cholecalciferol (vitamin D3) [Vitamin D3] 125 mcg (5,000 unit) Tablet 125 mcg PO DAILY dicyclomine 20 mg tablet 20 mg PO BID PRN (Reason: abdominal cramping) Qty: 10 0RF nystatin 100,000 unit/gram ointment 1 applic topical BID Vraylar 4.5 mg capsule 4.5 mg PO DAILY diphenoxylate-atropine [Lomotil] 2.5-0.025 mg tablet 1 tab PO TID PRN (Reason: diarrhea) Qty: 10 0RF fexofenadine 180 mg Tablet 180 mg PO DAILY dibucaine 1 % ointment 1 applic MA TID PRN (Reason: rectal discomfort) Qty: 56 0RF oxycodone-acetaminophen [Percocet] 5-325 mg tablet 1 tab PO Q6H PRN (Reason: pain) 3 Days Qty: 12 0RF hydrocortisone acetate 10 % (80 mg) foam 1 appful MA BID Qty: 15 3RF Primary Care Provider: Nick Giraldo Referrals: Nick Giraldo DO [Primary Care Provider] - Holden Valadez DO [Med Staff - Active Staff] - 3-5 Days Disposition Disposition: Home, Self Care
[2022-12-15] MEDS: Morphine 4 MG/ML Syringe IV (12:36)
[2022-12-15] MEDS: Ondansetron 4 MG/2 ML Vial IV (12:36)
[2022-12-15] MEDS: 0.9% Normal Saline 1,000 ML 150 ML IV (12:37)
[2022-12-15 12:43] LABS: Absolute Neutrophil Count 4.6 X10^3/uL (2.0-7.7); Basophil# 0.04 X10^3/uL; Basophil% 0.5 % (0-1); Eosinophil# 0.12 X10^3/uL; Eosinophils% 1.6 % (0-5); Hemoglobin 11.6 g/dL (12.0-15.0); Mean Corp Hgb Conc 31.4 g/dL (32-36); Mean Corpuscular Hgb 25.1 pg (27.0-32.0); Mean Corpuscular Volume 79.9 fL (81-99); Mean Platelet Vol. 10.5 fl (6.2-12.0); Monocyte# 0.56 X10^3/uL; Monocyte% 7.7 % (0-10); NRBC Flagged by Analyzer 0 % (0-5); Neutrophil # 4.61 X10^3/uL (2.7-7.7); Platelet Count 266 K/mm3 (150-450); RBC Distribution Width CV 13.9 % (11.6-14.6); Red Blood Count 4.63 M/mm3 (4.2-5.4); White Blood Count 7.3 K/mm3 (4.4-11.0)
[2022-12-15 13:05] LABS: Anion Gap 8 (5-15); BUN 13 mg/dL (7-18); BUN/Creat Ratio 18.8 RATIO (10-20); Calcium,Total 8.7 mg/dL (8.5-10.1); Chloride 100 mmol/L (98-107); Creatinine, Serum 0.69 mg/dL (0.55-1.02); EST Glomerular Filtration Rate 93 mL/min (>60); Est Glom Filt Rate - Afr Amer 112 mL/min (>60); Estimated Creatinine Clearance 70.29 ml/min; Glucose 135 mg/dL (74-106); Potassium 4.1 mmol/L (3.5-5.1); Sodium Level 137 mmol/L (136-145)
== END 2022-12-15 14:34 | disposition home or self-care (01) ==
PROVIDERS: Emergency Provider Emergency Medicine; PCP Student in an Organized Health Care Education/Training Program; Visit Provider Emergency Medicine
DX: K62.5 Hemorrhage of anus and rectum (principal); G47.30 Sleep apnea, unspecified; Z87.891 Personal history of nicotine dependence
CPT/HCPCS: 80048; 85025; 96361; 96374; 96375; 99285; J7030; A4216; J2405

== ENCOUNTER 2022-12-16 11:58 | Emergency (ER) | payer MEDICARE, MEDICAID, SELFPAY ==
[2022-12-16 12:00] VITALS: BP 148/82; PULSE 102; RESP 18; TEMP 35.9; O2SAT 98; BMI 48.9
--- NOTE | 2022-12-16 12:22 | ED.VIS.GI ---
HPI HPI - GI History of Present Illness Chief Complaint: Abd Pain Abdominal Pain/Flank Pain Onset: Month(s) Context: Gradual Onset Timing: Continuous Quality: Sharp Location: Diffuse Worsened by: Movement (Bending forward) Relieved by: Nothing Nausea/Vomiting/Emesis GI Symptom: Positive for Nausea and Vomiting Diarrhea/Melena/Hematochezia GI Symptom: Positive for Diarrhea; Negative for Melena Associated Symptoms Associated Symptoms: Negative for Dysuria, Frequency or Hematuria Narrative Narrative: Presents with abdominal pain and chest pain that began today. Patient states she has had similar episodes of abdominal pain in the past. Patient was seen here yesterday for what she thought was rectal bleeding. Patient states she has an excoriated area in her perineum that has been causing some bleeding. Patient was recently started on clindamycin and nystatin/triamcinolone cream. Patient is also taking Flagyl. Patient states her pain is across her mid abdomen. Patient states it is sharp. Patient states it is worse whenever she bends forward. Patient admits to some nausea and vomiting. Patient also admits to some diarrhea. Patient admits to urinary frequency. Patient states that she has some burning type pain whenever she wipes. Patient states this causes some excoriations and bleeding on her perineum. Patient denies any dysuria. Patient denies any fevers or chills. Patient states she has pain across her chest and into both axilla and both shoulders. Patient denies any shortness of breath. Patient denies any cough. [facility] Medical History Asthma Mcclellan's esophagus Bipolar 1 disorder Chest pain COPD (chronic obstructive pulmonary disease) Depression Dermatitis of perianal region Diabetes Excoriation of buttock Fecal incontinence GERD (gastroesophageal reflux disease) Hiatal hernia HTN (hypertension) IBS (irritable bowel syndrome) Iron deficiency anemia due to chronic blood loss Irritable bowel syndrome with diarrhea Migraines Neuropathy Non-smoker Osteoarthritis Overactive bladder Rectal prolapse Sleep apnea Home Medications albuterol sulfate 90 mcg/actuation aerosol inhaler (Ventolin HFA) 1 - 2 puff inhalation Q4H PRN PRN Shortness Of Breath 12/06/16 [History Last Taken Unknown] carbamazepine 200 mg tablet 200 mg PO BID depression 12/06/16 [History Last Taken 07/16/22] glimepiride 1 mg tablet 2 mg PO DAILY diabetes 12/06/16 [History Last Taken 07/16/22] hydrochlorothiazide 25 mg tablet 25 mg PO DAILY diuretic 12/06/16 [History Last Taken 07/16/22] omeprazole 40 mg capsule,delayed release 40 mg PO BID GERD 12/06/16 [History Last Taken 07/16/22] quetiapine 400 mg tablet (Seroquel) 400 mg PO QHS bipolar 12/06/16 [History Last Taken Unknown] solifenacin 10 mg tablet (Vesicare) 10 mg PO QHS skin care 12/06/16 [History Last Taken 07/15/22] amlodipine 10 mg tablet 10 mg PO DAILY blood pressure 07/09/17 [History Last Taken 07/16/22] fluticasone propionate 50 mcg/actuation nasal spray,suspension 2 spray NASAL DAILY PRN allergies 08/02/19 [History Last Taken Unknown] potassium chloride 10 mEq tablet,extended release(part/cryst) 30 meq PO BID supplement 08/02/19 [History Last Taken 07/16/22] cholecalciferol (vitamin D3) 125 mcg (5,000 unit) tablet (Vitamin D3) 125 mcg PO DAILY supplement 04/19/22 [History Last Taken 07/16/22] montelukast 10 mg tablet 10 mg PO DAILY allergies 04/19/22 [History Last Taken 07/16/22] dicyclomine 20 mg tablet 20 mg PO BID PRN abdominal cramping #10 tabs 07/14/22 [Rx Last Taken Unknown] cariprazine 4.5 mg capsule (Vraylar) 4.5 mg PO DAILY mood 07/16/22 [History Last Taken 07/16/22] nystatin 100,000 unit/gram topical ointment 1 applic topical BID skin care 07/16/22 [History Last Taken 07/16/22] diphenoxylate-atropine 2.5 mg-0.025 mg tablet (Lomotil) 1 tab PO TID PRN diarrhea #10 tabs 07/22/22 [Rx Last Taken Unknown] fexofenadine 180 mg tablet 180 mg PO DAILY 08/17/22 [History Last Taken Unknown] chlorhexidine gluconate 0.12 % mouthwash 15 ml buccal DAILY 09/05/22 [History Last Taken Unknown] melatonin 5 mg capsule 5 mg PO QHS 09/05/22 [History Last Taken Unknown] meloxicam 15 mg tablet 15 mg PO DAILY 09/05/22 [History Last Taken Unknown] promethazine 12.5 mg tablet 12.5 mg PO Q8H PRN antihistimanie 09/05/22 [History Last Taken Unknown] clindamycin HCl 300 mg capsule 300 mg PO Q8H #10 caps 11/16/22 [Rx Last Taken Unknown] metronidazole 1 % topical gel 1 applic topical BID #60 grams 11/16/22 [Rx Last Taken Unknown] metronidazole 500 mg tablet 500 mg PO Q8H #30 tabs 11/16/22 [Rx Last Taken Unknown] nystatin 100,000 unit/gram topical cream 1 applic topical TID #30 grams 11/16/22 [Rx Last Taken Unknown] hydrocortisone acetate 10 % (80 mg) rectal foam 1 appful MT BID #15 grams 12/04/22 [Rx Last Taken Unknown] dibucaine 1 % rectal ointment 1 applic MT TID PRN rectal discomfort #56 grams 12/10/22 [Rx Last Taken Unknown] oxycodone-acetaminophen 5 mg-325 mg tablet (Percocet) 1 tab PO Q6H PRN pain 3 days #12 tabs 12/10/22 [Rx Last Taken Unknown] clindamycin HCl 300 mg capsule (Cleocin HCl) 300 mg PO Q6H #40 CAPSULES 12/15/22 [Rx Last Taken Unknown] nystatin-triamcinolone 100,000 unit/g-0.1 % topical cream 1 applic topical BID #30 grams 12/15/22 [Rx Last Taken Unknown] oxycodone-acetaminophen 5 mg-325 mg tablet (Percocet) 1 tab PO Q8H PRN pain 3 days #10 tabs 12/15/22 [Rx Last Taken Unknown] Allergy/AdvReac Type Severity Reaction Status Date / Time latex Allergy Rash Verified 12/16/22 12:03 lithium [[place]] Allergy Anaphylaxis Verified 12/16/22 12:03 acetaminophen AdvReac Vomiting Verified 12/16/22 12:03 [From Tylenol-Codeine] aspirin AdvReac Vomiting Verified 12/16/22 12:03 citalopram hydrobromide AdvReac Other Verified 12/16/22 12:03 [From Celexa] codeine AdvReac Vomiting Verified 12/16/22 12:03 divalproex sodium AdvReac Vomiting Verified 12/16/22 12:03 [From Depakote] ibuprofen AdvReac Nausea Verified 12/16/22 12:03 nortriptyline AdvReac Other Verified 12/16/22 12:03 trazodone AdvReac Other Verified 12/16/22 12:03 Family History Mother Diabetes Father Diabetes Surgical History History of carpal tunnel release History of rectopexy Hx of cholecystectomy Hx of tonsillectomy Social History household members: none Smoking Status: Former smoker alcohol intake: former substance use type: does not use ROS ROS ED Constitutional Constitutional ED: Denies chills or fever(s) Eyes Eyes: Denies blurry vision or change in vision ENT ENT ED: Denies rhinorrhea or sore throat Cardiovascular Cardiovascular: Reports chest pain; Denies palpitations Respiratory/Chest Respiratory/Chest: Denies cough or dyspnea Gastrointestinal Gastrointestinal: Reports abdominal pain, diarrhea, nausea and vomiting Genitourinary Genitourinary ED: Reports urinary frequency; Denies dysuria or hematuria Musculoskeletal Musculoskeletal: Reports back pain and neck pain Integumentary Reports rash; Denies abscess Neurologic Neurologic: Reports headache(s); Denies weakness Allergic/Immunologic Allergic/Immunologic ED: Denies mouth swelling or urticaria EXAM Physical Exam Const Vital Signs: 12/16/22 12:00 Temperature 96.6 F L Temperature Source Temporal Pulse Rate 102 H Respiratory Rate 18 Blood Pressure 148/82 H Blood Pressure Mean 104 Pulse Ox 98 Oxygen Delivery Method Room Air Positive well nourished, well developed and obese General Appearance ED: well developed and NAD Nutritional Appearance: obese HEENT Reports moist mucous membranes Neck supple and no JVD Resp normal respiratory effort and clear to auscultation bilaterally Cardio regular rate, regular rhythm and no murmurs GI normal to inspection, nondistended, normoactive bowel sounds Palpation: soft and tender epigastric, LLQ, RLQ, LUQ, RUQ, periumbilical and suprapubic; Negative for guarding or rebound tenderness present Extremity normal to inspection General Extremety ED: Negative for edema or tenderness General Extremity: Negative for edema Neuro oriented x3, CN's II-XII intact bilaterally and no sensory deficits noted Sensorium / Orientation: alert Motor Exam: strength 5/5 throughout Psych mental status grossly normal Skin no rashes or lesions noted MDM MDM MDM Narrative Medical decision making narrative: Patient was given IV morphine and Zofran. CBC was obtained and was reviewed. There is mild anemia with hemoglobin of 11.6 and hematocrit 35.7. Platelets were normal. Prior outpatient labs were reviewed and had similar results. Comprehensive metabolic profile was obtained and was reviewed. This was within normal limits. Lipase was within normal limits. Urinalysis was obtained and was reviewed. There is no evidence of urinary tract infection or hematuria. CT scan of the abdomen pelvis was obtained with oral and IV contrast. On my independent interpretation, there is no acute abnormality. There is no free air or evidence of bowel obstruction. Radiologist also interpreted the CT scan. Radiologist noted cardiomegaly but is otherwise agreeable with my interpretation. There is no change compared to previous CT scan from 08/17/2022. Patient is feeling better on reevaluation. Patient was allowed to take her dicyclomine from her home medications. Patient was instructed to follow-up with her primary care physician in 3 to 5 days. Patient was instructed return if worse in any way. Patient understood and was agreeable with the plan. All questions were answered. Lab Data Attestation: I reviewed the patient's lab results. Labs: Laboratory Results - last 24 hr 12/16/22 12/16/22 12/16/22 12:43 12:43 12:50 WBC 8.3 RBC 4.49 Hgb 11.6 L Hct 35.7 L MCV 79.5 L MCH 25.8 L MCHC 32.5 RDW Std Deviation 39.9 RDW Coeff of [place] 13.8 Plt Count 279 MPV 10.3 Immature Gran % (Auto) 1.000 H Neut % (Auto) 66.5 Lymph % (Auto) 22.0 [place] % (Auto) 8.9 Eos % (Auto) 1.1 Baso % (Auto) 0.5 Absolute Neuts (auto) 5.5 Absolute Lymphs (auto) 1.83 Nucleated RBC % 0 Sodium 139 Potassium 3.9 Chloride 105 Carbon Dioxide 29.0 Anion Gap 5 BUN 15 Creatinine 0.73 Estim Creat Clear Calc 66.44 Est GFR (MDRD) Af Amer 105 Est GFR (MDRD) Non-Af 87 BUN/Creatinine Ratio 20.5 H Glucose 98 Calcium 8.7 Total Bilirubin 0.20 AST 19 ALT 29 Alkaline Phosphatase 105 Total Protein 7.4 Albumin 3.2 Globulin 4.2 Albumin/Globulin Ratio 0.8 L Lipase 96 Urine Color Yellow Urine Clarity Clear Urine pH 5.0 Ur Specific [place] 1.025 Urine Protein Negative Urine Glucose (UA) Normal Urine Ketones Negative Urine Occult Blood 25 H Urine Nitrite Negative Urine Bilirubin Negative Urine Urobilinogen Normal Ur Leukocyte Esterase 25 H Urine RBC 0 SEEN Urine WBC 0 SEEN Ur Squamous Epith Cells 0-5 SEEN Urine Bacteria 0 SEEN Urine Mucus 0 SEEN Radiography Diagnostic Testing: Clinical Impression(s) from Imaging Studies Abdomen/Pelvis CT 12/16/22 12:27 IMPRESSION: 1. No acute findings in the abdomen or pelvis. 2. Cardiomegaly. 3. No significant interval change when compared to 08/17/2022. Electronically Signed: Aditya Adan MD at 14:42 EST , Discharge Plan Triage Chief Complaint: Abd Pain ED Provider: Evin Vogt Dx/Rx/DC Orders Clinical Impression: Abdominal pain, Bipolar disorder, Depression Instructions: ED Abdominal Pain Unkn Cause Fem Prescriptions: No Action melatonin 5 mg capsule 5 mg PO QHS promethazine 12.5 mg tablet 12.5 mg PO Q8H PRN (Reason: antihistimanie) chlorhexidine gluconate 0.12 % mouthwash 15 ml buccal DAILY meloxicam 15 mg tablet 15 mg PO DAILY metronidazole 500 mg tablet 500 mg PO Q8H Qty: 30 1RF clindamycin HCl 300 mg capsule 300 mg PO Q8H Qty: 10 0RF metronidazole 1 % gel 1 applic topical BID Qty: 60 2RF nystatin 100,000 unit/gram cream 1 applic topical TID Qty: 30 2RF glimepiride 1 MG tablet 2 mg PO DAILY carbamazepine 200 MG tablet 200 mg PO BID hydrochlorothiazide 25 MG tablet 25 mg PO DAILY solifenacin [Vesicare] 10 MG tablet 10 mg PO QHS quetiapine [Seroquel] 400 MG tablet 400 mg PO QHS omeprazole 40 MG capsule,delayed release(DR/EC) 40 mg PO BID albuterol sulfate [Ventolin HFA] 1 INHALER inhaler 1 - 2 puff inhalation Q4H PRN PRN (Reason: Shortness Of Breath) amlodipine 10 MG tablet 10 mg PO DAILY fluticasone propionate 1 SPRAY spray,suspension 2 spray NASAL DAILY PRN (Reason: allergies) potassium chloride 10 MEQ tablet,ER particles/crystals 30 meq PO BID montelukast 10 mg Tablet 10 mg PO DAILY cholecalciferol (vitamin D3) [Vitamin D3] 125 mcg (5,000 unit) Tablet 125 mcg PO DAILY dicyclomine 20 mg tablet 20 mg PO BID PRN (Reason: abdominal cramping) Qty: 10 0RF nystatin 100,000 unit/gram ointment 1 applic topical BID Vraylar 4.5 mg capsule 4.5 mg PO DAILY diphenoxylate-atropine [Lomotil] 2.5-0.025 mg tablet 1 tab PO TID PRN (Reason: diarrhea) Qty: 10 0RF fexofenadine 180 mg Tablet 180 mg PO DAILY dibucaine 1 % ointment 1 applic MT TID PRN (Reason: rectal discomfort) Qty: 56 0RF oxycodone-acetaminophen [Percocet] 5-325 mg tablet 1 tab PO Q6H PRN (Reason: pain) 3 Days Qty: 12 0RF oxycodone-acetaminophen [Percocet] 5-325 mg tablet 1 tab PO Q8H PRN (Reason: pain) 3 Days Qty: 10 0RF clindamycin HCl [Cleocin HCl] 300 mg capsule 300 mg PO Q6H Qty: 40 0RF nystatin-triamcinolone 100,000-0.1 unit/g-% cream 1 applic topical BID Qty: 30 0RF hydrocortisone acetate 10 % (80 mg) foam 1 appful MT BID Qty: 15 3RF Primary Care Provider: Nick Giraldo Referrals: Nick Giraldo DO [Primary Care Provider] - 3-5 Days Disposition Disposition: Home, Self Care
--- NOTE | 2022-12-16 12:27 | CT_ITS ---
EXAM: CT ABDOMEN AND PELVIS WITH INTRAVENOUS CONTRAST CLINICAL INDICATION: Abdominal pain -- IV PO Contrast TECHNIQUE: Helically acquired images were obtained of the abdomen and pelvis with intravenous contrast. This CT exam was performed using one or more of the following dose reduction techniques: automated exposure control, adjustment of the mA and/or kV according to patient size, and/or use of iterative reconstruction technique. This report was created using [employer] report generation technology. CONTRAST: 100 mL of IV Isovue-370. Oral Gastrografin was also administered. RADIATION DOSE: CTDIvol = 19.44 mGy, DLP = 1304.41 mGy-cm COMPARISON: CT abdomen and pelvis without contrast 08/17/2022. FINDINGS: LOWER THORAX: Unremarkable. Lung bases are clear. No cardiomegaly. No significant pericardial effusion. ABDOMEN: LIVER: Hepatomegaly measuring 22.8 cm long is unchanged. GALLBLADDER AND BILE DUCTS: No visible gallbladder and is presumably from laparoscopic cholecystectomy. No intra- or extrahepatic biliary ductal dilation. PANCREAS: Unremarkable. No focal cystic or solid mass. SPLEEN: Unremarkable. Normal size without focal cystic or solid mass. ADRENALS: Unremarkable. No nodules. KIDNEYS AND URETERS: Unremarkable. Normal renal size and position. No hydronephrosis. STOMACH AND BOWEL: Unremarkable. No stomach or bowel distention. No focal inflammatory change. PELVIS: APPENDIX: Normal. BLADDER: Unremarkable. REPRODUCTIVE: Unremarkable as visualized. No mass. ABDOMEN and PELVIS: INTRAPERITONEAL SPACE: Unremarkable. No ascites or other fluid collection. No free air. BONES/JOINTS: Pronounced L1-L2 disc space height narrowing with degenerative vacuum phenomenon and endplate sclerosis. No suspicious lytic or blastic abnormality. SOFT TISSUES: Unremarkable. No discrete abdominal or pelvic wall hernia. VASCULATURE: Unremarkable. Abdominal aorta is non-dilated. LYMPH NODES: Unremarkable. No enlarged lymph nodes. CT/Abdomen/Pelvis WITH Contrast IMPRESSION: 1. No acute findings in the abdomen or pelvis. 2. Cardiomegaly. 3. No significant interval change when compared to 08/17/2022. Electronically Signed: Aditya Adan MD at 14:42 EST ,
[2022-12-16] MEDS: Ondansetron 4 MG/2 ML Vial IV (12:38)
[2022-12-16] MEDS: Morphine 4 MG/ML Syringe IV (12:38)
[2022-12-16 12:57] LABS: Bacteria 0 SEEN /hpf (None Seen); Mucous, Urine 0 SEEN /hpf (<or=2+); Red Blood Cells-Urine 0 SEEN /hpf (0-5); White Blood Cells 0 SEEN /hpf (0-5)
[2022-12-16 13:06] LABS: Absolute Lymphocyte Count 1.83 X10^3/uL (0.83-4.51); Absolute Neutrophil Count 5.5 X10^3/uL (2.0-7.7); Basophil# 0.04 X10^3/uL; Basophil% 0.5 % (0-1); Eosinophil# 0.09 X10^3/uL; Eosinophils% 1.1 % (0-5); Hematocrit 35.7 % (37-47); Hemoglobin 11.6 g/dL (12.0-15.0); Lymphocyte # 1.83 X10^3/ul (0.83-4.51); Mean Corp Hgb Conc 32.5 g/dL (32-36); Mean Corpuscular Hgb 25.8 pg (27.0-32.0); Mean Corpuscular Volume 79.5 fL (81-99); Mean Platelet Vol. 10.3 fl (6.2-12.0); Monocyte# 0.74 X10^3/uL; Monocyte% 8.9 % (0-10); NRBC Flagged by Analyzer 0 % (0-5); Neutrophil # 5.52 X10^3/uL (2.7-7.7); Neutrophil % 66.5 % (47-70); Platelet Count 279 K/mm3 (150-450); RBC Distribution Width CV 13.8 % (11.6-14.6); RBC Distribution Width SD 39.9 fl (35.1-43.9); Red Blood Count 4.49 M/mm3 (4.2-5.4); White Blood Count 8.3 K/mm3 (4.4-11.0)
[2022-12-16 13:07] LABS: Color, Urine Yellow (Yellow); Glucose, Dipstick Normal (Normal); Ketone-Dipstick Negative (Negative); Leukocyte Esterase-Dipstick 25 /ul (Negative); Nitrite-Dipstick Negative (Negative); Occult Blood-Urine 25 /ul (Negative); Protein-Dipstick Negative (Negative); Specific Gravity, Urine 1.025 (1.002-1.030); Urine Bilirubin Dipstick Negative (Negative); Urine Clarity Clear (Clear); Urine Urobilinogen Normal (Normal)
[2022-12-16 13:15] LABS: ALB/GLOB Ratio 0.8 RATIO (0.9-2.4); AST(SGOT) 19 U/L (15-37); Alanine Aminotransfer ALT/SGPT 29 U/L (13-56); Albumin, Serum 3.2 g/dL (3.2-5.0); Alkaline Phosphatase 105 U/L (45-117); Anion Gap 5 (5-15); BUN 15 mg/dL (7-18); BUN/Creat Ratio 20.5 RATIO (10-20); Calcium,Total 8.7 mg/dL (8.5-10.1); Chloride 105 mmol/L (98-107); Creatinine, Serum 0.73 mg/dL (0.55-1.02); EST Glomerular Filtration Rate 87 mL/min (>60); Est Glom Filt Rate - Afr Amer 105 mL/min (>60); Estimated Creatinine Clearance 66.44 ml/min; Globulin 4.2 g/dL (2.2-4.2); Glucose 98 mg/dL (74-106); Lipase 96 U/L (73-393); Potassium 3.9 mmol/L (3.5-5.1); Protein, Total 7.4 g/dL (6.4-8.2); Sodium Level 139 mmol/L (136-145)
[2022-12-16 13:24] LABS: Squamous Epithelial Cells - UA 0-5 SEEN /hpf (5-10)
[2022-12-16 14:55] VITALS: BP 138/70; PULSE 80; RESP 14; O2SAT 98
== END 2022-12-16 14:57 | disposition home or self-care (01) ==
PROVIDERS: Emergency Provider Emergency Medicine; PCP Student in an Organized Health Care Education/Training Program; Visit Provider Emergency Medicine
DX: R10.9 Unspecified abdominal pain (principal); J44.9 Chronic obstructive pulmonary disease, unspecified; F31.9 Bipolar disorder, unspecified; E11.40 Type 2 diabetes mellitus with diabetic neuropathy, unspecified; I10 Essential (primary) hypertension; G47.30 Sleep apnea, unspecified; K21.9 Gastro-esophageal reflux disease without esophagitis; Z87.891 Personal history of nicotine dependence; Z79.899 Other long term (current) drug therapy; Z79.84 Long term (current) use of oral hypoglycemic drugs
CPT/HCPCS: 74177; 80053; 81001; 83690; 85025; 96374; 96375; 99285; Q9967; A4216; J2405

== ENCOUNTER 2022-12-19 08:57 | Emergency (ER) | payer MEDICARE, MEDICAID, SELFPAY ==
[2022-12-19 08:59] VITALS: BP 155/77; PULSE 96; RESP 17; TEMP 35.9; O2SAT 97; BMI 43.1
--- NOTE | 2022-12-19 09:24 | CT_ITS ---
STUDY: CT ABDOMEN AND PELVIS WITHOUT CONTRAST REASON FOR EXAM: Female, 57 years old. Several day history of left lower quadrant pain. History of Mcclellan''s esophagus and rectal prolapse. RADIATION DOSAGE (If Supplied By Facility): CTDIvol = ( 23.68 ) mGy, DLP = ( 1319.26 ) mGycm TECHNIQUE: Transaxial images were obtained from the dome of the diaphragm to the symphysis pubis without oral contrast, and without intravenous contrast. Sagittal and coronal images were reconstructed. Individualized dose optimization techniques were used for this CT. COMPARISON: Comparison is made with prior study dated 12/16/2022. FINDINGS: The visualized lung bases are unremarkable. The visualized portions of the heart are within normal limits. There is hepatomegaly with diffuse hepatic enlargement. The patient is status post cholecystectomy. Normal spleen. Normal pancreas. Normal bilateral adrenal glands. Normal right kidney. Normal left kidney. There is a small hiatal hernia. Normal small intestine. There are scattered colonic diverticula consistent with diverticulosis. The appendix is visualized and appears normal. Normal abdominal aorta. Normal inferior vena cava. Normal retroperitoneum. Normal urinary bladder. There is a small umbilical hernia containing fat. Disc space narrowing and spondylosis at the L2-L3 level. CT/Abdomen/Pelvis without Cont IMPRESSION: Hepatomegaly. Scattered sigmoid diverticula. Status post cholecystectomy. Electronically Signed: Alan Arauz MD at 12:14 [facility] ,
--- NOTE | 2022-12-19 09:27 | EDS_ITS ---
HPI HPI - GI History of Present Illness Chief Complaint: Abd Pain Informant: patient Narrative Narrative: Patient brought in by EMS for evaluation lower abdominal pain rating to the back for the past 4 days. Pain constant waxing and waning. States temp of 99. No urinary symptoms. History of kidney stones with lithotripsies in the past however this feels different. Normal bowel movements nonbloody. Denies history of diverticulitis. She states she had hemorrhoidectomies [address] Blue. She states she takes had a colonoscopy [address] Valadez with no acute findings. States there is pain in her right armpit. Denies other abdominal surgeries. She lives alone, ambulates with a walker. History of diabetes. [facility] Medical History Asthma Mcclellan's esophagus Bipolar 1 disorder Chest pain COPD (chronic obstructive pulmonary disease) Depression Dermatitis of perianal region Diabetes Excoriation of buttock Fecal incontinence GERD (gastroesophageal reflux disease) Hiatal hernia HTN (hypertension) IBS (irritable bowel syndrome) Iron deficiency anemia due to chronic blood loss Irritable bowel syndrome with diarrhea Migraines Neuropathy Non-smoker Osteoarthritis Overactive bladder Rectal prolapse Sleep apnea Home Medications albuterol sulfate 90 mcg/actuation aerosol inhaler (Ventolin HFA) 1 - 2 puff inhalation Q4H PRN PRN Shortness Of Breath 12/06/16 [History Last Taken Unknown] carbamazepine 200 mg tablet 200 mg PO BID depression 12/06/16 [History Last Taken 07/16/22] glimepiride 1 mg tablet 2 mg PO DAILY diabetes 12/06/16 [History Last Taken 07/16/22] hydrochlorothiazide 25 mg tablet 25 mg PO DAILY diuretic 12/06/16 [History Last Taken 07/16/22] omeprazole 40 mg capsule,delayed release 40 mg PO BID GERD 12/06/16 [History Last Taken 07/16/22] quetiapine 400 mg tablet (Seroquel) 400 mg PO QHS bipolar 12/06/16 [History Last Taken Unknown] solifenacin 10 mg tablet (Vesicare) 10 mg PO QHS skin care 12/06/16 [History Last Taken 07/15/22] amlodipine 10 mg tablet 10 mg PO DAILY blood pressure 07/09/17 [History Last Taken 07/16/22] fluticasone propionate 50 mcg/actuation nasal spray,suspension 2 spray NASAL DAILY PRN allergies 08/02/19 [History Last Taken Unknown] potassium chloride 10 mEq tablet,extended release(part/cryst) 30 meq PO BID supplement 08/02/19 [History Last Taken 07/16/22] cholecalciferol (vitamin D3) 125 mcg (5,000 unit) tablet (Vitamin D3) 125 mcg PO DAILY supplement 04/19/22 [History Last Taken 07/16/22] montelukast 10 mg tablet 10 mg PO DAILY allergies 04/19/22 [History Last Taken 07/16/22] dicyclomine 20 mg tablet 20 mg PO BID PRN abdominal cramping #10 tabs 07/14/22 [Rx Last Taken Unknown] cariprazine 4.5 mg capsule (Vraylar) 4.5 mg PO DAILY mood 07/16/22 [History Last Taken 07/16/22] nystatin 100,000 unit/gram topical ointment 1 applic topical BID skin care 07/16/22 [History Last Taken 07/16/22] diphenoxylate-atropine 2.5 mg-0.025 mg tablet (Lomotil) 1 tab PO TID PRN diarrhea #10 tabs 07/22/22 [Rx Last Taken Unknown] fexofenadine 180 mg tablet 180 mg PO DAILY 08/17/22 [History Last Taken Unknown] chlorhexidine gluconate 0.12 % mouthwash 15 ml buccal DAILY 09/05/22 [History Last Taken Unknown] melatonin 5 mg capsule 5 mg PO QHS 09/05/22 [History Last Taken Unknown] meloxicam 15 mg tablet 15 mg PO DAILY 09/05/22 [History Last Taken Unknown] promethazine 12.5 mg tablet 12.5 mg PO Q8H PRN antihistimanie 09/05/22 [History Last Taken Unknown] clindamycin HCl 300 mg capsule 300 mg PO Q8H #10 caps 11/16/22 [Rx Last Taken Unknown] metronidazole 1 % topical gel 1 applic topical BID #60 grams 11/16/22 [Rx Last Taken Unknown] metronidazole 500 mg tablet 500 mg PO Q8H #30 tabs 11/16/22 [Rx Last Taken Unknown] nystatin 100,000 unit/gram topical cream 1 applic topical TID #30 grams 11/16/22 [Rx Last Taken Unknown] hydrocortisone acetate 10 % (80 mg) rectal foam 1 appful IN BID #15 grams 12/04/22 [Rx Last Taken Unknown] dibucaine 1 % rectal ointment 1 applic IN TID PRN rectal discomfort #56 grams 12/10/22 [Rx Last Taken Unknown] oxycodone-acetaminophen 5 mg-325 mg tablet (Percocet) 1 tab PO Q6H PRN pain 3 days #12 tabs 12/10/22 [Rx Last Taken Unknown] clindamycin HCl 300 mg capsule (Cleocin HCl) 300 mg PO Q6H #40 CAPSULES 12/15/22 [Rx Last Taken Unknown] nystatin-triamcinolone 100,000 unit/g-0.1 % topical cream 1 applic topical BID #30 grams 12/15/22 [Rx Last Taken Unknown] oxycodone-acetaminophen 5 mg-325 mg tablet (Percocet) 1 tab PO Q8H PRN pain 3 days #10 tabs 12/15/22 [Rx Last Taken Unknown] Allergy/AdvReac Type Severity Reaction Status Date / Time latex Allergy Rash Verified 12/16/22 12:03 lithium [[place]] Allergy Anaphylaxis Verified 12/16/22 12:03 acetaminophen AdvReac Vomiting Verified 12/16/22 12:03 [From Tylenol-Codeine] aspirin AdvReac Vomiting Verified 12/16/22 12:03 citalopram [From Celexa] AdvReac makes me Verified 12/19/22 08:58 cry a lot citalopram hydrobromide AdvReac Other Verified 12/16/22 12:03 [From Celexa] codeine AdvReac Vomiting Verified 12/16/22 12:03 divalproex sodium AdvReac Vomiting Verified 12/16/22 12:03 [From Depakote] ibuprofen AdvReac Nausea Verified 12/16/22 12:03 nortriptyline AdvReac Other Verified 12/16/22 12:03 trazodone AdvReac Other Verified 12/16/22 12:03 Family History Mother Diabetes Father Diabetes Surgical History History of carpal tunnel release History of rectopexy Hx of cholecystectomy Hx of tonsillectomy Social History household members: none Smoking Status: Former smoker alcohol intake: former substance use type: does not use ROS ROS ED Constitutional Constitutional ED: Denies chills, fever(s) or sweats Eyes Eyes: Denies change in vision ENT ENT ED: Denies dysphagia or sore throat Cardiovascular Cardiovascular: Denies chest pain, leg edema, palpitations or racing heartbeat Respiratory/Chest Respiratory/Chest: Denies cough, dyspnea or dyspnea on exertion Gastrointestinal Gastrointestinal: Reports abdominal pain; Denies diarrhea, nausea or vomiting Genitourinary Genitourinary ED: Denies dysuria, hematuria or urinary frequency Musculoskeletal Musculoskeletal: Denies back pain, extremity pain or neck pain Integumentary Denies rash or wounds Neurologic Neurologic: Denies headache(s), paresthesias or weakness EXAM Physical Exam Const Vital Signs: 12/19/22 08:59 12/19/22 13:12 Temperature 96.7 F L Temperature Source Temporal Pulse Rate 96 Respiratory Rate 17 18 Blood Pressure 155/77 H 157/76 H Blood Pressure Mean 103 Pulse Ox 97 98 Oxygen Delivery Method Room Air Positive well nourished and well developed General Appearance ED: well developed and NAD HEENT Reports moist mucous membranes normocephalic and atraumatic Eyes PERRL, EOMs intact bilaterally and conjunctivae normal General Eye ED: Yes normal appearance of both eyes Neck no lymphadenopathy and supple General: Negative for tenderness Chest Wall Chest: Negative for tenderness Resp normal respiratory effort and normal air movement Effort and Inspection: symmetric chest movement; Negative for respiratory distress Cardio regular rate, regular rhythm and no murmurs Peripheral Pulses: pulses 2+ throughout GI normal to inspection, nondistended, normoactive bowel sounds GI Narrative: Left lower quadrant tenderness, no rash. Palpation: Negative for guarding or rebound tenderness present Back/Spine no CVA tenderness and no thoracic nor lumbar tenderness Extremity normal to inspection General Extremety ED: Negative for edema or tenderness General Extremity: Negative for edema Neuro oriented x3 and no sensory deficits noted Sensorium / Orientation: awake and alert Skin no rashes or lesions noted and no wounds MDM MDM MDM Narrative Medical decision making narrative: Patient presenting with left lower quadrant abdominal pain differentials diverticulitis, kidney stones, Volvulus, UTI. Clinical nonsurgical abdomen. Work-up was initiated, laboratory studies obtained and reviewed by myself normal white count 8.4 hemoglobin 11.8. Normal lipase and liver enzymes. Creatinine 0.6. Urine noted slight hematuria. No infection. CT scan abdomen pelvis interpreted myself and read by radiology shows no sign of diverticulitis or kidney stones. No volvulus. She noted diverticulosis. Clinically feeling b víctor on reevaluation. She can follow with urology for hematuria she states she does not smoke. She follows [facility] for which she will keep her appointment. Return precautions otherwise outpatient follow-up. Lab Data Attestation: I reviewed the patient's lab results. Labs: Laboratory Results - last 24 hr 12/19/22 12/19/22 12/19/22 09:32 09:32 10:40 WBC 8.4 RBC 4.76 Hgb 11.8 L Hct 38.1 MCV 80.0 L MCH 24.8 L MCHC 31.0 L RDW Std Deviation 40.5 RDW Coeff of [place] 13.9 Plt Count 314 MPV 10.4 Immature Gran % (Auto) 1.000 H Neut % (Auto) 62.8 Lymph % (Auto) 25.3 [place] % (Auto) 8.6 Eos % (Auto) 1.7 Baso % (Auto) 0.6 Absolute Neuts (auto) 5.3 Absolute Lymphs (auto) 2.12 Nucleated RBC % 0 Sodium 138 Potassium 4.2 Chloride 103 Carbon Dioxide 30.0 Anion Gap 5 BUN 11 Creatinine 0.68 Estim Creat Clear Calc 71.32 Est GFR (MDRD) Af Amer 113 Est GFR (MDRD) Non-Af 94 BUN/Creatinine Ratio 16.1 Glucose 95 Calcium 8.8 Total Bilirubin 0.40 AST 36 ALT 34 Alkaline Phosphatase 103 Total Protein 7.8 Albumin 3.4 Globulin 4.4 H Albumin/Globulin Ratio 0.8 L Lipase 108 Urine Color Yellow Urine Clarity Clear Urine pH 7.0 Ur Specific [place] 1.010 Urine Protein Negative Urine Glucose (UA) Normal Urine Ketones Negative Urine Occult Blood 10 H Urine Nitrite Negative Urine Bilirubin Negative Urine Urobilinogen Normal Ur Leukocyte Esterase Negative Urine RBC 0 SEEN Urine WBC 0 SEEN Ur Squamous Epith Cells 0 SEEN Urine Bacteria 0 SEEN Urine Mucus 0 SEEN Radiography Diagnostic Testing: Clinical Impression(s) from Imaging Studies Abdomen/Pelvis CT 01/18/23 09:24 IMPRESSION: Hepatomegaly. Scattered sigmoid diverticula. Status post cholecystectomy. Electronically Signed: Alan Arauz MD at 12:14 EST , Discharge Plan Triage Chief Complaint: Abd Pain ED Provider: Warner Sarmiento Dx/Rx/DC Orders Clinical Impression: Abdominal pain, Hematuria, Diverticulosis Instructions: Abdominal Pain, ED Hematuria, ED Diverticulosis Prescriptions: No Action melatonin 5 mg capsule 5 mg PO QHS promethazine 12.5 mg tablet 12.5 mg PO Q8H PRN (Reason: antihistimanie) chlorhexidine gluconate 0.12 % mouthwash 15 ml buccal DAILY meloxicam 15 mg tablet 15 mg PO DAILY metronidazole 500 mg tablet 500 mg PO Q8H Qty: 30 1RF clindamycin HCl 300 mg capsule 300 mg PO Q8H Qty: 10 0RF metronidazole 1 % gel 1 applic topical BID Qty: 60 2RF nystatin 100,000 unit/gram cream 1 applic topical TID Qty: 30 2RF glimepiride 1 MG tablet 2 mg PO DAILY carbamazepine 200 MG tablet 200 mg PO BID hydrochlorothiazide 25 MG tablet 25 mg PO DAILY solifenacin [Vesicare] 10 MG tablet 10 mg PO QHS quetiapine [Seroquel] 400 MG tablet 400 mg PO QHS omeprazole 40 MG capsule,delayed release(DR/EC) 40 mg PO BID albuterol sulfate [Ventolin HFA] 1 INHALER inhaler 1 - 2 puff inhalation Q4H PRN PRN (Reason: Shortness Of Breath) amlodipine 10 MG tablet 10 mg PO DAILY fluticasone propionate 1 SPRAY spray,suspension 2 spray NASAL DAILY PRN (Reason: allergies) potassium chloride 10 MEQ tablet,ER particles/crystals 30 meq PO BID montelukast 10 mg Tablet 10 mg PO DAILY cholecalciferol (vitamin D3) [Vitamin D3] 125 mcg (5,000 unit) Tablet 125 mcg PO DAILY dicyclomine 20 mg tablet 20 mg PO BID PRN (Reason: abdominal cramping) Qty: 10 0RF nystatin 100,000 unit/gram ointment 1 applic topical BID Vraylar 4.5 mg capsule 4.5 mg PO DAILY diphenoxylate-atropine [Lomotil] 2.5-0.025 mg tablet 1 tab PO TID PRN (Reason: diarrhea) Qty: 10 0RF fexofenadine 180 mg Tablet 180 mg PO DAILY dibucaine 1 % ointment 1 applic IN TID PRN (Reason: rectal discomfort) Qty: 56 0RF oxycodone-acetaminophen [Percocet] 5-325 mg tablet 1 tab PO Q6H PRN (Reason: pain) 3 Days Qty: 12 0RF oxycodone-acetaminophen [Percocet] 5-325 mg tablet 1 tab PO Q8H PRN (Reason: pain) 3 Days Qty: 10 0RF clindamycin HCl [Cleocin HCl] 300 mg capsule 300 mg PO Q6H Qty: 40 0RF nystatin-triamcinolone 100,000-0.1 unit/g-% cream 1 applic topical BID Qty: 30 0RF hydrocortisone acetate 10 % (80 mg) foam 1 appful IN BID Qty: 15 3RF Primary Care Provider: Nick Giraldo Referrals: Nick Giraldo DO [Primary Care Provider] - 3-5 Days Francisco J Harp MD [Med Staff - Active Staff] - 1-2 Weeks Holden Valadez DO [Med Staff - Active Staff] - Keep [place] appointment Activity Restrictions/Additional Instructions: CT scan negative for any acute process. Labs stable urine with mild blood. Follow-up with urology. Follow-up with Dr. Valadez as scheduled. Follow-up with your PCP. Return if any worsening symptoms. Disposition Disposition: Home, Self Care Discharge Date/Time: 12/19/22 13:14
[2022-12-19 09:37] LABS: Absolute Lymphocyte Count 2.12 X10^3/uL (0.83-4.51); Absolute Neutrophil Count 5.3 X10^3/uL (2.0-7.7); Basophil# 0.05 X10^3/uL; Basophil% 0.6 % (0-1); Eosinophil# 0.14 X10^3/uL; Eosinophils% 1.7 % (0-5); Hematocrit 38.1 % (37-47); Hemoglobin 11.8 g/dL (12.0-15.0); Lymphocyte # 2.12 X10^3/ul (0.83-4.51); Lymphocyte % 25.3 % (19-41); Mean Corpuscular Hgb 24.8 pg (27.0-32.0); Mean Platelet Vol. 10.4 fl (6.2-12.0); Monocyte# 0.72 X10^3/uL; Monocyte% 8.6 % (0-10); NRBC Flagged by Analyzer 0 % (0-5); Neutrophil # 5.26 X10^3/uL (2.7-7.7); Neutrophil % 62.8 % (47-70); Platelet Count 314 K/mm3 (150-450); RBC Distribution Width CV 13.9 % (11.6-14.6); RBC Distribution Width SD 40.5 fl (35.1-43.9); Red Blood Count 4.76 M/mm3 (4.2-5.4); White Blood Count 8.4 K/mm3 (4.4-11.0)
[2022-12-19 09:56] LABS: ALB/GLOB Ratio 0.8 RATIO (0.9-2.4); AST(SGOT) 36 U/L (15-37); Alanine Aminotransfer ALT/SGPT 34 U/L (13-56); Albumin, Serum 3.4 g/dL (3.2-5.0); Alkaline Phosphatase 103 U/L (45-117); Anion Gap 5 (5-15); BUN 11 mg/dL (7-18); BUN/Creat Ratio 16.1 RATIO (10-20); Calcium,Total 8.8 mg/dL (8.5-10.1); Chloride 103 mmol/L (98-107); Creatinine, Serum 0.68 mg/dL (0.55-1.02); EST Glomerular Filtration Rate 94 mL/min (>60); Est Glom Filt Rate - Afr Amer 113 mL/min (>60); Estimated Creatinine Clearance 71.32 ml/min; Globulin 4.4 g/dL (2.2-4.2); Glucose 95 mg/dL (74-106); Lipase 108 U/L (73-393); Potassium 4.2 mmol/L (3.5-5.1); Protein, Total 7.8 g/dL (6.4-8.2); Sodium Level 138 mmol/L (136-145)
[2022-12-19] MEDS: Ondansetron 4 MG/2 ML Vial IV (10:03)
[2022-12-19] MEDS: Morphine 4 MG/ML Syringe IV (10:04)
[2022-12-19] MEDS: 0.9% Normal Saline 1,000 ML 125 ML IV (10:04)
[2022-12-19 10:47] LABS: Bacteria 0 SEEN /hpf (None Seen); Mucous, Urine 0 SEEN /hpf (<or=2+); Red Blood Cells-Urine 0 SEEN /hpf (0-5); Squamous Epithelial Cells - UA 0 SEEN /hpf (5-10); White Blood Cells 0 SEEN /hpf (0-5)
[2022-12-19 10:51] LABS: Glucose, Dipstick Normal (Normal); Ketone-Dipstick Negative (Negative); Leukocyte Esterase-Dipstick Negative /ul (Negative); Nitrite-Dipstick Negative (Negative); Occult Blood-Urine 10 /ul (Negative); Protein-Dipstick Negative (Negative); Urine Bilirubin Dipstick Negative (Negative); Urine Urobilinogen Normal (Normal)
[2022-12-19 11:00] LABS: Color, Urine Yellow (Yellow); Urine Clarity Clear (Clear)
[2022-12-19 13:12] VITALS: BP 157/76; RESP 18; O2SAT 98
== END 2022-12-19 13:14 | disposition home or self-care (01) ==
PROVIDERS: Emergency Provider Emergency Medicine; PCP Student in an Organized Health Care Education/Training Program; Visit Provider Emergency Medicine
DX: R10.32 Left lower quadrant pain (principal); E11.40 Type 2 diabetes mellitus with diabetic neuropathy, unspecified; R31.9 Hematuria, unspecified; K57.30 Diverticulosis of large intestine without perforation or abscess without bleeding; I10 Essential (primary) hypertension; Z90.49 Acquired absence of other specified parts of digestive tract; Z79.84 Long term (current) use of oral hypoglycemic drugs; Z79.899 Other long term (current) drug therapy; Z87.891 Personal history of nicotine dependence; Z87.442 Personal history of urinary calculi
CPT/HCPCS: 74176; 80053; 81001; 83690; 85025; 96361; 96374; 96375; 99285; J7030; A4216; J2405

== ENCOUNTER 2022-12-24 13:03 | Outpatient (RCR) | payer MEDICARE, MEDICAID, SELFPAY ==
[2022-12-24 13:24] VITALS: BP 160/90; PULSE 105; TEMP 35.6; BMI 46.6
--- NOTE | 2022-12-24 15:01 | PCM.WC.HP ---
History of Present Illness Date of Service: 12/24/22 Chief Complaint: Sore bottom History of Wound: 57 year old female presents for evaluation of her excoriated buttocks. She was referred by MIKE Campos. She has multiple visits to the ED this month for abdominal pain and her sore bottom. She has issues with stool and urinary incontinence and wears depend underpants. She states that she has been cleaning her self with sensitive skin baby wipes and using Desitin cream with no improvement. She is not a good historian. Per her records she saw Dr. Blue in 2018 for rectal bleeding and diarrhea. Colonoscopy performed with him noting rectal prolapse, internal hemorrhoids (banded). Referred to [facility] anorectal disorder clinic. Anal manometry performed and underwent rectopexy 08.22.18; unsure if rectopexy assisted with symptoms. No follow up since this time. [facility] ED presentation 07.16.22 with abdominal pain, diarrhea, rash and GIB. She was admitted for care and gastroenterology consulted the next day. EGD and colonoscopy 07.18.22 finding oozing gastric ulcers. She has a history of , T2D, Sandoval's esophagus, HTN, hypothyroid, asthma, abdominal pain, IBS, Bipolar, anxiety. Today she denies fever, chills, nausea or vomiting. Progress of Wound: Intergluteal cleft is pink, moist, excoriated that is very painful. No active bleeding. There is liquid stool present. [facility] Medical History (Updated 12/26/22 @ 21:20 by Nicole Coughlin NP, [employer]) Asthma Mcclellan's esophagus Bipolar 1 disorder Chest pain COPD (chronic obstructive pulmonary disease) Depression Dermatitis of perianal region Diabetes Excoriation of buttock Fecal incontinence GERD (gastroesophageal reflux disease) Hiatal hernia HTN (hypertension) IBS (irritable bowel syndrome) Iron deficiency anemia due to chronic blood loss Irritable bowel syndrome with diarrhea Migraines Neuropathy Non-smoker Osteoarthritis Overactive bladder Rectal prolapse Sleep apnea Home Medications albuterol sulfate 90 mcg/actuation aerosol inhaler (Ventolin HFA) 1 - 2 puff inhalation Q4H PRN PRN Shortness Of Breath 12/06/16 [History Last Taken Unknown] carbamazepine 200 mg tablet 200 mg PO BID depression 12/06/16 [History Last Taken 07/16/22] glimepiride 1 mg tablet 2 mg PO DAILY diabetes 12/06/16 [History Last Taken 07/16/22] hydrochlorothiazide 25 mg tablet 25 mg PO DAILY diuretic 12/06/16 [History Last Taken 07/16/22] omeprazole 40 mg capsule,delayed release 40 mg PO BID GERD 12/06/16 [History Last Taken 07/16/22] quetiapine 400 mg tablet (Seroquel) 400 mg PO QHS bipolar 12/06/16 [History Last Taken Unknown] solifenacin 10 mg tablet (Vesicare) 10 mg PO QHS skin care 12/06/16 [History Last Taken 07/15/22] amlodipine 10 mg tablet 10 mg PO DAILY blood pressure 07/09/17 [History Last Taken 07/16/22] fluticasone propionate 50 mcg/actuation nasal spray,suspension 2 spray NASAL DAILY PRN allergies 08/02/19 [History Last Taken Unknown] potassium chloride 10 mEq tablet,extended release(part/cryst) 30 meq PO BID supplement 08/02/19 [History Last Taken 07/16/22] cholecalciferol (vitamin D3) 125 mcg (5,000 unit) tablet (Vitamin D3) 125 mcg PO DAILY supplement 04/19/22 [History Last Taken 07/16/22] montelukast 10 mg tablet 10 mg PO DAILY allergies 04/19/22 [History Last Taken 07/16/22] dicyclomine 20 mg tablet 20 mg PO BID PRN abdominal cramping #10 tabs 07/14/22 [Rx Last Taken Unknown] cariprazine 4.5 mg capsule (Vraylar) 4.5 mg PO DAILY mood 07/16/22 [History Last Taken 07/16/22] nystatin 100,000 unit/gram topical ointment 1 applic topical BID skin care 07/16/22 [History Last Taken 07/16/22] diphenoxylate-atropine 2.5 mg-0.025 mg tablet (Lomotil) 1 tab PO TID PRN diarrhea #10 tabs 07/22/22 [Rx Last Taken Unknown] fexofenadine 180 mg tablet 180 mg PO DAILY 08/17/22 [History Last Taken Unknown] chlorhexidine gluconate 0.12 % mouthwash 15 ml buccal DAILY 09/05/22 [History Last Taken Unknown] melatonin 5 mg capsule 5 mg PO QHS 09/05/22 [History Last Taken Unknown] promethazine 12.5 mg tablet 12.5 mg PO Q8H PRN antihistimanie 09/05/22 [History Last Taken Unknown] clindamycin HCl 300 mg capsule 300 mg PO Q8H #10 caps 11/16/22 [Rx Last Taken Unknown] metronidazole 1 % topical gel 1 applic topical BID #60 grams 11/16/22 [Rx Last Taken Unknown] metronidazole 500 mg tablet 500 mg PO Q8H #30 tabs 11/16/22 [Rx Last Taken Unknown] nystatin 100,000 unit/gram topical cream 1 applic topical TID #30 grams 11/16/22 [Rx Last Taken Unknown] hydrocortisone acetate 10 % (80 mg) rectal foam 1 appful DC BID #15 grams 12/04/22 [Rx Last Taken Unknown] dibucaine 1 % rectal ointment 1 applic DC TID PRN rectal discomfort #56 grams 12/10/22 [Rx Last Taken Unknown] oxycodone-acetaminophen 5 mg-325 mg tablet (Percocet) 1 tab PO Q6H PRN pain 3 days #12 tabs 12/10/22 [Rx Last Taken Unknown] clindamycin HCl 300 mg capsule (Cleocin HCl) 300 mg PO Q6H #40 CAPSULES 12/15/22 [Rx Last Taken Unknown] nystatin-triamcinolone 100,000 unit/g-0.1 % topical cream 1 applic topical BID #30 grams 12/15/22 [Rx Last Taken Unknown] oxycodone-acetaminophen 5 mg-325 mg tablet (Percocet) 1 tab PO Q8H PRN pain 3 days #10 tabs 12/15/22 [Rx Last Taken Unknown] Allergy/AdvReac Type Severity Reaction Status Date / Time latex Allergy Rash Verified 12/25/22 15:23 lithium [[place]] Allergy Anaphylaxis Verified 12/25/22 15:23 acetaminophen AdvReac Vomiting Verified 12/25/22 15:23 [From Tylenol-Codeine] aspirin AdvReac Vomiting Verified 12/25/22 15:23 citalopram [From Celexa] AdvReac makes me Verified 12/25/22 15:23 cry a lot citalopram hydrobromide AdvReac Other Verified 12/25/22 15:23 [From Celexa] codeine AdvReac Vomiting Verified 12/25/22 15:23 divalproex sodium AdvReac Vomiting Verified 12/25/22 15:23 [From Depakote] ibuprofen AdvReac Nausea Verified 12/25/22 15:23 nortriptyline AdvReac Other Verified 12/25/22 15:23 trazodone AdvReac Other Verified 12/25/22 15:23 Family History (Reviewed 12/26/22 @ 12:14 by Nicole Coughlin [employer], [employer]) Mother Diabetes Father Diabetes Surgical History (Reviewed 12/26/22 @ 12:14 by Nicole Coughlin [employer], [employer]) History of carpal tunnel release History of rectopexy Hx of cholecystectomy Hx of tonsillectomy Social History (Reviewed 12/26/22 @ 12:14 by Nicole Coughlin [employer], [employer]) household members: none Smoking Status: Former smoker alcohol intake: former substance use type: does not use ROS Constitutional Constitutional: Denies chills or fever(s) Eyes Eyes: Reports none ENT HEENT: Reports none Cardiovascular Cardiovascular: Denies chest pain or dyspnea Respiratory/Chest Respiratory/Chest: Denies cough or dyspnea Gastrointestinal Gastrointestinal: Reports diarrhea and loose stools; Denies nausea, rectal bleeding or vomiting Genitourinary Genitourinary: Reports urinary incontinence Musculoskeletal Musculoskeletal: Reports systems reviewed and no addt'l complaints, except as documented Integumentary Integumentary: Reports erythema, rash and skin pain Neurologic Neurologic: Reports none Psychiatric Psychiatric: Reports systems reviewed and no addt'l complaints, except as documented Endocrine Endocrinology: Reports cold intolerance Vital Signs Vital Signs Vital Signs: 12/24/22 13:24 Temperature 96.1 F L Temperature Source Temporal Pulse Rate 105 H Blood Pressure 160/90 H Blood Pressure Mean 113 Blood Pressure Source Monitor Weight Weight: 255 lb Body Mass Index (BMI) 46.6 Physical Exam Const alert, oriented x3 and well nourished Constitutional Narrative: She is very nervous that someone might touch her medial gluteal area because it is so painful. HEENT normocephalic Eyes General Eye: normal appearance of both eyes Neck full ROM Lymph Lymphatic: no lymphedema noted Resp normal respiratory effort, normal air movement and clear to auscultation bilaterally Effort and Inspection: able to speak in complete sentences Cardio regular rate and regular rhythm GI normal to inspection, nondistended, normoactive bowel sounds GI Narrative: External hemorrhoid present and extremely painful to light palpation, small amount of liquid stool present on nicole anal area. Back/Spine normal ROM Extremity full ROM Skin Skin Narrative: Intergluteal cleft is pink, excoriated, moist and extremely painful. Neuro oriented x3 and moves all extremities Psych Psych Narrative: Anxious, very concerned that someone will touch her very painful intergluteal cleft Appearance: appropriate Attitude: guarded Activity / Motor Behavior: appropriate eye contact Debridement Note Debridement Note No debridement was completed: No debridement was completed today Post-Debridement Measurements and Additional Note: Post-Debridement Measurements/Treatment WC - Nurse 1 - General Ulcer Assessment Start: 12/24/22 13:24 Freq: Status: Active Protocol: NAHOMY Activity Type Activity Date Activity User E-sign Co-sign Detail Recorded Client Recorded Date Recorded By Document 12/24/22 13:24 ABBY [id number] 12/24/22 13:49 ABBY 12/24/22 13:24 WC - Today's Visit Information Type of service Initial Visit Arrival Mode Ambulatory,Cane Patient Identification Verified (Name & Yes ) Patient Requires Transmission-Based No Precautions Safety Precautions NA Height and Weight Height 5 ft 2 in Weight 255 lb Weight in Pounds 255.0 lbs Body Mass Index (BMI) 46.6 BMI Classification Obese BSA - Kate 2.12 Vital Signs Temperature (97.8 F-99.1 F) 96.1 F L Temperature Source Temporal Pulse Rate (60-100) 105 H Pulse Location Monitor Blood Pressure (90/60-120/80) 160/90 H Blood Pressure Mean 113 Source Monitor History Since Last Visit- (Skip if this is Patient's initial visit) Left Footwear Regular Shoe Right Footwear Regular Shoe Pain Scale: 0-10 Numeric Is Patient Pain Free? No WC - Nurse 1 - General Ulcer Measurement Start: 12/24/22 13:24 Freq: Status: Active Protocol: Activity Type Activity Date Activity User E-sign Co-sign Detail Recorded Client Recorded Date Recorded By Document 12/24/22 13:24 ABBY [id number] 12/24/22 13:49 ABBY 12/24/22 13:24 Wound Center Nurse 1 #1 coccyx -Combined with other wound No -Current Size (cm) - Length 0.1 -Current Size (cm) - Width 0.1 -Current Size (cm) - Depth 0.1 -Total Square Cm 0.01 -Photo Taken Yes -Tunneling No -Undermining/Tunneling No -Circular Undermining No -Change in Wound Grade/Stage No -Exudate Amt None Present -Granulation Amt None Present (0 %) -Granulation Quality N/A -Slough/Fibrin No -Necrosis Amt None Present (0 %) -Structure Exposed N/A -Texture (Nicole-wound Skin Appearance) Assessed, Excoriation -Moisture (Nicole-wound Skin Appearance) No Abnormality, Assessed -Color (Nicole-wound Skin Appearance) No Abnormality, Assessed -Temperature (Nicole-wound Skin No Abnormality Appearance) (Pt Warm) -Tenderness on Palpation (Nicole-wound No Skin Appearance) -Ulcer Cleansing Rinsed/ Irrigated with Saline -Foul Odor after Cleansing No WC - Nurse 2 - General Ulcer CM Notes Start: 12/24/22 13:24 Freq: Status: Active Protocol: Activity Type Activity Date Activity User E-sign Co-sign Detail Recorded Client Recorded Date Recorded By Document 12/24/22 14:43 [id number] 12/24/22 14:50 12/24/22 14:43 Wound Center Nurse 2 -Correct Patient No -Correct Side, Site, Position No -Correct Procedure No -Procedure Performed No -Wound/Ulcer Outcome Not Healed Pain Scale: 0-10 Numeric Is Patient Pain Free? Yes - Nurse 3 - General Ulcer D/C NN Start: 12/24/22 13:24 Freq: Status: Active Protocol: Activity Type Activity Date Activity User E-sign Co-sign Detail Recorded Client Recorded Date Recorded By Document 12/24/22 14:50 [id number] 12/24/22 14:51 12/24/22 14:50 Is Patient Pain Free? Yes - Visit Discharge Discharge Condition Stable Ambulatory Status Ambulatory,Cane Transportation Private Auto Medication Reconcilliation completed & Yes provided to patient/care provider Clinical Summary of Care Provided Yes Charges/Coding Visit Charges Office Visits / Consults: 40022 OV L4 Est Assessment/Plan Assessment/Plan (1) Excoriation of buttock: CODE(S): S30.810A - Abrasion of lower back and pelvis, initial encounter (2) Dermatitis of perianal region: CODE(S): L30.9 - Dermatitis, unspecified (3) Fecal incontinence: CODE(S): R15.9 - Full incontinence of feces (4) Type II diabetes mellitus: CODE(S): E11.9 - Type 2 diabetes mellitus without complications QUALIFIERS: Diabetes mellitus complication status: with neurologic complications Diabetes mellitus complication detail: with polyneuropathy Diabetes mellitus extermination supervisor insulin use: without extermination supervisor use Qualified Code(s): E11.42 - Type 2 diabetes mellitus with diabetic polyneuropathy (5) Pain: CODE(S): R52 - Pain, unspecified (6) Anxiety: CODE(S): F41.9 - Anxiety disorder, unspecified PLAN: Plan Patient evaluated at the wound healing center. The excoriation on her intergluteal cleft is extremely excoriated and painful most likely due to her stool incontinence, wearing depends and not keeping herself cleaned well. Had extensive conversation about caring for her her very sore nicole anal/intergluteal cleft area. Encouraged sitz baths daily to help clean the area. She states she is not able to get into and out of a tub by herself. She does have home health aids to assist her around the house but she states they can not help get into and out of the bath tub. Suggested that she could get a portable sitz bath that sits on the toilet to help her her excoriated area daily. If she is not able to use a sitz bath, then she needs to get into the shower and wash her nicole anal area well with soap and water, pat dry. Encouraged her to stop using the baby wipes to clean her self all the time (she can use them when she is not home) due to the chemicals in the wipes may be irritating her skin and encourage using soft wash cloths with soap and water to clean her intergluteal area frequently to remove the stool when she has incontinence. After cleaning herself well, she is to pat herself dry and apply a liberal amount of A&D ointment (that she has at home) as a skin barrier. Reinforced the importance of keeping herself clean and placing a good skin barrier to help with this excoriated area. Concerned that patient does not understand plan of care even with reviewing it and reinforcing it multiple times. Follow up one week. Call or come in sooner if develop issues. 37 minutes spent evaluating patient, establishing plan of care, educating patient and documenting.
== END 2023-01-01 23:59 | disposition home or self-care (01) ==
LOC: WC 13:03
PROVIDERS: PCP Student in an Organized Health Care Education/Training Program; Visit Provider Nurse Practitioner Family
DX: S30.810A Abrasion of lower back and pelvis, initial encounter (principal); E11.9 Type 2 diabetes mellitus without complications; R32 Unspecified urinary incontinence; E03.9 Hypothyroidism, unspecified; J45.909 Unspecified asthma, uncomplicated; I10 Essential (primary) hypertension; Z79.899 Other long term (current) drug therapy; Z87.891 Personal history of nicotine dependence; X58.XXXA Exposure to other specified factors, initial encounter; L30.9 Dermatitis, unspecified; R15.9 Full incontinence of feces
CPT/HCPCS: 99214; G0463

== ENCOUNTER 2022-12-25 15:21 | Emergency (ER) | payer MEDICARE, MEDICAID, SELFPAY ==
[2022-12-25 15:23] VITALS: BP 155/85; PULSE 111; RESP 16; TEMP 37.1; O2SAT 98; BMI 46.6
--- NOTE | 2022-12-25 17:09 | EKG12_ITS ---
Test Reason : Blood Pressure : / mmHG Vent. Rate : 101 BPM Atrial Rate : 101 BPM P-R Int : 164 ms QRS Dur : 096 ms QT Int : 332 ms P-R-T Axes : 053 029 072 degrees QTc Int : 430 ms Sinus tachycardia Otherwise normal ECG Confirmed by MARY PETERSON, QIAN ([id number]), magazine editor ROBERT CARBAJAL ([id number]) on 12/26/2022 9:18:21 AM Referred By: Confirmed By:QIAN HERNANDEZ MD
--- NOTE | 2022-12-25 17:09 | EX.ED.DYSGE1 ---
HPI History of Present Illness Chief Complaint: Abd Pain Informant: patient Narrative Narrative: Patient presents to the ED with abdominal pain. Patient has been seen twice this month for abdominal pain and has had 2 CAT scans that have not showed any issues. I talk with her how long she has been having the pain and she states she has had it her whole life. She has irritable bowel and reflex in her stomach and abdomen bother her all the time. Occasionally it does not bother her. I cannot get her to say if its worse or different now. She states it is different all the time but it is always there. She is eating and drinking and moving her bowels well. She has had blood in her stool before but not having it now. She had colonoscopy with Dr. Valadez about 6 months ago. I reviewed the colonoscopy report from July [address] Valadez that is on our system from prior visit not done in the ER. This showed diverticula with no other acute process. Patient has not been having fevers or chills. She thinks she has gained weight recently. No trouble eating. She denies any urine symptoms but occasionally she sounds like she may have some mild incontinence but is not new or different. She has had prior bowel surgery for what sounds like adhesions. She is also had prior cholecystectomy. But she is still having normal bowel movements now. Patient then states if this could be tuberculosis. She evidently has recently heard the word tuberculosis and thought may be tuberculosis has been causing her lifelong abdominal pain. [facility] Medical History Asthma Mcclellan's esophagus Bipolar 1 disorder Chest pain COPD (chronic obstructive pulmonary disease) Depression Dermatitis of perianal region Diabetes Excoriation of buttock Fecal incontinence GERD (gastroesophageal reflux disease) Hiatal hernia HTN (hypertension) IBS (irritable bowel syndrome) Iron deficiency anemia due to chronic blood loss Irritable bowel syndrome with diarrhea Migraines Neuropathy Non-smoker Osteoarthritis Overactive bladder Rectal prolapse Sleep apnea Home Medications albuterol sulfate 90 mcg/actuation aerosol inhaler (Ventolin HFA) 1 - 2 puff inhalation Q4H PRN PRN Shortness Of Breath 12/06/16 [History Last Taken Unknown] carbamazepine 200 mg tablet 200 mg PO BID depression 12/06/16 [History Last Taken 07/16/22] glimepiride 1 mg tablet 2 mg PO DAILY diabetes 12/06/16 [History Last Taken 07/16/22] hydrochlorothiazide 25 mg tablet 25 mg PO DAILY diuretic 12/06/16 [History Last Taken 07/16/22] omeprazole 40 mg capsule,delayed release 40 mg PO BID GERD 12/06/16 [History Last Taken 07/16/22] quetiapine 400 mg tablet (Seroquel) 400 mg PO QHS bipolar 12/06/16 [History Last Taken Unknown] solifenacin 10 mg tablet (Vesicare) 10 mg PO QHS skin care 12/06/16 [History Last Taken 07/15/22] amlodipine 10 mg tablet 10 mg PO DAILY blood pressure 07/09/17 [History Last Taken 07/16/22] fluticasone propionate 50 mcg/actuation nasal spray,suspension 2 spray NASAL DAILY PRN allergies 08/02/19 [History Last Taken Unknown] potassium chloride 10 mEq tablet,extended release(part/cryst) 30 meq PO BID supplement 08/02/19 [History Last Taken 07/16/22] cholecalciferol (vitamin D3) 125 mcg (5,000 unit) tablet (Vitamin D3) 125 mcg PO DAILY supplement 04/19/22 [History Last Taken 07/16/22] montelukast 10 mg tablet 10 mg PO DAILY allergies 04/19/22 [History Last Taken 07/16/22] dicyclomine 20 mg tablet 20 mg PO BID PRN abdominal cramping #10 tabs 07/14/22 [Rx Last Taken Unknown] cariprazine 4.5 mg capsule (Vraylar) 4.5 mg PO DAILY mood 07/16/22 [History Last Taken 07/16/22] nystatin 100,000 unit/gram topical ointment 1 applic topical BID skin care 07/16/22 [History Last Taken 07/16/22] diphenoxylate-atropine 2.5 mg-0.025 mg tablet (Lomotil) 1 tab PO TID PRN diarrhea #10 tabs 07/22/22 [Rx Last Taken Unknown] fexofenadine 180 mg tablet 180 mg PO DAILY 08/17/22 [History Last Taken Unknown] chlorhexidine gluconate 0.12 % mouthwash 15 ml buccal DAILY 09/05/22 [History Last Taken Unknown] melatonin 5 mg capsule 5 mg PO QHS 09/05/22 [History Last Taken Unknown] promethazine 12.5 mg tablet 12.5 mg PO Q8H PRN antihistimanie 09/05/22 [History Last Taken Unknown] clindamycin HCl 300 mg capsule 300 mg PO Q8H #10 caps 11/16/22 [Rx Last Taken Unknown] metronidazole 1 % topical gel 1 applic topical BID #60 grams 11/16/22 [Rx Last Taken Unknown] metronidazole 500 mg tablet 500 mg PO Q8H #30 tabs 11/16/22 [Rx Last Taken Unknown] nystatin 100,000 unit/gram topical cream 1 applic topical TID #30 grams 11/16/22 [Rx Last Taken Unknown] hydrocortisone acetate 10 % (80 mg) rectal foam 1 appful [place] BID #15 grams 12/04/22 [Rx Last Taken Unknown] dibucaine 1 % rectal ointment 1 applic OR TID PRN rectal discomfort #56 grams 12/10/22 [Rx Last Taken Unknown] oxycodone-acetaminophen 5 mg-325 mg tablet (Percocet) 1 tab PO Q6H PRN pain 3 days #12 tabs 12/10/22 [Rx Last Taken Unknown] clindamycin HCl 300 mg capsule (Cleocin HCl) 300 mg PO Q6H #40 CAPSULES 12/15/22 [Rx Last Taken Unknown] nystatin-triamcinolone 100,000 unit/g-0.1 % topical cream 1 applic topical BID #30 grams 12/15/22 [Rx Last Taken Unknown] oxycodone-acetaminophen 5 mg-325 mg tablet (Percocet) 1 tab PO Q8H PRN pain 3 days #10 tabs 12/15/22 [Rx Last Taken Unknown] Allergy/AdvReac Type Severity Reaction Status Date / Time latex Allergy Rash Verified 12/25/22 15:23 lithium [[place]] Allergy Anaphylaxis Verified 12/25/22 15:23 acetaminophen AdvReac Vomiting Verified 12/25/22 15:23 [From Tylenol-Codeine] aspirin AdvReac Vomiting Verified 12/25/22 15:23 citalopram [From Celexa] AdvReac makes me Verified 12/25/22 15:23 cry a lot citalopram hydrobromide AdvReac Other Verified 12/25/22 15:23 [From Celexa] codeine AdvReac Vomiting Verified 12/25/22 15:23 divalproex sodium AdvReac Vomiting Verified 12/25/22 15:23 [From Depakote] ibuprofen AdvReac Nausea Verified 12/25/22 15:23 nortriptyline AdvReac Other Verified 12/25/22 15:23 trazodone AdvReac Other Verified 12/25/22 15:23 Family History Mother Diabetes Father Diabetes Surgical History History of carpal tunnel release History of rectopexy Hx of cholecystectomy Hx of tonsillectomy Social History household members: none Smoking Status: Former smoker alcohol intake: former substance use type: does not use ROS ROS ED ROS Narrative Also see history of present illness. Most of her positive answers on review of systems are chronic and almost lifelong unless specifically stated. Constitutional Constitutional ED: Denies chills or fever(s) ENT ENT ED: Denies sore throat Cardiovascular Cardiovascular: Denies chest pain, palpitations or racing heartbeat Respiratory/Chest Respiratory/Chest: Denies cough Gastrointestinal Gastrointestinal: Reports abdominal pain, constipation and diarrhea; Denies melena, nausea or vomiting Genitourinary Genitourinary ED: Denies dysuria or hematuria Musculoskeletal Musculoskeletal: Denies myalgias Integumentary Denies rash Neurologic Neurologic: Denies headache(s) Psychiatric Psychiatric: Reports anxiety Endocrine Endocrinology: Denies polydipsia or polyuria Hematologic/Lymphatic Hematologic/Lymphatic: Denies easy bleeding or easy bruising Allergic/Immunologic Allergic/Immunologic ED: Denies urticaria EXAM Physical Exam Narrative Exam Narrative: Patient awake alert no acute distress. She is talking on the phone when I walk in the room. She looks comfortable. Carries on a normal conversation. HEENT shows no pallor. No rashes. No tenderness. Mucous membranes moist. Voice and speech are normal. Eyes show no jaundice or pallor Neck is free range of motion without JVD Lungs are clear bilaterally. No pain with a deep breath. Heart is regular. I get a heart rate of about 90-95. Not tachycardic now. I do not hear murmur. Abdomen is soft with normal bowel sounds. I do not get any tenderness. However, while I am in there she will point to different areas where the abdomen hurts and then it rapidly moves to different areas of the abdomen. There is no consistency. She states she feels sometimes like there is something in her kicking her and it moves around. However, the exam itself is benign. I also do not feel any hernia. No CVA tenderness. Extremities show some mild enlargement but no significant edema. Pulses are normal. Skin shows no pallor or jaundice. No rashes. Const Vital Signs: 12/25/22 15:23 12/25/22 17:38 Temperature 98.8 F Temperature Source Temporal Pulse Rate 111 H 96 Respiratory Rate 16 16 Blood Pressure 155/85 H 137/74 H Blood Pressure Mean 108 95 Pulse Ox 98 99 Oxygen Delivery Method Room Air Room Air MDM MDM MDM Narrative Medical decision making narrative: Patient's CBC shows normal platelets hemoglobin white count. Electrolytes are unremarkable. Glucose is minimally up at 123. Liver function test showed mild elevation alk phos at 118 which is not new or significant. Urine shows 0-5 white cells but it is clear and no nitrites. Patient's been stable here. She just ate food that we provided her. There is no difficulty with this. She denies bleeding. I think she is appropriate to follow-up. Her repeat exam still shows no tenderness. She reports to me that she has a lifelong abdominal pain and cramping. I explained that if we were to likely not be able to cure and give her a firm diagnosis out of the emergency department for her extensive and consistent pain. This really needs to be managed as an outpatient. Certainly if it changes in character or quantity or is associated with heavy bleeding, vomiting fevers or other concerns we may need to readdress that. Lab Data Attestation: I reviewed the patient's lab results. Labs: Laboratory Results - last 24 hr 12/25/22 12/25/22 12/25/22 17:15 17:25 17:25 WBC 8.9 RBC 4.82 Hgb 12.1 Hct 38.0 MCV 78.8 L MCH 25.1 L MCHC 31.8 L RDW Std Deviation 39.9 RDW Coeff of [place] 13.9 Plt Count 298 MPV 10.5 Immature Gran % (Auto) 0.700 Neut % (Auto) 56.9 Lymph % (Auto) 31.2 [place] % (Auto) 8.8 Eos % (Auto) 1.7 Baso % (Auto) 0.7 Absolute Neuts (auto) 5.1 Absolute Lymphs (auto) 2.78 Nucleated RBC % 0 Sodium 137 Potassium 4.0 Chloride 102 Carbon Dioxide 27.0 Anion Gap 8 BUN 16 Creatinine 0.70 Estim Creat Clear Calc 69.29 Est GFR (MDRD) Af Amer 110 Est GFR (MDRD) Non-Af 91 BUN/Creatinine Ratio 22.8 H Glucose 123 H Calcium 9.1 Total Bilirubin 0.30 AST 22 ALT 27 Alkaline Phosphatase 118 H Total Protein 7.9 Albumin 3.4 Globulin 4.5 H Albumin/Globulin Ratio 0.8 L Lipase 123 Urine Color Yellow Urine Clarity Clear Urine pH 5.0 Ur Specific [place] 1.025 Urine Protein Negative Urine Glucose (UA) Normal Urine Ketones Negative Urine Occult Blood 50 H Urine Nitrite Negative Urine Bilirubin Negative Urine Urobilinogen Normal Ur Leukocyte Esterase 100 H Urine RBC 0 SEEN Urine WBC 5-10 SEEN Ur Squamous Epith Cells 0-5 SEEN Urine Bacteria 0 SEEN Urine Mucus 0 SEEN EKG Initial EKG: Comments: My independent interpretation of an EKG done for nonspecific abdominal pain shows a sinus rhythm with borderline tachycardic rate at 101. No ventricular ectopy. No acute ST elevation. OR interval, QRS duration and QTc are all normal. Discharge Plan Triage Chief Complaint: Abd Pain ED Provider: Tristen Cochran Dx/Rx/DC Orders Clinical Impression: Abdominal pain, Irritable bowel syndrome Prescriptions: No Action melatonin 5 mg capsule 5 mg PO QHS promethazine 12.5 mg tablet 12.5 mg PO Q8H PRN (Reason: antihistimanie) chlorhexidine gluconate 0.12 % mouthwash 15 ml buccal DAILY metronidazole 500 mg tablet 500 mg PO Q8H Qty: 30 1RF clindamycin HCl 300 mg capsule 300 mg PO Q8H Qty: 10 0RF metronidazole 1 % gel 1 applic topical BID Qty: 60 2RF nystatin 100,000 unit/gram cream 1 applic topical TID Qty: 30 2RF glimepiride 1 MG tablet 2 mg PO DAILY carbamazepine 200 MG tablet 200 mg PO BID hydrochlorothiazide 25 MG tablet 25 mg PO DAILY solifenacin [Vesicare] 10 MG tablet 10 mg PO QHS quetiapine [Seroquel] 400 MG tablet 400 mg PO QHS omeprazole 40 MG capsule,delayed release(DR/EC) 40 mg PO BID albuterol sulfate [Ventolin HFA] 1 INHALER inhaler 1 - 2 puff inhalation Q4H PRN PRN (Reason: Shortness Of Breath) amlodipine 10 MG tablet 10 mg PO DAILY fluticasone propionate 1 SPRAY spray,suspension 2 spray NASAL DAILY PRN (Reason: allergies) potassium chloride 10 MEQ tablet,ER particles/crystals 30 meq PO BID montelukast 10 mg Tablet 10 mg PO DAILY cholecalciferol (vitamin D3) [Vitamin D3] 125 mcg (5,000 unit) Tablet 125 mcg PO DAILY dicyclomine 20 mg tablet 20 mg PO BID PRN (Reason: abdominal cramping) Qty: 10 0RF nystatin 100,000 unit/gram ointment 1 applic topical BID Vraylar 4.5 mg capsule 4.5 mg PO DAILY diphenoxylate-atropine [Lomotil] 2.5-0.025 mg tablet 1 tab PO TID PRN (Reason: diarrhea) Qty: 10 0RF fexofenadine 180 mg Tablet 180 mg PO DAILY dibucaine 1 % ointment 1 applic OR TID PRN (Reason: rectal discomfort) Qty: 56 0RF oxycodone-acetaminophen [Percocet] 5-325 mg tablet 1 tab PO Q6H PRN (Reason: pain) 3 Days Qty: 12 0RF oxycodone-acetaminophen [Percocet] 5-325 mg tablet 1 tab PO Q8H PRN (Reason: pain) 3 Days Qty: 10 0RF clindamycin HCl [Cleocin HCl] 300 mg capsule 300 mg PO Q6H Qty: 40 0RF nystatin-triamcinolone 100,000-0.1 unit/g-% cream 1 applic topical BID Qty: 30 0RF hydrocortisone acetate 10 % (80 mg) foam 1 appful OR BID Qty: 15 3RF Primary Care Provider: Nick Giraldo Referrals: Nick Giraldo DO [Primary Care Provider] - Holden Valadez DO [Med Staff - Active Staff] - As soon as possible Disposition Disposition: Home, Self Care
[2022-12-25 17:35] LABS: Bacteria 0 SEEN /hpf (None Seen); Mucous, Urine 0 SEEN /hpf (<or=2+); Red Blood Cells-Urine 0 SEEN /hpf (0-5)
[2022-12-25 17:38] VITALS: BP 137/74; PULSE 96; RESP 16; O2SAT 99
[2022-12-25 17:40] LABS: Absolute Lymphocyte Count 2.78 X10^3/uL (0.83-4.51); Absolute Neutrophil Count 5.1 X10^3/uL (2.0-7.7); Basophil# 0.06 X10^3/uL; Basophil% 0.7 % (0-1); Eosinophil# 0.15 X10^3/uL; Eosinophils% 1.7 % (0-5); Hemoglobin 12.1 g/dL (12.0-15.0); Lymphocyte # 2.78 X10^3/ul (0.83-4.51); Lymphocyte % 31.2 % (19-41); Mean Corp Hgb Conc 31.8 g/dL (32-36); Mean Corpuscular Hgb 25.1 pg (27.0-32.0); Mean Corpuscular Volume 78.8 fL (81-99); Mean Platelet Vol. 10.5 fl (6.2-12.0); Monocyte# 0.78 X10^3/uL; Monocyte% 8.8 % (0-10); NRBC Flagged by Analyzer 0 % (0-5); Neutrophil # 5.07 X10^3/uL (2.7-7.7); Neutrophil % 56.9 % (47-70); Platelet Count 298 K/mm3 (150-450); RBC Distribution Width CV 13.9 % (11.6-14.6); RBC Distribution Width SD 39.9 fl (35.1-43.9); Red Blood Count 4.82 M/mm3 (4.2-5.4); White Blood Count 8.9 K/mm3 (4.4-11.0)
[2022-12-25 17:45] LABS: Color, Urine Yellow (Yellow); Glucose, Dipstick Normal (Normal); Ketone-Dipstick Negative (Negative); Leukocyte Esterase-Dipstick 100 /ul (Negative); Nitrite-Dipstick Negative (Negative); Occult Blood-Urine 50 /ul (Negative); Protein-Dipstick Negative (Negative); Specific Gravity, Urine 1.025 (1.002-1.030); Urine Bilirubin Dipstick Negative (Negative); Urine Clarity Clear (Clear); Urine Urobilinogen Normal (Normal)
[2022-12-25 17:57] LABS: Squamous Epithelial Cells - UA 0-5 SEEN /hpf (5-10); White Blood Cells 5-10 SEEN /hpf (0-5)
[2022-12-25 18:05] LABS: ALB/GLOB Ratio 0.8 RATIO (0.9-2.4); AST(SGOT) 22 U/L (15-37); Alanine Aminotransfer ALT/SGPT 27 U/L (13-56); Albumin, Serum 3.4 g/dL (3.2-5.0); Alkaline Phosphatase 118 U/L (45-117); Anion Gap 8 (5-15); BUN 16 mg/dL (7-18); BUN/Creat Ratio 22.8 RATIO (10-20); Calcium,Total 9.1 mg/dL (8.5-10.1); Chloride 102 mmol/L (98-107); EST Glomerular Filtration Rate 91 mL/min (>60); Est Glom Filt Rate - Afr Amer 110 mL/min (>60); Estimated Creatinine Clearance 69.29 ml/min; Globulin 4.5 g/dL (2.2-4.2); Glucose 123 mg/dL (74-106); Lipase 123 U/L (73-393); Protein, Total 7.9 g/dL (6.4-8.2); Sodium Level 137 mmol/L (136-145)
[2022-12-25 20:32] VITALS: BP 170/99; PULSE 95; RESP 20; TEMP 37.1; O2SAT 95
[2022-12-25] MEDS: Dicyclomine 10 MG Capsule 20 MG PO (20:39)
== END 2022-12-25 20:42 | disposition home or self-care (01) ==
PROVIDERS: Emergency Provider Emergency Medicine; PCP Student in an Organized Health Care Education/Training Program; Visit Provider Emergency Medicine
DX: K58.0 Irritable bowel syndrome with diarrhea (principal); J44.9 Chronic obstructive pulmonary disease, unspecified; E11.40 Type 2 diabetes mellitus with diabetic neuropathy, unspecified; I10 Essential (primary) hypertension; Z90.49 Acquired absence of other specified parts of digestive tract; Z79.84 Long term (current) use of oral hypoglycemic drugs; Z79.899 Other long term (current) drug therapy; Z87.891 Personal history of nicotine dependence
CPT/HCPCS: 80053; 81001; 83690; 85025; 93005; 99283; A4216

== ENCOUNTER 2023-01-03 14:04 | Emergency (ER) | payer MEDICARE, MEDICAID, SELFPAY ==
[2023-01-03 14:04] VITALS: BP 138/90; PULSE 110; RESP 16; TEMP 36.9; O2SAT 96; BMI 46.4
--- NOTE | 2023-01-03 14:42 | EX.ED.DYSGE1 ---
HPI History of Present Illness Chief Complaint: Other, Pain/Inj Informant: patient Onset/Context/Timing Onset: Month(s) (6) Narrative Narrative: Patient states she has sores/wounds in her perianal area that have been there for 6 months related to chronically intermittent diarrhea, and the pain is excruciating so she presents here to the ED for evaluation. When asked how long the pain has been worse, she states 6 months. She denies any new symptoms. She does also states she is having pain in bilateral lower ribs, and that has been there for 6 months as well, worse when she moves or coughs or sneezes. She has been seen here multiple times for abdominal pain in the last couple weeks but she does not mention any abdominal symptoms today. She states she has seen GI Dr. Valadez for her irritable bowel syndrome as well as her rectal wounds, and also has seen wound care for this in the past. She has been on clindamycin for the past week or so, it is a 10-day course that she is not finished with yet. She states it has not made the diarrhea measurably worse. She has also been on nystatin cream, she has been using barrier creams initially Desitin but then switched to pinksalv, and also has a local anesthetic ointment with her. [facility] Medical History Asthma Mcclellan's esophagus Bipolar 1 disorder Chest pain COPD (chronic obstructive pulmonary disease) Depression Dermatitis of perianal region Diabetes Excoriation of buttock Fecal incontinence GERD (gastroesophageal reflux disease) Hiatal hernia HTN (hypertension) IBS (irritable bowel syndrome) Iron deficiency anemia due to chronic blood loss Irritable bowel syndrome with diarrhea Migraines Neuropathy Non-smoker Osteoarthritis Overactive bladder Rectal prolapse Sleep apnea Home Medications albuterol sulfate 90 mcg/actuation aerosol inhaler (Ventolin HFA) 1 - 2 puff inhalation Q4H PRN PRN Shortness Of Breath 12/06/16 [History Last Taken Unknown] carbamazepine 200 mg tablet 200 mg PO BID depression 12/06/16 [History Last Taken 07/16/22] glimepiride 1 mg tablet 2 mg PO DAILY diabetes 12/06/16 [History Last Taken 07/16/22] hydrochlorothiazide 25 mg tablet 25 mg PO DAILY diuretic 12/06/16 [History Last Taken 07/16/22] omeprazole 40 mg capsule,delayed release 40 mg PO BID GERD 12/06/16 [History Last Taken 07/16/22] quetiapine 400 mg tablet (Seroquel) 400 mg PO QHS bipolar 12/06/16 [History Last Taken Unknown] solifenacin 10 mg tablet (Vesicare) 10 mg PO QHS skin care 12/06/16 [History Last Taken 07/15/22] amlodipine 10 mg tablet 10 mg PO DAILY blood pressure 07/09/17 [History Last Taken 07/16/22] fluticasone propionate 50 mcg/actuation nasal spray,suspension 2 spray NASAL DAILY PRN allergies 08/02/19 [History Last Taken Unknown] potassium chloride 10 mEq tablet,extended release(part/cryst) 30 meq PO BID supplement 08/02/19 [History Last Taken 07/16/22] cholecalciferol (vitamin D3) 125 mcg (5,000 unit) tablet (Vitamin D3) 125 mcg PO DAILY supplement 04/19/22 [History Last Taken 07/16/22] montelukast 10 mg tablet 10 mg PO DAILY allergies 04/19/22 [History Last Taken 07/16/22] dicyclomine 20 mg tablet 20 mg PO BID PRN abdominal cramping #10 tabs 07/14/22 [Rx Last Taken Unknown] cariprazine 4.5 mg capsule (Vraylar) 4.5 mg PO DAILY mood 07/16/22 [History Last Taken 07/16/22] nystatin 100,000 unit/gram topical ointment 1 applic topical BID skin care 07/16/22 [History Last Taken 07/16/22] diphenoxylate-atropine 2.5 mg-0.025 mg tablet (Lomotil) 1 tab PO TID PRN diarrhea #10 tabs 07/22/22 [Rx Last Taken Unknown] fexofenadine 180 mg tablet 180 mg PO DAILY 08/17/22 [History Last Taken Unknown] chlorhexidine gluconate 0.12 % mouthwash 15 ml buccal DAILY 09/05/22 [History Last Taken Unknown] melatonin 5 mg capsule 5 mg PO QHS 09/05/22 [History Last Taken Unknown] promethazine 12.5 mg tablet 12.5 mg PO Q8H PRN antihistimanie 09/05/22 [History Last Taken Unknown] clindamycin HCl 300 mg capsule 300 mg PO Q8H #10 caps 11/16/22 [Rx Last Taken Unknown] metronidazole 1 % topical gel 1 applic topical BID #60 grams 11/16/22 [Rx Last Taken Unknown] metronidazole 500 mg tablet 500 mg PO Q8H #30 tabs 11/16/22 [Rx Last Taken Unknown] nystatin 100,000 unit/gram topical cream 1 applic topical TID #30 grams 11/16/22 [Rx Last Taken Unknown] hydrocortisone acetate 10 % (80 mg) rectal foam 1 appful [place] BID #15 grams 12/04/22 [Rx Last Taken Unknown] dibucaine 1 % rectal ointment 1 applic [place] TID PRN rectal discomfort #56 grams 12/10/22 [Rx Last Taken Unknown] oxycodone-acetaminophen 5 mg-325 mg tablet (Percocet) 1 tab PO Q6H PRN pain 3 days #12 tabs 12/10/22 [Rx Last Taken Unknown] clindamycin HCl 300 mg capsule (Cleocin HCl) 300 mg PO Q6H #40 CAPSULES 12/15/22 [Rx Last Taken Unknown] nystatin-triamcinolone 100,000 unit/g-0.1 % topical cream 1 applic topical BID #30 grams 12/15/22 [Rx Last Taken Unknown] oxycodone-acetaminophen 5 mg-325 mg tablet (Percocet) 1 tab PO Q8H PRN pain 3 days #10 tabs 12/15/22 [Rx Last Taken Unknown] Allergy/AdvReac Type Severity Reaction Status Date / Time latex Allergy Rash Verified 01/03/23 14:08 lithium [[place]] Allergy Anaphylaxis Verified 01/03/23 14:08 acetaminophen AdvReac Vomiting Verified 01/03/23 14:08 [From Tylenol-Codeine] aspirin AdvReac Vomiting Verified 01/03/23 14:08 citalopram [From Celexa] AdvReac makes me Verified 01/03/23 14:08 cry a lot citalopram hydrobromide AdvReac Other Verified 01/03/23 14:08 [From Celexa] codeine AdvReac Vomiting Verified 01/03/23 14:08 divalproex sodium AdvReac Vomiting Verified 01/03/23 14:08 [From Depakote] ibuprofen AdvReac Nausea Verified 01/03/23 14:08 nortriptyline AdvReac Other Verified 01/03/23 14:08 trazodone AdvReac Other Verified 01/03/23 14:08 Family History Mother Diabetes Father Diabetes Surgical History History of carpal tunnel release History of rectopexy Hx of cholecystectomy Hx of tonsillectomy Social History household members: none Smoking Status: Former smoker alcohol intake: former substance use type: does not use ROS ROS ED Constitutional Constitutional ED: Denies chills or fever(s) Respiratory/Chest Respiratory/Chest: Reports other Details: Rib pain see HPI ; Denies dyspnea Gastrointestinal Gastrointestinal: Reports as per HPI and diarrhea; Denies hematochezia or melena Musculoskeletal Musculoskeletal: Denies back pain or neck pain Integumentary Reports rash Neurologic Neurologic: Denies headache(s), paresthesias or weakness EXAM Physical Exam Const Vital Signs: 01/03/23 14:04 Temperature 98.4 F Temperature Source Oral Pulse Rate 110 H Respiratory Rate 16 Blood Pressure 138/90 H Blood Pressure Mean 106 Pulse Ox 96 Oxygen Delivery Method Room Air Positive well nourished and well developed Constitutional Narrative: Morbidly obese. Sitting in chair in no acute distress, anxious, conversive. General Appearance ED: well developed and NAD Neck supple Neck Narrative: F ROM Neuro oriented x3, CN's II-XII intact bilaterally, no focal motor deficits, no sensory deficits noted and gait normal Psych Psych Narrative: Thought processes normal Mood & Affect: anxious Skin Skin Narrative: Tender erythematous excoriations without active bleeding or drainage or any purulence perianal, medial buttocks. No other abnormal exam at the anus itself, such as hemorrhoids or bleeding or abscess that is palpable although this exam is limited due to the large area of excoriations/rash. MDM MDM MDM Narrative Medical decision making narrative: Patient states she has seen wound care once for this. She is using hospital sanitizing wipes which we advised her to discontinue immediately. She is doing sitz bath's when she can but she states she cannot sit in her tub because it hurts to sit, so she has an aide that is coming to help her do sitz baths while she is on the toilet, she needs someone to hold the bag up. She is applying a topical anesthetic in addition to topical nystatin, Calmoseptine, and a barrier ointment/cream to this area. She has seen wound care 1 time. I do not know that I have anything else to offer her. There is no signs of any necrotic tissue or subcutaneous emphysema. She is NOT interested in a diverting colostomy. We discussed that. She is already on an oral antibiotic to take bacterial superinfection out of the equation. She is to continue that. Discharge Plan Triage Chief Complaint: Other, Pain/Inj ED Provider: Uday Garcia Dx/Rx/DC Orders Clinical Impression: Excoriation of buttock Instructions: ED Erythema Prescriptions: No Action melatonin 5 mg capsule 5 mg PO QHS promethazine 12.5 mg tablet 12.5 mg PO Q8H PRN (Reason: antihistimanie) chlorhexidine gluconate 0.12 % mouthwash 15 ml buccal DAILY metronidazole 500 mg tablet 500 mg PO Q8H Qty: 30 1RF clindamycin HCl 300 mg capsule 300 mg PO Q8H Qty: 10 0RF metronidazole 1 % gel 1 applic topical BID Qty: 60 2RF nystatin 100,000 unit/gram cream 1 applic topical TID Qty: 30 2RF glimepiride 1 MG tablet 2 mg PO DAILY carbamazepine 200 MG tablet 200 mg PO BID hydrochlorothiazide 25 MG tablet 25 mg PO DAILY solifenacin [Vesicare] 10 MG tablet 10 mg PO QHS quetiapine [Seroquel] 400 MG tablet 400 mg PO QHS omeprazole 40 MG capsule,delayed release(DR/EC) 40 mg PO BID albuterol sulfate [Ventolin HFA] 1 INHALER inhaler 1 - 2 puff inhalation Q4H PRN PRN (Reason: Shortness Of Breath) amlodipine 10 MG tablet 10 mg PO DAILY fluticasone propionate 1 SPRAY spray,suspension 2 spray NASAL DAILY PRN (Reason: allergies) potassium chloride 10 MEQ tablet,ER particles/crystals 30 meq PO BID montelukast 10 mg Tablet 10 mg PO DAILY cholecalciferol (vitamin D3) [Vitamin D3] 125 mcg (5,000 unit) Tablet 125 mcg PO DAILY dicyclomine 20 mg tablet 20 mg PO BID PRN (Reason: abdominal cramping) Qty: 10 0RF nystatin 100,000 unit/gram ointment 1 applic topical BID Vraylar 4.5 mg capsule 4.5 mg PO DAILY diphenoxylate-atropine [Lomotil] 2.5-0.025 mg tablet 1 tab PO TID PRN (Reason: diarrhea) Qty: 10 0RF fexofenadine 180 mg Tablet 180 mg PO DAILY dibucaine 1 % ointment 1 applic [place] TID PRN (Reason: rectal discomfort) Qty: 56 0RF oxycodone-acetaminophen [Percocet] 5-325 mg tablet 1 tab PO Q6H PRN (Reason: pain) 3 Days Qty: 12 0RF oxycodone-acetaminophen [Percocet] 5-325 mg tablet 1 tab PO Q8H PRN (Reason: pain) 3 Days Qty: 10 0RF clindamycin HCl [Cleocin HCl] 300 mg capsule 300 mg PO Q6H Qty: 40 0RF nystatin-triamcinolone 100,000-0.1 unit/g-% cream 1 applic topical BID Qty: 30 0RF hydrocortisone acetate 10 % (80 mg) foam 1 appful [place] BID Qty: 15 3RF Primary Care Provider: Nick Giraldo Referrals: Wound Health [Outside] - As soon as possible Nick Giraldo DO [Primary Care Provider] - Disposition Disposition: Home, Self Care
[2023-01-03 15:24] VITALS: PULSE 87; RESP 19; O2SAT 99
== END 2023-01-03 15:38 | disposition home or self-care (01) ==
PROVIDERS: Emergency Provider Emergency Medicine; PCP Student in an Organized Health Care Education/Training Program; Visit Provider Emergency Medicine
DX: F42.4 Excoriation (skin-picking) disorder (principal); J44.9 Chronic obstructive pulmonary disease, unspecified; F31.9 Bipolar disorder, unspecified; K58.0 Irritable bowel syndrome with diarrhea; I10 Essential (primary) hypertension; Z87.891 Personal history of nicotine dependence
CPT/HCPCS: 99284

== ENCOUNTER 2023-01-10 12:43 | Emergency (ER) | payer MEDICARE, MEDICAID, SELFPAY ==
[2023-01-10 12:44] VITALS: BP 158/77; PULSE 87; RESP 16; TEMP 36.3; O2SAT 95; BMI 46.4
--- NOTE | 2023-01-10 15:10 | EX.ED.DYSGE1 ---
HPI History of Present Illness Chief Complaint: Other, Pain/Inj Informant: patient and EMS Narrative Narrative: Patient presents via EMS for rectal bleeding that she saw on a small piece of toilet paper when she wiped herself after having a bowel movement. Patient has had a tender painful excoriating rash in her perianal area for over 6 months. She has been seen here multiple times for this and she is following with wound care, and has a follow-up appointment with them in less than 1 week. She has been on multiple creams and ointments including local anesthetic ointment, antifungal, barrier creams, as well as oral antibiotics and she is currently still on all of that. She does have diarrhea. She was using wipes that had chemicals from the hospital and then the reuse for sanitizing, she is no longer using those, and she has no systemic symptoms at this time or other new issues. [facility] Medical History Asthma Mcclellan's esophagus Bipolar 1 disorder Chest pain COPD (chronic obstructive pulmonary disease) Depression Dermatitis of perianal region Diabetes Excoriation of buttock Fecal incontinence GERD (gastroesophageal reflux disease) Hiatal hernia HTN (hypertension) IBS (irritable bowel syndrome) Iron deficiency anemia due to chronic blood loss Irritable bowel syndrome with diarrhea Migraines Neuropathy Non-smoker Osteoarthritis Overactive bladder Rectal prolapse Sleep apnea Home Medications albuterol sulfate 90 mcg/actuation aerosol inhaler (Ventolin HFA) 1 - 2 puff inhalation Q4H PRN PRN Shortness Of Breath 12/06/16 [History Last Taken Unknown] carbamazepine 200 mg tablet 200 mg PO BID depression 12/06/16 [History Last Taken 07/16/22] glimepiride 1 mg tablet 2 mg PO DAILY diabetes 12/06/16 [History Last Taken 07/16/22] hydrochlorothiazide 25 mg tablet 25 mg PO DAILY diuretic 12/06/16 [History Last Taken 07/16/22] omeprazole 40 mg capsule,delayed release 40 mg PO BID GERD 12/06/16 [History Last Taken 07/16/22] quetiapine 400 mg tablet (Seroquel) 400 mg PO QHS bipolar 12/06/16 [History Last Taken Unknown] solifenacin 10 mg tablet (Vesicare) 10 mg PO QHS skin care 12/06/16 [History Last Taken 07/15/22] amlodipine 10 mg tablet 10 mg PO DAILY blood pressure 07/09/17 [History Last Taken 07/16/22] fluticasone propionate 50 mcg/actuation nasal spray,suspension 2 spray NASAL DAILY PRN allergies 08/02/19 [History Last Taken Unknown] potassium chloride 10 mEq tablet,extended release(part/cryst) 30 meq PO BID supplement 08/02/19 [History Last Taken 07/16/22] cholecalciferol (vitamin D3) 125 mcg (5,000 unit) tablet (Vitamin D3) 125 mcg PO DAILY supplement 04/19/22 [History Last Taken 07/16/22] montelukast 10 mg tablet 10 mg PO DAILY allergies 04/19/22 [History Last Taken 07/16/22] dicyclomine 20 mg tablet 20 mg PO BID PRN abdominal cramping #10 tabs 07/14/22 [Rx Last Taken Unknown] cariprazine 4.5 mg capsule (Vraylar) 4.5 mg PO DAILY mood 07/16/22 [History Last Taken 07/16/22] nystatin 100,000 unit/gram topical ointment 1 applic topical BID skin care 07/16/22 [History Last Taken 07/16/22] diphenoxylate-atropine 2.5 mg-0.025 mg tablet (Lomotil) 1 tab PO TID PRN diarrhea #10 tabs 07/22/22 [Rx Last Taken Unknown] fexofenadine 180 mg tablet 180 mg PO DAILY 08/17/22 [History Last Taken Unknown] chlorhexidine gluconate 0.12 % mouthwash 15 ml buccal DAILY 09/05/22 [History Last Taken Unknown] melatonin 5 mg capsule 5 mg PO QHS 09/05/22 [History Last Taken Unknown] promethazine 12.5 mg tablet 12.5 mg PO Q8H PRN antihistimanie 09/05/22 [History Last Taken Unknown] clindamycin HCl 300 mg capsule 300 mg PO Q8H #10 caps 11/16/22 [Rx Last Taken Unknown] metronidazole 1 % topical gel 1 applic topical BID #60 grams 11/16/22 [Rx Last Taken Unknown] metronidazole 500 mg tablet 500 mg PO Q8H #30 tabs 11/16/22 [Rx Last Taken Unknown] nystatin 100,000 unit/gram topical cream 1 applic topical TID #30 grams 11/16/22 [Rx Last Taken Unknown] hydrocortisone acetate 10 % (80 mg) rectal foam 1 appful KS BID #15 grams 12/04/22 [Rx Last Taken Unknown] dibucaine 1 % rectal ointment 1 applic KS TID PRN rectal discomfort #56 grams 12/10/22 [Rx Last Taken Unknown] oxycodone-acetaminophen 5 mg-325 mg tablet (Percocet) 1 tab PO Q6H PRN pain 3 days #12 tabs 12/10/22 [Rx Last Taken Unknown] clindamycin HCl 300 mg capsule (Cleocin HCl) 300 mg PO Q6H #40 CAPSULES 12/15/22 [Rx Last Taken Unknown] nystatin-triamcinolone 100,000 unit/g-0.1 % topical cream 1 applic topical BID #30 grams 12/15/22 [Rx Last Taken Unknown] oxycodone-acetaminophen 5 mg-325 mg tablet (Percocet) 1 tab PO Q8H PRN pain 3 days #10 tabs 12/15/22 [Rx Last Taken Unknown] Allergy/AdvReac Type Severity Reaction Status Date / Time latex Allergy Rash Verified 01/10/23 12:47 lithium [[place]] Allergy Anaphylaxis Verified 01/10/23 12:47 acetaminophen AdvReac Vomiting Verified 01/10/23 12:47 [From Tylenol-Codeine] aspirin AdvReac Vomiting Verified 01/10/23 12:47 citalopram [From Celexa] AdvReac makes me Verified 01/10/23 12:47 cry a lot citalopram hydrobromide AdvReac Other Verified 01/10/23 12:47 [From Celexa] codeine AdvReac Vomiting Verified 01/10/23 12:47 divalproex sodium AdvReac Vomiting Verified 01/10/23 12:47 [From Depakote] ibuprofen AdvReac Nausea Verified 01/10/23 12:47 nortriptyline AdvReac Other Verified 01/10/23 12:47 trazodone AdvReac Other Verified 01/10/23 12:47 Family History Mother Diabetes Father Diabetes Surgical History History of carpal tunnel release History of rectopexy Hx of cholecystectomy Hx of tonsillectomy Social History household members: none Smoking Status: Former smoker alcohol intake: former substance use type: does not use ROS ROS ED Constitutional Constitutional ED: Denies chills or fever(s) Gastrointestinal Gastrointestinal: Reports other Details: Rectal pain, mild rectal bleeding ; Denies abdominal pain or melena Genitourinary Genitourinary ED: Denies dysuria or hematuria Integumentary Reports rash Neurologic Neurologic: Denies headache(s), paresthesias or weakness EXAM Physical Exam Const Vital Signs: 01/10/23 12:44 Temperature 97.4 F L Temperature Source Temporal Pulse Rate 87 Respiratory Rate 16 Blood Pressure 158/77 H Blood Pressure Mean 104 Pulse Ox 95 Oxygen Delivery Method Room Air Positive well nourished, well developed and obese General Appearance ED: well developed Nutritional Appearance: obese HEENT Reports moist mucous membranes Eyes PERRL and EOMs intact bilaterally Neck supple Neck Narrative: F ROM Cardio regular rate and regular rhythm Rate: Negative for tachycardic GI normal to inspection, nondistended, normoactive bowel sounds and non-tender GI Narrative: On rectal exam, there are a couple of small external nonthrombosed hemorrhoids that are mildly tender, no active bleeding on STEPHANI as well. She has a perianal excoriated tender rash similar to prior exam possibly better, not worse. It is caked in diarrhea. Upon assisting nursing in wiping this off gently, there is small amounts of blood on it although the diarrhea appears light brown and nonbloody, the blood likely coming from the excoriated tender rash. Neuro oriented x3, CN's II-XII intact bilaterally, no sensory deficits noted and gait normal Skin skin turgor normal Skin Narrative: Perianal buttocks wound as above. MDM MDM MDM Narrative Medical decision making narrative: This patient's vital signs are normal, her wound is chronic and still present and not getting worse compared to the last exam, she saw me about a week ago here in the emergency department for the same problem. She is not having any active rectal bleeding, her last H&H were fine, this was less than 1 month ago, she had a very scant amount of bleeding at home, and I think it is coming from either the external hemorrhoid or the excoriated rash, see phys exam for my logic and reasoning there. I do not think she needs any other work-up and she is discharged home advised to continue following up. The majority of the patient's questions are when will this rash get better? And what else can I do to get a better quicker. She is referred to wound care. Discharge Plan Triage Chief Complaint: Other, Pain/Inj ED Provider: Uday Garcia Dx/Rx/DC Orders Clinical Impression: Excoriation of buttock, Anxiety, External hemorrhoids Instructions: ED Hemorrhoids Prescriptions: No Action melatonin 5 mg capsule 5 mg PO QHS promethazine 12.5 mg tablet 12.5 mg PO Q8H PRN (Reason: antihistimanie) chlorhexidine gluconate 0.12 % mouthwash 15 ml buccal DAILY metronidazole 500 mg tablet 500 mg PO Q8H Qty: 30 1RF clindamycin HCl 300 mg capsule 300 mg PO Q8H Qty: 10 0RF metronidazole 1 % gel 1 applic topical BID Qty: 60 2RF nystatin 100,000 unit/gram cream 1 applic topical TID Qty: 30 2RF glimepiride 1 MG tablet 2 mg PO DAILY carbamazepine 200 MG tablet 200 mg PO BID hydrochlorothiazide 25 MG tablet 25 mg PO DAILY solifenacin [Vesicare] 10 MG tablet 10 mg PO QHS quetiapine [Seroquel] 400 MG tablet 400 mg PO QHS omeprazole 40 MG capsule,delayed release(DR/EC) 40 mg PO BID albuterol sulfate [Ventolin HFA] 1 INHALER inhaler 1 - 2 puff inhalation Q4H PRN PRN (Reason: Shortness Of Breath) amlodipine 10 MG tablet 10 mg PO DAILY fluticasone propionate 1 SPRAY spray,suspension 2 spray NASAL DAILY PRN (Reason: allergies) potassium chloride 10 MEQ tablet,ER particles/crystals 30 meq PO BID montelukast 10 mg Tablet 10 mg PO DAILY cholecalciferol (vitamin D3) [Vitamin D3] 125 mcg (5,000 unit) Tablet 125 mcg PO DAILY dicyclomine 20 mg tablet 20 mg PO BID PRN (Reason: abdominal cramping) Qty: 10 0RF nystatin 100,000 unit/gram ointment 1 applic topical BID Vraylar 4.5 mg capsule 4.5 mg PO DAILY diphenoxylate-atropine [Lomotil] 2.5-0.025 mg tablet 1 tab PO TID PRN (Reason: diarrhea) Qty: 10 0RF fexofenadine 180 mg Tablet 180 mg PO DAILY dibucaine 1 % ointment 1 applic KS TID PRN (Reason: rectal discomfort) Qty: 56 0RF oxycodone-acetaminophen [Percocet] 5-325 mg tablet 1 tab PO Q6H PRN (Reason: pain) 3 Days Qty: 12 0RF oxycodone-acetaminophen [Percocet] 5-325 mg tablet 1 tab PO Q8H PRN (Reason: pain) 3 Days Qty: 10 0RF clindamycin HCl [Cleocin HCl] 300 mg capsule 300 mg PO Q6H Qty: 40 0RF nystatin-triamcinolone 100,000-0.1 unit/g-% cream 1 applic topical BID Qty: 30 0RF hydrocortisone acetate 10 % (80 mg) foam 1 appful KS BID Qty: 15 3RF Primary Care Provider: Nick Giraldo Referrals: Wound Health [Outside] - [facility] [place] appointment Nick Giraldo, DO [Primary Care Provider] - Disposition Disposition: Home, Self Care
== END 2023-01-10 15:29 | disposition home or self-care (01) ==
PROVIDERS: Emergency Provider Emergency Medicine; PCP Student in an Organized Health Care Education/Training Program; Visit Provider Emergency Medicine
DX: K64.4 Residual hemorrhoidal skin tags (principal); J44.9 Chronic obstructive pulmonary disease, unspecified; E11.40 Type 2 diabetes mellitus with diabetic neuropathy, unspecified; Z68.42 Body mass index [BMI] 45.0-49.9, adult; R21 Rash and other nonspecific skin eruption; I10 Essential (primary) hypertension; E66.9 Obesity, unspecified; Z79.84 Long term (current) use of oral hypoglycemic drugs; Z79.899 Other long term (current) drug therapy; Z87.891 Personal history of nicotine dependence
CPT/HCPCS: 99284

== ENCOUNTER 2023-01-14 13:45 | Outpatient (RCR) | payer MEDICARE, MEDICAID, SELFPAY ==
[2023-01-02 00:45] VITALS: BP 160/90; PULSE 105; TEMP 35.6; BMI 46.6
[2023-01-14 14:01] VITALS: BP 156/97; PULSE 104; RESP 18; TEMP 35.8; BMI 46.6
--- NOTE | 2023-01-14 14:54 | PCM.WC.PN ---
History of Present Illness Date of Service: 01/14/23 Chief Complaint: Sore bottom History of Wound: 57 year old female presents for evaluation of her excoriated buttocks. She was referred by MIKE Campos. She has multiple visits to the ED this month for abdominal pain and her sore bottom. She has issues with stool and urinary incontinence and wears depend underpants. She states that she has been cleaning her self with sensitive skin baby wipes and using Desitin cream with no improvement. She is not a good historian. Per her records she saw Dr. Blue in 2018 for rectal bleeding and diarrhea. Colonoscopy performed with him noting rectal prolapse, internal hemorrhoids (banded). Referred to [facility] anorectal disorder clinic. Anal manometry performed and underwent rectopexy 08.22.18; unsure if rectopexy assisted with symptoms. No follow up since this time. [facility] ED presentation 07.16.22 with abdominal pain, diarrhea, rash and GIB. She was admitted for care and gastroenterology consulted the next day. EGD and colonoscopy 07.18.22 finding oozing gastric ulcers. She has a history of , T2D, Sandoval's esophagus, HTN, hypothyroid, asthma, abdominal pain, IBS, Bipolar, anxiety. Today she denies fever, chills, nausea or vomiting. Progress of Wound: Intergluteal cleft continues to be excoriated, erythematous and painful. She states she is placing barrier cream on is. She continues to wear depends under garments. Objective Data Objective Data Vital Signs: Vital Signs Temp Pulse Resp BP O2 Del Method 96.4 F L 104 H 18 156/97 H Room Air 01/14/23 14:01 01/14/23 14:01 01/14/23 14:01 01/14/23 14:01 01/14/23 14:01 Oxygen Delivery Method Room Air Weight: 255 lb Body Mass Index (BMI) 46.6 Charges/Coding Visit Charges Office Visits / Consults: 28809 OV L3 Est Physical Exam Const alert, oriented x3 and well nourished HEENT normocephalic Eyes General Eye: normal appearance of both eyes Neck full ROM Lymph Lymphatic: no lymphedema noted Resp normal respiratory effort and normal air movement Effort and Inspection: able to speak in complete sentences Cardio regular rate Back/Spine normal ROM Extremity full ROM Skin Skin Narrative: Intergluteal cleft is pink, excoriated, moist and extremely painful. Neuro oriented x3 and moves all extremities Psych Psych Narrative: Anxious, very concerned that someone will touch her very painful bottom. Appearance: appropriate Attitude: guarded Debridement Note Debridement Note No debridement was completed: No debridement was completed today Post-Debridement Measurements and Additional Note: Post-Debridement Measurements/Treatment EDY - Nurse 1 - General Ulcer Assessment Start: 01/14/23 14:01 Freq: Status: Active Protocol: NAHOMY Activity Type Activity Date Activity User E-sign Co-sign Detail Recorded Client Recorded Date Recorded By Document 01/14/23 14:01 [facility] [id number] 01/14/23 14:08 [facility] 01/14/23 14:01 - Today's Visit Information Type of service Follow-up Visit (Physician/HADOOP ENGINEER ) Arrival Mode Ambulatory,Cane Transfer Assistance None Patient Identification Verified (Name & Yes ) Patient Requires Transmission-Based No Precautions Height and Weight Body Mass Index (BMI) 46.6 BMI Classification Obese Vital Signs Temperature (97.8 F-99.1 F) 96.4 F L Temperature Source Temporal Pulse Rate (60-100) 104 H Pulse Location Monitor Respiratory Rate (12-18) 18 Respiratory rate source Observation Oxygen Delivery Method Room Air Blood Pressure (90/60-120/80) 156/97 H Blood Pressure Mean (mm Hg) 116 Source Monitor Position Sitting History Since Last Visit- (Skip if this is Patient's initial visit) Have you changed medications since your No last visit? Any new allergies or adverse reactions No Had a fall/change in ADL's that may No increase risk of falls Signs or symptoms of abuse and/or No neglect since last visit Have you been in the hospital since your No last visit? Has dressing in place as prescribed Yes Has compression in place as prescribed N/A Has offloadiing in place as prescribed N/A Experienced any changes in pain level or No management Left Footwear Regular Shoe Right Footwear Regular Shoe Pain Scale: 0-10 Numeric Is Patient Pain Free? Yes - Nurse 2 - General Ulcer CM Notes Start: 01/14/23 14:01 Freq: Status: Active Protocol: Activity Type Activity Date Activity User E-sign Co-sign Detail Recorded Client Recorded Date Recorded By Document 01/14/23 14:48 [id number] 01/14/23 14:52 01/14/23 14:48 Is Patient Pain Free? Yes - Nurse 3 - General Ulcer D/C NN Start: 01/14/23 14:01 Freq: Status: Active Protocol: Activity Type Activity Date Activity User E-sign Co-sign Detail Recorded Client Recorded Date Recorded By Document 01/14/23 14:53 [id number] 01/14/23 14:53 01/14/23 14:53 Is Patient Pain Free? Yes WC - Visit Discharge Discharge Condition Stable Ambulatory Status Ambulatory,Cane Transportation Private Auto Medication Reconcilliation completed & Yes provided to patient/care provider Clinical Summary of Care Provided Yes Assessment/Plan Assessment/Plan (1) Excoriation of buttock: CODE(S): S30.810A - Abrasion of lower back and pelvis, initial encounter (2) Dermatitis of perianal region: CODE(S): L30.9 - Dermatitis, unspecified (3) Fecal incontinence: CODE(S): R15.9 - Full incontinence of feces (4) Type II diabetes mellitus: CODE(S): E11.9 - Type 2 diabetes mellitus without complications QUALIFIERS: Diabetes mellitus complication status: with neurologic complications Diabetes mellitus complication detail: with polyneuropathy Diabetes mellitus custodial insulin use: without custodial use Qualified Code(s): E11.42 - Type 2 diabetes mellitus with diabetic polyneuropathy (5) Pain: CODE(S): R52 - Pain, unspecified (6) Anxiety: CODE(S): F41.9 - Anxiety disorder, unspecified PLAN: Plan Patient evaluated at the wound healing center. The excoriation on her intergluteal cleft is extremely excoriated and painful most likely due to her stool incontinence, wearing depends and not keeping herself cleaned well. She states that she has been using a barrier cream. She has done a sitz bath 2 times since her last visit. Stressed keeping herself clean and trying to use sitz baths more frequently would be beneficial. Will start her no nystatin/triamcinolone ointment twice daily after washing well and patting dry her skin. She can place barrier cream on top of the nystatin/triamcinolone or use barrier between application of the medicated ointment. Follow up one week. Call or come in sooner if develop issues.
== END 2023-01-29 23:59 | disposition home or self-care (01) ==
LOC: WC 13:45
PROVIDERS: PCP Student in an Organized Health Care Education/Training Program; Visit Provider Nurse Practitioner Family
DX: S30.810A Abrasion of lower back and pelvis, initial encounter (principal); E11.9 Type 2 diabetes mellitus without complications; I10 Essential (primary) hypertension; X58.XXXA Exposure to other specified factors, initial encounter; J45.909 Unspecified asthma, uncomplicated; R15.9 Full incontinence of feces; R32 Unspecified urinary incontinence; L30.9 Dermatitis, unspecified
CPT/HCPCS: 99213; G0463

== ENCOUNTER 2023-01-22 15:14 | Emergency (ER) | payer MEDICARE, MEDICAID, SELFPAY ==
[2023-01-22 15:15] VITALS: BP 154/90; PULSE 91; RESP 16; TEMP 36.6; O2SAT 98
--- NOTE | 2023-01-22 16:21 | EX.ED.DYSGE1 ---
HPI History of Present Illness Chief Complaint: Other, Pain/Inj Informant: patient Onset/Context/Timing Onset: Month(s) Context: Gradual Onset Timing: Intermittent Quality: Sharp stabbing Location: Diffuse across the chest Worsened by: Lifting Relieved by: Nothing Narrative Narrative: Patient presents with chest pain that has been intermittent over the last 6 months. Patient states it comes on gradually and then resolves gradually. Patient describes it as stabbing. Patient states it is diffuse across her entire chest. Patient states it is worse with lifting heavy things. Patient states the pain radiates into her back. Patient states nothing makes it any better. Patient denies any fevers or chills. Patient denies any shortness of breath or diaphoresis. Patient denies any cough or fevers. Patient denies any nausea or vomiting. Patient also states she has been having some hemorrhoidal pain. Patient denies any bleeding. Patient states she was told she had a small hemorrhoid but she feels it is getting bigger. [facility] Medical History Asthma Mcclellan's esophagus Bipolar 1 disorder Chest pain COPD (chronic obstructive pulmonary disease) Depression Dermatitis of perianal region Diabetes Excoriation of buttock Fecal incontinence GERD (gastroesophageal reflux disease) Hiatal hernia HTN (hypertension) IBS (irritable bowel syndrome) Iron deficiency anemia due to chronic blood loss Irritable bowel syndrome with diarrhea Migraines Neuropathy Non-smoker Osteoarthritis Overactive bladder Rectal prolapse Sleep apnea Home Medications albuterol sulfate 90 mcg/actuation aerosol inhaler (Ventolin HFA) 1 - 2 puff inhalation Q4H PRN PRN Shortness Of Breath 12/06/16 [History Last Taken Unknown] carbamazepine 200 mg tablet 200 mg PO BID depression 12/06/16 [History Last Taken 07/16/22] glimepiride 1 mg tablet 2 mg PO DAILY diabetes 12/06/16 [History Last Taken 07/16/22] hydrochlorothiazide 25 mg tablet 25 mg PO DAILY diuretic 12/06/16 [History Last Taken 07/16/22] omeprazole 40 mg capsule,delayed release 40 mg PO BID GERD 12/06/16 [History Last Taken 07/16/22] quetiapine 400 mg tablet (Seroquel) 400 mg PO QHS bipolar 12/06/16 [History Last Taken Unknown] solifenacin 10 mg tablet (Vesicare) 10 mg PO QHS skin care 12/06/16 [History Last Taken 07/15/22] amlodipine 10 mg tablet 10 mg PO DAILY blood pressure 07/09/17 [History Last Taken 07/16/22] fluticasone propionate 50 mcg/actuation nasal spray,suspension 2 spray NASAL DAILY PRN allergies 08/02/19 [History Last Taken Unknown] potassium chloride 10 mEq tablet,extended release(part/cryst) 30 meq PO BID supplement 08/02/19 [History Last Taken 07/16/22] cholecalciferol (vitamin D3) 125 mcg (5,000 unit) tablet (Vitamin D3) 125 mcg PO DAILY supplement 04/19/22 [History Last Taken 07/16/22] montelukast 10 mg tablet 10 mg PO DAILY allergies 04/19/22 [History Last Taken 07/16/22] dicyclomine 20 mg tablet 20 mg PO BID PRN abdominal cramping #10 tabs 07/14/22 [Rx Last Taken Unknown] cariprazine 4.5 mg capsule (Vraylar) 4.5 mg PO DAILY mood 07/16/22 [History Last Taken 07/16/22] nystatin 100,000 unit/gram topical ointment 1 applic topical BID skin care 07/16/22 [History Last Taken 07/16/22] diphenoxylate-atropine 2.5 mg-0.025 mg tablet (Lomotil) 1 tab PO TID PRN diarrhea #10 tabs 07/22/22 [Rx Last Taken Unknown] fexofenadine 180 mg tablet 180 mg PO DAILY 08/17/22 [History Last Taken Unknown] chlorhexidine gluconate 0.12 % mouthwash 15 ml buccal DAILY 09/05/22 [History Last Taken Unknown] melatonin 5 mg capsule 5 mg PO QHS 09/05/22 [History Last Taken Unknown] promethazine 12.5 mg tablet 12.5 mg PO Q8H PRN antihistimanie 09/05/22 [History Last Taken Unknown] clindamycin HCl 300 mg capsule 300 mg PO Q8H #10 caps 11/16/22 [Rx Last Taken Unknown] metronidazole 1 % topical gel 1 applic topical BID #60 grams 11/16/22 [Rx Last Taken Unknown] metronidazole 500 mg tablet 500 mg PO Q8H #30 tabs 11/16/22 [Rx Last Taken Unknown] nystatin 100,000 unit/gram topical cream 1 applic topical TID #30 grams 11/16/22 [Rx Last Taken Unknown] hydrocortisone acetate 10 % (80 mg) rectal foam 1 appful NC BID #15 grams 12/04/22 [Rx Last Taken Unknown] dibucaine 1 % rectal ointment 1 applic NC TID PRN rectal discomfort #56 grams 12/10/22 [Rx Last Taken Unknown] oxycodone-acetaminophen 5 mg-325 mg tablet (Percocet) 1 tab PO Q6H PRN pain 3 days #12 tabs 12/10/22 [Rx Last Taken Unknown] clindamycin HCl 300 mg capsule (Cleocin HCl) 300 mg PO Q6H #40 CAPSULES 12/15/22 [Rx Last Taken Unknown] nystatin-triamcinolone 100,000 unit/g-0.1 % topical cream 1 applic topical BID #30 grams 12/15/22 [Rx Last Taken Unknown] oxycodone-acetaminophen 5 mg-325 mg tablet (Percocet) 1 tab PO Q8H PRN pain 3 days #10 tabs 12/15/22 [Rx Last Taken Unknown] nystatin-triamcinolone 100,000 unit/gram-0.1 % topical ointment 1 applic topical BID 14 days #60 grams 01/14/23 [Rx Last Taken Unknown] Allergy/AdvReac Type Severity Reaction Status Date / Time latex Allergy Rash Verified 01/22/23 15:18 lithium [Overly] Allergy Anaphylaxis Verified 01/22/23 15:18 acetaminophen AdvReac Vomiting Verified 01/22/23 15:18 [From Tylenol-Codeine] aspirin AdvReac Vomiting Verified 01/22/23 15:18 citalopram [From Celexa] AdvReac makes me Verified 01/22/23 15:18 cry a lot citalopram hydrobromide AdvReac Other Verified 01/22/23 15:18 [From Celexa] codeine AdvReac Vomiting Verified 01/22/23 15:18 divalproex sodium AdvReac Vomiting Verified 01/22/23 15:18 [From Depakote] ibuprofen AdvReac Nausea Verified 01/22/23 15:18 nortriptyline AdvReac Other Verified 01/22/23 15:18 trazodone AdvReac Other Verified 01/22/23 15:18 Family History Mother Diabetes Father Diabetes Surgical History History of carpal tunnel release History of rectopexy Hx of cholecystectomy Hx of tonsillectomy Social History household members: none Smoking Status: Former smoker alcohol intake: former substance use type: does not use ROS ROS ED Constitutional Constitutional ED: Denies chills or fever(s) Eyes Eyes: Denies blurry vision or change in vision ENT ENT ED: Reports rhinorrhea; Denies sore throat Cardiovascular Cardiovascular: Reports chest pain; Denies palpitations Respiratory/Chest Respiratory/Chest: Denies cough or dyspnea Gastrointestinal Gastrointestinal: Denies nausea or vomiting Genitourinary Genitourinary ED: Denies dysuria or hematuria Musculoskeletal Musculoskeletal: Reports back pain and neck pain Integumentary Reports rash; Denies abscess Neurologic Neurologic: Denies headache(s) or weakness Allergic/Immunologic Allergic/Immunologic ED: Denies mouth swelling or urticaria EXAM Physical Exam Const Vital Signs: 01/22/23 15:15 01/22/23 15:18 01/22/23 16:29 Temperature 97.8 F Temperature Source Temporal Pulse Rate 91 Respiratory Rate 16 Respiratory Effort Normal Respiratory Pattern Normal Blood Pressure 154/90 H Blood Pressure Mean 111 Pulse Ox 98 Oxygen Delivery Method Room Air Room Air Positive well nourished, well developed and obese General Appearance ED: well developed and NAD Nutritional Appearance: obese HEENT Reports moist mucous membranes Neck supple and no JVD Resp normal respiratory effort and clear to auscultation bilaterally Cardio regular rate, regular rhythm and no murmurs GI normal to inspection, nondistended, normoactive bowel sounds and non-tender Palpation: soft Extremity normal to inspection General Extremety ED: Negative for edema or tenderness General Extremity: Negative for edema Neuro oriented x3, CN's II-XII intact bilaterally and no sensory deficits noted Sensorium / Orientation: alert Motor Exam: strength 5/5 throughout Psych mental status grossly normal Skin no rashes or lesions noted MDM MDM MDM Narrative Medical decision making narrative: Differential diagnosis includes cardiac ischemia, cardiac dysrhythmia, pneumonia, pneumothorax, and musculoskeletal chest pain. Other than her age, patient is PERC negative. I do not feel it is from a pulmonary embolism. EKG will be obtained to assess for cardiac ischemia and cardiac dysrhythmia. Chest x-ray will be obtained to assess for pneumonia and pneumothorax. CBC will be obtained to assess for leukocytosis and anemia. Basic metabolic profile will be obtained to assess for electrolyte abnormality and renal function. Troponin will be obtained to assess for cardiac ischemia. Lab Data Attestation: I reviewed the patient's lab results. Lab results narrative: CBC was reviewed and was within normal limits. Basic metabolic profile was reviewed and was within normal limits. High-sensitivity troponin was reviewed and was normal. Labs: Laboratory Results - last 24 hr 01/22/23 01/22/23 16:54 16:54 WBC 10.0 RBC 4.78 Hgb 12.2 Hct 38.7 MCV 81.0 MCH 25.5 L MCHC 31.5 L RDW Std Deviation 42.3 RDW Coeff of Yinka 14.4 Plt Count 288 MPV 10.6 Immature Gran % (Auto) 0.800 Neut % (Auto) 65.8 Lymph % (Auto) 24.7 [place] % (Auto) 7.1 Eos % (Auto) 1.1 Baso % (Auto) 0.5 Absolute Neuts (auto) 6.6 Absolute Lymphs (auto) 2.46 Nucleated RBC % 0 Sodium 139 Potassium 3.6 Chloride 103 Carbon Dioxide 27.0 Anion Gap 9 BUN 12 Creatinine 0.83 Estim Creat Clear Calc 55.07 Est GFR (MDRD) Af Amer 90 Est GFR (MDRD) Non-Af 75 BUN/Creatinine Ratio 14.4 Glucose 129 H Calcium 9.0 Troponin I High Sens 9 Radiography Diagnostic Testing: Clinical Impression(s) from Imaging Studies Chest X-Ray 01/22/23 17:10 IMPRESSION: Normal x-ray examination of the chest. Electronically Signed: Michele Watkins MD at 17:40 EST , Portable 1 view chest x-ray was obtained. On my independent interpretation, lung jackson are clear. There is normal cardiac silhouette. Bony thorax is normal. There is no acute process noted. Radiologist also interpreted the x-ray and agrees. EKG Initial EKG: Attestation: I personally reviewed and interpreted this EKG as follows: Interpretation: Sinus Rhythm (93) and No Acute Injury Pattern Comments: EKG was obtained. On my independent interpretation, it showed a normal sinus rhythm with a rate of 93. NC interval, QRS interval, and QTc intervals were all normal. [place] was normal. There are no acute ST or T wave changes. Prior EKG tracings: available for review Prior: Unchanged (12/25/2022) Treatment and Re-Evaluation Narrative: Patient was advised of her findings. I do not feel her chest pain is cardiac in nature. Patient has a HEART score of 2. Patient was advised that this is low risk for acute cardiac event. Patient was also given a dose of Anusol for her hemorrhoids. Patient was instructed to follow-up with her primary care physician in 5 to 7 days for further evaluation. Patient understands and is agreeable with the plan. All questions were answered. Discharge Plan Triage Chief Complaint: Other, Pain/Inj ED Provider: Evin Vogt Dx/Rx/DC Orders Clinical Impression: Chest pain, Type II diabetes mellitus Instructions: ED Chest Pain, Uncertain Cause Prescriptions: No Action melatonin 5 mg capsule 5 mg PO QHS promethazine 12.5 mg tablet 12.5 mg PO Q8H PRN (Reason: antihistimanie) chlorhexidine gluconate 0.12 % mouthwash 15 ml buccal DAILY metronidazole 500 mg tablet 500 mg PO Q8H Qty: 30 1RF clindamycin HCl 300 mg capsule 300 mg PO Q8H Qty: 10 0RF metronidazole 1 % gel 1 applic topical BID Qty: 60 2RF nystatin 100,000 unit/gram cream 1 applic topical TID Qty: 30 2RF glimepiride 1 MG tablet 2 mg PO DAILY carbamazepine 200 MG tablet 200 mg PO BID hydrochlorothiazide 25 MG tablet 25 mg PO DAILY solifenacin [Vesicare] 10 MG tablet 10 mg PO QHS quetiapine [Seroquel] 400 MG tablet 400 mg PO QHS omeprazole 40 MG capsule,delayed release(DR/EC) 40 mg PO BID albuterol sulfate [Ventolin HFA] 1 INHALER inhaler 1 - 2 puff inhalation Q4H PRN PRN (Reason: Shortness Of Breath) amlodipine 10 MG tablet 10 mg PO DAILY fluticasone propionate 1 SPRAY spray,suspension 2 spray NASAL DAILY PRN (Reason: allergies) potassium chloride 10 MEQ tablet,ER particles/crystals 30 meq PO BID montelukast 10 mg Tablet 10 mg PO DAILY cholecalciferol (vitamin D3) [Vitamin D3] 125 mcg (5,000 unit) Tablet 125 mcg PO DAILY dicyclomine 20 mg tablet 20 mg PO BID PRN (Reason: abdominal cramping) Qty: 10 0RF nystatin 100,000 unit/gram ointment 1 applic topical BID Vraylar 4.5 mg capsule 4.5 mg PO DAILY diphenoxylate-atropine [Lomotil] 2.5-0.025 mg tablet 1 tab PO TID PRN (Reason: diarrhea) Qty: 10 0RF fexofenadine 180 mg Tablet 180 mg PO DAILY dibucaine 1 % ointment 1 applic NC TID PRN (Reason: rectal discomfort) Qty: 56 0RF oxycodone-acetaminophen [Percocet] 5-325 mg tablet 1 tab PO Q6H PRN (Reason: pain) 3 Days Qty: 12 0RF oxycodone-acetaminophen [Percocet] 5-325 mg tablet 1 tab PO Q8H PRN (Reason: pain) 3 Days Qty: 10 0RF clindamycin HCl [Cleocin HCl] 300 mg capsule 300 mg PO Q6H Qty: 40 0RF nystatin-triamcinolone 100,000-0.1 unit/g-% cream 1 applic topical BID Qty: 30 0RF nystatin-triamcinolone 100,000-0.1 unit/gram-% ointment 1 applic topical BID 14 Days Qty: 60 1RF hydrocortisone acetate 10 % (80 mg) foam 1 appful NC BID Qty: 15 3RF Primary Care Provider: Nick Giraldo Referrals: Nick Giraldo DO [Primary Care Provider] - 3-5 Days Disposition Disposition: Home, Self Care
--- NOTE | 2023-01-22 16:26 | EKG12_ITS ---
Test Reason : CP Blood Pressure : / mmHG Vent. Rate : 093 BPM Atrial Rate : 093 BPM P-R Int : 166 ms QRS Dur : 098 ms QT Int : 334 ms P-R-T Axes : 062 048 085 degrees QTc Int : 415 ms Normal sinus rhythm Normal ECG Confirmed by MARY PETERSON, QIAN ([id number]), editorial assistant ROBERT CARBAJAL ([id number]) on 01/23/2023 9:02:48 AM Referred By: Confirmed By:QIAN HERNANDEZ MD
[2023-01-22 17:00] LABS: Absolute Lymphocyte Count 2.46 X10^3/uL (0.83-4.51); Absolute Neutrophil Count 6.6 X10^3/uL (2.0-7.7); Basophil# 0.05 X10^3/uL; Basophil% 0.5 % (0-1); Eosinophil# 0.11 X10^3/uL; Eosinophils% 1.1 % (0-5); Hematocrit 38.7 % (37-47); Hemoglobin 12.2 g/dL (12.0-15.0); Lymphocyte # 2.46 X10^3/ul (0.83-4.51); Lymphocyte % 24.7 % (19-41); Mean Corp Hgb Conc 31.5 g/dL (32-36); Mean Corpuscular Hgb 25.5 pg (27.0-32.0); Mean Platelet Vol. 10.6 fl (6.2-12.0); Monocyte# 0.71 X10^3/uL; Monocyte% 7.1 % (0-10); NRBC Flagged by Analyzer 0 % (0-5); Neutrophil # 6.55 X10^3/uL (2.7-7.7); Neutrophil % 65.8 % (47-70); Platelet Count 288 K/mm3 (150-450); RBC Distribution Width CV 14.4 % (11.6-14.6); RBC Distribution Width SD 42.3 fl (35.1-43.9); Red Blood Count 4.78 M/mm3 (4.2-5.4)
--- NOTE | 2023-01-22 17:10 | RAD_ITS ---
STUDY: X-RAY CHEST REASON FOR EXAM: Female, 58 years old. chest pain TECHNIQUE: Single frontal view of the chest. COMPARISON: September 04, 2022. FINDINGS: The lungs are clear and expanded. There is no demonstrated pleural abnormality. Normal size heart. Normal mediastinum and jose m. Normal visualized pulmonary arteries. Normal visualized aortic arch and descending thoracic aorta. Normal visualized thoracic spine. Normal visualized ribs, clavicles, and shoulders. There is no demonstrated abnormality of the visualized soft tissue structures of the upper abdomen. RAD/Chest 1 View (Portable) IMPRESSION: Normal x-ray examination of the chest. Electronically Signed: Michele Watkins MD at 17:40 EST ,
[2023-01-22 17:19] VITALS: BMI 52.4
[2023-01-22 17:22] LABS: Anion Gap 9 (5-15); BUN 12 mg/dL (7-18); BUN/Creat Ratio 14.4 RATIO (10-20); Chloride 103 mmol/L (98-107); Creatinine, Serum 0.83 mg/dL (0.55-1.02); EST Glomerular Filtration Rate 75 mL/min (>60); Est Glom Filt Rate - Afr Amer 90 mL/min (>60); Estimated Creatinine Clearance 55.07 ml/min; Glucose 129 mg/dL (74-106); Potassium 3.6 mmol/L (3.5-5.1); Sodium Level 139 mmol/L (136-145); Troponin-I HS 9 pg/mL (3.0-54.0)
[2023-01-22] MEDS: Hydrocortisone 25 MG Suppository RC (17:22)
--- NOTE | 2023-01-22 17:39 | ED.RN ---
NITRO HELD AT THIS TIME D/T PT REFUSING STATING SHE DON'T WANT A HEADACHE
[2023-01-22 18:05] VITALS: BP 126/78; PULSE 76; RESP 16; TEMP 37.2; O2SAT 99
== END 2023-01-22 18:06 | disposition home or self-care (01) ==
PROVIDERS: Emergency Provider Emergency Medicine; PCP Student in an Organized Health Care Education/Training Program; Visit Provider Emergency Medicine
DX: R07.9 Chest pain, unspecified (principal); E11.40 Type 2 diabetes mellitus with diabetic neuropathy, unspecified; G47.30 Sleep apnea, unspecified; E66.9 Obesity, unspecified; Z87.891 Personal history of nicotine dependence
CPT/HCPCS: 71045; 80048; 84484; 85025; 93005; 99285

== ENCOUNTER 2023-02-11 14:08 | Outpatient (RCR) | payer MEDICARE, MEDICAID, SELFPAY ==
[2023-01-30 00:28] VITALS: BP 156/97; PULSE 104; RESP 18; TEMP 35.8; BMI 46.6
[2023-02-11 14:55] VITALS: BP 168/83; PULSE 102; RESP 16; TEMP 36; BMI 46.6
--- NOTE | 2023-02-11 15:41 | PCM.WC.PN ---
History of Present Illness Date of Service: 02/11/23 Chief Complaint: Sore bottom History of Wound: 57 year old female presents for evaluation of her excoriated buttocks. She was referred by MIKE Campos. She has multiple visits to the ED this month for abdominal pain and her sore bottom. She has issues with stool and urinary incontinence and wears depend underpants. She states that she has been cleaning her self with sensitive skin baby wipes and using Desitin cream with no improvement. She is not a good historian. Per her records she saw Dr. Blue in 2018 for rectal bleeding and diarrhea. Colonoscopy performed with him noting rectal prolapse, internal hemorrhoids (banded). [facility]erred to [facility] anorectal disorder clinic. Anal manometry performed and underwent rectopexy 08.22.18; unsure if rectopexy assisted with symptoms. No follow up since this time. [facility] ED presentation 07.16.22 with abdominal pain, diarrhea, rash and GIB. She was admitted for care and gastroenterology consulted the next day. EGD and colonoscopy 07.18.22 finding oozing gastric ulcers. She has a history of , T2D, Sandoval's esophagus, HTN, hypothyroid, asthma, abdominal pain, IBS, Bipolar, anxiety. Today she denies fever, chills, nausea or vomiting. Progress of Wound: Intergluteal cleft is improving. There is minimal excoriation. She states she is placing barrier cream on it regularly. She continues to wear depends under garments due to stool incontinence which both of these things are contributing to the excoriation. She states she is taking Sitz baths a couple times per week. She is not nearly as painful as she has been at previous visits. Objective Data Objective Data Vital Signs: Vital Signs Temp Pulse Resp BP O2 Del Method 96.8 F L 102 H 16 168/83 H Room Air 02/11/23 14:55 02/11/23 14:55 02/11/23 14:55 02/11/23 14:55 02/11/23 14:55 Oxygen Delivery Method Room Air Weight: 255 lb Body Mass Index (BMI) 46.6 Charges/Coding Visit Charges Office Visits / Consults: 35019 OV L3 Est Physical Exam Const alert, oriented x3 and well nourished HEENT normocephalic Eyes General Eye: normal appearance of both eyes Neck full ROM Lymph Lymphatic: no lymphedema noted Resp normal respiratory effort and normal air movement Effort and Inspection: able to speak in complete sentences Cardio regular rate Back/Spine normal ROM Extremity full ROM Skin Skin Narrative: Intergluteal cleft is pink, but excoriation has greatly improved. She is no longer painful to touch. Neuro oriented x3 and moves all extremities Psych Appearance: appropriate Debridement Note Debridement Note No debridement was completed: No debridement was completed today Post-Debridement Measurements and Additional Note: Post-Debridement Measurements/Treatment - Nurse 1 - General Ulcer Assessment Start: 02/11/23 14:53 Freq: Status: Active Protocol: NAHOMY Activity Type Activity Date Activity User E-sign Co-sign Detail Recorded Client Recorded Date Recorded By Document 02/11/23 14:55 [facility] [id number] 02/11/23 15:03 [facility] 02/11/23 14:55 WC - Today's Visit Information Type of service Follow-up Visit (Physician/REWRITER ) Arrival Mode Ambulatory Transfer Assistance None Patient Identification Verified (Name & Yes ) Patient Requires Transmission-Based No Precautions Height and Weight Body Mass Index (BMI) 46.6 BMI Classification Obese Vital Signs Temperature (97.8 F-99.1 F) 96.8 F L Temperature Source Temporal Pulse Rate (60-100) 102 H Pulse Location Monitor Respiratory Rate (12-18) 16 Respiratory rate source Observation Oxygen Delivery Method Room Air Blood Pressure (90/60-120/80) 168/83 H Blood Pressure Mean (mm Hg) 111 Source Monitor Position Sitting Blood Pressure Location Right Forearm History Since Last Visit- (Skip if this is Patient's initial visit) Have you changed medications since your Yes last visit? Any new allergies or adverse reactions No Had a fall/change in ADL's that may No increase risk of falls Signs or symptoms of abuse and/or No neglect since last visit Have you been in the hospital since your No last visit? Has compression in place as prescribed N/A Has offloadiing in place as prescribed N/A Experienced any changes in pain level or No management Left Footwear Diabetic Shoe Right Footwear Diabetic Shoe Pain Scale: 0-10 Numeric Is Patient Pain Free? Yes - Nurse 2 - General Ulcer CM Notes Start: 02/11/23 14:53 Freq: Status: Active Protocol: Activity Type Activity Date Activity User E-sign Co-sign Detail Recorded Client Recorded Date Recorded By Document 02/11/23 15:19 [id number] 02/11/23 15:21 02/11/23 15:19 Is Patient Pain Free? Yes - Nurse 3 - General Ulcer D/C NN Start: 02/11/23 14:53 Freq: Status: Active Protocol: Activity Type Activity Date Activity User E-sign Co-sign Detail Recorded Client Recorded Date Recorded By Document 02/11/23 15:21 [id number] 02/11/23 15:22 02/11/23 15:21 Is Patient Pain Free? Yes - Visit Discharge Discharge Condition Stable Ambulatory Status Ambulatory Transportation Private Auto Medication Reconcilliation completed & Yes provided to patient/care provider Clinical Summary of Care Provided Yes Assessment/Plan Assessment/Plan (1) Excoriation of buttock: CODE(S): S30.810A - Abrasion of lower back and pelvis, initial encounter (2) Dermatitis of perianal region: CODE(S): L30.9 - Dermatitis, unspecified (3) Fecal incontinence: CODE(S): R15.9 - Full incontinence of feces (4) Type II diabetes mellitus: CODE(S): E11.9 - Type 2 diabetes mellitus without complications QUALIFIERS: Diabetes mellitus complication status: with neurologic complications Diabetes mellitus complication detail: with polyneuropathy Diabetes mellitus termite exterminator helper insulin use: without termite exterminator helper use Qualified Code(s): E11.42 - Type 2 diabetes mellitus with diabetic polyneuropathy (5) Pain: CODE(S): R52 - Pain, unspecified (6) Anxiety: CODE(S): F41.9 - Anxiety disorder, unspecified PLAN: Plan Patient evaluated at the wound healing center. The excoriation on her intergluteal crease is much improved than at previous visits. The excoriatioin is most likely due to her stool incontinence and wearing depends. She seems to be keeping herself cleaned better. She states she has a commode sitz bath that she uses a couple times per week. Encouraged her to continue to use that and possibly increase it to daily. Encouraged her to get a hand held shower so she can package dye stand loader her tub and rinse herself off (she could talk to her land lord about that). Encouraged to continue to use a barrier cream. Stressed keeping herself clean and trying to use sitz baths more frequently would be beneficial. Follow up as needed.
== END 2023-03-01 23:59 | disposition home or self-care (01) ==
LOC: WC 14:08
PROVIDERS: PCP Student in an Organized Health Care Education/Training Program; Visit Provider Nurse Practitioner Family
DX: S30.810A Abrasion of lower back and pelvis, initial encounter (principal); E11.42 Type 2 diabetes mellitus with diabetic polyneuropathy; R15.9 Full incontinence of feces; I10 Essential (primary) hypertension; R32 Unspecified urinary incontinence; J45.909 Unspecified asthma, uncomplicated; X58.XXXA Exposure to other specified factors, initial encounter
CPT/HCPCS: 99213; G0463

== ENCOUNTER 2023-03-26 12:14 | Emergency (ER) | payer MEDICARE, MEDICAID, SELFPAY ==
[2023-03-26 12:15] VITALS: BP 121/46; PULSE 96; RESP 16; TEMP 36.6; O2SAT 96; BMI 49.1
--- NOTE | 2023-03-26 13:32 | CT_ITS ---
STUDY: CT BRAIN WITHOUT CONTRAST REASON FOR EXAM: Female, 58 years old. Head injury Individualized dose optimization techniques were used for this CT. TECHNIQUE: Transaxial CT imaging of the brain was performed without administration of intravenous contrast material. COMPARISON: 03/28/2017 FINDINGS: There are calcifications around the carotid artery. These are noted in the cavernous carotid arteries. Normal calvarium. Normal soft tissues. There is mild cerebral atrophy with widening of the extra-axial spaces and ventricular dilatation. There are areas of decreased attenuation within the white matter tracts of the supratentorial brain, consistent with microvascular disease changes. Normal basal ganglia and thalami. Normal brainstem. There is mild cerebellar atrophy. There is no intracranial hemorrhage. There are no findings of an acute ischemic infarction. Normal visualized paranasal sinuses. ASPECTS Score for Acute Strokes: 09/10 CT/Brain/Head without Contrast IMPRESSION: There are no acute findings. Chronic involutional changes of the brain. Electronically Signed: Linus Ralph MD at 14:50 EDT ,
[2023-03-26] MEDS: Ondansetron 4 MG/2 ML Vial IV (13:54)
[2023-03-26 14:00] LABS: Absolute Lymphocyte Count 2.34 X10^3/uL (0.83-4.51); Absolute Neutrophil Count 4.2 X10^3/uL (2.0-7.7); Basophil# 0.03 X10^3/uL; Basophil% 0.4 % (0-1); Eosinophil# 0.07 X10^3/uL; Eosinophils% 0.9 % (0-5); Hematocrit 37.9 % (37-47); Hemoglobin 12.3 g/dL (12.0-15.0); Lymphocyte # 2.34 X10^3/ul (0.83-4.51); Lymphocyte % 31.7 % (19-41); Mean Corp Hgb Conc 32.5 g/dL (32-36); Mean Corpuscular Hgb 25.6 pg (27.0-32.0); Mean Corpuscular Volume 78.8 fL (81-99); Mean Platelet Vol. 10.8 fl (6.2-12.0); Monocyte# 0.66 X10^3/uL; Monocyte% 8.9 % (0-10); NRBC Flagged by Analyzer 0 % (0-5); Neutrophil # 4.24 X10^3/uL (2.7-7.7); Neutrophil % 57.6 % (47-70); Platelet Count 232 K/mm3 (150-450); RBC Distribution Width CV 14.2 % (11.6-14.6); RBC Distribution Width SD 40.1 fl (35.1-43.9); Red Blood Count 4.81 M/mm3 (4.2-5.4); White Blood Count 7.4 K/mm3 (4.4-11.0)
[2023-03-26 14:14] VITALS: BP 134/78; PULSE 89; RESP 16; O2SAT 98
[2023-03-26 14:16] LABS: ALB/GLOB Ratio 0.9 RATIO (0.9-2.4); AST(SGOT) 65 U/L (15-37); Alanine Aminotransfer ALT/SGPT 72 U/L (13-56); Albumin, Serum 3.7 g/dL (3.2-5.0); Alkaline Phosphatase 109 U/L (45-117); Anion Gap 7 (5-15); BUN 14 mg/dL (7-18); BUN/Creat Ratio 18.1 RATIO (10-20); Calcium,Total 9.2 mg/dL (8.5-10.1); Chloride 105 mmol/L (98-107); Creatinine, Serum 0.78 mg/dL (0.55-1.02); EST Glomerular Filtration Rate 81 mL/min (>60); Est Glom Filt Rate - Afr Amer 98 mL/min (>60); Globulin 4.1 g/dL (2.2-4.2); Glucose 83 mg/dL (74-106); Lipase 24 U/L (13-75); Potassium 3.3 mmol/L (3.5-5.1); Protein, Total 7.8 g/dL (6.4-8.2); Sodium Level 139 mmol/L (136-145)
[2023-03-26 14:27] LABS: Mucous, Urine 0 SEEN /hpf (<or=2+)
[2023-03-26 14:32] LABS: Color, Urine Yellow (Yellow); Glucose, Dipstick Normal (Normal); Ketone-Dipstick 5 mg/dl (Negative); Leukocyte Esterase-Dipstick 100 /ul (Negative); Nitrite-Dipstick Negative (Negative); Occult Blood-Urine 10 /ul (Negative); Protein-Dipstick 30 mg/dl (Negative); Urine Bilirubin Dipstick Negative (Negative); Urine Clarity Sl. Cloudy (Clear); Urine Urobilinogen Normal (Normal)
[2023-03-26 14:47] LABS: Bacteria 1+ /hpf (None Seen); Red Blood Cells-Urine 0-5 SEEN /hpf (0-5); Squamous Epithelial Cells - UA 0-5 SEEN /hpf (5-10); White Blood Cells 10-25 SEEN /hpf (0-5)
--- NOTE | 2023-03-26 15:58 | EDS_ITS ---
HPI History of Present Illness Chief Complaint: General Illness Informant: patient Onset/Context/Timing Onset: Days (3) Context: Gradual Onset Timing: Continuous Quality: Cramping, burning Location: Abdomen, generalized Worsened by: Standing Relieved by: Nothing Narrative Narrative: Patient presents with nausea, vomiting, and diarrhea that has been constant for the past 3 days. Patient describes her pain as cramping and burning. Patient states it is diffuse across her abdomen. Patient states it is worse with standing. Patient denies any hematemesis or coffee-ground emesis. Patient denies any melena or hematochezia. Patient does admit to some urinary frequen cy. Patient also admits to some pain in her neck or back. Patient also admits to a mild headache. Patient denies any fevers or chills. Patient denies any dysuria or hematuria. [facility] Medical History Asthma Mcclellan's esophagus Bipolar 1 disorder Chest pain COPD (chronic obstructive pulmonary disease) Depression Dermatitis of perianal region Diabetes Excoriation of buttock Fecal incontinence GERD (gastroesophageal reflux disease) Hiatal hernia HTN (hypertension) IBS (irritable bowel syndrome) Iron deficiency anemia due to chronic blood loss Irritable bowel syndrome with diarrhea Migraines Neuropathy Non-smoker Osteoarthritis Overactive bladder Rectal prolapse Sleep apnea Home Medications albuterol sulfate 90 mcg/actuation aerosol inhaler (Ventolin HFA) 1 - 2 puff inhalation Q4H PRN PRN Shortness Of Breath 12/06/16 [History Last Taken Unknown] carbamazepine 200 mg tablet 200 mg PO BID depression 12/06/16 [History Last Taken 07/16/22] glimepiride 1 mg tablet 2 mg PO DAILY diabetes 12/06/16 [History Last Taken 07/16/22] hydrochlorothiazide 25 mg tablet 25 mg PO DAILY diuretic 12/06/16 [History Last Taken 07/16/22] omeprazole 40 mg capsule,delayed release 40 mg PO BID GERD 12/06/16 [History Last Taken 07/16/22] quetiapine 400 mg tablet (Seroquel) 400 mg PO QHS bipolar 12/06/16 [History Last Taken Unknown] solifenacin 10 mg tablet (Vesicare) 10 mg PO QHS skin care 12/06/16 [History Last Taken 07/15/22] amlodipine 10 mg tablet 10 mg PO DAILY blood pressure 07/09/17 [History Last Taken 07/16/22] fluticasone propionate 50 mcg/actuation nasal spray,suspension 2 spray NASAL DAILY PRN allergies 08/02/19 [History Last Taken Unknown] potassium chloride 10 mEq tablet,extended release(part/cryst) 30 meq PO BID supplement 08/02/19 [History Last Taken 07/16/22] cholecalciferol (vitamin D3) 125 mcg (5,000 unit) tablet (Vitamin D3) 125 mcg PO DAILY supplement 04/19/22 [History Last Taken 07/16/22] montelukast 10 mg tablet 10 mg PO DAILY allergies 04/19/22 [History Last Taken 07/16/22] dicyclomine 20 mg tablet 20 mg PO BID PRN abdominal cramping #10 tabs 07/14/22 [Rx Last Taken Unknown] cariprazine 4.5 mg capsule (Vraylar) 4.5 mg PO DAILY mood 07/16/22 [History Last Taken 07/16/22] diphenoxylate-atropine 2.5 mg-0.025 mg tablet (Lomotil) 1 tab PO TID PRN diarrhea #10 tabs 07/22/22 [Rx Last Taken Unknown] fexofenadine 180 mg tablet 180 mg PO DAILY 08/17/22 [History Last Taken Unknown] chlorhexidine gluconate 0.12 % mouthwash 15 ml buccal DAILY 09/05/22 [History Last Taken Unknown] melatonin 5 mg capsule 5 mg PO QHS 09/05/22 [History Last Taken Unknown] promethazine 12.5 mg tablet 12.5 mg PO Q8H PRN antihistimanie 09/05/22 [History Last Taken Unknown] oxycodone-acetaminophen 5 mg-325 mg tablet (Percocet) 1 tab PO Q6H PRN pain 3 days #12 tabs 12/10/22 [Rx Last Taken Unknown] oxycodone-acetaminophen 5 mg-325 mg tablet (Percocet) 1 tab PO Q8H PRN pain 3 days #10 tabs 12/15/22 [Rx Last Taken Unknown] nystatin-triamcinolone 100,000 unit/gram-0.1 % topical ointment 1 applic topical BID 14 days #60 grams 01/14/23 [Rx Last Taken Unknown] ascorbic acid (vitamin C) 500 mg capsule mg PO 02/11/23 [History Last Taken Unknown] ferrous sulfate 325 mg (65 mg iron) tablet 325 mg PO DAILY 02/11/23 [History Last Taken Unknown] cephalexin 500 mg capsule 500 mg PO Q6 #12 CAPSULES 03/26/23 [Rx Last Taken Unknown] Allergy/AdvReac Type Severity Reaction Status Date / Time latex Allergy Rash Verified 01/22/23 15:18 lithium [[place]] Allergy Anaphylaxis Verified 01/22/23 15:18 acetaminophen AdvReac Vomiting Verified 01/22/23 15:18 [From Tylenol-Codeine] aspirin AdvReac Vomiting Verified 01/22/23 15:18 citalopram [From Celexa] AdvReac makes me Verified 01/22/23 15:18 cry a lot citalopram hydrobromide AdvReac Other Verified 01/22/23 15:18 [From Celexa] codeine AdvReac Vomiting Verified 01/22/23 15:18 divalproex sodium AdvReac Vomiting Verified 01/22/23 15:18 [From Depakote] ibuprofen AdvReac Nausea Verified 01/22/23 15:18 nortriptyline AdvReac Other Verified 01/22/23 15:18 trazodone AdvReac Other Verified 01/22/23 15:18 Family History Mother Diabetes Father Diabetes Surgical History History of carpal tunnel release History of rectopexy Hx of cholecystectomy Hx of tonsillectomy Social History household members: none Smoking Status: Former smoker alcohol intake: former substance use type: does not use ROS ROS ED Constitutional Constitutional ED: Denies chills or fever(s) Eyes Eyes: Denies blurry vision or change in vision ENT ENT ED: Denies rhinorrhea or sore throat Cardiovascular Cardiovascular: Denies chest pain or palpitations Respiratory/Chest Respiratory/Chest: Denies cough or dyspnea Gastrointestinal Gastrointestinal: Denies nausea or vomiting Genitourinary Genitourinary ED: Denies dysuria or hematuria Musculoskeletal Musculoskeletal: Denies back pain or neck pain Integumentary Denies abscess or rash Neurologic Neurologic: Denies headache(s) or weakness Allergic/Immunologic Allergic/Immunologic ED: Denies mouth swelling or urticaria EXAM Physical Exam Const Vital Signs: 03/26/23 12:15 03/26/23 12:28 03/26/23 14:14 Temperature 97.8 F Temperature Source Oral Pulse Rate 96 89 Respiratory Rate 16 16 Respiratory Effort Normal Respiratory Pattern Normal Blood Pressure 121/46 H 134/78 H Blood Pressure Mean 71 96 Pulse Ox 96 98 Oxygen Delivery Method Room Air Room Air Positive well nourished, well developed and obese General Appearance ED: well developed and NAD Nutritional Appearance: obese HEENT Reports moist mucous membranes Neck supple and no JVD Resp normal respiratory effort and clear to auscultation bilaterally Cardio regular rate and regular rhythm GI normal to inspection, nondistended, normoactive bowel sounds Palpation: soft and tender epigastric, LLQ, RLQ, LUQ, RUQ, periumbilical and suprapubic Extremity normal to inspection General Extremety ED: Negative for edema or tenderness General Extremity: Negative for edema Neuro oriented x3, CN's II-XII intact bilaterally and no sensory deficits noted Sensorium / Orientation: alert Motor Exam: strength 5/5 throughout Psych mental status grossly normal Skin no rashes or lesions noted MDM MDM MDM Narrative Medical decision making narrative: Differential diagnosis includes gastroenteritis, gastritis, pancreatitis, colitis, diverticulitis, urinary tract infection, ureteral calculus, electrolyte abnormality, intracranial bleeding, concussion, and anxiety. CBC will be obtained to assess for leukocytosis and anemia. Comprehensive metabolic profile will be obtained to assess for hepatic function, renal function, and electrolyte abnormality. Lipase will be obtained to assess for pancreatitis. Urinalysis will be obtained to assess for urinary tract infection and hematuria. COVID-19 rapid antigen will be obtained to assess for COVID infection. Influenza A and influenza B rapid antigens will be obtained to assess for influenza infection. CT scan of the brain will be obtained to assess for intracranial bleeding. Lab Data Attestation: I reviewed the patient's lab results. Lab results narrative: CBC was reviewed and was within normal limits. Comprehensive metabolic profile was reviewed and was essentially within normal limits. Lipase was reviewed and was normal. Urinalysis was reviewed. There are 10-25 white blood cells with a leukocyte esterase of 100. There is no evidence of hematuria. COVID-19 rapid antigen was reviewed and was negative. Influenza A and influenza B rapid antigens were reviewed and were negative. Rapid strep was reviewed and was negative. Labs: Laboratory Results - last 24 hr 03/26/23 03/26/23 03/26/23 13:45 13:55 13:55 WBC 7.4 RBC 4.81 Hgb 12.3 Hct 37.9 MCV 78.8 L MCH 25.6 L MCHC 32.5 RDW Std Deviation 40.1 RDW Coeff of Yinka 14.2 Plt Count 232 MPV 10.8 Immature Gran % (Auto) 0.500 Neut % (Auto) 57.6 Lymph % (Auto) 31.7 Teller % (Auto) 8.9 Eos % (Auto) 0.9 Baso % (Auto) 0.4 Absolute Neuts (auto) 4.2 Absolute Lymphs (auto) 2.34 Nucleated RBC % 0 Sodium 139 Potassium 3.3 L Chloride 105 Carbon Dioxide 27.0 Anion Gap 7 BUN 14 Creatinine 0.78 Estim Creat Clear Calc 58.60 Est GFR (MDRD) Af Amer 98 Est GFR (MDRD) Non-Af 81 BUN/Creatinine Ratio 18.1 Glucose 83 Calcium 9.2 Total Bilirubin 0.40 AST 65 H ALT 72 H Alkaline Phosphatase 109 Total Protein 7.8 Albumin 3.7 Globulin 4.1 Albumin/Globulin Ratio 0.9 Lipase 24 Urine Color Yellow Urine Clarity Sl. Cloudy Urine pH 6.0 Ur Specific [place] 1.020 Urine Protein 30 H Urine Glucose (UA) Normal Urine Ketones 5 H Urine Occult Blood 10 H Urine Nitrite Negative Urine Bilirubin Negative Urine Urobilinogen Normal Ur Leukocyte Esterase 100 H Urine RBC 0-5 SEEN Urine WBC 10-25 SEEN Ur Squamous Epith Cells 0-5 SEEN Urine Bacteria 1+ Urine Mucus 0 SEEN Radiography Diagnostic Testing: Clinical Impression(s) from Imaging Studies Brain CT 03/26/23 13:32 IMPRESSION: There are no acute findings. Chronic involutional changes of the brain. Electronically Signed: Linus Ralph MD at 14:50 EDT , CT scan of the brain was obtained. There is no acute intracranial abnormality. This was interpreted by the radiologist and was also independently reviewed by myself. Treatment and Re-Evaluation :: Patient was given IV fluids and Zofran. Patient was advised of her findings. Urine culture was ordered. Patient was ambulated without difficulty here in the emergency department. Patient had no further episodes of vomiting. Patient was given a prescription for Keflex and Zofran. Patient was given a dose of Keflex here. Patient was instructed to start with liquids and advance her diet as tolerated. Patient was instructed to follow-up with her primary care physician in 3 to 5 days for reevaluation. Patient understood and was agreeable with the plan. All questions were answered. Discharge Plan Triage Chief Complaint: General Illness ED Provider: Evin Vogt Dx/Rx/DC Orders Clinical Impression: Urinary tract infection, Abdominal pain, Morbid obesity with BMI of 45.0-49.9, adult Instructions: ED Abdominal Pain Unkn Cause Fem, ED Cystitis Female Adult Prescriptions: New cephalexin [cephalexin] 500 mg capsule 500 mg PO Q6 Qty: 12 0RF No Action melatonin 5 mg capsule 5 mg PO QHS promethazine 12.5 mg tablet 12.5 mg PO Q8H PRN (Reason: antihistimanie) chlorhexidine gluconate 0.12 % mouthwash 15 ml buccal DAILY glimepiride 1 MG tablet 2 mg PO DAILY carbamazepine 200 MG tablet 200 mg PO BID hydrochlorothiazide 25 MG tablet 25 mg PO DAILY solifenacin [Vesicare] 10 MG tablet 10 mg PO QHS quetiapine [Seroquel] 400 MG tablet 400 mg PO QHS omeprazole 40 MG capsule,delayed release(DR/EC) 40 mg PO BID albuterol sulfate [Ventolin HFA] 1 INHALER inhaler 1 - 2 puff inhalation Q4H PRN PRN (Reason: Shortness Of Breath) amlodipine 10 MG tablet 10 mg PO DAILY fluticasone propionate 1 SPRAY spray,suspension 2 spray NASAL DAILY PRN (Reason: allergies) potassium chloride 10 MEQ tablet,ER particles/crystals 30 meq PO BID montelukast 10 mg Tablet 10 mg PO DAILY cholecalciferol (vitamin D3) [Vitamin D3] 125 mcg (5,000 unit) Tablet 125 mcg PO DAILY dicyclomine 20 mg tablet 20 mg PO BID PRN (Reason: abdominal cramping) Qty: 10 0RF Vraylar 4.5 mg capsule 4.5 mg PO DAILY diphenoxylate-atropine [Lomotil] 2.5-0.025 mg tablet 1 tab PO TID PRN (Reason: diarrhea) Qty: 10 0RF fexofenadine 180 mg Tablet 180 mg PO DAILY oxycodone-acetaminophen [Percocet] 5-325 mg tablet 1 tab PO Q6H PRN (Reason: pain) 3 Days Qty: 12 0RF oxycodone-acetaminophen [Percocet] 5-325 mg tablet 1 tab PO Q8H PRN (Reason: pain) 3 Days Qty: 10 0RF nystatin-triamcinolone 100,000-0.1 unit/gram-% ointment 1 applic topical BID 14 Days Qty: 60 1RF ferrous sulfate 325 mg (65 mg iron) Tablet 325 mg PO DAILY ascorbic acid (vitamin C) 500 mg Capsule PO Primary Care Provider: Nick Giraldo Referrals: Nick Giraldo DO [Primary Care Provider] - 3-5 Days Disposition Disposition: Home, Self Care
[2023-03-26 16:00] VITALS: BP 136/78; PULSE 78; RESP 16; O2SAT 99
[2023-03-26 16:22] VITALS: BP 134/78; PULSE 78; RESP 16; TEMP 36.6; O2SAT 100
[2023-03-26] MEDS: Cephalexin 500 MG Capsule PO (16:28)
== END 2023-03-26 16:32 | disposition home or self-care (01) ==
PROVIDERS: Emergency Provider Emergency Medicine; PCP Student in an Organized Health Care Education/Training Program; Visit Provider Emergency Medicine
DX: N39.0 Urinary tract infection, site not specified (principal); E66.01 Morbid (severe) obesity due to excess calories; Z68.42 Body mass index [BMI] 45.0-49.9, adult; R10.9 Unspecified abdominal pain; G47.30 Sleep apnea, unspecified; E66.9 Obesity, unspecified; Z87.891 Personal history of nicotine dependence
CPT/HCPCS: 70450; 80053; 81001; 83690; 85025; 87086; 87088; 87428; 87880; 96361; 96374; 99285; J7030; A4216; J2405

== ENCOUNTER 2023-03-28 16:07 | Emergency (ER) | payer MEDICARE, MEDICAID, SELFPAY ==
[2023-03-28 16:08] VITALS: BP 135/73; PULSE 101; RESP 18; TEMP 36.2; O2SAT 94
[2023-03-28 16:10] VITALS: BMI 49.1
[2023-03-28 17:04] VITALS: BP 149/79; PULSE 99; RESP 18; O2SAT 95
--- NOTE | 2023-03-28 17:58 | EDS_ITS ---
HPI HPI - Psych History of Present Illness Chief Complaint: Mental Health Narrative Narrative: 58-year-old female with history of bipolar disorder presenting with suicidal thoughts. She states that she has had these for about 4 to 5 days. She states that she is having nightmares which are telling her to hurt herself. She states that she does sometimes think about this when she is awake. She is scared she might commit suicide. She states she has a history of suicide attempt in the past. Denies homicidal ideation. States she is follows with the counseling center. Patient was here a few days ago and was able to be successfully safety plan for home. Today she is worsening. She states she has a plan to overdose on her medications at home. [facility] Medical History Asthma Mcclellan's esophagus Bipolar 1 disorder Chest pain COPD (chronic obstructive pulmonary disease) Depression Dermatitis of perianal region Diabetes Excoriation of buttock Fecal incontinence GERD (gastroesophageal reflux disease) Hiatal hernia HTN (hypertension) IBS (irritable bowel syndrome) Iron deficiency anemia due to chronic blood loss Irritable bowel syndrome with diarrhea Migraines Neuropathy Non-smoker Osteoarthritis Overactive bladder Rectal prolapse Sleep apnea Home Medications albuterol sulfate 90 mcg/actuation aerosol inhaler (Ventolin HFA) 1 - 2 puff inhalation Q4H PRN PRN Shortness Of Breath 12/06/16 [History Last Taken Unknown] carbamazepine 200 mg tablet 200 mg PO BID depression 12/06/16 [History Last Taken 07/16/22] glimepiride 1 mg tablet 2 mg PO DAILY diabetes 12/06/16 [History Last Taken 07/16/22] hydrochlorothiazide 25 mg tablet 25 mg PO DAILY diuretic 12/06/16 [History Last Taken 07/16/22] omeprazole 40 mg capsule,delayed release 40 mg PO BID GERD 12/06/16 [History Last Taken 07/16/22] quetiapine 400 mg tablet (Seroquel) 350 mg PO QHS bipolar 12/06/16 [History Last Taken Unknown] solifenacin 10 mg tablet (Vesicare) 10 mg PO QHS skin care 12/06/16 [History Last Taken 07/15/22] amlodipine 10 mg tablet 10 mg PO DAILY blood pressure 07/09/17 [History Last [place] 07/16/22] potassium chloride 10 mEq tablet,extended release(part/cryst) 30 meq PO BID supplement 08/02/19 [History Last Taken 07/16/22] cholecalciferol (vitamin D3) 125 mcg (5,000 unit) tablet (Vitamin D3) 125 mcg PO DAILY supplement 04/19/22 [History Last Taken 07/16/22] montelukast 10 mg tablet 10 mg PO DAILY allergies 04/19/22 [History Last Taken 07/16/22] cariprazine 4.5 mg capsule (Vraylar) 4.5 mg PO DAILY mood 07/16/22 [History Last Taken 07/16/22] nystatin-triamcinolone 100,000 unit/gram-0.1 % topical ointment 1 applic topical BID 14 days #60 grams 01/14/23 [Rx Last Taken Unknown] ascorbic acid (vitamin C) 500 mg capsule 1,000 mg PO DAILY 02/11/23 [History Last Taken Unknown] ferrous sulfate 325 mg (65 mg iron) tablet 325 mg PO BID 02/11/23 [History Last Taken Unknown] cephalexin 500 mg capsule 500 mg PO Q6 #12 CAPSULES 03/26/23 [Rx Last Taken Unknown] fenofibrate 50 mg capsule 50 mg PO DAILY 03/28/23 [History Last Taken Unknown] Allergy/AdvReac Type Severity Reaction Status Date / Time latex Allergy Rash Verified 03/28/23 16:10 lithium [[place]] Allergy Anaphylaxis Verified 03/28/23 16:10 acetaminophen AdvReac Vomiting Verified 03/28/23 16:10 [From Tylenol-Codeine] aspirin AdvReac Vomiting Verified 03/28/23 16:10 citalopram [From Celexa] AdvReac makes me Verified 03/28/23 16:10 cry a lot citalopram hydrobromide AdvReac Other Verified 03/28/23 16:10 [From Celexa] codeine AdvReac Vomiting Verified 03/28/23 16:10 divalproex sodium AdvReac Vomiting Verified 03/28/23 16:10 [From Depakote] ibuprofen AdvReac Nausea Verified 03/28/23 16:10 nortriptyline AdvReac Other Verified 03/28/23 16:10 trazodone AdvReac Other Verified 03/28/23 16:10 Family History Mother Diabetes Father Diabetes Surgical History History of carpal tunnel release History of rectopexy Hx of cholecystectomy Hx of tonsillectomy Social History household members: none Smoking Status: Former smoker alcohol intake: former substance use type: does not use ROS ROS ED Constitutional Constitutional ED: Denies chills or fever(s) Eyes Eyes: Denies change in vision or diplopia ENT ENT ED: Denies rhinorrhea or sore throat Cardiovascular Cardiovascular: Denies chest pain or palpitations Respiratory/Chest Respiratory/Chest: Denies cough or dyspnea Gastrointestinal Gastrointestinal: Denies abdominal pain or constipation Genitourinary Genitourinary ED: Denies dysuria or hematuria Musculoskeletal Musculoskeletal: Denies arthralgias or back pain Integumentary Denies abscess or Abrasions Neurologic Neurologic: Denies headache(s) or paresthesias Psychiatric Psychiatric: Reports anxiety and suicidal thoughts EXAM Physical Exam Const Vital Signs: 03/28/23 16:08 03/28/23 17:04 03/28/23 20:05 Temperature 97.1 F L Temperature Source Temporal Pulse Rate 101 H 99 Respiratory Rate 18 18 18 Blood Pressure 135/73 H 149/79 H Blood Pressure Mean 93 102 Pulse Ox 94 95 Oxygen Delivery Method Room Air Room Air 03/28/23 22:56 Temperature Temperature Source Pulse Rate 72 Respiratory Rate 18 Blood Pressure 161/67 H Blood Pressure Mean 98 Pulse Ox 95 Oxygen Delivery Method Room Air Positive well nourished and unkempt General Appearance ED: unkempt and NAD; Negative for pallor HEENT normocephalic Eyes PERRL and EOMs intact bilaterally Resp normal respiratory effort and clear to auscultation bilaterally Auscultation: Negative for rales, rhonchi or wheezes Cardio Rate: regular rate Rhythm: regular rhythm Extremity normal to inspection Neuro oriented x3 and CN's II-XII intact bilaterally Psych denies homicidal ideation Appearance: unkempt Attitude: bizarre Activity / Motor Behavior: psychomotor agitation and disorganized Thought Process: disorganized Thought Content: suicidality and No homicidality Attention / Concentration: attention grossly intact Insight: poor Judgement: poor Skin General Skin Exam: Negative for jaundice or pallor MDM MDM MDM Narrative Medical decision making narrative: Patient with suicidal ideation and plan to overdose on medications. This is her second visit this week. I believe she would benefit from inpatient care. Obtain screening lab work. We will plan to admit the patient. Social work saw her and thought she need to be admitted. Currently there is a referral to [facility]. CBC unremarkable. BMP shows slight hypokalemia with potassium 3.0 this was repleted orally with 40 mill equivalents of potassium. Urinalysis negative for infection. Urine drug screen negative. Patient medically clear at this time. Patient will be signed out to incoming ED physician for monitoring until she can be placed. Impression: 1. Suicidal ideation 2. Depression 3. Anxiety Lab Data Attestation: I reviewed the patient's lab results. Labs: Laboratory Results - last 24 hr 03/28/23 03/28/23 03/28/23 18:09 18:09 18:09 WBC 7.2 RBC 4.62 Hgb 11.9 L Hct 37.1 MCV 80.3 L MCH 25.8 L MCHC 32.1 RDW Std Deviation 41.1 RDW Coeff of [place]inka 14.3 Plt Count 228 MPV 11.0 Immature Gran % (Auto) 0.300 Neut % (Auto) 53.8 Lymph % (Auto) 34.4 Emanuel % (Auto) 9.4 Eos % (Auto) 1.4 Baso % (Auto) 0.7 Absolute Neuts (auto) 3.9 Absolute Lymphs (auto) 2.48 Nucleated RBC % 0 Sodium 137 Potassium 3.0 L Chloride 104 Carbon Dioxide 28.0 Anion Gap 5 BUN 11 Creatinine 0.74 Estim Creat Clear Calc 61.77 Est GFR (MDRD) Af Amer 104 Est GFR (MDRD) Non-Af 86 BUN/Creatinine Ratio 14.9 Glucose 73 L Calcium 9.4 Urine Color Urine Clarity Urine pH Ur Specific [place] Urine Protein Urine Glucose (UA) Urine Ketones Urine Occult Blood Urine Nitrite Urine Bilirubin Urine Urobilinogen Ur Leukocyte Esterase Urine RBC Urine WBC Ur Squamous Epith Cells Ur Renal Epithelial Cell Urine Bacteria Urine Mucus Urine Opiates Screen Urine Methadone Screen Ur Barbiturates Screen Ur Phencyclidine Scrn Ur Amphetamines Screen MDMA (Ecstasy) Screen U Benzodiazepines Scrn Urine Cocaine Screen U Cannabinoids Screen Ur Drug Screen Comment Ethyl Alcohol < 3.0 03/28/23 03/28/23 18:25 18:25 WBC RBC Hgb Hct MCV MCH MCHC RDW Std Deviation RDW Coeff of Yinka Plt Count MPV Immature Gran % (Auto) Neut % (Auto) Lymph % (Auto) Emanuel % (Auto) Eos % (Auto) Baso % (Auto) Absolute Neuts (auto) Absolute Lymphs (auto) Nucleated RBC % Sodium Potassium Chloride Carbon Dioxide Anion Gap BUN Creatinine Estim Creat Clear Calc Est GFR (MDRD) Af Amer Est GFR (MDRD) Non-Af BUN/Creatinine Ratio Glucose Calcium Urine Color Yellow Urine Clarity Clear Urine pH 6.0 Ur Specific [place] 1.015 Urine Protein Negative Urine Glucose (UA) Normal Urine Ketones 5 H Urine Occult Blood Negative Urine Nitrite Negative Urine Bilirubin Negative Urine Urobilinogen Normal Ur Leukocyte Esterase 100 H Urine RBC 0 SEEN Urine WBC 0-5 SEEN Ur Squamous Epith Cells 0-5 SEEN Ur Renal Epithelial Cell 0-5 SEEN Urine Bacteria 0 SEEN Urine Mucus 0 SEEN Urine Opiates Screen NEGATIVE Urine Methadone Screen NEGATIVE Ur Barbiturates Screen NEGATIVE Ur Phencyclidine Scrn NEGATIVE Ur Amphetamines Screen NEGATIVE MDMA (Ecstasy) Screen NEGATIVE U Benzodiazepines Scrn NEGATIVE Urine Cocaine Screen NEGATIVE U Cannabinoids Screen NEGATIVE Ur Drug Screen Comment Ethyl Alcohol Discharge Plan Triage Chief Complaint: Mental Health ED Provider: Shaun Gill Dx/Rx/DC Orders Prescriptions: No Action glimepiride 1 MG tablet 2 mg PO DAILY carbamazepine 200 MG tablet 200 mg PO BID hydrochlorothiazide 25 MG tablet 25 mg PO DAILY solifenacin [Vesicare] 10 MG tablet 10 mg PO QHS quetiapine [Seroquel] 400 MG tablet 350 mg PO QHS omeprazole 40 MG capsule,delayed release(DR/EC) 40 mg PO BID albuterol sulfate [Ventolin HFA] 1 INHALER inhaler 1 - 2 puff inhalation Q4H PRN PRN (Reason: Shortness Of Breath) amlodipine 10 MG tablet 10 mg PO DAILY potassium chloride 10 MEQ tablet,ER particles/crystals 30 meq PO BID montelukast 10 mg Tablet 10 mg PO DAILY cholecalciferol (vitamin D3) [Vitamin D3] 125 mcg (5,000 unit) Tablet 125 mcg PO DAILY Vraylar 4.5 mg capsule 4.5 mg PO DAILY nystatin-triamcinolone 100,000-0.1 unit/gram-% ointment 1 applic topical BID 14 Days Qty: 60 1RF ferrous sulfate 325 mg (65 mg iron) Tablet 325 mg PO BID ascorbic acid (vitamin C) 500 mg Capsule 1,000 mg PO DAILY cephalexin [cephalexin] 500 mg capsule 500 mg PO Q6 Qty: 12 0RF fenofibrate 50 mg Capsule 50 mg PO DAILY Primary Care Provider: Nick Giraldo Referrals: Nick Giraldo DO [Primary Care Provider] -
--- NOTE | 2023-03-28 17:58 | ED.RN ---
per social work professor cintia, pt does not need a sitter at this time.
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
[2023-03-28 18:21] LABS: Absolute Lymphocyte Count 2.48 X10^3/uL (0.83-4.51); Absolute Neutrophil Count 3.9 X10^3/uL (2.0-7.7); Basophil# 0.05 X10^3/uL; Basophil% 0.7 % (0-1); Eosinophils% 1.4 % (0-5); Hematocrit 37.1 % (37-47); Hemoglobin 11.9 g/dL (12.0-15.0); Lymphocyte # 2.48 X10^3/ul (0.83-4.51); Lymphocyte % 34.4 % (19-41); Mean Corp Hgb Conc 32.1 g/dL (32-36); Mean Corpuscular Hgb 25.8 pg (27.0-32.0); Mean Corpuscular Volume 80.3 fL (81-99); Monocyte# 0.68 X10^3/uL; Monocyte% 9.4 % (0-10); NRBC Flagged by Analyzer 0 % (0-5); Neutrophil # 3.88 X10^3/uL (2.7-7.7); Neutrophil % 53.8 % (47-70); Platelet Count 228 K/mm3 (150-450); RBC Distribution Width CV 14.3 % (11.6-14.6); RBC Distribution Width SD 41.1 fl (35.1-43.9); Red Blood Count 4.62 M/mm3 (4.2-5.4); White Blood Count 7.2 K/mm3 (4.4-11.0)
[2023-03-28 18:47] LABS: Alcohol, Blood (Medical)-Serum < 3.0 mg/dL; Anion Gap 5 (5-15); BUN 11 mg/dL (7-18); BUN/Creat Ratio 14.9 RATIO (10-20); Calcium,Total 9.4 mg/dL (8.5-10.1); Chloride 104 mmol/L (98-107); Creatinine, Serum 0.74 mg/dL (0.55-1.02); EST Glomerular Filtration Rate 86 mL/min (>60); Est Glom Filt Rate - Afr Amer 104 mL/min (>60); Estimated Creatinine Clearance 61.77 ml/min; Glucose 73 mg/dL (74-106); Sodium Level 137 mmol/L (136-145)
[2023-03-28 18:51] LABS: Amphetamine Urine VISTA NEGATIVE (<1000 ng/mL); Barbiturate Urine VISTA NEGATIVE (< 200 ng/mL); Benzodiazepine Urine VISTA NEGATIVE (< 200 ng/mL); Cocaine Urine VISTA NEGATIVE (< 300 ng/mL); Ecstacy Urine VISTA NEGATIVE (< 500 ng/mL); Methadone Urine VISTA NEGATIVE (< 300 ng/mL); PCP Urine VISTA NEGATIVE (< 25 ng/mL); THC Urine VISTA NEGATIVE (< 50 ng/mL); Vista UDS pH Range 4
[2023-03-28] MEDS: Potassium Chloride Oral Tablet 20 MEQ 40 MEQ PO (19:00)
[2023-03-28 19:12] LABS: Bacteria 0 SEEN /hpf (None Seen); Mucous, Urine 0 SEEN /hpf (<or=2+); Red Blood Cells-Urine 0 SEEN /hpf (0-5)
--- NOTE | 2023-03-28 19:12 | EKG12_ITS ---
Test Reason : MHC Blood Pressure : / mmHG Vent. Rate : 092 BPM Atrial Rate : 092 BPM P-R Int : 166 ms QRS Dur : 108 ms QT Int : 340 ms P-R-T Axes : 056 025 065 degrees QTc Int : 420 ms Normal sinus rhythm Normal ECG Confirmed by GERBER PETERSON, CHIARA ([id number]), primer expeditor and drier ROBERT CARBAJAL ([id number]) on 04/01/2023 11:43:22 AM Referred By: HERNANDO Confirmed By:MACIEL MAYES MD
[2023-03-28 20:04] LABS: Color, Urine Yellow (Yellow); Glucose, Dipstick Normal (Normal); Ketone-Dipstick 5 mg/dl (Negative); Leukocyte Esterase-Dipstick 100 /ul (Negative); Nitrite-Dipstick Negative (Negative); Occult Blood-Urine Negative /ul (Negative); Protein-Dipstick Negative (Negative); Specific Gravity, Urine 1.015 (1.002-1.030); Urine Bilirubin Dipstick Negative (Negative); Urine Clarity Clear (Clear); Urine Urobilinogen Normal (Normal)
[2023-03-28 20:05] VITALS: RESP 18
[2023-03-28 20:13] LABS: Renal Epithelial Cells 0-5 SEEN /hpf (0-5); Squamous Epithelial Cells - UA 0-5 SEEN /hpf (5-10); White Blood Cells 0-5 SEEN /hpf (0-5)
--- NOTE | 2023-03-28 21:37 | CM.ED ---
Social Work Pt referred to [facility] for psych placement. Called [facility] to follow up and they reported doctor had information to review. Referral information faxed to Crisis and report given to [facility] with [facility]. Courtney Marcum SHRIMP PEELING MACHINE TENDER, CLOTH BOIL OFF MACHINE OPERATOR
[2023-03-28] MEDS: carBAMazepine 200 MG Tablet PO (22:51)
[2023-03-28 22:56] VITALS: BP 161/67; PULSE 72; RESP 18; O2SAT 95
[2023-03-29] VITALS (8 sets, daily range): BP systolic 137–154; BP diastolic 60–79; PULSE 77–84; RESP 15–18; TEMP 36.7; O2SAT 96–98
--- NOTE | 2023-03-29 03:40 | ED.RN ---
[facility] CALLED, PT WAS DECLINED DUE TO INS.
--- NOTE | 2023-03-29 06:48 | NURSING ---
[facility] CALLED- PT PENDING AT [facility].
--- NOTE | 2023-03-29 07:11 | NURSING ---
[facility] ACCEPTING DR LONGORIA-- DISCOVERY UNIT-- RN TO RN [phone] OPTION 1 -- CALLED PHYSICIANS TO SET UP TRANSPORT ETA IS 2 HOURS (0915AM).
--- NOTE | 2023-03-29 07:37 | ED.RN ---
PT CALLS OUT USING CALL LIGHT. PT STATES I NEED TO USE THE RESTROOM. PT STATES YOU NEED TO GET ME A NEW PAIR OF UNDERWEAR. THIS RN STATES WE HAVE BRIEFS, WOULD YOU LIKE ONE OF THOSE? PT AGREES. WHEN THIS RN RETURNS PT STATES I HAVE DIARRHEA REAL BAD.. YOU NEED TO WIPE ME. THIS RN ASKS PT MA'AM, HOW DO YOU CARE FOR YOURSELF AT HOME? PT STATES I HAVE TO AT HOME. THIS RN STATES WELL, IF YOU ARE ABLE TO CARE YOURSELF AT HOME, I WOULD LIKE YOU TO CARE FOR YOURSELF HERE. IT DOES NOT BENEFIT YOU IF I AM DOING ALL OF YOUR CARE. PT STATES WHAT TIME DOES THE GEAR MACHINIST GET HERE? EVERYONE KEEPS YELLING AT ME. THIS RN STATES MA'AM I AM NOT YELLING AT YOU, I AM ASKING YOU IF YOU WERE ABLE TO DO YOUR OWN SELF CARE. SOCIAL WORK DOES NOT COME IN UNTIL LATER THIS MORNING. PT GETS BACK INTO BED AND BREAKFAST TRAY BROUGHT IN.
--- NOTE | 2023-03-29 13:46 | CM.ED ---
Social Work Received call from patients [employer] Home Silica Mixer Operator, Stephani Joaquin ([phone]) inquiring on update as to which hospital patient was sent to. For continuity of care, updated Stephani to discharge disposition. Patient was discharged to [facility] in [place]. -MK Nascimento, DIGITAL SERVICE ENGINEER
--- NOTE | 2023-03-29 18:21 | ED.RN ---
VERNELL GREENE TOOK PT HOME MEDS TO BE LOCKED UP IN HOSPITAL SAFE. THIS RN CONTACTED [facility] AND SPOKE WITH NURSE MAXIMILIANO. MAXIMILIANO INFORMED AND REPORTS SHE WILL INFORM THE PT OF HER MEDICATION LOCATION AND THAT SHE CAN PICK THEM UP AFTER DISCHARGE FROM THE FACILITY.
== END 2023-03-29 10:46 ==
LOC: ED 18:38
PROVIDERS: Emergency Provider Student in an Organized Health Care Education/Training Program; PCP Student in an Organized Health Care Education/Training Program; Visit Provider Student in an Organized Health Care Education/Training Program
DX: R45.851 Suicidal ideations (principal); J44.9 Chronic obstructive pulmonary disease, unspecified; F31.9 Bipolar disorder, unspecified; E11.40 Type 2 diabetes mellitus with diabetic neuropathy, unspecified; E87.6 Hypokalemia; I10 Essential (primary) hypertension; F41.9 Anxiety disorder, unspecified; Z79.84 Long term (current) use of oral hypoglycemic drugs; Z79.899 Other long term (current) drug therapy; Z91.51 Personal history of suicidal behavior; Z87.891 Personal history of nicotine dependence
CPT/HCPCS: 80048; 80307; 81001; 82077; 85025; 87811; 93005; 99285

== ENCOUNTER 2023-04-23 17:56 | Emergency (ER) | payer MEDICAID, SELFPAY ==
[2023-04-23 17:57] VITALS: BP 155/91; PULSE 98; RESP 18; TEMP 36.4; O2SAT 93; BMI 46.3
[2023-04-23 18:45] LABS: Absolute Lymphocyte Count 2.12 X10^3/uL (0.83-4.51); Absolute Neutrophil Count 6.5 X10^3/uL (2.0-7.7); Basophil# 0.04 X10^3/uL; Basophil% 0.4 % (0-1); Eosinophil# 0.03 X10^3/uL; Eosinophils% 0.3 % (0-5); Hematocrit 40.5 % (37-47); Hemoglobin 12.7 g/dL (12.0-15.0); Lymphocyte # 2.12 X10^3/ul (0.83-4.51); Lymphocyte % 22.5 % (19-41); Mean Corp Hgb Conc 31.4 g/dL (32-36); Mean Corpuscular Hgb 25.6 pg (27.0-32.0); Mean Corpuscular Volume 81.5 fL (81-99); Mean Platelet Vol. 11.2 fl (6.2-12.0); Monocyte# 0.65 X10^3/uL; Monocyte% 6.9 % (0-10); NRBC Flagged by Analyzer 0 % (0-5); Neutrophil # 6.53 X10^3/uL (2.7-7.7); Neutrophil % 69.3 % (47-70); Platelet Count 243 K/mm3 (150-450); RBC Distribution Width CV 14.2 % (11.6-14.6); RBC Distribution Width SD 41.6 fl (35.1-43.9); Red Blood Count 4.97 M/mm3 (4.2-5.4); White Blood Count 9.4 K/mm3 (4.4-11.0)
--- NOTE | 2023-04-23 18:48 | ED.RN ---
PER JOSE CARLOS, FROM CRISIS PT DOES NOT NEED A SITTER AT THIS TIME.
[2023-04-23 19:05] LABS: Anion Gap 10 (5-15); BUN 16 mg/dL (7-18); BUN/Creat Ratio 15.7 RATIO (10-20); Calcium,Total 9.3 mg/dL (8.5-10.1); Chloride 104 mmol/L (98-107); Creatinine, Serum 1.02 mg/dL (0.55-1.02); EST Glomerular Filtration Rate 59 mL/min (>60); Est Glom Filt Rate - Afr Amer 71 mL/min (>60); Estimated Creatinine Clearance 44.81 ml/min; Glucose 118 mg/dL (74-106); Potassium 3.4 mmol/L (3.5-5.1); Sodium Level 137 mmol/L (136-145)
[2023-04-23 19:22] LABS: Alcohol, Blood (Medical)-Serum < 3.0 mg/dL
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
--- NOTE | 2023-04-23 20:20 | CM.ED ---
Social Work Crisis is recommending psychiatric placement for patient and sent patient to the hospital for medical clearance. Crisis assessment received. SW introduced self and role to patient. Pt denies wanting to harm herself or others at this time. Pt repeats herself and does not answer most questions appropriately or stares blankly without responding. NONA faxed medical clearance and crisis assessment to [facility] for admission review. Courtney Marcum RECEIVING ASSOCIATE STORE, CAPACITY PLANNING ENGINEER
--- NOTE | 2023-04-23 21:00 | CM.ED ---
Social Work [facility] has accepted patient to Intensive Unit by Dr. Forman. Nurse to Nurse: [phone]. Requesting pink slip made to [facility] to be faxed and original with patient. Transport requested 10 am tomorrow due to discharges. Courtney Marcum CAT SCANNER OPERATOR, SANDING LINE OPERATOR
--- NOTE | 2023-04-23 22:40 | ED.RN ---
pt takes Prazosin hcl 5 mg at home, [facility] does not carry this medication. Per pharmacy interchange for this is cardura 4mg. Dr Lee notified and verbal orders received to order patients night time home medications.
[2023-04-23 22:50] LABS: Amphetamine Urine VISTA NEGATIVE (<1000 ng/mL); Barbiturate Urine VISTA NEGATIVE (< 200 ng/mL); Benzodiazepine Urine VISTA NEGATIVE (< 200 ng/mL); Cocaine Urine VISTA NEGATIVE (< 300 ng/mL); Ecstacy Urine VISTA NEGATIVE (< 500 ng/mL); Methadone Urine VISTA NEGATIVE (< 300 ng/mL); PCP Urine VISTA NEGATIVE (< 25 ng/mL); THC Urine VISTA NEGATIVE (< 50 ng/mL); Vista UDS pH Range 6
[2023-04-23] MEDS: QUEtiapine 100 MG Tablet 200 MG PO (23:34)
[2023-04-23] MEDS: Doxazosin 4 MG Tablet PO (23:34)
[2023-04-23] MEDS: MELATONIN 10 MG TABLET 5 MG PO (23:34)
[2023-04-24] VITALS (7 sets, daily range): BP systolic 136–150; BP diastolic 71–87; PULSE 80–81; RESP 14–18; TEMP 35.9; O2SAT 94–97
--- NOTE | 2023-04-24 08:03 | NURSING ---
[facility] CALLED. NEW ETA 30 TO 45 MIN
--- NOTE | 2023-04-24 09:03 | ED.RN ---
THIS RN SPOKE WITH BROTHER ORLANDO PER PT REQUEST. ORLANDO WAS UPDATED THAT PT IS HEADED TO [facility] IN [place] WITH ARRIVAL TIME BETWEEN 1030 AND 11. ORLANDO VERBALIZED UNDERSTANDING WITH NO FURTHER QUESTIONS
[2023-04-24 09:21] LABS: Bedside Glucose 184 mg/dL (74-106)
== END 2023-04-24 09:05 ==
PROVIDERS: Emergency Provider Emergency Medicine; PCP Student in an Organized Health Care Education/Training Program; Visit Provider Emergency Medicine
DX: F29 Unspecified psychosis not due to a substance or known physiological condition (principal); J44.9 Chronic obstructive pulmonary disease, unspecified; E11.40 Type 2 diabetes mellitus with diabetic neuropathy, unspecified; Z87.891 Personal history of nicotine dependence; R45.850 Homicidal ideations; R45.851 Suicidal ideations; F32.A Depression, unspecified; I10 Essential (primary) hypertension; Z79.899 Other long term (current) drug therapy; Z90.49 Acquired absence of other specified parts of digestive tract
CPT/HCPCS: 80048; 80307; 82077; 82962; 85025; 87811; 99284

== ENCOUNTER 2023-08-13 14:34 | Emergency (ER) | payer MEDICARE, SELFPAY ==
[2023-08-13 14:34] VITALS: BP 152/103; PULSE 102; RESP 16; TEMP 36.3; O2SAT 95; BMI 42.6
--- NOTE | 2023-08-13 14:44 | CT_ITS ---
STUDY: CT BRAIN WITHOUT CONTRAST REASON FOR EXAM: Female, 58 years old. head injury RADIATION DOSAGE (If Supplied By Facility): CTDIvol = ( 44.99 ) mGy, DLP = ( 812.98 ) mGycm TECHNIQUE: Transaxial CT imaging of the brain was performed without administration of intravenous contrast material. Individualized dose optimization techniques were used for this CT. COMPARISON: 03/26/2023 FINDINGS: Normal soft tissue structures. Normal calvarium. Normal size ventricles and extra-axial spaces for the patient''s age. Normal white matter tracts of the cerebral hemispheres. Normal basal ganglia and thalami. Normal brainstem. Normal cerebellum. There is no intracranial hemorrhage. There are no findings of an acute ischemic infarction. Normal visualized paranasal sinuses. CT/Brain/Head without Contrast IMPRESSION: Normal unenhanced CT scan of the brain. Electronically Signed: Isael De MD at 16:52 EDT ,
--- NOTE | 2023-08-13 14:44 | EKG12_ITS ---
Test Reason : GENERAL Blood Pressure : / mmHG Vent. Rate : 077 BPM Atrial Rate : 077 BPM P-R Int : 166 ms QRS Dur : 102 ms QT Int : 374 ms P-R-T Axes : 057 029 059 degrees QTc Int : 423 ms Normal sinus rhythm Normal ECG Confirmed by QIAN HERNANDEZ MD ([id number]), staff editor ELX SNIDER ([id number]) on 08/15/2023 1:43:13 PM Referred By: Confirmed By:QIAN HERNANDEZ MD
[2023-08-13 14:47] VITALS: O2SAT 99
--- NOTE | 2023-08-13 14:47 | EX.ED.DYSGE1 ---
HPI History of Present Illness Chief Complaint: Head Injury Informant: patient Narrative Narrative: Patient presents by private vehicle with multiple complaints. Reports hit her head on the trunk lid 5 days ago. No loss of conscious. Feels head is swollen. She does not take any blood thinners. She has history of migraine states persistent headache for 4 days. Nausea with photophobia. No vomiting. Dysuria for 4 days. No back pain. No abdominal pain. No fevers. Generalized myalgias for 4 days. She states generalized swelling all over. Reports chest pains across her chest for 2 days. Cough with phlegm for 2 days. No cardiac history. History of hypertension diabetes and bipolar. [facility] Medical History Asthma Mcclellan's esophagus Bipolar 1 disorder Chest pain COPD (chronic obstructive pulmonary disease) Depression Dermatitis of perianal region Diabetes Excoriation of buttock Fecal incontinence GERD (gastroesophageal reflux disease) Hiatal hernia HTN (hypertension) IBS (irritable bowel syndrome) Iron deficiency anemia due to chronic blood loss Irritable bowel syndrome with diarrhea Migraines Neuropathy Non-smoker Osteoarthritis Overactive bladder Rectal prolapse Sleep apnea Home Medications albuterol sulfate 90 mcg/actuation aerosol inhaler (Ventolin HFA) 1 - 2 puff inhalation Q4H PRN PRN Shortness Of Breath 12/06/16 [History Last Taken Unknown] glimepiride 1 mg tablet 2 mg PO DAILY diabetes 12/06/16 [History Last Taken 07/16/22] hydrochlorothiazide 25 mg tablet 25 mg PO DAILY diuretic 12/06/16 [History Last Taken 07/16/22] quetiapine 400 mg tablet (Seroquel) 200 mg PO QHS bipolar 12/06/16 [History Last Taken Unknown] solifenacin 10 mg tablet (Vesicare) 10 mg PO QHS skin care 12/06/16 [History Last Taken 07/15/22] amlodipine 10 mg tablet 10 mg PO DAILY blood pressure 07/09/17 [History Last Taken 07/16/22] potassium chloride 10 mEq tablet,extended release(part/cryst) 30 meq PO BID supplement 08/02/19 [History Last Taken 07/16/22] cholecalciferol (vitamin D3) 125 mcg (5,000 unit) tablet (Vitamin D3) 125 mcg PO DAILY supplement 04/19/22 [History Last Taken 07/16/22] montelukast 10 mg tablet 10 mg PO DAILY allergies 04/19/22 [History Last Taken 07/16/22] cariprazine 4.5 mg capsule (Vraylar) 3 mg PO DAILY mood 07/16/22 [History Last Taken 07/16/22] ascorbic acid (vitamin C) 500 mg capsule 1,000 mg PO DAILY 02/11/23 [History Last Taken Unknown] fenofibrate 50 mg capsule 48 mg PO DAILY 03/28/23 [History Last Taken Unknown] melatonin 1 mg tablet 1 mg PO QHS 04/23/23 [History Last Taken Unknown] ondansetron 4 mg disintegrating tablet 4 mg PO Q8H PRN Nausea 04/23/23 [History Last Taken Unknown] prazosin 5 mg capsule 5 mg PO QHS 04/23/23 [History Last Taken Unknown] cephalexin 500 mg capsule 500 mg PO Q12 #14 CAPSULES 08/13/23 [Rx Last Taken Unknown] ibuprofen 600 mg tablet 600 mg PO Q6H PRN PRN pain #20 TABLETS 08/13/23 [Rx Last Taken Unknown] Allergy/AdvReac Type Severity Reaction Status Date / Time latex Allergy Rash Verified 08/13/23 14:36 lithium [[place]] Allergy Anaphylaxis Verified 08/13/23 14:36 acetaminophen AdvReac Vomiting Verified 08/13/23 14:36 [From Tylenol-Codeine] aspirin AdvReac Vomiting Verified 08/13/23 14:36 citalopram [From Celexa] AdvReac makes me Verified 08/13/23 14:36 cry a lot citalopram hydrobromide AdvReac Other Verified 08/13/23 14:36 [From Celexa] codeine AdvReac Vomiting Verified 08/13/23 14:36 divalproex sodium AdvReac Vomiting Verified 08/13/23 14:36 [From Depakote] nortriptyline AdvReac Other Verified 08/13/23 14:36 trazodone AdvReac Other Verified 08/13/23 14:36 Family History Mother Diabetes Father Diabetes Surgical History History of carpal tunnel release History of rectopexy Hx of cholecystectomy Hx of tonsillectomy Social History household members: none Smoking Status: Former smoker alcohol intake: former substance use type: does not use ROS ROS ED Constitutional Constitutional ED: Denies chills, fever(s) or sweats Eyes Eyes: Denies change in vision ENT ENT ED: Denies dysphagia or sore throat Cardiovascular Cardiovascular: Reports chest pain; Denies leg edema, palpitations or racing heartbeat Respiratory/Chest Respiratory/Chest: Reports cough; Denies dyspnea or dyspnea on exertion Gastrointestinal Gastrointestinal: Reports nausea; Denies abdominal pain, diarrhea or vomiting Genitourinary Genitourinary ED: Reports dysuria; Denies hematuria or urinary frequency Musculoskeletal Musculoskeletal: Reports myalgias; Denies back pain, extremity pain or neck pain Integumentary Denies rash or wounds Neurologic Neurologic: Reports headache(s); Denies paresthesias or weakness EXAM Physical Exam Const Vital Signs: 08/13/23 14:34 08/13/23 14:47 08/13/23 16:42 Temperature 97.4 F L Temperature Source Temporal Pulse Rate 102 H 91 Respiratory Rate 16 23 H Respiratory Effort Normal Non-Labored Respiratory Depth Normal Respiratory Pattern Normal Blood Pressure 152/103 H 144/128 H Blood Pressure Mean 119 133 Pulse Ox 95 99 98 Oxygen Delivery Method Room Air Room Air Room Air 08/13/23 16:52 08/13/23 17:17 Temperature Temperature Source Pulse Rate 83 84 Respiratory Rate 19 H 20 H Respiratory Effort Respiratory Depth Respiratory Pattern Blood Pressure 121/62 H 125/68 H Blood Pressure Mean 81 Pulse Ox 100 99 Oxygen Delivery Method Room Air Positive well nourished and well developed Constitutional Narrative: Nontoxic, GCS 15. General Appearance ED: well developed and NAD HEENT Reports moist mucous membranes HEENT Narrative: No hemotympanums. normocephalic and atraumatic Eyes PERRL, EOMs intact bilaterally and conjunctivae normal General Eye ED: Yes normal appearance of both eyes Neck no lymphadenopathy and supple Neck Narrative: No managed as General: Negative for tenderness Chest Wall inspection of chest normal and palpation of chest normal Chest: Negative for tenderness Resp normal respiratory effort and normal air movement Effort and Inspection: symmetric chest movement; Negative for respiratory distress Cardio regular rate, regular rhythm and no murmurs Peripheral Pulses: pulses 2+ throughout GI normal to inspection, nondistended, normoactive bowel sounds and non-tender Palpation: Negative for guarding or rebound tenderness present Back/Spine no CVA tenderness and no thoracic nor lumbar tenderness Extremity normal to inspection Extremity Narrative: No appreciable swelling or pitting edema noted. Pulses intact x4. General Extremety ED: Negative for edema or tenderness General Extremity: Negative for edema Neuro oriented x3, CN's II-XII intact bilaterally and no sensory deficits noted Sensorium / Orientation: awake and alert Skin no rashes or lesions noted and no wounds MDM MDM MDM Narrative Medical decision making narrative: Interventions / MDM: Differential diagnosis: UTI, atypical chest pain, concussion Diagnosis considered but do not suspect: ACS however normal EKG and cardiac enzyme. Heart failure however normal labs and x-ray. Intracranial hemorrhage however CT brain negative. My EKG interpretation: Sinus rate of 77, no ST or T wave changes. Imaging independently reviewed and interpreted by myself: CT brain: No acute process. Two-view chest x-ray: No acute process. Left ankle 3 views x-ray: No acute process. External documents reviewed: N/A Test considered but not ordered:N/A ED course: Patient vital stable multiple complaints. Head injury of persistent headaches, CT head ordered. History of migraines. Reglan Benadryl ordered. Chest pain with EKG no acute findings. Cardiac enzymes ordered. Reporting increasing generalized swelling, BNP added. Dysuria with urine ordered. With myalgias COVID and flu sent. Patient later requested ankle films left side per nursing. Result image studies negative Labs all stable urine was positive for infection culture sent. She is given Rocephin in the ED while waiting for labs. Persistent chest pain for 2 days negative work-up and negative troponin therefore not likely ACS in nature. She is more reassured. No gross swelling noted. She requested Juan wrap, was placed to both legs. Antibiotics sent to her pharmacy. Outpatient follow-up with her PCP. All questions were answered. Re-evaluation: stable Disposition discussed with patient/family/significant other: Patient Case discussed with consulting clinician: N/A This note was generated with [employer] dictation software. It may contain incorrect words, spelling, and punctuation that were not noted in checking the note before signing. Lab Data Attestation: I reviewed the patient's lab results. Labs: Laboratory Results - last 24 hr 08/13/23 08/13/23 14:45 14:55 WBC 7.4 RBC 4.98 Hgb 12.6 Hct 39.5 MCV 79.3 L MCH 25.3 L MCHC 31.9 L RDW Std Deviation 42.1 RDW Coeff of [place] 14.6 Plt Count 253 MPV 11.5 Immature Gran % (Auto) 0.400 Neut % (Auto) 57.4 Lymph % (Auto) 31.5 [place] % (Auto) 6.4 Eos % (Auto) 3.8 Baso % (Auto) 0.5 Absolute Neuts (auto) 4.2 Absolute Lymphs (auto) 2.33 Nucleated RBC % 0 Sodium 140 Potassium 3.5 Chloride 105 Carbon Dioxide 28.0 Anion Gap 7 BUN 13 Creatinine 0.75 Estim Creat Clear Calc 63.88 Est GFR (MDRD) Af Amer 101 Est GFR (MDRD) Non-Af 84 BUN/Creatinine Ratio 17.3 Glucose 102 Calcium 9.3 Total Bilirubin 0.30 AST 21 ALT 27 Alkaline Phosphatase 138 H Troponin I High Sens 5 B-Natriuretic Peptide 36.9 Total Protein 7.9 Albumin 3.8 Globulin 4.1 Albumin/Globulin Ratio 0.9 Urine Color Yellow Urine Clarity Cloudy Urine pH 5.0 Ur Specific [place] 1.025 Urine Protein 30 H Urine Glucose (UA) Normal Urine Ketones 5 H Urine Occult Blood 10 H Urine Nitrite Negative Urine Bilirubin Negative Urine Urobilinogen 1 H Ur Leukocyte Esterase 500 H Urine RBC 0 SEEN Urine WBC 0 SEEN Ur Squamous Epith Cells 0-5 SEEN Calcium Oxalate Crystal 2+ Urine Bacteria 0 SEEN Urine Mucus 0 SEEN Radiography Diagnostic Testing: Clinical Impression(s) from Imaging Studies Brain CT 08/13/23 14:44 IMPRESSION: Normal unenhanced CT scan of the brain. Electronically Signed: Isael De MD at 16:52 EDT , Chest X-Ray 08/13/23 15:41 IMPRESSION: Normal x-ray examination of the chest. Electronically Signed: Isael De MD at 16:55 EDT , Ankle X-Ray 08/13/23 16:00 IMPRESSION: 1. Soft tissue swelling laterally. 2. No evidence of acute osseous injury. Electronically Signed: Ammon Cha MD at 16:39 EDT , Discharge Plan Triage Chief Complaint: Head Injury ED Provider: Warner Sarmiento Dx/Rx/DC Orders Clinical Impression: UTI (urinary tract infection), Bipolar disorder, Headache, Chest pain Instructions: Urinary Tract Infections in Women, ED Chest Pain, Uncertain Cause, ED Head Injury (Adult) Prescriptions: New cephalexin [cephalexin] 500 mg capsule 500 mg PO Q12 Qty: 14 0RF ibuprofen 600 mg tablet 600 mg PO Q6H PRN PRN (Reason: pain) Qty: 20 0RF No Action glimepiride 1 MG tablet 2 mg PO DAILY hydrochlorothiazide 25 MG tablet 25 mg PO DAILY solifenacin [Vesicare] 10 MG tablet 10 mg PO QHS quetiapine [Seroquel] 400 MG tablet 200 mg PO QHS albuterol sulfate [Ventolin HFA] 1 INHALER inhaler 1 - 2 puff inhalation Q4H PRN PRN (Reason: Shortness Of Breath) amlodipine 10 MG tablet 10 mg PO DAILY potassium chloride 10 MEQ tablet,ER particles/crystals 30 meq PO BID montelukast 10 mg Tablet 10 mg PO DAILY cholecalciferol (vitamin D3) [Vitamin D3] 125 mcg (5,000 unit) Tablet 125 mcg PO DAILY Vraylar 4.5 mg capsule 3 mg PO DAILY ascorbic acid (vitamin C) 500 mg Capsule 1,000 mg PO DAILY fenofibrate 50 mg Capsule 48 mg PO DAILY prazosin 5 mg Capsule 5 mg PO QHS ondansetron [Zofran ODT] 4 mg Tablet,Disintegrating 4 mg PO Q8H PRN (Reason: Nausea) melatonin 1 mg Tablet 1 mg PO QHS Primary Care Provider: Nick Giraldo Referrals: Nick Giraldo, [Primary Care Provider] - Activity Restrictions/Additional Instructions: CT brain negative. Chest x-ray negative. Left ankle negative. COVID-negative. Urine positive for infection. Labs with white count hemoglobin renal function electrolytes BMP normal. Take antibiotic as prescribed. Follow-up with your doctor. Disposition Disposition: Home, Self Care
[2023-08-13 15:00] LABS: Bacteria 0 SEEN /hpf (None Seen); Mucous, Urine 0 SEEN /hpf (<or=2+); Red Blood Cells-Urine 0 SEEN /hpf (0-5); White Blood Cells 0 SEEN /hpf (0-5)
[2023-08-13 15:02] LABS: Color, Urine Yellow (Yellow); Glucose, Dipstick Normal (Normal); Ketone-Dipstick 5 mg/dl (Negative); Leukocyte Esterase-Dipstick 500 /ul (Negative); Nitrite-Dipstick Negative (Negative); Occult Blood-Urine 10 /ul (Negative); Protein-Dipstick 30 mg/dl (Negative); Specific Gravity, Urine 1.025 (1.002-1.030); Urine Bilirubin Dipstick Negative (Negative); Urine Clarity Cloudy (Clear); Urine Urobilinogen 1 mg/dl (Normal)
[2023-08-13] MEDS: 0.9% Normal Saline (1000mL) 1,000 ML 1000 ML IV (15:02)
[2023-08-13] MEDS: DiphenhydrAMINE 50 MG/ML Syringe 25 MG IV (15:02)
[2023-08-13] MEDS: Metoclopramide 10 MG/2 ML Vial IV (15:02)
[2023-08-13 15:08] LABS: Calcium Oxalate Crystals Ur 2+ /hpf (<or=2+); Squamous Epithelial Cells - UA 0-5 SEEN /hpf (5-10)
[2023-08-13 15:12] LABS: Absolute Lymphocyte Count 2.33 X10^3/uL (0.83-4.51); Absolute Neutrophil Count 4.2 X10^3/uL (2.0-7.7); Basophil# 0.04 X10^3/uL; Basophil% 0.5 % (0-1); Eosinophil# 0.28 X10^3/uL; Eosinophils% 3.8 % (0-5); Hematocrit 39.5 % (37-47); Hemoglobin 12.6 g/dL (12.0-15.0); Lymphocyte # 2.33 X10^3/ul (0.83-4.51); Lymphocyte % 31.5 % (19-41); Mean Corp Hgb Conc 31.9 g/dL (32-36); Mean Corpuscular Hgb 25.3 pg (27.0-32.0); Mean Corpuscular Volume 79.3 fL (81-99); Mean Platelet Vol. 11.5 fl (6.2-12.0); Monocyte# 0.47 X10^3/uL; Monocyte% 6.4 % (0-10); NRBC Flagged by Analyzer 0 % (0-5); Neutrophil # 4.24 X10^3/uL (2.7-7.7); Neutrophil % 57.4 % (47-70); Platelet Count 253 K/mm3 (150-450); RBC Distribution Width CV 14.6 % (11.6-14.6); RBC Distribution Width SD 42.1 fl (35.1-43.9); Red Blood Count 4.98 M/mm3 (4.2-5.4); White Blood Count 7.4 K/mm3 (4.4-11.0)
[2023-08-13 15:25] LABS: ALB/GLOB Ratio 0.9 RATIO (0.9-2.4); AST(SGOT) 21 U/L (15-37); Alanine Aminotransfer ALT/SGPT 27 U/L (13-56); Albumin, Serum 3.8 g/dL (3.2-5.0); Alkaline Phosphatase 138 U/L (45-117); Anion Gap 7 (5-15); BUN 13 mg/dL (7-18); BUN/Creat Ratio 17.3 RATIO (10-20); Calcium,Total 9.3 mg/dL (8.5-10.1); Chloride 105 mmol/L (98-107); Creatinine, Serum 0.75 mg/dL (0.55-1.02); EST Glomerular Filtration Rate 84 mL/min (>60); Est Glom Filt Rate - Afr Amer 101 mL/min (>60); Estimated Creatinine Clearance 63.88 ml/min; Globulin 4.1 g/dL (2.2-4.2); Glucose 102 mg/dL (74-106); Potassium 3.5 mmol/L (3.5-5.1); Protein, Total 7.9 g/dL (6.4-8.2); Sodium Level 140 mmol/L (136-145); Troponin-I HS (w/2H Reflex) 5 pg/mL (3.0-54.0)
--- NOTE | 2023-08-13 15:41 | RAD_ITS ---
STUDY: X-RAY CHEST REASON FOR EXAM: Female, 58 years old. chest pain TECHNIQUE: Frontal and lateral views of the chest. COMPARISON: 01/22/2023. FINDINGS: The lungs are clear and expanded. There is no demonstrated pleural abnormality. Normal size heart. Normal mediastinum and jose m. Normal visualized pulmonary arteries. Normal visualized aortic arch and descending thoracic aorta. Normal visualized thoracic spine. Normal visualized ribs, clavicles, and shoulders. There is no demonstrated abnormality of the visualized soft tissue structures of the upper abdomen. RAD/Chest PA and Lateral IMPRESSION: Normal x-ray examination of the chest. Electronically Signed: Isael De MD at 16:55 EDT ,
--- NOTE | 2023-08-13 16:00 | RAD_ITS ---
INDICATION: pain EXAMINATION/TECHNIQUE: X-RAY - LEFT XR Ankle Min 3 Views 3 VIEWS COMPARISON: No prior examinations are available for comparison. FINDINGS: SOFT TISSUES: Soft tissue swelling laterally. No radiopaque foreign body. BONES/JOINTS: Well-defined bony densities distal to the bilateral malleoli could be due to previous injury. No evidence of acute fracture. Normal alignment. Preservation of the joint space. Plantar calcaneal spur. RAD/Ankle min 3 Views IMPRESSION: 1. Soft tissue swelling laterally. 2. No evidence of acute osseous injury. Electronically Signed: Ammon Cha MD at 16:39 EDT ,
[2023-08-13 16:11] LABS: BNP,B-Type NATRIURETIC PEPTIDE 36.9 pg/mL (0-100)
[2023-08-13] MEDS: Ceftriaxone 1 GM/50 ML BAG IV (16:23)
[2023-08-13 16:42] VITALS: BP 144/128; PULSE 91; RESP 23; O2SAT 98
[2023-08-13 16:52] VITALS: BP 121/62; PULSE 83; RESP 19; O2SAT 100
[2023-08-13 17:02] LABS: Reflex Troponin-HS? (from REC) Y
[2023-08-13 17:17] VITALS: BP 125/68; PULSE 84; RESP 20; O2SAT 99
== END 2023-08-13 17:31 | disposition home or self-care (01) ==
PROVIDERS: Emergency Provider Emergency Medicine; PCP Student in an Organized Health Care Education/Training Program; Visit Provider Emergency Medicine
DX: N39.0 Urinary tract infection, site not specified (principal); I50.9 Heart failure, unspecified; F31.9 Bipolar disorder, unspecified; R07.9 Chest pain, unspecified; G47.30 Sleep apnea, unspecified; Z87.891 Personal history of nicotine dependence
CPT/HCPCS: 70450; 71046; 73610; 80053; 81001; 83880; 84484; 85025; 87077; 87086; 87088; 87186; 87428; 93005; 96365; 96375; 99284; J7030; J7050; A4216

== ENCOUNTER 2023-10-07 09:54 | Emergency (ER) | payer MEDICARE, SELFPAY ==
[2023-10-07 09:55] VITALS: BP 119/77; PULSE 97; RESP 16; TEMP 36.4; O2SAT 96; BMI 44.1
[2023-10-07 10:39] LABS: Absolute Lymphocyte Count 2.07 X10^3/uL (0.83-4.51); Absolute Neutrophil Count 7.4 X10^3/uL (2.0-7.7); Basophil# 0.04 X10^3/uL; Basophil% 0.4 % (0-1); Eosinophil# 0.13 X10^3/uL; Eosinophils% 1.2 % (0-5); Hematocrit 36.7 % (37-47); Hemoglobin 12.1 g/dL (12.0-15.0); Lymphocyte # 2.07 X10^3/ul (0.83-4.51); Lymphocyte % 19.8 % (19-41); Mean Corpuscular Hgb 25.4 pg (27.0-32.0); Mean Corpuscular Volume 76.9 fL (81-99); Mean Platelet Vol. 11.3 fl (6.2-12.0); Monocyte# 0.77 X10^3/uL; Monocyte% 7.4 % (0-10); NRBC Flagged by Analyzer 0 % (0-5); Neutrophil # 7.38 X10^3/uL (2.7-7.7); Neutrophil % 70.7 % (47-70); Platelet Count 246 K/mm3 (150-450); RBC Distribution Width CV 14.6 % (11.6-14.6); RBC Distribution Width SD 40.5 fl (35.1-43.9); Red Blood Count 4.77 M/mm3 (4.2-5.4); White Blood Count 10.4 K/mm3 (4.4-11.0)
[2023-10-07 10:51] LABS: Anion Gap 9 (5-15); BUN 14 mg/dL (7-18); BUN/Creat Ratio 16.1 RATIO (10-20); Calcium,Total 8.9 mg/dL (8.5-10.1); Chloride 103 mmol/L (98-107); Creatinine, Serum 0.87 mg/dL (0.55-1.02); EST Glomerular Filtration Rate 71 mL/min (>60); Est Glom Filt Rate - Afr Amer 85 mL/min (>60); Estimated Creatinine Clearance 52.54 ml/min; Glucose 95 mg/dL (74-106); Potassium 2.9 mmol/L (3.5-5.1); Sodium Level 138 mmol/L (136-145)
--- NOTE | 2023-10-07 10:54 | EDS_ITS ---
HPI History of Present Illness Chief Complaint: General Illness Detail of Chief Complaint: Nausea, vomiting and diarrhea Informant: patient Onset/Context/Timing Onset: Days (3 to 4 days ago) Context: Sudden Onset Timing: Intermittent Quality: Nausea, vomiting and diarrhea Location: GI Current Severity: Mild Maximum Severity: Mild Worsened by: Nothing Relieved by: Nothing Associated Symptoms Associated Symptoms: Possibly upper GI bleed Narrative Narrative: Patient is a 58-year-old woman who presents with nausea vomiting 1-2 times a day for the last 3 to 4 days. She has had diarrhea of 2-4 loose stools for the past 4 days. She denies blood or mucus in her stool. She states it is watery. She has not been on antibiotics in the past month. There is no history of Pseudomonas under colitis. She denies fever, chills night sweats. She denies thirst or dry mouth. She reports increased urination. She states she checked her blood sugar this morning was 138. She denies orthostatic symptoms. She denies headache, visual, ocular auditory symptoms. She denies upper respiratory tract infectious symptoms. She denies cardiac or respiratory symptoms. She denies abdominal pain. She denies back pain. She is not on an anticoagulant. Prior similar symptoms: No Recent Illness/Hospitalization: No PFSH PFSH Medical History Asthma Mcclellan's esophagus Bipolar 1 disorder Chest pain COPD (chronic obstructive pulmonary disease) Depression Dermatitis of perianal region Diabetes Excoriation of buttock Fecal incontinence GERD (gastroesophageal reflux disease) Hiatal hernia HTN (hypertension) IBS (irritable bowel syndrome) Iron deficiency anemia due to chronic blood loss Irritable bowel syndrome with diarrhea Migraines Neuropathy Non-smoker Osteoarthritis Overactive bladder Rectal prolapse Sleep apnea Home Medications albuterol sulfate 90 mcg/actuation aerosol inhaler (Ventolin HFA) 1 - 2 puff inhalation Q4H PRN PRN Shortness Of Breath 12/06/16 [History Last Taken Unknown] glimepiride 1 mg tablet 2 mg PO DAILY diabetes 12/06/16 [History Last Taken 07/16/22] hydrochlorothiazide 25 mg tablet 25 mg PO DAILY diuretic 12/06/16 [History Last Taken 07/16/22] quetiapine 400 mg tablet (Seroquel) 200 mg PO QHS bipolar 12/06/16 [History Last Taken Unknown] solifenacin 10 mg tablet (Vesicare) 10 mg PO QHS skin care 12/06/16 [History Last Taken 07/15/22] amlodipine 10 mg tablet 10 mg PO DAILY blood pressure 07/09/17 [History Last Taken 07/16/22] potassium chloride 10 mEq tablet,extended release(part/cryst) 30 meq PO BID supplement 08/02/19 [History Last Taken 07/16/22] cholecalciferol (vitamin D3) 125 mcg (5,000 unit) tablet (Vitamin D3) 125 mcg PO DAILY supplement 04/19/22 [History Last Taken 07/16/22] montelukast 10 mg tablet 10 mg PO DAILY allergies 04/19/22 [History Last Taken 07/16/22] cariprazine 4.5 mg capsule (Vraylar) 3 mg PO DAILY mood 07/16/22 [History Last Taken 07/16/22] ascorbic acid (vitamin C) 500 mg capsule 1,000 mg PO DAILY 02/11/23 [History Last Taken Unknown] fenofibrate 50 mg capsule 48 mg PO DAILY 03/28/23 [History Last Taken Unknown] melatonin 1 mg tablet 1 mg PO QHS 04/23/23 [History Last Taken Unknown] ondansetron 4 mg disintegrating tablet 4 mg PO Q8H PRN Nausea 04/23/23 [History Last Taken Unknown] prazosin 5 mg capsule 5 mg PO QHS 04/23/23 [History Last Taken Unknown] cephalexin 500 mg capsule 500 mg PO Q12 #14 CAPSULES 08/13/23 [Rx Last Taken Unknown] ibuprofen 600 mg tablet 600 mg PO Q6H PRN PRN pain #20 TABLETS 08/13/23 [Rx Last Taken Unknown] ondansetron 4 mg disintegrating tablet 4 mg PO Q8H PRN PRN Nausea #10 tabs 10/07/23 [Rx Last Taken Unknown] Allergy/AdvReac Type Severity Reaction Status Date / Time latex Allergy Rash Verified 10/07/23 09:56 lithium [[place]] Allergy Anaphylaxis Verified 10/07/23 09:56 acetaminophen AdvReac Vomiting Verified 10/07/23 09:56 [From Tylenol-Codeine] aspirin AdvReac Vomiting Verified 10/07/23 09:56 citalopram [From Celexa] AdvReac makes me Verified 10/07/23 09:56 cry a lot citalopram hydrobromide AdvReac Other Verified 10/07/23 09:56 [From Celexa] codeine AdvReac Vomiting Verified 10/07/23 09:56 divalproex sodium AdvReac Vomiting Verified 10/07/23 09:56 [From Depakote] nortriptyline AdvReac Other Verified 10/07/23 09:56 trazodone AdvReac Other Verified 10/07/23 09:56 Family History Mother Diabetes Father Diabetes Surgical History History of carpal tunnel release History of rectopexy Hx of cholecystectomy Hx of tonsillectomy Social History household members: none Smoking Status: Former smoker alcohol intake: former substance use type: does not use ROS ROS ED Constitutional Constitutional ED: Denies chills, fever(s), subjective or sweats Eyes Eyes: Denies blurry vision, change in vision or diplopia ENT ENT ED: Denies ear pain, rhinorrhea or sore throat Cardiovascular Cardiovascular: Denies chest pain, palpitations or racing heartbeat Respiratory/Chest Respiratory/Chest: Denies cough, dyspnea or dyspnea on exertion Gastrointestinal Gastrointestinal: Reports diarrhea, nausea, vomiting and other Details: Brown/c offee-ground appearing emesis. There is no gross blood. ; Denies abdominal pain, constipation or melena Genitourinary Genitourinary ED: Reports urinary frequency; Denies dysuria or hematuria Musculoskeletal Musculoskeletal: Denies arthralgias, back pain or myalgias Integumentary Denies rash Neurologic Neurologic: Denies paresthesias or weakness Psychiatric Psychiatric: Denies anxiety or depression Hematologic/Lymphatic Hematologic/Lymphatic: Reports systems reviewed and no addt'l complaints, except as documented and as per HPI EXAM Physical Exam Const Vital Signs: 10/07/23 09:55 10/07/23 10:40 Temperature 97.5 F L Temperature Source Temporal Pulse Rate 97 Respiratory Rate 16 Respiratory Effort Normal Blood Pressure 119/77 Blood Pressure Mean 91 Pulse Ox 96 Oxygen Delivery Method Room Air Positive obese and unkempt; Negative for well nourished or well developed General Appearance ED: unkempt, NAD and pallor; Negative for well developed, cyanotic or diaphoretic Nutritional Appearance: obese HEENT Reports moist mucous membranes and dry mucous membranes HEENT Narrative: Head is atraumatic and normocephalic. Ears are normal. Nares are patent. Posterior pharynx area or exudate. Mouth ED: Yes dry mucous membranes Mouth: dry mucous membranes Eyes PERRL and EOMs intact bilaterally General Eye ED: Negative for pale conjunctiva or scleral icterus Neck no lymphadenopathy, supple and no JVD Chest Wall inspection of chest normal and palpation of chest normal Resp normal respiratory effort and clear to auscultation bilaterally Cardio regular rate, regular rhythm, S1 normal heart sound, S2 normal heart sound and no murmurs GI normal to inspection, nondistended, normoactive bowel sounds, non-tender, non- distended and no masses; Negative for hepatosplenomegaly GI Narrative: NG There is no brown or coffee appearing emesis. Clear gastric contents was aspirated. Nurse was instructed to remove NG. Back/Spine no CVA tenderness Extremity normal to inspection General Extremety ED: Negative for edema or tenderness General Extremity: Negative for edema Neuro oriented x3, CN's II-XII intact bilaterally and no sensory deficits noted Sensorium / Orientation: alert Motor Exam: strength 5/5 throughout Psych Psych Narrative: Affect is flat. Appearance: unkempt Mood & Affect: depressed Skin no rashes or lesions noted, no wounds and No skin turgor normal General Skin Exam: pallor; Negative for elasticity normal or jaundice MDM MDM MDM Narrative Medical decision making narrative: Differential diagnosis would include gastroenteritis, need to evaluate for GI bleed especially with history of GERD and Mcclellan's esophagitis. Because patient is diabetic we will obtain BMP to assess renal function, electrolytes and specifically for hypokalemia as well as glucose and anion gap. CBC to evaluate for anemia since she is reporting coffee-ground/brown emesis. Patient was treated with Zofran for her nausea and vomiting and Imodium for her diarrhea. NG was placed per nursing staff. There is no evidence of upper GI bleed. History & Record Review Discussion w/independent historian: Patient Additional record(s) reviewed:: Prior ED visit and Prior labs Lab Data Attestation: I reviewed the patient's lab results. Lab results narrative: CB C is normal. BMP is unremarkable. Potassium is 2.9. Glucose is 95 with normal CO2 anion gap. Renal function is normal with a normal GFR. Labs: Laboratory Results - last 24 hr 10/07/23 10:25 WBC 10.4 RBC 4.77 Hgb 12.1 Hct 36.7 L MCV 76.9 L MCH 25.4 L MCHC 33.0 RDW Std Deviation 40.5 RDW Coeff of [place]inka 14.6 Plt Count 246 MPV 11.3 Immature Gran % (Auto) 0.500 Neut % (Auto) 70.7 H Lymph % (Auto) 19.8 [place] % (Auto) 7.4 Eos % (Auto) 1.2 Baso % (Auto) 0.4 Absolute Neuts (auto) 7.4 Absolute Lymphs (auto) 2.07 Nucleated RBC % 0 Sodium 138 Potassium 2.9 L Chloride 103 Carbon Dioxide 26.0 Anion Gap 9 BUN 14 Creatinine 0.87 Estim Creat Clear Calc 52.54 Est GFR (MDRD) Af Amer 85 Est GFR (MDRD) Non-Af 71 BUN/Creatinine Ratio 16.1 Glucose 95 Calcium 8.9 Treatment and Re-Evaluation :: Since NG was negative for blood and patient had no vomiting or diarrhea during her stay. She was discharged with prescription for Zofran and Imodium. Discharge Plan Triage Chief Complaint: General Illness ED Provider: Mele Merrill Dx/Rx/DC Orders Clinical Impression: Nausea vomiting and diarrhea, Type II diabetes mellitus, Bipolar disorder, Acute generalized abdominal pain, History of anxiety Instructions: ED Vomiting and Diarrhea ... Prescriptions: New ondansetron [ondansetron] 4 mg tablet,disintegrating 4 mg PO Q8H PRN PRN (Reason: Nausea) Qty: 10 0RF No Action glimepiride 1 MG tablet 2 mg PO DAILY hydrochlorothiazide 25 MG tablet 25 mg PO DAILY solifenacin [Vesicare] 10 MG tablet 10 mg PO QHS quetiapine [Seroquel] 400 MG tablet 200 mg PO QHS albuterol sulfate [Ventolin HFA] 1 INHALER inhaler 1 - 2 puff inhalation Q4H PRN PRN (Reason: Shortness Of Breath) amlodipine 10 MG tablet 10 mg PO DAILY potassium chloride 10 MEQ tablet,ER particles/crystals 30 meq PO BID montelukast 10 mg Tablet 10 mg PO DAILY cholecalciferol (vitamin D3) [Vitamin D3] 125 mcg (5,000 unit) Tablet 125 mcg PO DAILY Vraylar 4.5 mg capsule 3 mg PO DAILY ascorbic acid (vitamin C) 500 mg Capsule 1,000 mg PO DAILY fenofibrate 50 mg Capsule 48 mg PO DAILY prazosin 5 mg Capsule 5 mg PO QHS ondansetron [Zofran ODT] 4 mg Tablet,Disintegrating 4 mg PO Q8H PRN (Reason: Nausea) melatonin 1 mg Tablet 1 mg PO QHS cephalexin [cephalexin] 500 mg capsule 500 mg PO Q12 Qty: 14 0RF ibuprofen 600 mg tablet 600 mg PO Q6H PRN PRN (Reason: pain) Qty: 20 0RF Primary Care Provider: Nick Giraldo Referrals: Nick Giraldo DO [Primary Care Provider] - Activity Restrictions/Additional Instructions: 1. Take Imodium with each loose stool as instructed on the bile. 2. Increase fluid intake Disposition Disposition: Home, Self Care
[2023-10-07 12:01] VITALS: BP 142/82; PULSE 68; RESP 18
== END 2023-10-07 12:02 | disposition home or self-care (01) ==
PROVIDERS: Emergency Provider Emergency Medicine; PCP Student in an Organized Health Care Education/Training Program; Visit Provider Emergency Medicine
DX: R11.2 Nausea with vomiting, unspecified (principal); J44.9 Chronic obstructive pulmonary disease, unspecified; F31.9 Bipolar disorder, unspecified; E11.40 Type 2 diabetes mellitus with diabetic neuropathy, unspecified; F41.9 Anxiety disorder, unspecified; Z87.891 Personal history of nicotine dependence; I10 Essential (primary) hypertension; R19.7 Diarrhea, unspecified; K44.9 Diaphragmatic hernia without obstruction or gangrene; Z79.84 Long term (current) use of oral hypoglycemic drugs; Z79.899 Other long term (current) drug therapy; Z90.49 Acquired absence of other specified parts of digestive tract; R10.84 Generalized abdominal pain
CPT/HCPCS: 74018; 80048; 85025; 99284; A4216

== ENCOUNTER → 2023-10-07 | Outpatient (CLI) | payer MEDICARE, SELFPAY ==
--- NOTE | 2023-10-07 09:48 | RAD_ITS ---
STUDY: X-RAY - ABDOMEN/PELVIS REASON FOR EXAM: Female, 58 years old. Diffuse abdominal pain TECHNIQUE: 3 AP views COMPARISON: None. FINDINGS: Normal visualized lung bases. There is an unremarkable bowel gas pattern. There is no demonstrated free abdominal air. The visualized liver, spleen and kidneys are grossly normal in size and morphology. Normal soft tissue structures. There are diffuse degenerative changes of the visualized lumbar spine. RAD/Abdomen Single View IMPRESSION: No plain film of the acute abdominal or pulmonary process Electronically Signed: Eliot Jules MD at 16:16 EST ,
== END | disposition home or self-care (01) ==
LOC: RAD 09:40
PROVIDERS: PCP Student in an Organized Health Care Education/Training Program; Referring Provider Internal Medicine Gastroenterology; Visit Provider Internal Medicine Gastroenterology
DX: K44.9 Diaphragmatic hernia without obstruction or gangrene (principal)
CPT/HCPCS: 74018

== ENCOUNTER 2023-11-18 21:25 | Emergency (ER) | payer MEDICARE, SELFPAY ==
[2023-11-18 21:26] VITALS: BP 148/90; PULSE 109; RESP 18; TEMP 36; O2SAT 97
--- NOTE | 2023-11-18 22:08 | EX.ED.DYSGE1 ---
HPI History of Present Illness Chief Complaint: General Illness Informant: patient Onset/Context/Timing Onset: Days Context: Gradual Onset Narrative Narrative: Patient presents with a 3-day history of nausea, vomiting, and diarrhea. She reports low-grade fever. She has had cough with yellow sputum production. [facility] Medical History Asthma Mcclellan's esophagus Bipolar 1 disorder Chest pain COPD (chronic obstructive pulmonary disease) Depression Dermatitis of perianal region Diabetes Excoriation of buttock Fecal incontinence GERD (gastroesophageal reflux disease) Hiatal hernia HTN (hypertension) IBS (irritable bowel syndrome) Iron deficiency anemia due to chronic blood loss Irritable bowel syndrome with diarrhea Migraines Neuropathy Non-smoker Osteoarthritis Overactive bladder Rectal prolapse Sleep apnea Home Medications albuterol sulfate 90 mcg/actuation aerosol inhaler (Ventolin HFA) 1 - 2 puff inhalation Q4H PRN PRN Shortness Of Breath 12/06/16 [History Last Taken Unknown] glimepiride 1 mg tablet 2 mg PO DAILY diabetes 12/06/16 [History Last Taken 07/16/22] hydrochlorothiazide 25 mg tablet 25 mg PO DAILY diuretic 12/06/16 [History Last Taken 07/16/22] quetiapine 400 mg tablet (Seroquel) 200 mg PO QHS bipolar 12/06/16 [History Last Taken Unknown] solifenacin 10 mg tablet (Vesicare) 10 mg PO QHS skin care 12/06/16 [History Last Taken 07/15/22] amlodipine 10 mg tablet 10 mg PO DAILY blood pressure 07/09/17 [History Last Taken 07/16/22] potassium chloride 10 mEq tablet,extended release(part/cryst) 30 meq PO BID supplement 08/02/19 [History Last Taken 07/16/22] cholecalciferol (vitamin D3) 125 mcg (5,000 unit) tablet (Vitamin D3) 125 mcg PO DAILY supplement 04/19/22 [History Last Taken 07/16/22] montelukast 10 mg tablet 10 mg PO DAILY allergies 04/19/22 [History Last Taken 07/16/22] cariprazine 4.5 mg capsule (Vraylar) 3 mg PO DAILY mood 07/16/22 [History Last Taken 07/16/22] ascorbic acid (vitamin C) 500 mg capsule 1,000 mg PO DAILY 02/11/23 [History Last Taken Unknown] fenofibrate 50 mg capsule 48 mg PO DAILY 03/28/23 [History Last Taken Unknown] melatonin 1 mg tablet 1 mg PO QHS 04/23/23 [History Last Taken Unknown] ondansetron 4 mg disintegrating tablet 4 mg PO Q8H PRN Nausea 04/23/23 [History Last Taken Unknown] prazosin 5 mg capsule 5 mg PO QHS 04/23/23 [History Last Taken Unknown] cephalexin 500 mg capsule 500 mg PO Q12 #14 CAPSULES 08/13/23 [Rx Last Taken Unknown] ibuprofen 600 mg tablet 600 mg PO Q6H PRN PRN pain #20 TABLETS 08/13/23 [Rx Last Taken Unknown] ondansetron 4 mg disintegrating tablet 4 mg PO Q8H PRN PRN Nausea #10 tabs 10/07/23 [Rx Last Taken Unknown] ondansetron 4 mg disintegrating tablet 4 mg PO Q8H PRN PRN Nausea #10 tabs 11/19/23 [Rx Last Taken Unknown] potassium chloride 20 mEq tablet,extended release 20 meq PO BID #6 tabs 11/19/23 [Rx Last Taken Unknown] Allergy/AdvReac Type Severity Reaction Status Date / Time latex Allergy Rash Verified 11/18/23 21:30 lithium [[place]] Allergy Anaphylaxis Verified 11/18/23 21:30 acetaminophen AdvReac Vomiting Verified 11/18/23 21:30 [From Tylenol-Codeine] aspirin AdvReac Vomiting Verified 11/18/23 21:30 citalopram [From Celexa] AdvReac makes me Verified 11/18/23 21:30 cry a lot citalopram hydrobromide AdvReac Other Verified 11/18/23 21:30 [From Celexa] codeine AdvReac Vomiting Verified 11/18/23 21:30 divalproex sodium AdvReac Vomiting Verified 11/18/23 21:30 [From Depakote] nortriptyline AdvReac Other Verified 11/18/23 21:30 trazodone AdvReac Other Verified 11/18/23 21:30 Family History Mother Diabetes Father Diabetes Surgical History History of carpal tunnel release History of rectopexy Hx of cholecystectomy Hx of tonsillectomy Social History household members: none Smoking Status: Former smoker alcohol intake: former substance use type: does not use ROS ROS ED Constitutional Constitutional ED: Reports fever(s); Denies chills Eyes Eyes: Denies change in vision or discharge from eye(s) ENT ENT ED: Denies discharge from eye(s), rhinorrhea or sore throat Cardiovascular Cardiovascular: Denies chest pain or palpitations Respiratory/Chest Respiratory/Chest: Reports cough and sputum; Denies dyspnea Gastrointestinal Gastrointestinal: Reports abdominal pain, diarrhea, nausea and vomiting Genitourinary Genitourinary ED: Denies dysuria Musculoskeletal Musculoskeletal: Reports myalgias; Denies back pain or extremity pain Integumentary Denies Abrasions or rash Neurologic Neurologic: Denies headache(s) or weakness Psychiatric Psychiatric: Denies anxiety or depression Allergic/Immunologic Allergic/Immunologic ED: Denies lip swelling or urticaria EXAM Physical Exam Narrative Exam Narrative: Patient sitting upright in bed no acute distress. Nontoxic-appearing. Const Vital Signs: 11/18/23 21:26 11/18/23 23:39 11/18/23 22:45 Temperature 96.8 F L Temperature Source Temporal Pulse Rate 109 H 75 Respiratory Rate 18 18 Respiratory Effort Normal Respiratory Pattern Normal Blood Pressure 148/90 H 120/70 Blood Pressure Mean 109 86 Pulse Ox 97 99 Oxygen Delivery Method Room Air Room Air 11/19/23 00:05 11/19/23 00:10 11/19/23 00:20 Temperature Temperature Source Pulse Rate 99 101 H 97 Respiratory Rate 25 H 22 H 25 H Respiratory Effort Respiratory Pattern Blood Pressure Blood Pressure Mean Pulse Ox 91 90 88 Oxygen Delivery Method 11/19/23 00:30 11/19/23 00:39 11/19/23 00:40 Temperature Temperature Source Pulse Rate 99 101 H Respiratory Rate 25 H 20 H Respiratory Effort Respiratory Pattern Blood Pressure 136/87 H Blood Pressure Mean 101 Pulse Ox 88 95 95 Oxygen Delivery Method 11/19/23 00:45 11/19/23 00:50 11/19/23 01:00 Temperature Temperature Source Pulse Rate Respiratory Rate Respiratory Effort Respiratory Pattern Blood Pressure 142/92 H 140/93 H Blood Pressure Mean 106 106 Pulse Ox 94 94 92 Oxygen Delivery Method 11/19/23 01:10 11/19/23 01:15 11/19/23 01:20 Temperature Temperature Source Pulse Rate Respiratory Rate Respiratory Effort Respiratory Pattern Blood Pressure 137/94 H Blood Pressure Mean 104 Pulse Ox 92 92 Oxygen Delivery Method 11/19/23 01:30 11/19/23 01:40 11/19/23 01:45 Temperature Temperature Source Pulse Rate 96 96 98 Respiratory Rate 20 H 24 H 19 H Respiratory Effort Respiratory Pattern Blood Pressure 152/83 H 146/90 H Blood Pressure Mean 101 106 Pulse Ox 93 92 92 Oxygen Delivery Method Room Air Room Air 11/19/23 01:50 11/19/23 03:03 Temperature Temperature Source Pulse Rate 97 91 Respiratory Rate 22 H 20 H Respiratory Effort Respiratory Pattern Blood Pressure 143/89 H Blood Pressure Mean 107 Pulse Ox 92 92 Oxygen Delivery Method Room Air Positive well nourished and well developed General Appearance ED: well developed HEENT Reports normocephalic and head/scalp atraumatic Eyes PERRL and EOMs intact bilaterally Neck supple Chest Wall inspection of chest normal and palpation of chest normal Resp normal respiratory effort and clear to auscultation bilaterally Cardio regular rate and regular rhythm GI GI Narrative: Abdomen soft with mild diffuse tenderness to palpation. No guarding or rebound. Hypoactive but present bowel sounds are noted. Palpation: soft Extremity normal to inspection Neuro oriented x3 and no sensory deficits noted Sensorium / Orientation: alert Motor Exam: strength 5/5 throughout Psych mental status grossly normal Skin no rashes or lesions noted MDM MDM MDM Narrative Medical decision making narrative: Patient placed on monitoring analyst. IV fluids given with along with Zofran. Labwork obtained to evaluate for leukocytosis, anemia, and electrolyte derangement. Urinalysis obtained to evaluate for infection/hematuria. Swab for COVID and influenza obtained. History & Record Review Discussion w/independent historian: Patient Additional record(s) reviewed:: Prior ED visit and Prior labs Lab Data Attestation: I reviewed the patient's lab results. Labs: Laboratory Results - last 24 hr 11/18/23 11/18/23 22:45 23:44 WBC 8.7 RBC 4.64 Hgb 11.7 L Hct 35.9 L MCV 77.4 L MCH 25.2 L MCHC 32.6 RDW Std Deviation 40.3 RDW Coeff of Yinka 14.3 Plt Count 238 MPV 11.1 Immature Gran % (Auto) 0.600 Neut % (Auto) 62.6 Lymph % (Auto) 28.9 [place] % (Auto) 6.7 Eos % (Auto) 0.9 Baso % (Auto) 0.3 Absolute Neuts (auto) 5.4 Absolute Lymphs (auto) 2.51 Nucleated RBC % 0 Sodium 139 Potassium 2.8 L Chloride 106 Carbon Dioxide 25.0 Anion Gap 8 BUN 16 Creatinine 0.74 Est GFR (MDRD) Af Amer 103 Est GFR (MDRD) Non-Af 85 BUN/Creatinine Ratio 21.7 H Glucose 104 Calcium 9.3 Total Bilirubin 0.40 Direct Bilirubin 0.14 AST 21 ALT 24 Alkaline Phosphatase 109 Total Protein 7.4 Albumin 3.4 Globulin 4.0 Urine Color Yellow Urine Clarity Clear Urine pH 6.5 Ur Specific [place] 1.010 Urine Protein Negative Urine Glucose (UA) Normal Urine Ketones Negative Urine Occult Blood 10 H Urine Nitrite Negative Urine Bilirubin Negative Urine Urobilinogen Normal Ur Leukocyte Esterase Negative Urine RBC 0 SEEN Urine WBC 0 SEEN Ur Squamous Epith Cells 0 SEEN Urine Bacteria 0 SEEN Urine Mucus 0 SEEN Radiography Chest X-Ray - ED: 1 View, Read by ED Physician, Chronic Changes and No Infiltrates Diagnostic Testing: Clinical Impression(s) from Imaging Studies Chest X-Ray 11/18/23 22:46 IMPRESSION: No acute cardiopulmonary disease. Electronically Signed: Sri Salgado MD at 23:30 EST Reading Location ID and State: [address] [place] [address] , Service support , Treatment and Re-Evaluation :: CBC was a white count of 8.7 with normal differential. Hemoglobin is 11.7, consistent with her baseline. Chemistry studies significant for low potassium at 2.8. Renal function is normal. LFTs normal. Urinalysis reveals no evidence of acute infection. Portable chest x-ray per my interpretation was chronic changes with no focal infiltrate. Radiology interpretation is reviewed and agrees. COVID and influenza swabs are obtained and negative. Patient has been given IV fluids along with Zofran. She was given 40 mill equivalents of IV potassium replacement. At this time she is able to tolerate p.o. fluids and is up ambulating to the restroom multiple times. She be discharged with a prescription for Zofran as well as 3 more days of potassium replacement. I advised her that her symptoms are consistent with a viral gastro bug and she is to continue supportive care. Return instructions given. Discharge Plan Triage Chief Complaint: General Illness ED Provider: Lucia Rosas Dx/Rx/DC Orders Clinical Impression: Viral gastroenteritis, Hypokalemia Instructions: ED Hypokalemia, ED Gastroenteritis, Viral (Adult) Prescriptions: New ondansetron 4 mg tablet,disintegrating 4 mg PO Q8H PRN PRN (Reason: Nausea) Qty: 10 0RF potassium chloride 20 mEq tablet extended release 20 meq PO BID Qty: 6 0RF No Action glimepiride 1 MG tablet 2 mg PO DAILY hydrochlorothiazide 25 MG tablet 25 mg PO DAILY solifenacin [Vesicare] 10 MG tablet 10 mg PO QHS quetiapine [Seroquel] 400 MG tablet 200 mg PO QHS albuterol sulfate [Ventolin HFA] 1 INHALER inhaler 1 - 2 puff inhalation Q4H PRN PRN (Reason: Shortness Of Breath) amlodipine 10 MG tablet 10 mg PO DAILY potassium chloride 10 MEQ tablet,ER particles/crystals 30 meq PO BID montelukast 10 mg Tablet 10 mg PO DAILY cholecalciferol (vitamin D3) [Vitamin D3] 125 mcg (5,000 unit) Tablet 125 mcg PO DAILY Vraylar 4.5 mg capsule 3 mg PO DAILY ascorbic acid (vitamin C) 500 mg Capsule 1,000 mg PO DAILY fenofibrate 50 mg Capsule 48 mg PO DAILY prazosin 5 mg Capsule 5 mg PO QHS ondansetron [Zofran ODT] 4 mg Tablet,Disintegrating 4 mg PO Q8H PRN (Reason: Nausea) melatonin 1 mg Tablet 1 mg PO QHS cephalexin [cephalexin] 500 mg capsule 500 mg PO Q12 Qty: 14 0RF ibuprofen 600 mg tablet 600 mg PO Q6H PRN PRN (Reason: pain) Qty: 20 0RF ondansetron [ondansetron] 4 mg tablet,disintegrating 4 mg PO Q8H PRN PRN (Reason: Nausea) Qty: 10 0RF Primary Care Provider: Nick Giraldo Referrals: Nick Giraldo DO [Primary Care Provider] - 1-2 Weeks Disposition Disposition: Home, Self Care
[2023-11-18] MEDS: 0.9% Normal Saline (1000mL) 1,000 ML 150 ML IV (22:40)
[2023-11-18] MEDS: Ondansetron 4 MG/2 ML Vial IV (22:40)
[2023-11-18 22:45] VITALS: BP 120/70; PULSE 75; RESP 18; O2SAT 99
--- NOTE | 2023-11-18 22:46 | RAD_ITS ---
STUDY: X-RAY CHEST REASON FOR EXAM: Female, 58 years old. cough TECHNIQUE: Single AP portable view of the chest. COMPARISON: 08/13/2023. FINDINGS: The lungs are underexpanded with vascular crowding, otherwise clear. There is no demonstrated pleural abnormality. Normal size heart. Normal mediastinum and jose m. Normal visualized pulmonary arteries. Normal visualized aortic arch and descending thoracic aorta. There is an increased kyphosis of the thoracic spine. There is degenerative osteoarthritis of the bilateral shoulders. There is no demonstrated abnormality of the visualized soft tissue structures of the upper abdomen. RAD/Chest 1 View (Portable) IMPRESSION: No acute cardiopulmonary disease. Electronically Signed: Sri Salgado MD at 23:30 EST ,
[2023-11-18 22:52] LABS: Absolute Lymphocyte Count 2.51 X10^3/uL (0.83-4.51); Absolute Neutrophil Count 5.4 X10^3/uL (2.0-7.7); Basophil# 0.03 X10^3/uL; Basophil% 0.3 % (0-1); Eosinophil# 0.08 X10^3/uL; Eosinophils% 0.9 % (0-5); Hematocrit 35.9 % (37-47); Hemoglobin 11.7 g/dL (12.0-15.0); Lymphocyte # 2.51 X10^3/ul (0.83-4.51); Lymphocyte % 28.9 % (19-41); Mean Corp Hgb Conc 32.6 g/dL (32-36); Mean Corpuscular Hgb 25.2 pg (27.0-32.0); Mean Corpuscular Volume 77.4 fL (81-99); Mean Platelet Vol. 11.1 fl (6.2-12.0); Monocyte# 0.58 X10^3/uL; Monocyte% 6.7 % (0-10); NRBC Flagged by Analyzer 0 % (0-5); Neutrophil # 5.44 X10^3/uL (2.7-7.7); Neutrophil % 62.6 % (47-70); Platelet Count 238 K/mm3 (150-450); RBC Distribution Width CV 14.3 % (11.6-14.6); RBC Distribution Width SD 40.3 fl (35.1-43.9); Red Blood Count 4.64 M/mm3 (4.2-5.4); White Blood Count 8.7 K/mm3 (4.4-11.0)
[2023-11-18 23:09] LABS: AST(SGOT) 21 U/L (15-37); Alanine Aminotransfer ALT/SGPT 24 U/L (13-56); Albumin, Serum 3.4 g/dL (3.2-5.0); Alkaline Phosphatase 109 U/L (45-117); Anion Gap 8 (5-15); BUN 16 mg/dL (7-18); BUN/Creat Ratio 21.7 RATIO (10-20); Bilirubin, Direct 0.14 mg/dL (0.00-0.30); Calcium,Total 9.3 mg/dL (8.5-10.1); Chloride 106 mmol/L (98-107); Creatinine, Serum 0.74 mg/dL (0.55-1.02); EST Glomerular Filtration Rate 85 mL/min (>60); Est Glom Filt Rate - Afr Amer 103 mL/min (>60); Glucose 104 mg/dL (74-106); Potassium 2.8 mmol/L (3.5-5.1); Protein, Total 7.4 g/dL (6.4-8.2); Sodium Level 139 mmol/L (136-145)
[2023-11-18] MEDS: Potassium Chloride 10mEq/100mL 10 MEQ/100 ML IV.SOLN. 100 MEQ IV BOLUS (23:37)
[2023-11-18 23:50] LABS: Bacteria 0 SEEN /hpf (None Seen); Color, Urine Yellow (Yellow); Glucose, Dipstick Normal (Normal); Ketone-Dipstick Negative (Negative); Leukocyte Esterase-Dipstick Negative /ul (Negative); Mucous, Urine 0 SEEN /hpf (<or=2+); Nitrite-Dipstick Negative (Negative); Occult Blood-Urine 10 /ul (Negative); Protein-Dipstick Negative (Negative); Red Blood Cells-Urine 0 SEEN /hpf (0-5); Squamous Epithelial Cells - UA 0 SEEN /hpf (5-10); Urine Bilirubin Dipstick Negative (Negative); Urine Clarity Clear (Clear); Urine Urobilinogen Normal (Normal); Urine pH 6.5 (5.0 - 8.0); White Blood Cells 0 SEEN /hpf (0-5)
[2023-11-19] VITALS (42 sets, daily range): BP systolic 136–163; BP diastolic 80–100; PULSE 89–101; RESP 17–29; O2SAT 88–95
[2023-11-19] MEDS: Potassium Chloride 10mEq/100mL 10 MEQ/100 ML IV.SOLN. 100 MEQ IV BOLUS ×3 (00:37→03:06)
== END 2023-11-19 05:00 | disposition home or self-care (01) ==
PROVIDERS: Emergency Provider Emergency Medicine; PCP Student in an Organized Health Care Education/Training Program; Visit Provider Emergency Medicine
DX: A08.4 Viral intestinal infection, unspecified (principal); J44.9 Chronic obstructive pulmonary disease, unspecified; E11.40 Type 2 diabetes mellitus with diabetic neuropathy, unspecified; E87.6 Hypokalemia; G47.30 Sleep apnea, unspecified; Z87.891 Personal history of nicotine dependence
CPT/HCPCS: 71045; 80048; 80076; 81001; 85025; 87428; 96365; 96366; 99284; J7030; A4216; J2405

== ENCOUNTER 2023-11-21 05:16 | Emergency (ER) | payer MEDICARE, SELFPAY ==
[2023-11-21 05:17] VITALS: BP 114/77; PULSE 92; RESP 18; TEMP 36.7; O2SAT 97; BMI 39.9
--- NOTE | 2023-11-21 05:27 | EKG12_ITS ---
Test Reason : ANXIETY Blood Pressure : / mmHG Vent. Rate : 075 BPM Atrial Rate : 075 BPM P-R Int : 166 ms QRS Dur : 100 ms QT Int : 368 ms P-R-T Axes : 052 024 056 degrees QTc Int : 410 ms Normal sinus rhythm Normal ECG Confirmed by MARY PETERSON, QIAN ([id number]), editor dictionary ROBERT CARBAJAL ([id number]) on 11/22/2023 1:29:54 PM Referred By: Confirmed By:QIAN HERNANDEZ MD
--- NOTE | 2023-11-21 05:32 | EX.ED.DYSGE1 ---
HPI History of Present Illness Chief Complaint: Anxiety [facility] Medical History Asthma Mcclellan's esophagus Bipolar 1 disorder Chest pain COPD (chronic obstructive pulmonary disease) Depression Dermatitis of perianal region Diabetes Excoriation of buttock Fecal incontinence GERD (gastroesophageal reflux disease) Hiatal hernia HTN (hypertension) IBS (irritable bowel syndrome) Iron deficiency anemia due to chronic blood loss Irritable bowel syndrome with diarrhea Migraines Neuropathy Non-smoker Osteoarthritis Overactive bladder Rectal prolapse Sleep apnea Home Medications albuterol sulfate 90 mcg/actuation aerosol inhaler (Ventolin HFA) 1 - 2 puff inhalation Q4H PRN PRN Shortness Of Breath 12/06/16 [History Last Taken Unknown] glimepiride 1 mg tablet 2 mg PO DAILY diabetes 12/06/16 [History Last Taken 07/16/22] hydrochlorothiazide 25 mg tablet 25 mg PO DAILY diuretic 12/06/16 [History Last Taken 07/16/22] quetiapine 400 mg tablet (Seroquel) 200 mg PO QHS bipolar 12/06/16 [History Last Taken Unknown] solifenacin 10 mg tablet (Vesicare) 10 mg PO QHS skin care 12/06/16 [History Last Taken 07/15/22] amlodipine 10 mg tablet 10 mg PO DAILY blood pressure 07/09/17 [History Last Taken 07/16/22] potassium chloride 10 mEq tablet,extended release(part/cryst) 30 meq PO BID supplement 08/02/19 [History Last Taken 07/16/22] cholecalciferol (vitamin D3) 125 mcg (5,000 unit) tablet (Vitamin D3) 125 mcg PO DAILY supplement 04/19/22 [History Last Taken 07/16/22] montelukast 10 mg tablet 10 mg PO DAILY allergies 04/19/22 [History Last Taken 07/16/22] cariprazine 4.5 mg capsule (Vraylar) 3 mg PO DAILY mood 07/16/22 [History Last Taken 07/16/22] ascorbic acid (vitamin C) 500 mg capsule 1,000 mg PO DAILY 02/11/23 [History Last Taken Unknown] fenofibrate 50 mg capsule 48 mg PO DAILY 03/28/23 [History Last Taken Unknown] melatonin 1 mg tablet 1 mg PO QHS 04/23/23 [History Last Taken Unknown] ondansetron 4 mg disintegrating tablet 4 mg PO Q8H PRN Nausea 04/23/23 [History Last Taken Unknown] prazosin 5 mg capsule 5 mg PO QHS 04/23/23 [History Last Taken Unknown] cephalexin 500 mg capsule 500 mg PO Q12 #14 CAPSULES 08/13/23 [Rx Last Taken Unknown] ibuprofen 600 mg tablet 600 mg PO Q6H PRN PRN pain #20 TABLETS 08/13/23 [Rx Last Taken Unknown] ondansetron 4 mg disintegrating tablet 4 mg PO Q8H PRN PRN Nausea #10 tabs 10/07/23 [Rx Last Taken Unknown] ondansetron 4 mg disintegrating tablet 4 mg PO Q8H PRN PRN Nausea #10 tabs 11/19/23 [Rx Last Taken Unknown] potassium chloride 20 mEq tablet,extended release 20 meq PO BID #6 tabs 11/19/23 [Rx Last Taken Unknown] Allergy/AdvReac Type Severity Reaction Status Date / Time latex Allergy Rash Verified 11/21/23 05:24 lithium [[place]] Allergy Anaphylaxis Verified 11/21/23 05:24 acetaminophen AdvReac Vomiting Verified 11/21/23 05:24 [From Tylenol-Codeine] aspirin AdvReac Vomiting Verified 11/21/23 05:24 citalopram [From Celexa] AdvReac makes me Verified 11/21/23 05:24 cry a lot citalopram hydrobromide AdvReac Other Verified 11/21/23 05:24 [From Celexa] codeine AdvReac Vomiting Verified 11/21/23 05:24 divalproex sodium AdvReac Vomiting Verified 11/21/23 05:24 [From Depakote] nortriptyline AdvReac Other Verified 11/21/23 05:24 trazodone AdvReac Other Verified 11/21/23 05:24 Family History Mother Diabetes Father Diabetes Surgical History History of carpal tunnel release History of rectopexy Hx of cholecystectomy Hx of tonsillectomy Social History household members: none Smoking Status: Former smoker alcohol intake: former substance use type: does not use EXAM Physical Exam Const Vital Signs: 11/21/23 05:17 11/21/23 05:49 Temperature 98.0 F Temperature Source Temporal Pulse Rate 92 92 Respiratory Rate 18 18 Blood Pressure 114/77 114/77 Blood Pressure Mean 89 89 Pulse Ox 97 97 Oxygen Delivery Method Room Air [facility] [place] Narr[place] Medical decision making narrative: HISTORY OF PRESENT ILLNESS: 58-year-old female presents with trouble sleeping. She states she was talking to her friend and noted trouble sleeping and endorse that she had chest pain several days ago. Her friend then called EMS. Patient denies any chest pain at this time. The patient denies recent surgery in the last 4 weeks or immobilization in the last 3 days, denies previous diagnosis of DVT or PE, hemoptysis, unilateral leg swelling or malignancy with treatment the last 6 months or palliative. No estrogen use noted. Patient denies sudden onset of pain, no tearing sensation, no migratory symptoms, no new numbness, weakness or loss of sensation. Patient denies family history or personal history of Connective tissue disorders (Marfan's Syndrome, Chelsey Danlos etc). She denies auditory visual hallucinations. She denies any nausea vomiting or cough today. REVIEW OF SYSTEMS: Pertinent positives: Insomnia, chest pain Pertinent negatives: Shortness of breath, leg swelling, bleeding diathesis PHYSICAL EXAM: Nursing triage notes reviewed, Vital signs reviewed Constitutional: please see mdm HENT: MMM Eyes: Pupils equal round and reactive to light, Extraocular muscles intact Neck: No stridor, no JVD, full neck ROM Lungs: Clear to auscultation, No wheezing or rales. No increased work of breathing, no conversational dyspnea, no accessory muscle use, no nasal flaring. No respiratory distress noted Heart: Regular rate and rhythm, No murmurs, No rubs and No gallops, 2+ distal pulses (radial, femoral, posterior tibial) in all extremities Abdomen: Soft, there is no tenderness, rigidity, rebound or guarding, no obvious peritoneal signs, no palpable pulsatile abdominal masses, no auscultated abdominal bruit : No CVAT Extremities: No edema Neuro: No focal neurological deficits, cranial nerves II through XII intact, 5/5 strength in all extremities. Intact sensation to light touch in all extremities, 2+ reflexes bilateral patella tendons. Normal gait. No ataxia. Skin: No rash or lesions noted MEDICAL DECISION MAKING: Chief Complaint: Insomnia, chest pain External records reviewed: Seen 2 days ago for nausea vomiting diarrhea concern for cough. Blood work at that time showed no leukocytosis, mild anemia and no thrombocytopenia. CMP showed hypokalemia 2.8. UA was negative Factors affecting care: bipolar disorder, type 2 diabetes, hypertension, hyperlipidemia Social determinants of health: History of mental health disorder History obtained from others: EMS Consults: none MDM Narrative: Patient was hemodynamically stable, afebrile, nontoxic-appearing. No focal cardiopulmonary abnormalities. No stigmata of VTE. No pulse deficits. I obtained a screening EKG which showed no evidence of myocardial ischemia. Patient does not have chest pain now only mentioned this to her friend. I do not feel the patient needs blood work any additional evaluation. Her nonischemic EKG is reassuring. She is cleared for discharge she does have a PCP doctors appointment in 4 hours. I encouraged her to keep this appointment to return if symptoms change or worsen. ALL IMAGES (IF OBTAINED) HAVE BEEN PERSONALLY REVIEWED AND INTERPRETED BY MYSELF. EKG with normal sinus rhythm, normal axis, normal intervals, no ST or T wave changes to suggest ischemia. No evidence of WPW, [place], ARVD. The patient and/or family, caregivers express understanding. The patient and/or family, caregivers agrees with the plan. Shared decision making: I will have a discussion with the patient and or visitors regarding risk/benefits of further testing or admission. They will be made aware of of the risk/benefits inherent in this decision they will be given the opportunity to voice understanding. Total critical care time today provided was at least 0 [] minutes. This excludes separately billable procedures. Critical care time (if documented) is secondary to the patient having high probability of clinically significant/life threatening deterioration in the patient's condition which required my urgent intervention. Impression: 1. Insomnia 2. Chest pain 3. History of bipolar disorder Dispo: Discharge Discharge Plan Triage Chief Complaint: Anxiety ED Provider: Roger Epps Dx/Rx/DC Orders Instructions: ED Insomnia Prescriptions: No Action glimepiride 1 MG tablet 2 mg PO DAILY hydrochlorothiazide 25 MG tablet 25 mg PO DAILY solifenacin [Vesicare] 10 MG tablet 10 mg PO QHS quetiapine [Seroquel] 400 MG tablet 200 mg PO QHS albuterol sulfate [Ventolin HFA] 1 INHALER inhaler 1 - 2 puff inhalation Q4H PRN PRN (Reason: Shortness Of Breath) amlodipine 10 MG tablet 10 mg PO DAILY potassium chloride 10 MEQ tablet,ER particles/crystals 30 meq PO BID montelukast 10 mg Tablet 10 mg PO DAILY cholecalciferol (vitamin D3) [Vitamin D3] 125 mcg (5,000 unit) Tablet 125 mcg PO DAILY Vraylar 4.5 mg capsule 3 mg PO DAILY ascorbic acid (vitamin C) 500 mg Capsule 1,000 mg PO DAILY fenofibrate 50 mg Capsule 48 mg PO DAILY prazosin 5 mg Capsule 5 mg PO QHS ondansetron [Zofran ODT] 4 mg Tablet,Disintegrating 4 mg PO Q8H PRN (Reason: Nausea) melatonin 1 mg Tablet 1 mg PO QHS ondansetron 4 mg tablet,disintegrating 4 mg PO Q8H PRN PRN (Reason: Nausea) Qty: 10 0RF potassium chloride 20 mEq tablet extended release 20 meq PO BID Qty: 6 0RF cephalexin [cephalexin] 500 mg capsule 500 mg PO Q12 Qty: 14 0RF ibuprofen 600 mg tablet 600 mg PO Q6H PRN PRN (Reason: pain) Qty: 20 0RF ondansetron [ondansetron] 4 mg tablet,disintegrating 4 mg PO Q8H PRN PRN (Reason: Nausea) Qty: 10 0RF Primary Care Provider: Nick Giraldo Referrals: Nick Giraldo DO [Primary Care Provider] - Activity Restrictions/Additional Instructions: Thank you for trusting us with your care today! Please take Tylenol (2 pills, 650 mg), ibuprofen (2 pills, 400 mg) every 6 hours as needed for pain and fever control. Please return to the emergency department if your symptoms change or worsen. Please follow with your primary care physician for further outpatient evaluation and management. Disposition Disposition: Home, Self Care
[2023-11-21 05:49] VITALS: BP 114/77; PULSE 92; RESP 18; O2SAT 97
== END 2023-11-21 07:04 | disposition home or self-care (01) ==
PROVIDERS: Emergency Provider Emergency Medicine; PCP Student in an Organized Health Care Education/Training Program; Visit Provider Emergency Medicine
DX: F41.9 Anxiety disorder, unspecified (principal); J44.9 Chronic obstructive pulmonary disease, unspecified; F31.9 Bipolar disorder, unspecified; E11.40 Type 2 diabetes mellitus with diabetic neuropathy, unspecified; R45.851 Suicidal ideations; I10 Essential (primary) hypertension; E87.6 Hypokalemia; Z79.84 Long term (current) use of oral hypoglycemic drugs; Z79.899 Other long term (current) drug therapy; Z87.891 Personal history of nicotine dependence
CPT/HCPCS: 93005; 99282

== ENCOUNTER 2023-11-21 13:54 | Emergency (ER) | payer MEDICARE, SELFPAY ==
[2023-11-21 13:55] VITALS: BP 137/88; PULSE 102; RESP 14; TEMP 36.8; O2SAT 98
[2023-11-21 16:09] VITALS: BMI 40.4
[2023-11-21 16:19] LABS: Absolute Lymphocyte Count 2.48 X10^3/uL (0.83-4.51); Absolute Neutrophil Count 6.6 X10^3/uL (2.0-7.7); Basophil# 0.03 X10^3/uL; Basophil% 0.3 % (0-1); Eosinophil# 0.08 X10^3/uL; Eosinophils% 0.8 % (0-5); Hematocrit 38.8 % (37-47); Lymphocyte # 2.48 X10^3/ul (0.83-4.51); Lymphocyte % 25.1 % (19-41); Mean Corp Hgb Conc 33.5 g/dL (32-36); Mean Corpuscular Hgb 26.1 pg (27.0-32.0); Mean Corpuscular Volume 77.8 fL (81-99); Mean Platelet Vol. 11.2 fl (6.2-12.0); Monocyte# 0.67 X10^3/uL; Monocyte% 6.8 % (0-10); NRBC Flagged by Analyzer 0 % (0-5); Neutrophil # 6.59 X10^3/uL (2.7-7.7); Neutrophil % 66.5 % (47-70); Platelet Count 266 K/mm3 (150-450); RBC Distribution Width CV 14.5 % (11.6-14.6); RBC Distribution Width SD 40.5 fl (35.1-43.9); Red Blood Count 4.99 M/mm3 (4.2-5.4); White Blood Count 9.9 K/mm3 (4.4-11.0)
[2023-11-21 16:37] LABS: Anion Gap 10 (5-15); BUN 10 mg/dL (7-18); Calcium,Total 9.5 mg/dL (8.5-10.1); Chloride 103 mmol/L (98-107); Creatinine, Serum 0.77 mg/dL (0.55-1.02); EST Glomerular Filtration Rate 82 mL/min (>60); Est Glom Filt Rate - Afr Amer 99 mL/min (>60); Estimated Creatinine Clearance 62.22 ml/min; Glucose 77 mg/dL (74-106); Potassium 2.9 mmol/L (3.5-5.1); Sodium Level 138 mmol/L (136-145)
--- NOTE | 2023-11-21 16:45 | EDS_ITS ---
HPI HPI - Psych History of Present Illness Chief Complaint: Anxiety Narrative Narrative: 8-year-old female presenting for evaluation. She was sent from her physician's office after having assessment by crisis. Patient apparently has worsening anxiety. Has a history of bipolar disorder and depression. In office today she reported that she was fearful and felt like she was unstable with her mood and her overall depression. It was noted that she was repeating herself over and over again. No SI or HI was noted. The patient reported that she felt helpless and wants help. She thinks her medications need to be adjusted. Patient was pink slipped secondary to concerns that she would not be able to care for herself and no support system. Tells me that she woke up in the middle the night with suicidal thoughts but did not feel she would act on them. It is unclear if she reported this to the crisis counselor. She does not states she is suicidal currently and denies any homicidal ideation. PFSH PFS Medical History Asthma Mcclellan's esophagus Bipolar 1 disorder Chest pain COPD (chronic obstructive pulmonary disease) Depression Dermatitis of perianal region Diabetes Excoriation of buttock Fecal incontinence GERD (gastroesophageal reflux disease) Hiatal hernia HTN (hypertension) IBS (irritable bowel syndrome) Iron deficiency anemia due to chronic blood loss Irritable bowel syndrome with diarrhea Migraines Neuropathy Non-smoker Osteoarthritis Overactive bladder Rectal prolapse Sleep apnea Home Medications albuterol sulfate 90 mcg/actuation aerosol inhaler (Ventolin HFA) 1 - 2 puff inhalation Q4H PRN PRN Shortness Of Breath 12/06/16 [History Last Taken Unknown] glimepiride 1 mg tablet 2 mg PO DAILY diabetes 12/06/16 [History Last Taken 07/16/22] hydrochlorothiazide 25 mg tablet 25 mg PO DAILY diuretic 12/06/16 [History Last Taken 07/16/22] quetiapine 400 mg tablet (Seroquel) 200 mg PO QHS bipolar 12/06/16 [History Last Taken Unknown] solifenacin 10 mg tablet (Vesicare) 10 mg PO QHS skin care 12/06/16 [History Last Taken 07/15/22] amlodipine 10 mg tablet 10 mg PO DAILY blood pressure 07/09/17 [History Last Taken 07/16/22] potassium chloride 10 mEq tablet,extended release(part/cryst) 30 meq PO BID supplement 08/02/19 [History Last Taken 07/16/22] cholecalciferol (vitamin D3) 125 mcg (5,000 unit) tablet (Vitamin D3) 125 mcg PO DAILY supplement 04/19/22 [History Last Taken 07/16/22] montelukast 10 mg tablet 10 mg PO DAILY allergies 04/19/22 [History Last Taken 07/16/22] cariprazine 4.5 mg capsule (Vraylar) 3 mg PO DAILY mood 07/16/22 [History Last Taken 07/16/22] ascorbic acid (vitamin C) 500 mg capsule 1,000 mg PO DAILY 02/11/23 [History L ast Taken Unknown] fenofibrate 50 mg capsule 48 mg PO DAILY 03/28/23 [History Last Taken Unknown] melatonin 1 mg tablet 1 mg PO QHS 04/23/23 [History Last Taken Unknown] ondansetron 4 mg disintegrating tablet 4 mg PO Q8H PRN Nausea 04/23/23 [History Last Taken Unknown] prazosin 5 mg capsule 5 mg PO QHS 04/23/23 [History Last Taken Unknown] cephalexin 500 mg capsule 500 mg PO Q12 #14 CAPSULES 08/13/23 [Rx Last Taken Unknown] ibuprofen 600 mg tablet 600 mg PO Q6H PRN PRN pain #20 TABLETS 08/13/23 [Rx Last Taken Unknown] ondansetron 4 mg disintegrating tablet 4 mg PO Q8H PRN PRN Nausea #10 tabs 1 12/07/22 [Rx Last Taken Unknown] ondansetron 4 mg disintegrating tablet 4 mg PO Q8H PRN PRN Nausea #10 tabs 11/19/23 [Rx Last Taken Unknown] potassium chloride 20 mEq tablet,extended release 20 meq PO BID #6 tabs 11/19/23 [Rx Last Taken Unknown] Allergy/AdvReac Type Severity Reaction Status Date / Time latex Allergy Rash Verified 11/21/23 05:24 lithium [[place]] Allergy Anaphylaxis Verified 11/21/23 05:24 acetaminophen AdvReac Vomiting Verified 11/21/23 05:24 [From Tylenol-Codeine] aspirin AdvReac Vomiting Verified 11/21/23 05:24 citalopram [From Celexa] AdvReac makes me Verified 11/21/23 05:24 cry a lot citalopram hydrobromide AdvReac Other Verified 11/21/23 05:24 [From Celexa] codeine AdvReac Vomiting Verified 11/21/23 05:24 divalproex sodium AdvReac Vomiting Verified 11/21/23 05:24 [From Depakote] nortriptyline AdvReac Other Verified 11/21/23 05:24 trazodone AdvReac Other Verified 11/21/23 05:24 Family History Mother Diabetes Father Diabetes Surgical History History of carpal tunnel release History of rectopexy Hx of cholecystectomy Hx of tonsillectomy Social History household members: none Smoking Status: Former smoker alcohol intake: former substance use type: does not use ROS ROS ED Constitutional Constitutional ED: Denies chills, fever(s) or sweats Eyes Eyes: Denies blurry vision or change in vision ENT ENT ED: Denies ear pain or sore throat Cardiovascular Cardiovascular: Denies chest pain, palpitations or racing heartbeat Respiratory/Chest Respiratory/Chest: Denies cough, dyspnea or sputum Gastrointestinal Gastrointestinal: Denies abdominal pain, constipation, diarrhea, nausea or vomiting Genitourinary Genitourinary ED: Denies dysuria, hematuria or urinary frequency Musculoskeletal Musculoskeletal: Denies arthralgias, myalgias or neck pain Integumentary Denies abscess, Abrasions or rash Neurologic Neurologic: Denies headache(s), paresthesias or weakness Psychiatric Psychiatric: Reports anxiety and depression; Denies suicidal thoughts Endocrine Endocrinology: Denies polydipsia or polyuria EXAM Physical Exam Const Vital Signs: 11/21/23 13:55 Temperature 98.2 F Temperature Source Temporal Pulse Rate 102 H Respiratory Rate 14 Blood Pressure 137/88 H Blood Pressure Mean 104 Pulse Ox 98 Oxygen Delivery Method Room Air General Appearance ED: NAD; Negative for pallor HEENT normocephalic and atraumatic Eyes PERRL Resp normal respiratory effort Auscultation: Negative for rales, rhonchi or wheezes Cardio Rate: regular rate Rhythm: regular rhythm GI non-tender Extremity normal to inspection Neuro CN's II-XII intact bilaterally, no sensory deficits noted and deep tendon reflexes 2+ bilaterally Sensorium / Orientation: alert Motor Exam: strength 5/5 throughout Psych mental status grossly normal and thought process normal Appearance: bizarre Attitude: bizarre Activity / Motor Behavior: psychomotor agitation, fidgetting and disorganized Speech: soft Mood & Affect: sad, tearful and fearful Thought Process: disorganized and confused Thought Content: suicidality and No homicidality Attention / Concentration: attention grossly impaired and concentration grossly impaired Insight: poor Judgement: poor Skin General Skin Exam: Negative for jaundice or pallor MDM MDM MDM Narrative Medical decision making narrative: Presenting with recent history of feeling depressed and suicidal. She states he does not want to hurt herself now and does not have a plan. No HI. She was sent to the ER for admission as she had exhibited behavior that was concerning that she would not be able to take care of herself and in need of inpatient care as she does not have a great support structure. Appropriate lab work was ordered for medical clearance. Crisis is here to evaluate her again. They plan on admitting her. [place] slip was filled out. Patient's lab work relatively unremarkable. She did have a low potassium 2.9 which is chronically low. She was given 40 mEq of potassium p.o. Drug screen negative. EtOH negative. [place] slipped was filled out. Patient medically cleared. Patient pending transport to psychiatric facility. Impression: 1. Anxiety 2. SI 3. Hypokalemia Lab Data Attestation: I reviewed the patient's lab results. Labs: Laboratory Results - last 24 hr 11/21/23 11/21/23 16:06 16:40 WBC 9.9 RBC 4.99 Hgb 13.0 Hct 38.8 MCV 77.8 L MCH 26.1 L MCHC 33.5 RDW Std Deviation 40.5 RDW Coeff of [place] 14.5 Plt Count 266 MPV 11.2 Immature Gran % (Auto) 0.500 Neut % (Auto) 66.5 Lymph % (Auto) 25.1 Hall % (Auto) 6.8 Eos % (Auto) 0.8 Baso % (Auto) 0.3 Absolute Neuts (auto) 6.6 Absolute Lymphs (auto) 2.48 Nucleated RBC % 0 Sodium 138 Potassium 2.9 L Chloride 103 Carbon Dioxide 25.0 Anion Gap 10 BUN 10 Creatinine 0.77 Estim Creat Clear Calc 62.22 Est GFR (MDRD) Af Amer 99 Est GFR (MDRD) Non-Af 82 BUN/Creatinine Ratio 13.0 Glucose 77 Calcium 9.5 Urine Opiates Screen NEGATIVE Urine Methadone Screen NEGATIVE Ur Barbiturates Screen NEGATIVE Ur Phencyclidine Scrn NEGATIVE Ur Amphetamines Screen NEGATIVE MDMA (Ecstasy) Screen NEGATIVE U Benzodiazepines Scrn NEGATIVE Urine Cocaine Screen NEGATIVE U Cannabinoids Screen NEGATIVE Ur Drug Screen Comment Ethyl Alcohol 4.0 Discharge Plan Triage Chief Complaint: Anxiety ED Provider: Shaun Gill Dx/Rx/DC Orders Prescriptions: No Action glimepiride 1 MG tablet 2 mg PO DAILY hydrochlorothiazide 25 MG tablet 25 mg PO DAILY solifenacin [Vesicare] 10 MG tablet 10 mg PO QHS quetiapine [Seroquel] 400 MG tablet 200 mg PO QHS albuterol sulfate [Ventolin HFA] 1 INHALER inhaler 1 - 2 puff inhalation Q4H PRN PRN (Reason: Shortness Of Breath) amlodipine 10 MG tablet 10 mg PO DAILY potassium chloride 10 MEQ tablet,ER particles/crystals 30 meq PO BID montelukast 10 mg Tablet 10 mg PO DAILY cholecalciferol (vitamin D3) [Vitamin D3] 125 mcg (5,000 unit) Tablet 125 mcg PO DAILY Vraylar 4.5 mg capsule 3 mg PO DAILY ascorbic acid (vitamin C) 500 mg Capsule 1,000 mg PO DAILY fenofibrate 50 mg Capsule 48 mg PO DAILY prazosin 5 mg Capsule 5 mg PO QHS ondansetron [Zofran ODT] 4 mg Tablet,Disintegrating 4 mg PO Q8H PRN (Reason: Nausea) melatonin 1 mg Tablet 1 mg PO QHS ondansetron 4 mg tablet,disintegrating 4 mg PO Q8H PRN PRN (Reason: Nausea) Qty: 10 0RF potassium chloride 20 mEq tablet extended release 20 meq PO BID Qty: 6 0RF cephalexin [cephalexin] 500 mg capsule 500 mg PO Q12 Qty: 14 0RF ibuprofen 600 mg tablet 600 mg PO Q6H PRN PRN (Reason: pain) Qty: 20 0RF ondansetron [ondansetron] 4 mg tablet,disintegrating 4 mg PO Q8H PRN PRN (Reason: Nausea) Qty: 10 0RF Primary Care Provider: Nick Giraldo Referrals: Nick Giraldo DO [Primary Care Provider] -
[2023-11-21 17:31] LABS: Amphetamine Urine VISTA NEGATIVE (<1000 ng/mL); Barbiturate Urine VISTA NEGATIVE (< 200 ng/mL); Benzodiazepine Urine VISTA NEGATIVE (< 200 ng/mL); Cocaine Urine VISTA NEGATIVE (< 300 ng/mL); Ecstacy Urine VISTA NEGATIVE (< 500 ng/mL); Methadone Urine VISTA NEGATIVE (< 300 ng/mL); PCP Urine VISTA NEGATIVE (< 25 ng/mL); THC Urine VISTA NEGATIVE (< 50 ng/mL); Vista UDS pH Range 5
--- NOTE | 2023-11-21 18:31 | ED.RN ---
[facility] CALLED AND REQUESTED PT CHART, FAXED TO THEM.
[2023-11-21 20:00] VITALS: BP 130/74; PULSE 99; RESP 14; O2SAT 97
--- NOTE | 2023-11-21 21:19 | EKG12_ITS ---
Test Reason : Blood Pressure : / mmHG Vent. Rate : 102 BPM Atrial Rate : 102 BPM P-R Int : 172 ms QRS Dur : 098 ms QT Int : 334 ms P-R-T Axes : 063 051 066 degrees QTc Int : 435 ms Sinus tachycardia Otherwise normal ECG Confirmed by MARY PETERSON, QIAN ([id number]), editor department ROBERT CARBAJAL ([id number]) on 11/22/2023 2:04:37 PM Referred By: DAISHA Confirmed By:QIAN HERNANDEZ MD
[2023-11-21] MEDS: Potassium Chloride Oral Tablet 20 MEQ 40 MEQ PO (21:42)
[2023-11-21] MEDS: MELATONIN 10 MG TABLET PO (23:22)
[2023-11-21] MEDS: QUEtiapine 100 MG Tablet 400 MG PO (23:23)
[2023-11-22 05:00] LABS: Bedside Glucose 107 mg/dL (74-106)
[2023-11-22 07:30] VITALS: BP 138/78; PULSE 109; RESP 18; RESP 20; O2SAT 98; O2SAT 99
== END 2023-11-22 07:39 ==
PROVIDERS: Emergency Provider Student in an Organized Health Care Education/Training Program; PCP Student in an Organized Health Care Education/Training Program; Visit Provider Student in an Organized Health Care Education/Training Program
DX: F41.9 Anxiety disorder, unspecified (principal); J44.9 Chronic obstructive pulmonary disease, unspecified; F31.9 Bipolar disorder, unspecified; E11.40 Type 2 diabetes mellitus with diabetic neuropathy, unspecified; R45.851 Suicidal ideations; I10 Essential (primary) hypertension; E87.6 Hypokalemia; Z79.899 Other long term (current) drug therapy; Z87.891 Personal history of nicotine dependence
CPT/HCPCS: 36415; 80048; 80307; 82077; 82962; 85025; 87811; 93005; 99283

== ENCOUNTER 2023-12-05 09:11 | Emergency (ER) | payer MEDICARE, SELFPAY ==
[2023-12-05 09:14] VITALS: BP 167/114; PULSE 104; RESP 18; TEMP 35.9; O2SAT 98
--- NOTE | 2023-12-05 09:31 | EDS_ITS ---
[facility] History of Present Illness Chief Complaint: Anxiety Detail of Chief Complaint: Anxiety, chest tightness/pressure, and diarrhea Informant: patient Onset/Context/Timing Onset: - (Onset varies and detailed in the HPI narrative) Context: Sudden Onset Timing: Intermittent Quality: Diarrhea varies between water and mushy, tightness/pressure Location: Central chest and abdomen Current Severity: Detailed in the HPI narrative Maximum Severity: Detailed in the HPI narrative Worsened by: Nothing Relieved by: Nothing Associated Symptoms Associated Symptoms: Increased thirst, dry mouth and lightheadedness. Increased urine output Narrative Narrative: Patient is a 58-year-old woman who was recently admitted to [facility] because of depression with suicidal ideation. She states she has had intermittent diarrhea for approximately 10 days. It varies from watery to watery with mushy components to mushy stool. She states it is brown. Is not black or maroon. There is no mucus or gross blood noted. She has not been on antibiotic in the past month. There is no history of Pseudomonas under colitis. She does have history of colitis. She does not know what type. This morning while at rest she developed central chest tightness/pressure that lasted approximately 15 minutes without radiation or associated symptoms. Patient has no known history of coronary disease. Patient states has never had a stress test. She does have risk factors for coronary artery disease i.e. type 2 diabetes, hypertension. She denies fever, chills night sweats. She denies weight gain or weight loss. She denies headache, visual, ocular auditory symptoms. She denies myalgias or arthralgias. She is not aware of anyone that she was around with viral type s ymptoms. Prior similar symptoms: Yes Recent Illness/Hospitalization: Yes (For depression with suicidal ideation) [facility] Medical History Asthma Mcclellan's esophagus Bipolar 1 disorder Chest pain COPD (chronic obstructive pulmonary disease) Depression Dermatitis of perianal region Diabetes Excoriation of buttock Fecal incontinence GERD (gastroesophageal reflux disease) Hiatal hernia HTN (hypertension) IBS (irritable bowel syndrome) Iron deficiency anemia due to chronic blood loss Irritable bowel syndrome with diarrhea Migraines Neuropathy Non-smoker Osteoarthritis Overactive bladder Rectal prolapse Sleep apnea Home Medications albuterol sulfate 90 mcg/actuation aerosol inhaler (Ventolin HFA) 1 - 2 puff inhalation Q4H PRN PRN Shortness Of Breath 12/06/16 [History Last Taken Unknown] glimepiride 1 mg tablet 2 mg PO DAILY diabetes 12/06/16 [History Last Taken 07/16/22] hydrochlorothiazide 25 mg tablet 25 mg PO DAILY diuretic 12/06/16 [History Last Taken 07/16/22] quetiapine 400 mg tablet (Seroquel) 200 mg PO QHS bipolar 12/06/16 [History Last Taken Unknown] solifenacin 10 mg tablet (Vesicare) 10 mg PO QHS skin care 12/06/16 [History Last Taken 07/15/22] amlodipine 10 mg tablet 10 mg PO DAILY blood pressure 07/09/17 [History Last Taken 07/16/22] potassium chloride 10 mEq tablet,extended release(part/cryst) 30 meq PO BID supplement 08/02/19 [History Last Taken 07/16/22] cholecalciferol (vitamin D3) 125 mcg (5,000 unit) tablet (Vitamin D3) 125 mcg PO DAILY supplement 04/19/22 [History Last Taken 07/16/22] montelukast 10 mg tablet 10 mg PO DAILY allergies 04/19/22 [History Last Taken 07/16/22] cariprazine 4.5 mg capsule (Vraylar) 3 mg PO DAILY mood 07/16/22 [History Last Taken 07/16/22] ascorbic acid (vitamin C) 500 mg capsule 1,000 mg PO DAILY 02/11/23 [History Last Taken Unknown] fenofibrate 50 mg capsule 48 mg PO DAILY 03/28/23 [History Last Taken Unknown] melatonin 1 mg tablet 1 mg PO QHS 04/23/23 [History Last Taken Unknown] ondansetron 4 mg disintegrating tablet 4 mg PO Q8H PRN Nausea 04/23/23 [History Last Taken Unknown] prazosin 5 mg capsule 5 mg PO QHS 04/23/23 [History Last Taken Unknown] cephalexin 500 mg capsule 500 mg PO Q12 #14 CAPSULES 08/13/23 [Rx Last Taken Unknown] ibuprofen 600 mg tablet 600 mg PO Q6H PRN PRN pain #20 TABLETS 08/13/23 [Rx Last Taken Unknown] ondansetron 4 mg disintegrating tablet 4 mg PO Q8H PRN PRN Nausea #10 tabs 10/07/23 [Rx Last Taken Unknown] ondansetron 4 mg disintegrating tablet 4 mg PO Q8H PRN PRN Nausea #10 tabs 11/19/23 [Rx Last Taken Unknown] potassium chloride 20 mEq tablet,extended release 20 meq PO BID #6 tabs 11/19/23 [Rx Last Taken Unknown] potassium chloride 40 mEq/15 mL oral liquid 20 meq (7.5 mL) PO DAILY #473 mL 12/05/23 [Rx Last Taken Unknown] Allergy/AdvReac Type Severity Reaction Status Date / Time latex Allergy Rash Verified 12/05/23 09:12 lithium [[place]] Allergy Anaphylaxis Verified 12/05/23 09:12 acetaminophen AdvReac Vomiting Verified 12/05/23 09:12 [From Tylenol-Codeine] aspirin AdvReac Vomiting Verified 12/05/23 09:12 citalopram [From Celexa] AdvReac makes me Verified 12/05/23 09:12 cry a lot citalopram hydrobromide AdvReac Other Verified 12/05/23 09:12 [From Celexa] codeine AdvReac Vomiting Verified 12/05/23 09:12 divalproex sodium AdvReac Vomiting Verified 12/05/23 09:12 [From Depakote] nortriptyline AdvReac Other Verified 12/05/23 09:12 trazodone AdvReac Other Verified 12/05/23 09:12 Family History Mother Diabetes Father Diabetes Surgical History History of carpal tunnel release History of rectopexy Hx of cholecystectomy Hx of tonsillectomy Social History household members: none Smoking Status: Former smoker alcohol intake: former substance use type: does not use ROS ROS ED Constitutional Constitutional ED: Denies chills, fever(s), subjective, sweats or weight loss Eyes Eyes: Denies blurry vision, change in vision or diplopia ENT ENT ED: Reports sore throat and other Details: Patient reports mild sore throat. ; Denies ear pain or rhinorrhea Cardiovascular Cardiovascular: Reports chest pain; Denies orthopnea, palpitations, paroxysmal nocturnal dyspnea or racing heartbeat Respiratory/Chest Respiratory/Chest: Denies cough, dyspnea, dyspnea on exertion, orthopnea or paroxysmal nocturnal dyspnea Gastrointestinal Gastrointestinal: Reports abdominal pain, diarrhea and nausea; Denies constipation, melena or vomiting Genitourinary Genitourinary ED: Reports urinary frequency and other; Denies dysuria or hematuria Musculoskeletal Musculoskeletal: Denies arthralgias, back pain or myalgias Integumentary Denies rash Neurologic Neurologic: Reports weakness; Denies headache(s) or paresthesias Psychiatric Psychiatric: Reports depression; Denies suicidal ideation or suicidal thoughts Endocrine Endocrinology: Reports polydipsia and polyuria Hematologic/Lymphatic Hematologic/Lymphatic: Reports systems reviewed and no addt'l complaints, except as documented Allergic/Immunologic Allergic/Immunologic ED: Denies mouth swelling or tongue swelling EXAM Physical Exam Const Vital Signs: 12/05/23 09:14 12/05/23 09:18 12/05/23 11:12 Temperature 96.6 F L Temperature Source Temporal Pulse Rate 104 H Respiratory Rate 18 18 Respiratory Pattern Normal Blood Pressure 167/114 H Blood Pressure Mean 131 Pulse Ox 98 Oxygen Delivery Method Room Air Positive well nourished, well developed and obese Constitutional Narrative: Patient appears ill. She does not appear toxic. Vital signs are remarkable for heart rate of 104. General Appearance ED: well developed; Negative for pallor Nutritional Appearance: obese HEENT Reports dry mucous membranes HEENT Narrative: Head is atraumatic and normocephalic. Ears normal. Nares patent. There is no discharge. Posterior pharynx is midline. unremarkable. Uvula Mouth ED: Yes dry mucous membranes Mouth: dry mucous membranes Eyes PERRL and EOMs intact bilaterally General Eye ED: Negative for pale conjunctiva or scleral icterus Neck no lymphadenopathy, supple and no JVD Chest Wall inspection of chest normal and palpation of chest normal Resp normal respiratory effort and clear to auscultation bilaterally Cardio regular rate, regular rhythm, S1 normal heart sound, S2 normal heart sound and no murmurs GI non-distended and no masses; Negative for non-tender or hepatosplenomegaly GI Narrative: There is tympany to percussion. There is no guarding or peritoneal findings. Inspection: abdominal distention Auscultation: hypoactive bowel sounds Palpation: soft and tender other (Diffuse); Negative for guarding or rebound tenderness present Back/Spine no CVA tenderness Extremity normal to inspection General Extremety ED: Negative for edema or tenderness General Extremity: Negative for edema Neuro oriented x3, CN's II-XII intact bilaterally and no sensory deficits noted Sensorium / Orientation: alert Psych Mood & Affect: depressed Skin no rashes or lesions noted, no wounds and No skin turgor normal General Skin Exam: Negative for jaundice or pallor MDM MDM MDM Narrative Medical decision making narrative: Clinically patient is dehydrated. 1 L normal saline was ordered and Zofran for her nausea. Because she is has history of hypertension diabetes with chest tightness/pressure will obtain EKG and troponin. BMP was obtained to assess glucose. She states she did check her blood sugar this morning was 157. Also to assess renal function and evaluate for hypokalemia since has had diarrhea for 10 days. Patient states she has no urge to move her bowels. Patient informed Me that she does not feel comfortable going home because she is sick. Patient was informed based on her workup and physical exam she does not meet necessity of need for hospitalization. Since patient had no vomiting in department and no diarrhea plan is to discharge to home. History & Record Review Additional record(s) reviewed:: Prior ED visit ( Patient's records were reviewed.) and Prior labs Lab Data Attestation: I reviewed the patient's lab results. Lab results narrative: CBC reveals microcytic anemia. Basic metabolic panel is remarkable for potassium of 2.8. Will obtain magnesium level and treat with p.o. potassium. Glucose is elevated 146 with normal CO2 anion gap. Urinalysis is unremarkable. There is no ketones noted. Labs: Laboratory Results - last 24 hr 12/05/23 12/05/23 09:40 10:20 WBC 9.1 RBC 4.53 Hgb 11.4 L Hct 35.8 L MCV 79.0 L MCH 25.2 L MCHC 31.8 L RDW Std Deviation 41.4 RDW Coeff of [place] 14.4 Plt Count 228 MPV 11.3 Immature Gran % (Auto) 0.600 Neut % (Auto) 75.6 H Lymph % (Auto) 16.4 L [place] % (Auto) 5.2 Eos % (Auto) 1.5 Baso % (Auto) 0.7 Absolute Neuts (auto) 6.9 Absolute Lymphs (auto) 1.49 Nucleated RBC % 0 Sodium 140 Potassium 2.8 L Chloride 102 Carbon Dioxide 31.0 Anion Gap 7 BUN 13 Creatinine 0.84 Est GFR (MDRD) Af Amer 90 Est GFR (MDRD) Non-Af 74 BUN/Creatinine Ratio 15.6 Glucose 146 H Lactic Acid 1.4 Calcium 9.2 Magnesium 2.0 Urine Color YELLOW Urine Clarity Clear Urine pH 6.5 Ur Specific [place] 1.015 Urine Protein Negative Urine Glucose (UA) Normal Urine Ketones Negative Urine Occult Blood 10 H Urine Nitrite Negative Urine Bilirubin Negative Urine Urobilinogen Normal Ur Leukocyte Esterase 25 H Urine RBC 0 SEEN Urine WBC 5-10 SEEN Ur Squamous Epith Cells 0 SEEN Ur Renal Epithelial Cell 0-5 SEEN Urine Bacteria 0 SEEN Urine Mucus 0 SEEN EKG Initial EKG: Attestation: I personally reviewed and interpreted this EKG as follows: Interpretation: Sinus Rhythm (Rate is 83. MS interval is 166 ms. QRS duration 102 ms. QT durations are 92 ms. [place] is normal. The computer is reading nonspecific changes which is artifact.) Prior: Unchanged Treatment and Re-Evaluation :: Patient was informed of her laboratory results and updated on plan. She feels she needs to be admitted because she is weak. Patient was told her potassium is low. She received p.o. potassium and magnesium level was obtained. Discharge Plan Triage Chief Complaint: Anxiety ED Provider: Mele Merrill Dx/Rx/DC Orders Clinical Impression: Diarrhea, Type II diabetes mellitus, Bipolar disorder, Acute hypokalemia, Microcytic anemia, Acute dehydration Instructions: ED Diarrhea, Unknown Cause, ED Hypokalemia Prescriptions: New potassium chloride 40 mEq/15 mL liquid 20 meq PO DAILY Qty: 473 0RF No Action glimepiride 1 MG tablet 2 mg PO DAILY hydrochlorothiazide 25 MG tablet 25 mg PO DAILY solifenacin [Vesicare] 10 MG tablet 10 mg PO QHS quetiapine [Seroquel] 400 MG tablet 200 mg PO QHS albuterol sulfate [Ventolin HFA] 1 INHALER inhaler 1 - 2 puff inhalation Q4H PRN PRN (Reason: Shortness Of Breath) amlodipine 10 MG tablet 10 mg PO DAILY potassium chloride 10 MEQ tablet,ER particles/crystals 30 meq PO BID montelukast 10 mg Tablet 10 mg PO DAILY cholecalciferol (vitamin D3) [Vitamin D3] 125 mcg (5,000 unit) Tablet 125 mcg PO DAILY Vraylar 4.5 mg capsule 3 mg PO DAILY ascorbic acid (vitamin C) 500 mg Capsule 1,000 mg PO DAILY fenofibrate 50 mg Capsule 48 mg PO DAILY prazosin 5 mg Capsule 5 mg PO QHS ondansetron [Zofran ODT] 4 mg Tablet,Disintegrating 4 mg PO Q8H PRN (Reason: Nausea) melatonin 1 mg Tablet 1 mg PO QHS ondansetron 4 mg tablet,disintegrating 4 mg PO Q8H PRN PRN (Reason: Nausea) Qty: 10 0RF potassium chloride 20 mEq tablet extended release 20 meq PO BID Qty: 6 0RF cephalexin [cephalexin] 500 mg capsule 500 mg PO Q12 Qty: 14 0RF ibuprofen 600 mg tablet 600 mg PO Q6H PRN PRN (Reason: pain) Qty: 20 0RF ondansetron [ondansetron] 4 mg tablet,disintegrating 4 mg PO Q8H PRN PRN (Reason: Nausea) Qty: 10 0RF Primary Care Provider: Nick Giraldo Referrals: Nick Giraldo, [Primary Care Provider] - 3-5 Days if not improving Activity Restrictions/Additional Instructions: Call Dr. Giraldo's office for blood test to check potassium level in 5 to 7 days. Disposition Disposition: Home, Self Care
[2023-12-05] MEDS: Ondansetron 4 MG/2 ML Vial IV (09:41)
[2023-12-05] MEDS: 0.9% Normal Saline (1000mL) 1,000 ML 1000 ML IV (09:41)
[2023-12-05 09:56] LABS: Absolute Lymphocyte Count 1.49 X10^3/uL (0.83-4.51); Absolute Neutrophil Count 6.9 X10^3/uL (2.0-7.7); Basophil# 0.06 X10^3/uL; Basophil% 0.7 % (0-1); Eosinophil# 0.14 X10^3/uL; Eosinophils% 1.5 % (0-5); Hematocrit 35.8 % (37-47); Hemoglobin 11.4 g/dL (12.0-15.0); Lymphocyte # 1.49 X10^3/ul (0.83-4.51); Lymphocyte % 16.4 % (19-41); Mean Corp Hgb Conc 31.8 g/dL (32-36); Mean Corpuscular Hgb 25.2 pg (27.0-32.0); Mean Platelet Vol. 11.3 fl (6.2-12.0); Monocyte# 0.47 X10^3/uL; Monocyte% 5.2 % (0-10); NRBC Flagged by Analyzer 0 % (0-5); Neutrophil # 6.87 X10^3/uL (2.7-7.7); Neutrophil % 75.6 % (47-70); Platelet Count 228 K/mm3 (150-450); RBC Distribution Width CV 14.4 % (11.6-14.6); RBC Distribution Width SD 41.4 fl (35.1-43.9); Red Blood Count 4.53 M/mm3 (4.2-5.4); White Blood Count 9.1 K/mm3 (4.4-11.0)
[2023-12-05 10:02] LABS: Anion Gap 7 (5-15); BUN 13 mg/dL (7-18); BUN/Creat Ratio 15.6 RATIO (10-20); Calcium,Total 9.2 mg/dL (8.5-10.1); Chloride 102 mmol/L (98-107); Creatinine, Serum 0.84 mg/dL (0.55-1.02); EST Glomerular Filtration Rate 74 mL/min (>60); Est Glom Filt Rate - Afr Amer 90 mL/min (>60); Glucose 146 mg/dL (74-106); Potassium 2.8 mmol/L (3.5-5.1); Sodium Level 140 mmol/L (136-145)
[2023-12-05 10:13] LABS: Lactic Acid 1.4 mmol/L (0.4-1.9)
[2023-12-05 10:27] LABS: Bacteria 0 SEEN /hpf (None Seen); Mucous, Urine 0 SEEN /hpf (<or=2+); Red Blood Cells-Urine 0 SEEN /hpf (0-5); Squamous Epithelial Cells - UA 0 SEEN /hpf (5-10)
[2023-12-05 10:40] LABS: Glucose, Dipstick Normal (Normal); Ketone-Dipstick Negative (Negative); Leukocyte Esterase-Dipstick 25 /ul (Negative); Nitrite-Dipstick Negative (Negative); Occult Blood-Urine 10 /ul (Negative); Protein-Dipstick Negative (Negative); Specific Gravity, Urine 1.015 (1.002-1.030); Urine Bilirubin Dipstick Negative (Negative); Urine Urobilinogen Normal (Normal); Urine pH 6.5 (5.0 - 8.0)
[2023-12-05 10:47] LABS: Color, Urine YELLOW (Yellow); Urine Clarity Clear (Clear)
[2023-12-05 10:58] LABS: Renal Epithelial Cells 0-5 SEEN /hpf (0-5); White Blood Cells 5-10 SEEN /hpf (0-5)
[2023-12-05 11:12] VITALS: RESP 18
[2023-12-05 13:00] VITALS: RESP 18
--- NOTE | 2023-12-05 13:00 | CM.ED ---
Addendum entered by Courtney Marcum 12/06/23 15:34: Social Work SW received return call from Nicholas Merritt, mental health correctional casework specialist. Nicholas has had ongoing contact with patient. Nicholas reports he was at residence 12/04/2023 for approx. 3 hours with patient. Pt did not want to be alone. Pt was calling EMS then as well. Nicholas has been exploring halfway placement and has concerns with whether she is taking medications appropriate. Case will be discussed with psychiatric provider as well. SW provided direction home correctional casework specialistcad manager to Nicholas who intends to speak with her and collaborate to find solution for patient. Pt seems to be increasingly more unable to care for self alone due to mental health. Courtney Marcum SUPERVISOR AIRPLANE FLIGHT ATTENDANT, DOCTOR OF NURSING PRACTICE Original Note: Social Work SW consulted due to patient's refusal to leave at discharge. Pt was released yesterday from [facility] for psychiatric placement. Patient has significant mental health history. SW introduced self and role to patient. Pt is reported she is not safe at home, she is sick, and needs someone to take care of her. Pt speaks at length about various incidents throughout her life, at psych placement, and in her home. Pt has flight of ideas, depressed mood, and difficulty understanding/answering questions; however, this is patient's baseline. Pt typically has AVH, anxiety, depression and general fearfulness. Pt refused 11/26 to leave physicians office and office called crisis who could not get patient to leave. Pt was pink slipped and sent to [facility]. Pt discharged home but then did not want to be home alone. Pt called crisis multiple times since discharge. Pt called EMS. Pt has been medically evaluated and determined to not need medical placement. Pt denies SI/HI. Pt reports, I need someone to take care of me. I have dirty laundry. I had to throw away food. I can't go home. I am not safe to be alone, I don't want to be alone. I need someone at my apartment to care for me. SW explained to patient that there is no medical reason for her to be admitted and that she is able to care for herself physically. Pt insists she can't be at home without help. SW discussed called her case management associate and working on possible assistance or AL/halfway placement. SW explained patient needs to go home and care for her needs with the assistance of her family (brother helps and was to return patient's pet bird today) while her case management associate work on a skilled nursing solution. Pt still not agreeable and refusing to leave. Patient wants food, SW brought a snack. Pt would like to be admitted so she can have someone to take care of me. SW called patient's direction rn home care, Stephani Martinez and [facility] correctional casework specialist Nicholas Merritt. SW left voicemails. Stephani Martinez reports she will be coming to the hospital and will come to see patient in the ED. SW reviewed situation with correctional casework specialist and correctional casework specialist had been unaware of recent psychiatric placement. administration manager came to the ED and spoke with patient at length regarding planning for future assistance/long-term. Stephani is working on possible placement options and home assistance. Pt was resistant to leave with correctional casework specialist as well. Pt's brother called and pt/correctional casework specialist spoke with him regarding his assistance with her care. Pt eventually decided to leave at much prompting. While exiting the ED patient told this SW that I think I am suicidal now. SW spoke to patient about returning to psychiatric facility if she is suicidal. Pt does not wish to return to the psychiatric facility and decided she was not suicidal. Pt exited facility. Courtney Marcum SUPERVISOR AIRPLANE FLIGHT ATTENDANT, DOCTOR OF NURSING PRACTICE
[2023-12-05] MEDS: Potassium Chloride Oral Soln 20 MEQ/15 ML UDC 40 MEQ PO (13:05)
[2023-12-05 15:00] VITALS: RESP 18
--- NOTE | 2023-12-05 15:32 | ED.RN ---
this rn has explained to pt multiple times that she does not meet criteria for admission. pt was told my MD, POOL TABLE MECHANIC, pts personal spring encaser and nursing staff that she will not be admitted. she is refusing to leave ED. officer radha notifed
== END 2023-12-05 16:04 | disposition home or self-care (01) ==
PROVIDERS: Emergency Provider Emergency Medicine; PCP Student in an Organized Health Care Education/Training Program; Visit Provider Emergency Medicine
DX: R19.7 Diarrhea, unspecified (principal); F31.30 Bipolar disorder, current episode depressed, mild or moderate severity, unspecified; E11.40 Type 2 diabetes mellitus with diabetic neuropathy, unspecified; E86.0 Dehydration; E87.6 Hypokalemia; F41.9 Anxiety disorder, unspecified; I10 Essential (primary) hypertension; D50.9 Iron deficiency anemia, unspecified; Z79.84 Long term (current) use of oral hypoglycemic drugs; Z79.899 Other long term (current) drug therapy; Z87.891 Personal history of nicotine dependence
CPT/HCPCS: 80048; 81001; 83605; 83735; 85025; 87086; 87088; 93005; 99285; J7030; A4216; J2405